=== PATIENT | female | born 1935 | race Caucasian/White ===

== ENCOUNTER → 2024-02-19 11:27 | Outpatient (REF) | payer OTHER, SELFPAY | LOC: HWRAD 11:27 | PROVIDERS: ATTENDING PHYSICIAN Physician Assistant Medical | DX: R05.1 Acute cough (principal) | CPT/HCPCS: 71046 ==

== ENCOUNTER → 2024-04-17 10:07 | Outpatient (REF) | payer OTHER, SELFPAY | LOC: HWRAD 10:07 | PROVIDERS: ATTENDING PHYSICIAN Internal Medicine Cardiovascular Disease; FAMILY PHYSICIAN Family Medicine | DX: I48.0 Paroxysmal atrial fibrillation (principal); Z79.899 Other long term (current) drug therapy | CPT/HCPCS: 71046 ==

== ENCOUNTER → 2024-05-27 09:18 | Outpatient (REF) | payer OTHER, SELFPAY | LOC: HWRCS 09:18 | PROVIDERS: ATTENDING PHYSICIAN Internal Medicine Cardiovascular Disease; FAMILY PHYSICIAN Family Medicine | DX: I35.0 Nonrheumatic aortic (valve) stenosis (principal); I35.1 Nonrheumatic aortic (valve) insufficiency; I10 Essential (primary) hypertension | CPT/HCPCS: 93306 ==

== ENCOUNTER → 2024-10-22 09:14 | Outpatient (REF) | payer OTHER, SELFPAY | LOC: HWRAD 09:14 | PROVIDERS: ATTENDING PHYSICIAN Internal Medicine Cardiovascular Disease; FAMILY PHYSICIAN Family Medicine | DX: Z79.899 Other long term (current) drug therapy (principal) | CPT/HCPCS: 71046 ==

== ENCOUNTER 2025-07-23 18:48 | Inpatient (IN) | payer OTHER, SELFPAY ==
[2025-07-23] VITALS (41 sets, daily range): BP systolic 101–172; BP diastolic 24–122; BMI 23.9
--- NOTE | 2025-07-23 14:55 | ED.GENMED ---
History of Present Illness
General
Chief Complaint: Heart Rate Problem
Time Seen by Provider: 07/23/25 14:30
History of Present Illness
History of Present Illness:
89-year-old female history of CHF, hypertension, atrial fibrillation on amiodarone and Eliquis presenting with generalized fatigue and feeling 'like my heart is flip-flopping' for the past few days. Patient denies chest pain, shortness of breath,
cough, fever or chills. Patient states she has been taking all medications as prescribed, last took amiodarone this morning. No recent medication changes.
Past History
Past History
ED Past Medical History: Arrthythmia (Atrial fibrillation), CAD, CHF, Hypercholesterolemia and Hypothyroidism
ED Past Surgical History: Cardiac (Ablation), Gynecological, Orthopedic, Tonsilectomy and Other (Review past surgical history and agree)
Social History
Tobacco: Former smoker
Personal:
Living: with family
Employment: Retired
Phy Exam
Physical Exam
Physical Exam:
General: Alert, no acute distress
Head: NCAT
Eyes: clear conjunctiva
Neck: supple
Cardiac: Bradycardic
Lungs: clear to auscultation bilaterally. No wheezes, rales, or rhonchi. Speaking full unlabored sentences. No respiratory distress.
Abdomen: soft, nondistended nontender. No rebound or guarding.
MSK: no lower extremity edema bilaterally. No deformity
Skin: warm, dry
Neuro: Alert and oriented x3. no focal deficits
Course
Orders/Labs/Results
Orders:
Orders
07/23/25 14:17
EKG [Electrocardiogram (*1)] Urgent
Reason for Study: Atrial Fibrillation
EKG- Treatment ONCE
07/23/25 14:30
Cardiac Monitoring- Treatment ONCE
IV Insert/Care/Rem.- Treatment PRN
07/23/25 14:42
Complete Blood Count/With Diff Urgent
Comprehensive Metabolic Panel Urgent
Lyme Progressive Urgent
Comment: ADD ON
TSH Urgent
07/23/25 14:51
Magnesium Urgent
07/23/25 14:52
Protime/PTT Urgent
07/23/25 15:20
NT-proBNP Urgent
Comment: ADD ON
Troponin I Urgent
07/23/25 15:51
Echo 2D MMode Color/Doppler Urgent
Reason for Study: heart block, LBBB, CAD
Cardiology Consult: Sandro Norton
07/23/25 16:17
Add On- LAB Urgent
Tests Added?: pro-BNP
CR Chest Portable - 1 View Urgent
Comment:
Reason For Exam: CHF
Reason Study Needs to be Portable: Patient Unstable
07/23/25 16:54
Add On- LAB Stat
Tests Added?: TSH, lyme titer
07/23/25 18:09
Admit/Transfer Patient As Directed
Co-Sign Provider:
Level of Care: Inpatient admission
Assign to:: IVU
Physician / Group: Hospitalist
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
Patient Condition: Fair
Reason for Hospitalization: 2nd degree heart block type II
Expected length of stay greater than two midnights?: Yes
ELOS- Estimated Length of Stay in days: 3
I certify the patient meets the requirements for IP care: Yes
07/23/25 18:10
PRN Pain Medication Management As Directed
May give lesser potent ordered pain med per pt: Yes
preference::
Protocol:: Medication orders for pain may be administered in a
manner that supports deferring to patient preference
when the pt is:
- Requesting an ordered lesser potent pain medication.
Least to most potent pain medications are defined
as: acetaminophen < NSAID < tramadol < opioids
(morphine, oxycodone, hydromorphone).
- Requesting a lesser dose of the same medication IF
ORDERED.
- Requesting a less intrusive route of administration
if both routes are prescribed by the provider (PO <
IV).
07/23/25 18:13
Code Status As Directed
Resuscitation Status: Full Code
Abnormal Lab Results
07/23/25 07/23/25 07/23/25
14:42 14:51 14:52
RBC 3.50 L 10^6/uL
(4.20-5.40)
Hgb 10.9 L g/dL
(12.0-16.0)
Hct 32.1 L %
(37.0-47.0)
MCH 31.1 H pg
(27.0-31.0)
RDW 16.2 H %
(11.5-14.5)
MPV 11.6 H fL
(7.4-10.4)
Abs Immat Gran (auto) 0.1 H 10^3/uL
(0-0.05)
Absolute Lymphs (auto) 0.7 L 10^3/uL
(1.2-3.4)
Absolute Monos (auto) 1.2 H 10^3/uL
(0.1-0.6)
Immature Gran % 0.7 H %
(0-0.5)
Lymphocytes % 10.0 L %
(20.5-51.1)
Monocytes % 17.2 H %
(1.7-9.3)
PT 37.7 H Sec
(11.4-14.6)
APTT 56.6 H Sec
(23.4-35.0)
Sodium 128 L mmol/L
(135-145)
BUN 46 H mg/dl
(7-17)
Creatinine 1.8 H mg/dL
(0.6-1.0)
Glucose 122 H mg/dl
(70-99)
Magnesium 2.4 H mg/dl
(1.6-2.3)
Total Bilirubin 1.6 H mg/dl
(0.2-1.3)
AST 95 H U/L
(14-36)
ALT 96 H U/L
(0-35)
Troponin I
07/23/25
15:20
RBC
Hgb
Hct
MCH
RDW
MPV
Abs Immat Gran (auto)
Absolute Lymphs (auto)
Absolute Monos (auto)
Immature Gran %
Lymphocytes %
Monocytes %
PT
APTT
Sodium
BUN
Creatinine
Glucose
Magnesium
Total Bilirubin
AST
ALT
Troponin I 0.059 H* ng/ml
07/23/25 14:42
07/23/25 14:42
Vital Signs
Initial and Last Documented VS:
Initial Vital Signs
Temp Pulse Resp Pulse Ox
98.3 F 66 16 98
07/23/25 14:18 07/23/25 14:18 07/23/25 14:18 07/23/25 14:18
Last Documented Vital Signs
Temp Pulse Resp BP Pulse Ox
98.3 F 28 18 133/107 86
07/23/25 14:18 07/23/25 19:50 07/23/25 18:00 07/23/25 19:50 07/23/25 19:50
MDM/Problems Addressed
MDM/Problems Addressed:
Initial EKG shows second degree heart block type ii at 53bpm with, PVC. air sampling and monitoring shows episodes of persistent second degree type II heart block at 33bpm. BP 165/40, mentating well. Sent labs, placed pacer pads, discussed with cardiology
Patient seen and evaluated by Tory and Dr. Arauz, cardiology, at bedside. Will get STAT echo, plan for cardiac catheterization tomorrow with pacemaker placement Monday. Discussed with hospitalist for admission.
Labs reviewed, concerning for elevated troponin at 0.059. Creatinine elevated at 1.8 (baseline 0.6, consistent with BECKA)
*Pulse Oximetry
SaO2: 98
Oxygen Mode of Delivery: Room air
Patient hypoxic: no
*EKG
Interpreted by ED Provider?: Yes (EKG shows 2nd degree type II heart block at 53bpm with QTc 495 no stemi)
*Critical Care Note
Total Time (30-74mins, 75-104mins- exclusive of procedures): critical care time 32 min
Update Note
Update Note:
On reevaluation, HR decreased to 20s, patient reporting chest pain and BP nondetectable. Pt still mentating, responsive answering questions appropriately. Repeat EKG concerning for third degree heart block at 25bpm, no STEMI. Gave atropine 1mg IV
with no improvement. Started on dopamine infusion with improvement of blood pressure. Discussed with Dr. Javier, interventional cardiology, who evaluated patient at bedside, recommended norepi infusion, will take patient to blender laborer for temporary
pacer. If BP decreases or patient not mentating, will start transcutaneous pacing. Discussed with patient and at bedside who are agreeable.
ED Attending Note
-
Portions of this chart may have been created with voice recognition software.� Occasional wrong word or��sound alike� substitutions may have occurred due to the inherent limitations of voice recognition software.
Discharge Plan
Departure
Patient Disposition: Admit
Date of Disposition: 07/23/25
Time of Disposition: 16:48
Presentation/result/management discussed w/ accepting MD/DO: Hospitalist
Discharge Problem:
Bradycardia
Interventions
Interventions:
*Risk Screen - Suicide Last Done: 07/23/25 14:19
*General Assessment Last Done: 07/23/25 18:25
*Neglect/Abuse Screening Last Done: 07/23/25 19:08
*ED- Fall Risk Assessment Last Done: 07/23/25 15:42
*ED COVID-19 Vaccine History Last Done: 07/23/25 18:25
ED- Cardiac Assessment Last Done: 07/23/25 16:00
ED- Pulmonary Assessment Last Done: 07/23/25 16:00
[2025-07-23 14:56] LABS: Hematocrit 32.1 % (37.0-47.0); Hemoglobin 10.9 g/dL (12.0-16.0); Mean Corp Hgb Conc. 34.0 g/dL (33.0-37.0); Mean Corpuscular Volume 91.7 fL (81.0-99.0); Nucleated Red Blood Cells % 0 %; Platelet Count 240 10^3/uL (130-400); Red Cell Dist. Width 16.2 % (11.5-14.5)
[2025-07-23 15:11] LABS: INR 3.81; PT 37.7 Sec (11.4-14.6)
[2025-07-23 15:12] LABS: APTT 56.6 Sec (23.4-35.0)
[2025-07-23 15:19] LABS: ALT (SGPT) 96 U/L (0-35); AST (SGOT) 95 U/L (14-36); Albumin 3.9 g/dl (3.5-5.0); Alkaline Phosphatase 101 U/L (38-126); Blood Urea Nitrogen 46 mg/dl (7-17); Calcium 8.5 mg/dl (8.4-10.2); Carbon Dioxide 24 mmol/L (22-30); Chloride 98 mmol/L (98-107); Estimated Creatinine Clearance 19 ml/min; Glucose 122 mg/dl (70-99); Potassium 4.7 mmol/L (3.5-5.1); Sodium 128 mmol/L (135-145); Total Protein 6.6 g/dl (6.3-8.2); eGFR 26.77
[2025-07-23 15:30] LABS: Magnesium 2.4 mg/dl (1.6-2.3)
--- NOTE | 2025-07-23 15:33 | CON.CAR ---
Addendum entered and electronically signed by Stevie Norton DO 07/23/25 16:54:
I saw and examined the patient.
The High School Math Teacher's note was reviewed and I agree with the note.
Comment:
Patient presenting with 3 to 4-week symptoms including decreased appetite, weakness, vague chest/back discomfort, increasing fatigue, abdominal distention, productive cough, mild lower extremity swelling. She notes symptoms have worsened over the
past several days. Patient reports a fall roughly 10 days ago. In the emergency department, no active chest discomfort but still noted shortness of breath, fatigue, abdominal distention, cough, lower extremity swelling. EKG in the emergency
department demonstrates sinus bradycardia with 2-1 AV block PVCs and a new left bundle branch block. Patient's prior EKG noted by office visit March 2025 shows sinus rhythm with incomplete right bundle branch block with LAFB. Patient chronically on
amiodarone for paroxysmal atrial fibrillation. Patient had this medication this morning along with oral anticoagulation. Initial troponin elevated at 0.059. Sodium is low at 128 BUN/creatinine 46/1.8. Patient blood pressure stable/hypertensive.
Telemetry shows sinus bradycardia with 2: 1 AV block with left bundle branch block.
A/P as below
Echocardiography today with patient be n.p.o. after midnight pending left heart catheterization in a.m. in the setting of new left bundle branch block, elevated troponin, and vague discomfort. If no evidence of new obstructive coronary disease,
will recommend implantation of CIED (choice and type pending LVEF). For now, hold AV kahlil blocking agents and amiodarone. Pacer pads on patient with ZOLL device at bedside. Patient is hemodynamically stable at this current time.
Monitor intake and output, weight, assess fluid status via chest x-ray and BNP. As above, she is experiencing increasing shortness of breath, cough and swelling
Further recommendations to follow test
Addendum entered and electronically signed by Tory White PA-C 07/23/25 16:31:
Check pro-BNP and CXR, ordered by me. Patient with increased SOB. Patient reports compliance with her usual dose of Lasix 20 mg PO daily.
Original Note:
Consultation
Consultation Request
Date/Time Consultation Requested: 07/23/2025
Date/Time Consultation Performed: 07/23/2025
Requesting Provider: Dr. Lunsford in the ER
Performing Provider: Dr. Norton
Reason for Consultation: 2:1 AV block, new LBBB
Medical History
-
History of Present Illness:
Patient came to the hospital today for acute on chronic weakness and is being admitted with 2-1 AV block and cardiology is consulted. Patient and report that she has felt intermittently unwell for the last 3 to 4 weeks. They describe that
at times she is almost bedridden with fatigue and weakness and had a fall about 10 days ago. Then other times she has more energy and is able to eat and drink close to normal, but for the most part has not left her house in the last 3 to 4 weeks.
Patient seemed to be feeling better for the last 2 days and thought she may have turned a corner, and then today she stood up and suddenly felt profoundly weak, but no loss of consciousness and so her brought her to the emergency room. ECG
looks like 2-1 AV block and new LBBB. Patient has a history of paroxysmal A-fib and is chronically on amiodarone 200 mg daily. Patient took her usual dose of amiodarone plus Eliquis this morning.
PMH:
Paroxysmal
Chronic Eliquis OAC
CAD s/p prox LAD PCI 2014
widely patent LAD stent by cath 03/29/22
Hypothyroidism
Moderate MS and trace MR by echo 05/27/24
Mild AR/
History of Follicular lymphoma
Rituxan infusion
Past Medical History
Past Medical History: Other (In HPI)
Past Surgical History: Cardiac (LAD PCI 2014, widely patent by cardiac cath 2021)
Social History
Tobacco: Former Smoker
Alcohol: None
Drug: None
Personal:
Living: With Family
Family History
Family History: CAD, Cancer, Hypertension and Other (PE)
Allergies / Home Medications
Allergy/AdvReac Type Severity Reaction Status Date / Time
tramadol AdvReac Mild Unknown Verified 03/09/23 06:32
�Medication �Instructions �Recorded �Confirmed �Type
atorvastatin 20 mg tablet 20 mg PO QPM High cholesterol 04/20/15 06/20/23 History
levothyroxine 50 mcg tablet 50 mcg PO DAILY AT 0700 Thyroid 04/20/15 06/20/23 History
doxazosin 1 mg tablet 1 mg PO HS Blood pressure 03/18/22 06/20/23 History
metoprolol succinate 50 mg 50 mg PO HS Blood pressure 03/07/23 06/20/23 History
tablet,extended release 24 hr
(Toprol XL)
apixaban 5 mg tablet (Eliquis) 5 mg PO BID #60 tabs 03/09/23 06/20/23 Rx
amiodarone 200 mg tablet 200 mg PO BID 06/20/23 06/20/23 History
furosemide 20 mg tablet 20 mg PO DAILY 06/20/23 06/20/23 History
valsartan 40 mg tablet 40 mg PO DAILY 06/20/23 06/20/23 History
albuterol sulfate 90 mcg/actuation 1 puff inhalation Q4HPRN PRN 10/06/23 Rx
aerosol inhaler (ProAir HFA) cough/shortness of breath #8.5
grams
Review of Systems
-
History Source: Patient and Family ( sitting bedside and helping with HPI)
All other systems: Negative unless noted
Physical Exam
Vital Signs
Temp Pulse Resp BP Pulse Ox
98.3 F 66 16 147/71 98
07/23/25 14:18 07/23/25 14:18 07/23/25 14:18 07/23/25 14:19 07/23/25 14:59
GEN: NAD. AAO x3
HEENT: EOMI, MMM
LUNGS: RA. CTA B/L, no wheeze
CV: 2:1 AV block on tele. Reg, S1/S2, 2/6 BSM
ABD: ND
EXT: No edema B/L LE
NEURO: Gross non-focal
SKIN: No rash
Lab Results
07/23/25 14:42
07/23/25 14:42
Impression / Plan
-
PCP: Dr. Morales
Cardiology: Dr. MAGDA Cabrera
Impression:
Admitted with new 2:1 AV block, LBBB and BECKA 07/23/25
2:1 AV block and LBBB
BECKA
Elevated Troponin
Paroxysmal Afib with RVR
Chronic Eliquis OAC
CAD s/p prox LAD PCI 2014
widely patent LAD stent by cath 03/29/22
Hypothyroidism
Moderate MS and trace MR by echo 05/27/24
Mild AR/
History of Follicular lymphoma
Rituxan infusion
Lexiscan mibi 03/04/19: Completed 4:10 min Chandan protocol reaching 87% MPHR, normal perfusion imaging
Echo 05/2021: EF 60-65%, severe LA enlargement, mild MS (20/8) mild (21/11) ANGELINA 1.7cm2
Echo 03/28/22: EF 68%, stage II diastolic dysfunction, mild to mod MS peak/mean 15/8 mmHg and pressure halftime 1.7 cm sq, mild MR, mild with peak/mean 26/14 mmHg and ANGELINA 2.0 cm sq
Echo 05/27/2024: EF 55 to 60%, normal RV size and function, moderate MS with mean transmitral gradient 8 mmHg, trace MR, mild peak/mean 29/16 mmHg and ANGELINA 1.5 cm sq
Plan:
-Patient came to the hospital today for acute on chronic weakness and is being admitted with 2-1 AV block and cardiology is consulted. Patient and report that she has felt intermittently unwell for the last 3 to 4 weeks. They describe that
at times she is almost bedridden with fatigue and weakness and had a fall about 10 days ago. Then other times she has more energy and is able to eat and drink close to normal, but for the most part has not left her house in the last 3 to 4 weeks.
Patient seemed to be feeling better for the last 2 days and thought she may have turned a corner, and then today she stood up and suddenly felt profoundly weak, but no loss of consciousness and so her brought her to the emergency room. ECG
looks like 2-1 AV block and new LBBB. Patient has a history of paroxysmal A-fib and is chronically on amiodarone 200 mg daily. Patient took her usual dose of amiodarone plus Eliquis this morning.
-ECG reviewed by me and appears to show 2-1 AV block with new LBBB.
-Patient has new rhythm changes on ECG including LBBB and 221 AV block, this EKG is markedly different from the one that she had at time of office visit 03/25/2025. Patient denies any recent chest pain. Initial troponin is elevated at 0.059.
Talked with patient and about ischemic evaluation and they are agreeable to cardiac cath.
-Eliquis dose should be held starting 07/23/2025 PM.
-Start aspirin with 324 mg PO x 1 now and then 81 mg daily, ordered by me.
-Patient denies any chest pain
-Check echo, ordered by me and coordinated with echo lab staff that they should be able to do patient's echo by the end of the day.
-Trend troponin
-Pending results of cardiac cath patient may also require PPM placement. Patient and would like aggressive care and would want to proceed with PPM if indicated.
-For now would recommend holding amiodarone
-Patient with BECKA and Cre is 1.8. Follow BMP, this could be due to rhythm changes
[2025-07-23 15:49] LABS: TSH 4.60 uIU/ml (0.47-4.68)
[2025-07-23 15:55] LABS: Troponin I 0.059 ng/ml
--- NOTE | 2025-07-23 17:42 | HPS.HSE ---
Addendum entered and electronically signed by Lanre Jose MD 07/24/25 12:55:
Bradycardia with second-degree heart block
Precipitating dizziness
Keep atropine at bedside
Keep pacer pads on
Hold AV kahlil blocking agents
Monitor on telemetry
2D echocardiogram
LHC tomorrow
Eventually will need PPM
If becomes unstable provide atropine consider dopamine and may require TV pacing versus TC pacing
Original Note:
Family Physician
-
Family Physician: Glen Morales
Chief Complaint
-
Intermittent dizzy spells, weakness in legs with standing
History of Present Illness
Patient is an 89-year-old female with a history of CHF, hypertension, A-fib (on eliquis & amiodarone), CAD s/p stent who p/w complaints of feeling intermittently dizzy/lightheaded and with bilateral LE weakness leading to fall a few days ago at
home.
Pt denies any chest pain or shortness of breath. Denies any recent illness or fever/chills at home. Denies any missed doses of home meds or recent med changes. On amiodarone, eliquis, lasix, valsartan, & atorvastatin. Notes that she did recently
skip a dose of lasix intentionally because she was going out of the house (okayed by department assistant Dr. Cabrera). States that she does have a chronic cough at baseline the last 1-2 yrs with light white sputum; says it seemed to be a bit worse
the last week or so. Had a fall at home last week in s/o her LE weakness & lightheadedness episodes. Denies hitting head. Took her am meds today but not pm meds. Former smoker, not currently. at bedside. Was feeling this intermittent
weakness/dizziness for last 3-4 weeks, thought it had improved, today had particularly bad episode that brought her into the ED.
EKG in ED demonstrated 2nd degree AV block, type II, along with new LBBB (different from last EKG 03/25/2025). HR 53bpm with PVC. organic preparation analyst in ED demonstrated dips to 33bpm. BP elevated to 165/40. Troponin elevated to 0.059. Na low at 128.
BUN/Cr ratio 46/1.8. Cardiology consulted in ED, performed echo. CXR in ED. Given 324mg aspirin in ED. Admitting to IVU.
Echo (07/23):
1. Left ventricular ejection fraction is normal with an ejection fraction of 65 % by Sifuentes's biplane method of discs.
2. Normal left ventricular size, wall thickness and systolic function. No regional wall motion abnormalities are seen.
3. Calcified, trileaflet aortic valve with decreased leaflet excursion. Moderate aortic stenosis. Peak and mean gradients of 48 and 25 nmmHg, respectively. Estimated ANGELINA is 1.4 cm2, using an left ventricular outflow tract of 1.8 cm.
4. Tricuspid aortic valve opens normally with mild tricuspid regurgitation. Estimated PASP is 70 mmHg. assuming a right atrial pressure of 8 mmHg.
5. Calcified mitral valve leaflets with dense mitral annular calcification and decreased leaflet excursion. Moderate mitral stenosis. Peak and mean gradients of 25 and 13 mmHg, respectively. Mild mitral regurgitation.
6. Indexed left atrial volume is severely abnormal (>48 ml/m2).
CXR (07/23):
Overall low lung volumes.
Slightly increased pulmonary vascularity which could represent mild CHF.
Medical History
Past Medical History
Past Medical History: Reports Arrhythmia (paroxysmal afib ), CAD (Status post stent in 2014), Cancer (Follicular cancer), CHF, Hypercholesterolemia and Hypothyroidism
Past Surgical History: Reports Cardiac (Stent, ablation), Gynocological, Orthopedic and Tonsilectomy
Social History
Tobacco: Former Smoker
Personal:
Living: With Family (Lives at home with )
Family History
Family History: Not pertinent
Allergies / Home Medications
Allergies reflects when Allergies were last updated in [facility].
Home Medications with original date entered in [facility]
Allergy/Medication List:
Tramadol
Review of Systems
-
History Source: Patient and Family
Constitutional: Reports See HPI
Respiratory: Reports See HPI
Cardiac: Reports See HPI
Musculoskeletal: Reports See HPI
Skin: Reports See HPI
Neurological: Reports See HPI
Psych: Reports Calm
Physical Exam
Vital Signs
Vital Signs
Temp Pulse Resp BP Pulse Ox
98.3 F 43 12 162/50 97
07/23/25 14:18 07/23/25 17:30 07/23/25 17:15 07/23/25 17:15 07/23/25 17:30
Physical Exam
General: Well Developed, Well Nourished, Comfortable and Conversant
Respiratory: Clear (Clear to auscultation bilaterally), Non Labored Respirations and Other (O2 nasal cannula in place)
Cardiac: Irregular Rhythm and Bradycardia
GI: Soft, Non Tender and Non Distended
Musculoskeletal: Other (Bilateral lower extremity edema, with 1+ pitting to mid giraldo; right more than left)
Skin: Warm and Dry
Neuro: Awake, Alert and Oriented
Psych: Calm
Laboratory Results
-
07/23/25 14:42
07/23/25 14:42
Laboratory Results
PT 37.7 Sec (11.4-14.6) H 07/23/25 14:52
INR 3.81 07/23/25 14:52
APTT 56.6 Sec (23.4-35.0) H 07/23/25 14:52
Total Bilirubin 1.6 mg/dl (0.2-1.3) H 07/23/25 14:42
AST 95 U/L (14-36) H 07/23/25 14:42
ALT 96 U/L (0-35) H 07/23/25 14:42
Alkaline Phosphatase 101 U/L (38-126) 07/23/25 14:42
Troponin I 0.059 ng/ml H* 07/23/25 15:20
Data Reviewed
-
Critical Care Time (in minutes): 45
Medical Tests (Nuc Med, Echo, EKG etc): Report Reviewed by me
Lab Data: Labs Reviewed by me
Impression/Plan
-
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
now pending [facility].
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
#LBBB
Pt hemodynamically stable on admission. Holding on atropine for now, no need for transcutaneous pacing at this point in time; continuing to monitor. Echo done 07/23 pending.
- Pending echo results
- Plan for L heart cath in am
- Hold eliquis & amiodarone pending [facility]
- NPO at midnight for [facility]
- If no evidence of new obstructive dz, plan for implantation of CIED pacemaker device
- If patient HR<20 & hemodynamically unstable, deliver atropine 1mg IV q3-5 mins PRN up to 3mg max
- Keep transcutaneous pacer pads at bedside
- Start aspirin 81 mg daily (ordered by cards team)
#Elevated troponin
Likely in s/o demand ischemia due to AV block & potential mild CHF exacerbation. Trop: 0.059 on admission 07/23.
- Continue to trend q8hr, monitor for peak
#HFpEF (EF 65%), mild exacerbation
#Moderate MS, mild MR, moderate
Last echo 05/27/24 prior to admission. Pt with dx of HF, on lasix at home. With bilateral PARVEEN on exam, 1+ pitting bilaterally to mid-giraldo. Per , usually only R foot has edema. CXR (07/23):Slightly increased pulmonary vascularity which could
represent mild CHF. Echo 07/23/25 demonstrating EF 65%, severely abnormal L atrial volume (>48ml/m2), moderate MS & . Potentially experiencing mild acute on chronic HFpEF exacerbation in s/o arrhythmia, new LBBB.
- Continue home furosemide 20mg PO daily
- Continue valsartan 40mg qpm & 80mg daily PO
- BNP pending
- Pending echo
- Wean off O2 NC as tolerated, with O2 sat >90%
#HTN
Likely elevated in s/o cardiac arrhythmia, stress, & HF.
- Continue valsartan as above
- Monitor BP
#BECKA
Cr elevated to 1.8. Likely in s/o arrhythmia and changing perfusion. Will continue to monitor. Last documented Cr from 2022 0.6-0.7.
- Follow BMP
#Chronic
- Afib - eliquis & amiodarone (holding for now in advance of [facility])
- CAD s/p LAD PCI 2014 - continue statin
- HLD - continue statin
- Hypothyroidism - continue levothyroxine
#Global
- DVT ppx: SCDs (while holding eliquis)
- Diet: NPO at midnight
- Code: full
- Dispo: to home (lives with ), pending pacemaker placement inpt
[2025-07-23] MEDS: ATROPINE 0.1 MG/ML SYRINGE 1 MG IV (19:07)
[2025-07-23] MEDS: DOPamine 400 MG 250 IV (19:15)
[2025-07-23] MEDS: ZOFRAN 4 MG IV (19:34)
[2025-07-23] MEDS: LEVOPHED 250 IV (19:40)
[2025-07-23 19:44] LABS: Troponin I 0.057 ng/ml
--- NOTE | 2025-07-23 22:14 | ITS.CL.PN ---
Software Application Tester - Procedure Note
Procedure
Procedure Note:
Temporary Pacemaker Insertion
Date: 07/23/2025
Referring: Pepe Keenan M.D.
Indication: Complete heart block with associated hypotension.
Access:
6 Maltese right internal jugular vein using a micropuncture kit under ultrasound guidance via a modified Seldinger technique.
Pacemaker Information:
Position: Right ventricular apex.
Current (mA): 20
Rate (bpm): 80
Procedure:
The patient's right neck and inguinal areas were prepped and draped and standard sterile fashion. The right neck was anesthetized with 1% lidocaine. The internal jugular vein was punctured with a micropuncture needle under ultrasound guidance
using a modified Seldinger technique. Fluoroscopy confirmed satisfactory sheath position. The site was serially dilated and a 6 Maltese Arrow sheath was inserted then sutured in place. A temporary pacemaker wire was covered with a sterile cover,
then inserted through the 6 Maltese sheath. The tip of the pacemaker was advanced into the apex of the right ventricle. The pacemaker was turned on at 100 bpm at 20 mA. The current was serially decreased showing good capture at 1 mA. The current
was increased to 20 mA and the rate decreased to VVI 80 bpm. The sterile cover was secured and the sheath was covered with two opposing tegaderm dressings. A third tegaderm secured the body of the temporary pacemaker just below the right clavicle.
The patient was transferred to IVU in stable condition.
Radiation (mGy): 11.47
Dose Area Product (Gy*cm2): 1.7649
Fluoroscopy Time (minutes): 0.9
Conclusions:
1. Successful placement of a temporoary pacemaker via right internal jugular approach without acute complications.
Recommendations:
1. Minimal manipulation of the right IJ temp wire to avoid potential dislodgement.
2. N.p.o. after midnight for possible cardiac catheterization and permanent pacemaker placement.
Copy to: Rose Marie Cabrera M.D., Glen Morales D.O.
--- NOTE | 2025-07-23 22:30 | PTCARENOTE ---
Patient received from supervisor laboratory animal facility, drowsy but oriented x3. [place]. RIJ temp pacing wire VVI 80 MA 20, blood pressure as documented. Palpable pulses throughout, trace bilateral ankle edema. Lungs clear, pulse ox 97% on 5L. Abdomen soft, with
hypoactive bowel sounds. Right lower extremity with bruising noted. Levophed gtt off. #20 g in RAC, #20 g in right hand both flushed and patent. #18 g in LAC with Dopamine gtt infusing at 15 mcg/kg/min. CHG bath given, call virk within reach.
family at bedside updated on plan of care.
[2025-07-23] MEDS: NSS 500 IV (23:18)
[2025-07-24] VITALS (39 sets, daily range): BP systolic 80–160; BP diastolic 32–101; PULSE 66–80; BMI 23.6
[2025-07-24 00:17] LABS: Troponin I 0.134 ng/ml
--- NOTE | 2025-07-24 01:00 | PTCARENOTE ---
report received from previous RN, walking rounds done. pt drowsy but oriented x4. RIJ temp pacing wire in placeset to VVI 80, MA 20. Dopamine gtt infusing @ 12mcg/kg/min. SBP 110s-140s. +peripheral pulses, trace bilateral ankle edema. bilateral
breath sounds present, POX 97% on 5LNC. Abd soft, nontender with hypoactive bowel sounds. pt has not voided. bladder scan shows 200cc. PIV x3 intact and patent. see worklist for full assessment, VS, and interventions.
[2025-07-24] MEDS: ZOFRAN 4 MG IV (05:30)
[2025-07-24 05:37] LABS: Hematocrit 28.9 % (37.0-47.0); Hemoglobin 10.2 g/dL (12.0-16.0); Mean Corp Hgb Conc. 35.3 g/dL (33.0-37.0); Mean Corpuscular Volume 91.2 fL (81.0-99.0); Nucleated Red Blood Cells % 0 %; Platelet Count 218 10^3/uL (130-400); Red Cell Dist. Width 15.9 % (11.5-14.5)
--- NOTE | 2025-07-24 05:55 | W.PN.UPDATE ---
Update Note
Progress Note Update
~ 19:00 Pt seen in ED, became significantly bradycardic, with HR in the 10's. Pt became severely hypotensive, lethargic, pale, nauseous. Additional IV's placed. Pacer pads on, in case need for external pacing.
Patient was given atropine 1 mg IV (19:05) with no improvement. Cardiology on-call, Dr. Keenan called, started on Dopamine gtt (19:15)�with only slight improvement. Pt evaluated by Dr. Javier, started on Norepinephrine gtt (19:30) with
improvement.�Plan to go for emergent placement of temporary pacemaker via right IJ.
--- NOTE | 2025-07-24 06:00 | PTCARENOTE ---
pt coughing up bright red mucous, Dr. Javier aware - no new orders. V.paced @ 80. Dopamine gtt infusing @ 8mcg. POX 96% on 2LNC. pt unable to void. straight cath performed, 400cc of UOP.
[2025-07-24 06:19] LABS: Troponin I 0.351 ng/ml
[2025-07-24 06:26] LABS: ALT (SGPT) 126 U/L (0-35); AST (SGOT) 161 U/L (14-36); Albumin 3.5 g/dl (3.5-5.0); Alkaline Phosphatase 95 U/L (38-126); Blood Urea Nitrogen 43 mg/dl (7-17); Calcium 7.7 mg/dl (8.4-10.2); Carbon Dioxide 24 mmol/L (22-30); Chloride 100 mmol/L (98-107); Estimated Creatinine Clearance 18 ml/min; Glucose 127 mg/dl (70-99); Magnesium 2.2 mg/dl (1.6-2.3); Potassium 4.3 mmol/L (3.5-5.1); Sodium 130 mmol/L (135-145); Total Protein 6.1 g/dl (6.3-8.2); eGFR 25.08
--- NOTE | 2025-07-24 06:53 | W.PN.HOSP.TC ---
Addendum entered and electronically signed by Cindy Gomez MD, Resident 07/25/25 13:19:
CDI: the following event & treatment: ' Patient overnight to 07/23 became bradycardic with heart rate in the 10s, severe hypotension, lethargic, pale, nauseous; patient given 1 mg IV atropine, dopamine gtt., norepinephrine gtt. emergent temporary
pacemaker was placed via right IJ overnight 07/23.' likely 2/2 cardiogenic shock in the s/o unstable 2nd degree AV block type II.
Addendum entered and electronically signed by Lanre Jose MD 07/24/25 13:10:
Symptomatic bradycardia with second-degree AV block
Overnight required dopamine atropine and TVP placement
For LHC and PPM
Dopamine weaned off however hypotensive
Cardiology plans to repeat 2D echo gram prior to LHC to assess for pericardial effusion and pacer wire placement
BECKA versus progressive CKD. Previous creatinine from 2022 with a creatinine of less than 1.
Could be related to bradycardia hypotension precipitating ischemic ATN.
Can check urine studies
Renal bladder ultrasound
LHC dependent on cardiology
Elevated troponin likely secondary to type II demand ischemia.
Trend troponins out
2D echocardiogram
LHC
Toxic metabolic encephalopathy
Likely related to blood pressure
If if noticed focal neurological deficits will obtain brain MRI and neurology consult
Check TSH B12 folate
Original Note:
Today's Communication/Plan
-
- Cardiology following, appreciate recs
- Planning for cardiac catheterization later this week
- Potential permanent pacemaker placement to follow
- Monitor hypotension, follow-up ultrasound to evaluate for pericardial tamponade
- speech eval for aspiration risk with AMS
- Continue holding home Lasix and valsartan and amiodarone
Assessment / Plan
Assessment / Plan
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
now s/p temporary pacemaker, awaiting [facility] & permanent pacemaker.
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
#LBBB
#Hypotension, hemodynamic instability
Pt initially hemodynamically stable on admission. Patient overnight to 07/23 became bradycardic with heart rate in the 10s, severe hypotension, lethargic, pale, nauseous; patient given 1 mg IV atropine, dopamine gtt., norepinephrine gtt. emergent
temporary pacemaker was placed via right IJ overnight 07/23.
This morning (07/24), heart rate 60-80s, RR 26, 98% O2 on 2L NC. Levophed weaned off by this morning. blood pressure 80/35 with worsening dyspnea later this morning.
- Follow-up cardiac ultrasound to evaluate for pericardial effusion
- Plan for L heart cath later this week
- If no evidence of new obstructive vascular dz, plan for implantation of CIED pacemaker device
- Hold eliquis & amiodarone pending [facility]
- If patient HR<20 & hemodynamically unstable, deliver atropine 1mg IV q3-5 mins PRN up to 3mg max
- Keep transcutaneous pacer pads at bedside
- Start aspirin 81 mg daily
- Wean off dopamine today as tolerated
- Continue to monitor blood pressure
BECKA, recheck BMP at 1030 and if Cre improves then we will proceed with cardiac cath
Marivel and Simone on hold, but suspect acute HFpEF. Will need eventual diuresis
V-paced with temp wire in place and will need eventual PPM
Levophed weaned overnight and I have started weaning dopamine now
#Elevated troponin
Likely type II MT troponin elevation in the setting of demand ischemia due to her AV block and potential HFpEF exacerbation. However given her history of CAD requiring stent, there is also a possibility that troponin elevated due to arterial
obstruction type I MT. This will be elucidated with cardiac catheterization, when performed by cards.
Trop: 0.059 > 0.134 > 0.351
- Continue to trend q8hr, monitor for peak
-Continue management as above
#Confusion, AMS
Altered mental status on morning of 07/24, likely secondary to her hemodynamic instability and emergent temporary pacer placement overnight on 07/23, in addition to old age, likely underlying dementia, lack of sleep, lack of p.o. intake. Will
continue to monitor.
- Speech consult placed to eval for aspiration risk
- Continue to monitor
#HFpEF (EF 65%), mild exacerbation
#Moderate MS, mild MR, moderate
#Transaminitis
Last echo 05/27/24 prior to admission. Pt with dx of HF, on lasix at home. With bilateral PARVEEN on exam, 1+ pitting bilaterally to mid-giraldo. Per , usually only R foot has edema. CXR (07/23):Slightly increased pulmonary vascularity which could
represent mild CHF. Echo 07/23/25 demonstrating EF 65%, severely abnormal L atrial volume (>48ml/m2), moderate MS & . Potentially experiencing mild acute on chronic HFpEF exacerbation in s/o arrhythmia, new LBBB. BNP elevated 8020. Elevation in
AST and ALT on 07/24 likely in the setting of congestion and/or disrupted blood flow in the setting of her hemodynamic instability overnight and this current exacerbation of HFpEF.
- Holding home furosemide 20mg PO daily
- Holding valsartan 40mg qpm & 80mg daily PO
- Wean off O2 NC as tolerated, with O2 sat >90%
- Continue to monitor AST and ALT
#BECKA
Cr elevated to 1.8. Likely in s/o arrhythmia and changing perfusion. Will continue to monitor. Last documented Cr from 2022 0.6-0.7.
Cr: 1.8>1.9
- Follow BMP
- Hold home alendronate
- Hold home Lasix, valsartan
#Chronic
- Afib - eliquis & amiodarone (holding for now in advance of [facility])
- CAD s/p LAD PCI 2014 - continue statin
- HLD - continue statin
- Hypothyroidism - continue levothyroxine
#Global
- DVT ppx: SCDs (while holding eliquis)
- Diet: NPO at midnight
- Code: full
- Dispo: to home (lives with ), pending pacemaker placement inpt
Anticipated Discharge: > 48 hours
Subjective/Interval History
-
Date of Service: July 24, 2025
Patient confused this morning, daughter at bedside. Daughter states the patient has been hallucinating man in the room and speaking to individuals are not there. However, patient is also interacting with daughter and responding to external
stimuli. Patient denies any pain or shortness of breath. Looks somewhat confused.
Objective Data
-
Labs:
Laboratory Results
07/24/25
05:26
WBC 12.0 H
Hgb 10.2 L
Hct 28.9 L
Plt Count 218
Sodium 130 L
Potassium 4.3
Chloride 100
Carbon Dioxide 24
BUN 43 H
Creatinine 1.9 H
Glucose 127 H
Calcium 7.7 L
Total Bilirubin 1.6 H
AST 161 H
ALT 126 H
Alkaline Phosphatase 95
Vital Signs:
Vital Signs
Temp Pulse Resp BP Pulse Ox
98.8 F 68 26 133/48 98
07/24/25 03:00 07/24/25 06:00 07/24/25 06:00 07/24/25 06:00 07/24/25 06:00
I&O
07/22/25 07/23/25 07/24/25
06:59 06:59 06:59
Intake Total 192.0 / 192.0
Output Total 400 / 400
Balance -208.0 / -208.0
Review of Systems
-
Unable to obtain full review of systems at this time due to: Dementia and Acuity
History Source: Patient
Constitutional: Reports No Symptoms
Physical Exam
-
General: Well Developed, Well Nourished and Other (Not linearly conversant)
HEENT: Normocephalic, Atraumatic, Anicteric and Other (IJ site of temporary pacemaker placement clean, dry, nonerythematous)
Respiratory: Non Labored Respirations and Other (Nasal cannula in place)
Cardiac: Regular Rhythm
GI: Nondistended
Musculoskeletal: No Edema and Other (SCDs on)
Psych: Confused
Data Reviewed
-
Total Time Spent with Patient (in minutes): 15
Critical Care Time (in minutes): 60
Medical Tests (Nuc Med, Echo etc): Report Reviewed by me
Labs: Labs Reviewed by me
[2025-07-24] MEDS: SYNTHROID PO (06:54)
--- NOTE | 2025-07-24 08:00 | PTCARENOTE ---
Patient received from private duty rn RN; AAOx3, responds spontaneously to RN and follows commands; Confused at times, forgetful, and having visual hallucinations - MD Gomez notified and aware; VSS; V-paced on monitor; Transvenous temporary pacemaker
wire present in RIJ Cordis - temporary pacemaker settings VVI 80/20/0.8; +1 B/L LE edema; +2 radial and DP pulses present; Shallow respirations; Lungs diminished at bases; SpO2 95-100% on 2L NC; Occasional, productive cough with bloody, thick
sputum; Patient retaining urine - DTV following straight cath from prior RN; PIV x3 - #20 RAC, #18 LAC, and #20 left hand - dopamine infusing at 8 mcg/kg/min; RIJ Cordis with KVO infusing; See nursing documentation for further information
--- NOTE | 2025-07-24 08:11 | W.PN.CARDCBS ---
Addendum entered and electronically signed by Landon Chávez DO 07/24/25 10:27:
I saw and examined the patient.
The Custom Shoemaker's note was reviewed and I agree with the note.
Comment:
Plan:
HR and bp improved with temporary wire. Remains paced.
Echo with preserved EF
Trop trending up slowly at 0.3. Cont to trend.
Levophed has been weaned off and Dopamine being weaned. BP stable.
Plan is possible cath pending repeat cr and then follow tentatively with PPM placement.
Cont IV Heparin anticoagulation
Lasix held but may eventually require further diuresis. EF is preserved. Consider RHC to better assess volume status.
Discussed with daughter and at bedside
Discussed with nursing.
Original Note:
Today's Communication / Plan
-
BECKA, recheck BMP at 1030 and if Cre improves then we will proceed with cardiac cath
Lasix and Diovan on hold, but suspect acute HFpEF. Will need eventual diuresis
V-paced with temp wire in place and will need eventual PPM
Levophed weaned overnight and I have started weaning dopamine now
Impression / Plan
-
PCP: Dr. Morales
Cardiology: Dr. MAGDA Cabrera
Impression:
Admitted with new AV block, LBBB and BECKA 07/23/25
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
s/p temporary pacing wire placed in [employer] 07/23/2025
BECKA
Elevated Troponin
Acute HFpEF
Paroxysmal Afib with RVR
Chronic Eliquis OAC
CAD s/p prox LAD PCI 2014
widely patent LAD stent by cath 03/29/22
Hypothyroidism
Moderate MS and trace MR by echo 05/27/24
Mild AR/
History of Follicular lymphoma
Rituxan infusion
Lexiscan mibi 03/04/19: Completed 4:10 min Chandan protocol reaching 87% MPHR, normal perfusion imaging
Echo 05/2021: EF 60-65%, severe LA enlargement, mild MS (02/07) mild (03/10) ANGELINA 1.7cm2
Echo 03/28/22: EF 68%, stage II diastolic dysfunction, mild to mod MS peak/mean 15/8 mmHg and pressure halftime 1.7 cm sq, mild MR, mild with peak/mean 26/14 mmHg and ANGELINA 2.0 cm sq
Echo 05/27/2024: EF 55 to 60%, normal RV size and function, moderate MS with mean transmitral gradient 8 mmHg, trace MR, mild peak/mean 29/16 mmHg and ANGELINA 1.5 cm sq
Echo 07/23/25: EF 65%, no WMA, moderate peak/mean 48/25 mmHg and ANGELINA 1.4 cm sq, mild TR, moderate MS peak/mean 25/13 mmHg, mild MR
Plan:
-Patient admitted with 5:1 AV block 07/23/2025 and had clinical deterioration resulting in temporary wire being placed at night on 07/23/2025
-Overnight events reviewed, patient is now V-paced on my review of telemetry 07/24/2025
-Initial Troponin 0.059 and up to 0.351 on 07/24/25. Additional Troponin ordered for 07/24/25 afternoon
-Echo reviewed and EF stable without WMA
-Patient and family ( on 07/23/2025 and daughter daughter at bedside 07/24/2025) are agreeable to cardiac cath 07/24/2025
-Cre was up to 1.8 on admission and increased to 1.9 on 07/24/2025 labs reviewed by me. Baseline Cre was 1.26 on last known labs as an outpatient 10/2024. Recheck BMP at 1030 on 07/24/2025 and if improved we will proceed with cardiac cath
-Outpatient dose of Lasix 20 mg daily placed on hold due to BECKA 07/24/2025, orders placed by me
-Outpatient dose of valsartan 80 mg AM/40 mg p.m. daily placed on hold due to BECKA 07/24/2025, orders placed by me
-Last dose of Eliquis 5 mg BID was 07/23/2025 AM
-Aspirin 324 mg PO x 1 now and then 81 mg daily ordered by me
-Dopamine running at 8, dose ordered to be decreased to 7 mcg/kg/min by me 07/24/2025. Will continue to wean.
-proBNP 8020 and CXR suggests mild acute HFpEF. Hold off on diuresis while we await repeat BMP
HPI: Patient came to the hospital today for acute on chronic weakness and is being admitted with 2-1 AV block and cardiology is consulted. Patient and report that she has felt intermittently unwell for the last 3 to 4 weeks. They describe
that at times she is almost bedridden with fatigue and weakness and had a fall about 10 days ago. Then other times she has more energy and is able to eat and drink close to normal, but for the most part has not left her house in the last 3 to 4
weeks. Patient seemed to be feeling better for the last 2 days and thought she may have turned a corner, and then today she stood up and suddenly felt profoundly weak, but no loss of consciousness and so her brought her to the emergency
room. ECG looks like 2-1 AV block and new LBBB. Patient has a history of paroxysmal A-fib and is chronically on amiodarone 200 mg daily. Patient took her usual dose of amiodarone plus Eliquis this morning.
Progress Note - [place]
Subjective
Date of Service: July 24, 2025
Patient feels exhausted, no chest pain
Objective
Labs:
07/24/25 05:26
Labs
Hgb 10.2 g/dL (12.0-16.0) L 07/24/25 05:26
Hct 28.9 % (37.0-47.0) L 07/24/25 05:26
Plt Count 218 10^3/uL (130-400) 07/24/25 05:26
PT 37.7 Sec (11.4-14.6) H 07/23/25 14:52
INR 3.81 07/23/25 14:52
APTT 56.6 Sec (23.4-35.0) H 07/23/25 14:52
Sodium 130 mmol/L (135-145) L 07/24/25 05:26
Potassium 4.3 mmol/L (3.5-5.1) 07/24/25 05:26
BUN 43 mg/dl (7-17) H 07/24/25 05:26
Creatinine 1.9 mg/dL (0.6-1.0) H 07/24/25 05:26
Glucose 127 mg/dl (70-99) H 07/24/25 05:26
Troponins
07/23/25 07/23/25 07/23/25
15:20 19:10 23:30
Troponin I 0.059 H* 0.057 H* 0.134 H* D
07/24/25
05:26
Troponin I 0.351 H* D
Vital Signs and I&O:
Vital Signs
Temp Pulse Resp BP Pulse Ox
98.0 F 72 22 133/101 97
07/24/25 07:39 07/24/25 07:00 07/24/25 07:39 07/24/25 07:00 07/24/25 07:39
Vital Signs
Temp Pulse Resp BP Pulse Ox
98.0 F 72 22 133/101 97
07/24/25 07:39 07/24/25 07:00 07/24/25 07:39 07/24/25 07:00 07/24/25 07:39
Intake & Output
07/22/25 07/23/25 07/24/25 07/25/25
06:59 06:59 06:59 06:59
Intake Total 192.0 / 192.0
Output Total 400 / 400
Balance -208.0 / -208.0
Physical Exam
Physical Exam
GEN: NAD. AAO x3
HEENT: EOMI, MMM
LUNGS: 2 L NC. Clear anterolaterally without wheeze
CV: V paced. Reg, S1/S2, 2/6 BSM
EXT: +1 edema B/L LE
NEURO: Gross non-focal
SKIN: No rash
[2025-07-24] MEDS: FEOSOL PO (08:12)
[2025-07-24] MEDS: TYLENOL PO (08:12)
[2025-07-24] MEDS: LOW STRENGTH ASPIRIN 324 MG PO (09:28)
--- NOTE | 2025-07-24 10:36 | W.PN.UPDATE ---
Update Note
Progress Note Update
Met with patient, , and daughter at the bedside. Reviewed her ECG from yesterday as well as laboratory values. Echocardiogram was 60 to 65% yesterday afternoon without focal regional wall motion abnormality, no demonstrable pericardial
effusion and moderate aortic stenosis. Seen at bedside she feels somewhat dyspneic with a blood pressure of 80/35 and is being supported by pressors. I did ask my team to speak with our cardiac services team and perform a quick follow-up study to
rule out pericardial effusion and reassess ejection fraction prior to permanent pacemaker implant today.
Also discussion with Dr. Marks given her creatinine and relatively modest troponin value we will hold off on left heart catheterization today and perhaps can perform in the next 1 to 4 days. I do believe her primary issue is electrical given ECG
from yesterday demonstrating 4-1 AV block with short coupled ventricular couplets and 2 to 4 weeks of significant symptoms at home. I wonder whether her creatinine is related to poor perfusion as it was normal in the past. Certainly she has
history of stents and some ischemic evaluation should be considered soon.
I described in detail to family and patient pacemaker implant via the left side in detail with removal of the right sided IJ temporary pacemaker. Described a 1 in 500 risk of and a 1% risk of tamponade infection pneumothorax or bleeding.
Described activity restrictions and a 1% risk of lead dislodgment as well. The the patient's spouse signed informed consent and the patient gave her assent in front of family as it was difficult for her to sign with the temporary pacemaker in her
right neck. We were planning for early afternoon after quick look echo to rule out pericardial effusion.
--- NOTE | 2025-07-24 10:42 | W.PN.UPDATE ---
Addendum entered and electronically signed by Tory White PA-C 07/24/25 13:53:
Echo stable and no evidence of effusion, final report pending.
Original Note:
Update Note
Progress Note Update
Back in to check on patient. Dopamine has been weaned to off. BP 80/48. Check urgent bedside echo to look for pericardial effusion. Updated and daughter at bedside.
--- NOTE | 2025-07-24 11:45 | CM ---
Chart reviewed. Patient's and daughter at bedside. Patient is independent of ADLS, lives with her in a 1 [address], 1 JOSE but also has a ramp, ambulates with a rollator. Patient is not current with [facility] but is interested. Referral
sent to [facility]. Plan is for the patient to return home with [facility]. CM to follow
--- NOTE | 2025-07-24 11:47 | PTCARENOTE ---
Speech consulted due to patient coughing with PO Aspirin and water this AM; Dopamine infusion weaned off as per orders and Levo infusion restarted - see nursing flowsheets for further details; BMP drawn and sent to lab; MD Anderson in room with
patient and obtained consent with family at bedside for PPM later today
[2025-07-24 12:18] LABS: Blood Urea Nitrogen 46 mg/dl (7-17); Calcium 7.7 mg/dl (8.4-10.2); Carbon Dioxide 24 mmol/L (22-30); Chloride 101 mmol/L (98-107); Estimated Creatinine Clearance 18 ml/min; Glucose 100 mg/dl (70-99); Potassium 4.8 mmol/L (3.5-5.1); Sodium 129 mmol/L (135-145); eGFR 25.08
--- NOTE | 2025-07-24 13:00 | PTCARENOTE ---
Patient taken to CCL - report given to Ana POZO; JOEL bed bath given by RN and gown/sheets changed; Dentures, hearing aids, and belongings left in patient's room
--- NOTE | 2025-07-24 15:03 | ITS.CL.PACE ---
C Web Developer - Pacemaker Implant
Pacemaker Implant
Procedure Report:
Date of Procedure: 07/24/2025
Patient : [id number]
Procedure: Pacemaker Implantation.
Indication: Complete heart block with short coupled ventricular couplets and near syncope. Has normal ejection fraction
Implants:
Pulse Generator: Medtronic; Model# W1 DR 01; SN: [id number]
RA Lead: Medtronic; Model# 4574; SN: [id number]
RV Lead: Medtronic; Model# 4074; SN: [id number]
Technique: A time out was performed. The procedure site was identified. The patient was anesthetized by the anesthesia service. Preoperative sedation was administered. The patient was prepped and draped in the usual fashion. Local anesthetic was
applied to the left prepectoral subcutaneous tissue. A 3 inch incision was made 2.5 inches below the left clavicle. A subcutaneous pocket was created with blunt and sharp dissection and hemostasis controlled with Bovie cautery. The left axillary
vein was accessed within the pocket without difficulty. Hemostasis was excellent. The leads were introduced with 7 Fr hemostatic peel away introducer sheaths. The ventricular lead was placed at the right ventricular apex. The atrial lead was placed
in the right atrial appendage. 10 volt pacing did not capture the diaphragm. The leads were secured to the pectoralis muscle and fascia. The leads were appropriately attached to the device. The pocket was irrigated with antibiotic solution. The
device and leads were placed in the pocket. The incision was closed in three layers with absorbable suture. The estimated blood loss was minimal. There were no complications.��
Pulsed fluoroscopy 4.8 minutes 23.1 mGy
Lead Analysis:
RA lead: P: 1.0 mV; Threshold: 0.5 V @ 0.5��ms; Impedance: 456 ohms.
RV lead: R: 0 mV with no underlying rhythm. R wave of 7 mV from the temporary pacemaker; Threshold: 0.8 V @ 0.5��ms; Impedance: 760 ohms.
Final Programming: DDDR 6130 bpm
�
Conclusion: Uncomplicated Medtronic pacemaker implant.
Recommendation: Routine post pacemaker care. Resume apixaban tomorrow evening July 25 and consider left heart catheterization on Monday, July 28 if creatinine improves.
--- NOTE | 2025-07-24 15:15 | PTCARENOTE ---
Pt received from EP lab s/p PPM. Pt alert and oriented x4. Denies pain, nausea, and shortness of breath. BOYKIN with equal strength in all extremities. 100% AV paced with rates in the 70s. PPM set to DDDR 60-130. BP supported with levophed at 3,
titrating as per order to keep SBP >90. Bilateral radial and DP pulses palpable. +2 lower extremity edema. POX 88% on 4L, encouraged pt to breath through her nose for nasal canula. Lungs diminished in the bases. Occasional moist nonproductive cough
noted. Abdomen soft, round, nontender. +BS. Pt due to void post procedure. PIV x3 intact. Right IJ cordis intact, cordis cap not intact, new cordis cap applied, dressing applied. Left chest wall PPM site soft, Aquacel intact. See MAR for medication
administration. See worklist for complete nursing assessment. Plan of care reviewed with pt, , and daughter.
[2025-07-24 15:22] LABS: Lyme Antibody Screen, EIA Negative (Negative)
--- NOTE | 2025-07-24 17:01 | PTOTSP ---
Dysphagia Evaluation
Patient presents with signs concerning for oral/pharyngeal dysphagia that per discussion with family appear to be acute on chronic. Acute risk factors include acute illness with AMS and increased WOB. No signs concerning for aspiration
complications present and no prior signs reported by family. Continue oral diet below with temporary modifications until mentation and WOB improve.
Recommend:
1. IDDSI 4 Puree, Thin Liquids
2. Medications in puree
3. Full supervision and assistance
4. Slow rate, small single sips/bites
5. Consider instrumental swallow testing as appropriate
[2025-07-24 17:02] LABS: Troponin I 0.290 ng/ml
[2025-07-24] MEDS: LIPITOR 20 MG PO (17:36)
[2025-07-24] MEDS: ANCEF 5 IV (20:27)
[2025-07-25] VITALS (41 sets, daily range): BP systolic 94–160; BP diastolic 41–126; PULSE 2–70; BMI 23.9
--- NOTE | 2025-07-25 00:24 | PTCARENOTE ---
Rec'd pt. as transfer from CVICU at change of shift AAOx2, pt. drowsy and forgetful, disoriented to time but reorients easily. 100 % AV paced on the monitor, rate 70's, SBP stable 90's-110's. Lungs diminished with some scattered rhonchi on the
right, pulse ox 5L NC 92-94 %; some RODRIGUEZ with turning. Pt. denies any pain discomfort, left chest wall PPM dressing CDI without drainage, no hematoma/swelling, left radial pulse normal. Bed alarm placed for safety, pt. resting quietly.
[2025-07-25] MEDS: NSS 500 IV (01:24)
[2025-07-25] MEDS: TYLENOL 650 MG PO (01:31)
[2025-07-25 03:42] LABS: Hematocrit 25.4 % (37.0-47.0); Hemoglobin 8.6 g/dL (12.0-16.0); Mean Corp Hgb Conc. 33.9 g/dL (33.0-37.0); Mean Corpuscular Volume 92.0 fL (81.0-99.0); Nucleated Red Blood Cells % 0 %; Platelet Count 181 10^3/uL (130-400); Red Cell Dist. Width 16.2 % (11.5-14.5)
[2025-07-25] MEDS: LASIX 20 MG IV ×3 (03:56→19:45)
[2025-07-25 03:58] LABS: ALT (SGPT) 135 U/L (0-35); AST (SGOT) 184 U/L (14-36); Albumin 3.1 g/dl (3.5-5.0); Alkaline Phosphatase 74 U/L (38-126); Blood Urea Nitrogen 48 mg/dl (7-17); Calcium 7.4 mg/dl (8.4-10.2); Carbon Dioxide 22 mmol/L (22-30); Chloride 102 mmol/L (98-107); Estimated Creatinine Clearance 18 ml/min; Glucose 98 mg/dl (70-99); Magnesium 2.2 mg/dl (1.6-2.3); Potassium 4.7 mmol/L (3.5-5.1); Sodium 130 mmol/L (135-145); Total Protein 5.5 g/dl (6.3-8.2); eGFR 25.08
[2025-07-25] MEDS: ANCEF 5 IV (04:00)
[2025-07-25 04:25] LABS: B.E. -5.4 mmol/L; HCO3 20.7 mmol/L (21-28); O2 Saturation % 97.1 % (94-98); PCO2 42 mmHg (32-35); PO2 76 mmHg (83-108)
[2025-07-25] MEDS: SODIUM BICARBONATE 50 MEQ IV (04:54)
--- NOTE | 2025-07-25 05:10 | W.PN.UPDATE ---
Update Note
Progress Note Update
~ 3:30 Patient hypoxic, pulsox in the 70's, increased work of breathing, using accessory muscles. AM labs drawn, ABG, procalcitonin ordered. Patient w/crackles t/o b/l lungs. Ordered portable CXR. Ordered EKG.
Lasix 20 mg IV, started on Bi pap 08/17. Appreciate Cardiac PA assistance, patient was transfer from CVICU at beginning of night baker.
Reviewed and patient evaluated by Dr. Collazo. Given another Lasix 20 mg IV for total of Lasix 40 mg IV. Parikh placed for strict I&Os, Started on Zosyn 2.25 mg IV Q6H for respiratory coverage. Pt w/no fever or elevated white count.
Transferred to ICU.
Called and spoke to , Aditya, updated on events and transfer to ICU. He stated he will be coming to hospital shortly.
--- NOTE | 2025-07-25 05:19 | PTCARENOTE ---
Pt. found to be in respiratory distress at approx. 0300; respirations visibly more labored and pulse ox down to 75-80% on 5L O2, titrated up to 6 L with little improvement; scattered crackles auscultated bilaterally. Pt. placed on 100% NRB with
pulse ox increasing to 90's; Other vitals stable, AV paced on the monitor. Hospitalist PAZ Wiseman notified & came to bedside, stat dose Lasix 20 mg IV given and portable CXRY completed; Parikh placed. ABG drawn by PARIMUTUEL CASHIER and pt. placed on bipap.
Decision made to transfer pt. to CVICU for closer monitoring. Report given to Sedrick POZO and pt. transferred to room 2260 with belongings.
[2025-07-25 05:23] LABS: Venous Blood Gas B.E. -2.4 mmol/L (-4 to +4); Venous Blood Gas O2 Sat % 99.5 %
[2025-07-25 05:30] LABS: Procalcitonin 1.51 ng/ml (0.0-0.25)
--- NOTE | 2025-07-25 05:40 | PTCARENOTE ---
Patient received @ 0500 from IVU nurse. Patient lying in bed w/ call virk in reach. Patient drowsy. AOx2 to person and time. Patient forgets where they are but quickly reorients with guidance. 100% A/V paced on monitor. BP 133/50 HR 70. Heart
sounds audible. Permanent pace maker set to DDDR 60-130. Radial and pedal pulses present. +1 bilateral ankle edema noted. POX 100% on Bipap 10/5 15L. Crackles noted in right lung. Left lung course. Occasional cough with small amount of red
sputum noted. Bowel sounds normoactive. Aspiration risk, puree diet. Parikh draining clear yellow urine. RIJ cordis and 2 PIV patent and intact. Lasix given for difficulty breathing per order. ABG shows acidosis. CT PA Anjana aware, Bicarb
given. Left chest Aquacel C/D/I. See worklist for more details.
[2025-07-25] MEDS: SYNTHROID PO (06:16)
--- NOTE | 2025-07-25 07:13 | W.PN.HOSP.TC ---
Addendum entered and electronically signed by Lanre Jose MD 07/25/25 15:24:
Complete heart block s/p PPM on 07/24 c/b cardiogenic shock
Levo and dopa weaned off
Started on Hep gtt
Plan on LHC on Monday
Acute hypoxic respiratory failure with spo2 of 80% suspect from HF vs Pna (likely aspiration)
on Bipap, titrate as tolerated
Diuretics IV
Atb with anaerobic coverage emperically eddie since Procal is up
BECKA versus progressive CKD. Previous creatinine from 2022 with a creatinine of less than 1.
Could be related to bradycardia hypotension precipitating ischemic ATN.
Can check urine studies
Renal bladder ultrasound
Elevated troponin likely secondary to type II demand ischemia.
LHC on Monday
Toxic metabolic encephalopathy vs Hospital aquried delirium, suspect the latter
Reorientation
Likely related to blood pressure
If if noticed focal neurological deficits will obtain brain MRI and neurology consult
Check TSH B12 folate
Hyponatremia
Encourage po intake
Original Note:
Today's Communication/Plan
-
- UA/urine cx pending
- lasix 40mg this afternoon
- continue IV heparin
- LHC timing pending
- wean off BIPAP as tolerated
Assessment / Plan
Assessment / Plan
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
now s/p permanent pacemaker, awaiting LHC.
#Hypoxic respiratory failure
See preceding hx above. Early am 912:'~ 3:30 Patient hypoxic, pulsox in the 70's, increased work of breathing, using accessory muscles. Patient w/crackles t/o b/l lungs. Lasix 20 mg IV, started on Bi pap 08/17. Transferred to ICU. Given another
Lasix 20 mg IV for total of Lasix 40 mg IV. Parikh placed for strict I&Os, Started on Zosyn 2.25 mg IV Q6H for respiratory coverage. Pt w/no fever or elevated white count.'
VBG: pH 7.32, pCO2 46, pO2 155, O2 sat 97.1%. Procalcitonin elevated to 1.51. EKG 07/25: no change from prior. CXR 07/25: 'Severe bilateral reticulonodular interstitial disease in the lungs mixed with groundglass opacity. Diagnostic possibilities are
(1) acute infection (endobronchial infection and pneumonia), (2) an acute inflammatory interstitial pneumonitis, (3) malignancy (lymphangitic carcinomatosis or other metastatic disease), or (4) acute interstitial and alveolar cardiogenic pulmonary
edema.' Given afebrile, normal WBC, timecourse of sx development after hemodynamic instability in s/o AV block & subsequent temporary>permanent pacemaker placement, along with suspected HFpEF exacerbation favor cardiogenic edema most likely,
followed by inflammatory interstitial pneumonitis.
- Continue empiric abx w Zosyn 2.25mg IV q6hr (07/24-)
- Check UA w reflex culture
- If negative, discontinue all abx
- If positive, start empiric ceftriaxone > adjust w susceptibilities
- Plan for additional 40mg IV lasix at noon today
- Likely continue lasix this week, pending cards recs
- Wean off O2 support as tolerated, with O2 sat >90%
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
#LBBB
#Hypotension, resolved
Pt initially hemodynamically stable on admission. Patient overnight to 07/23 became bradycardic with heart rate in the 10s, severe hypotension, lethargic, pale, nauseous; patient given 1 mg IV atropine, dopamine gtt., norepinephrine gtt. emergent
temporary pacemaker was placed via right IJ overnight 07/23. US 07/24 (in s/o hypotension, dyspnea) negative for pericardial effusion. Permanent pacemaker was placed 07/24. Off levophed & dopamine (as of 07/24).
This morning (07/25), BP 123/102, RR 19, O2 sat 100% on bipap.
- Planning for L heart cath later this week
- Holding eliquis & amiodarone
- Continue aspirin 81 mg daily
- Continue to monitor blood pressure
#HFpEF (EF 65%), exacerbation
#Moderate MS, mild MR, moderate
#Transaminitis
Last echo 05/27/24 prior to admission. Pt with dx of HF, on lasix at home. With bilateral PARVEEN on exam, 1+ pitting bilaterally to mid-giraldo. Per , usually only R foot has edema. CXR (07/23):Slightly increased pulmonary vascularity which could
represent mild CHF. Echo 07/23/25: EF 65%, severely abnormal L atrial volume (>48ml/m2), moderate MS & . Likely experiencing acute on chronic HFpEF exacerbation in s/o arrhythmia, new LBBB. BNP elevated 8020. Elevation in AST and ALT likely in the
setting of congestion and/or disrupted blood flow in the setting of her hemodynamic instability overnight and this current exacerbation of HFpEF. Given suspected HFpEF exacerbation, pt diuresed overnight 07/24 (40mg lasix PO).
- Holding home furosemide 20mg PO daily
- Holding valsartan 40mg qpm & 80mg daily PO
- Wean off O2 support as tolerated, with O2 sat >92%
- Continue to monitor AST and ALT
#Confusion, AMS, c/f hospital-induced delirium
Altered mental status on morning of 07/24, likely secondary to her hemodynamic instability and emergent temporary pacer placement overnight on 07/23, in addition to old age, likely underlying dementia, lack of sleep, hospital-induced delirium in
elderly. Exacerbated by her acute respiratory failure.
- Family at bedside instructed to continue to reorient patient to place/time/location
- Optimize sleep as able
- Manage medical conditions as above
- If becomes agitated w delirium at risk of harming self or others, can consider addition of low-dose antipsychotic - aim to avoid
#Hyponatremia
Na 130 today. Likely in s/o diuresis.
- Continue to monitor
#Elevated troponin
Likely type II WA troponin elevation in the setting of demand ischemia due to her AV block and potential HFpEF exacerbation. However given her history of CAD requiring stent, there is also a possibility that troponin elevated due to arterial
obstruction type I WA. This will be clarified with cardiac catheterization, potentially 07/25.
Trop: 0.059 > 0.134 > 0.351 > 0.290
- Continue management as above
- Stop trop trending, peak at 0.351
#BECKA
Cr elevated to 1.8. Likely in s/o arrhythmia and changing perfusion. Will continue to monitor post-diuresis. Last documented Cr from 2022 0.6-0.7.
Cr: 1.8>1.9>1.9>1.9
- Follow BMP
- Hold home alendronate
#Chronic
- Afib - eliquis & amiodarone (holding for now in advance of [facility])
- CAD s/p LAD PCI 2014 - continue statin
- HLD - continue statin
- Hypothyroidism - continue levothyroxine
#Global
- DVT ppx: IV heparin drip until [facility]; SCDs
- Diet: IDDSI4 diet per speech
- Code: full
- Dispo: to home (lives with ), pending pacemaker placement inpt
Anticipated Discharge: > 48 hours
Subjective/Interval History
-
Date of Service: July 25, 2025
This morning patient still somewhat confused/disoriented. Daughter at bedside, states that mental status improved yesterday evening but is worse again this am. States that pt is seeing people who aren't there, hallucinating, thinks she is elsewhere;
also asking to say goodbye to her daughters.
Patient aware of care team in room, responds to Qs, makes eye contact. Does not appear to be in respiratory distress, on bipap.
Objective Data
-
Labs:
Laboratory Results
07/25/25 07/25/25
03:14 04:15
WBC 9.9
Hgb 8.6 L
Hct 25.4 L
Plt Count 181
HCO3 20.7 L
Sodium 130 L
Potassium 4.7
Chloride 102
Carbon Dioxide 22
BUN 48 H
Creatinine 1.9 H
Glucose 98
Calcium 7.4 L
Total Bilirubin 1.2
AST 184 H
ALT 135 H
Alkaline Phosphatase 74
Vital Signs:
Vital Signs
Temp Pulse Resp BP Pulse Ox
97.8 F 70 14 134/70 100
07/25/25 05:00 07/25/25 05:40 07/25/25 05:54 07/25/25 05:40 07/25/25 05:54
I&O
07/24/25 07/25/25 07/26/25
06:59 06:59 06:59
Intake Total 192.0 / 192.0 718.2 / 718.2
Output Total 400 / 400 175 / 175
Balance -208.0 / -208.0 543.2 / 543.2
Review of Systems
-
Unable to obtain full review of systems at this time due to: Dementia
History Source: Patient and Family
Physical Exam
-
General: Well Developed, Well Nourished, Conversant (conversant but confused) and Other (BIPAP on )
HEENT: Normocephalic, Atraumatic and Anicteric
Respiratory: Non Labored Respirations and Other (BIPAP)
Cardiac: Regular Rhythm
GI: Nontender and Nondistended
Musculoskeletal: No Edema and Other (SCDs on lower legs )
Skin: Warm and Dry
Neuro: Awake and Other (not oriented, confused )
Psych: Confused
Data Reviewed
-
Total Time Spent with Patient (in minutes): 15
Critical Care Time (in minutes): 60
Diagnostic Radiology: Report Reviewed by me
Medical Tests (Nuc Med, Echo etc): Report Reviewed by me
Labs: Labs Reviewed by me
--- NOTE | 2025-07-25 07:40 | PTCARENOTE ---
Received patient from CVICU, A&Ox2, confused but can follow simple commands, mild restless, on BIPAP mask, fine crackles lung sounds, Left upper chest PPM, Dressing C/D/I, Left Arm Sling in place, AV paced, BP WNL, RIJ Cordis present, Parikh draining
yellow urine.
--- NOTE | 2025-07-25 08:28 | CON.INTV ---
Consultation
Consultation Request
Date/Time Consultation Requested: 07/25/2025613
Date/Time Consultation Performed: 07/25/2025823
Requesting Provider: PAZ Resendiz
Performing Provider: Dr. Pardo
Reason for Consultation: Heart Block/Hypoxia
Medical History
-
Chief Complaint: Heart is 'flip-flopping'
History of Present Illness:
89-year-old F with PMHx of follicular lymphoma s/p rituxin, Hx of falls, Hx of light tobacco smoking, GERD, CAD s/p stent to LAD (2014), paroxysmal A-fib s/p DCCV 03/2022), hypothyroidism, HTN, hx of gastric ulcer, and Hx of right-sided pleural
effusion requiring multiple thoracentesis in [id number] who presents with weakness, malaise and heart palpitations. She said that she feels like her heart is 'flip-flopping.' In the ER she endorsed LE swelling, productive cough, and SOB. EKG
initially showed bradycardia with 2-1 AV-block with PVCs and a new LBBB. Previous EKG in March 2025 showed incomplete RBBB and LAFB and sinus rhythm, per cardiology. She was afebrile in ER [facility] BP 147/71, HR 32, SpO2 98% on room air, and RR 19-23.
Initial labs pertinent for WBC 7, Hb 10.9, INR 3.81, Na 128, Cr 1.8, T. bili 1.6, troponin 0.059, proBNP 8020, TSH 4.6, and lyme screen negative. CXR showed bilateral parenchymal opacities with low lung volumes. Cardiology consulted and she was
admitted to IVU with pace pads attached to chest. Echo on 07/23/2025 showed LVEF 65% with moderate , pulmonary HTN with PASP 70 (previously 45-50 on echo from 05/2024), moderate MS, mild MR and increased LA volume. Later in evening on 07/23 she
became severely bradycardic with HR down to 10-20 and was hypotensive, EKG showed 5-1 AV block - she was lethargic, pale, and nauseous. Atropine given with no improvement. Dopamine gtt started with slight improvement, and then interventional
manager technical services Dr. Javier evaluated her, levophed was started and pt brought to slab depiler operator and temporary pacing wire placed. Dopamine and levophed weaned off. Permanent pacemaker placed on 07/24/2025. Overnight on 07/25 she had worsening SOB, CXR with
worsening bilateral opacities - lasix given, BiPAP started, and she was TRX from CVICU to ICU where Abx started via Zosyn. Fabric Awning Repairer services consulted for further recommendations.
Pt seen this AM and remains on BiPAP at 10/5 at 10L/min. HR 70, BP 128/53. She remains confused - daughters, Sydnee and Karmen, at bedside - all questions answered. She is A-V paced. She has received lasix today - Parikh in place. Has an occasional
cough, although per patient and family she has 'always had a cough.' The family do not believe that she had a worse cough prior to admission.
PMHx: follicular lymphoma s/p rituxin, Hx of falls, Hx of light tobacco smoking, GERD, CAD s/p stent to LAD (2014), paroxysmal A-fib s/p DCCV 03/2022), hypothyroidism, HTN, HLD, Hx of ankle fracture, Hx of MR, restrictive lung disease, hx of gastric
ulcer, Hx of right-sided pleural effusion requiring multiple thoracentesis in [id number], chronic amiodarone use
PSHx: Coronary stent (2014 - LAD), cataract extraction (right), right ankle repair, hysterectomy, tonsillectomy, right inguinal lymph node Bx (05/2020), cardioversion (05/2021 + 03/2022 + 06/20/2023)
Past Medical History
Past Medical History: Other (Above as per HPI)
Past Surgical History: Other (Above as per HPI)
Social History
Tobacco: Former Smoker (>10 years)
Alcohol: None
Drug: None
Family History
Family History: CAD (Sibling), Cancer (Maternal grandfather: esophageal cancer; Maternal aunt: lung cancer) and Hypertension (Mother)
Allergies / Home Medications
Allergies
Allergy/AdvReac Type Severity Reaction Status Date / Time
tramadol Allergy auditory/visual Verified 07/23/25 22:18
hallucinations
Home Medications
�Medication �Instructions �Recorded �Confirmed �Last Taken �Type
atorvastatin 20 mg tablet 20 mg PO QPM High cholesterol 04/20/15 07/23/25 07/22/25 History
apixaban 5 mg tablet (Eliquis) 5 mg PO BID #60 tabs 03/09/23 07/24/25 07/23/25 09:00 Rx
amiodarone 200 mg tablet 200 mg PO DAILY Arrhythmia 06/20/23 07/23/25 07/23/25 History
furosemide 20 mg tablet 20 mg PO DAILY Fluid 06/20/23 07/23/25 07/23/25 History
Retention/Swelling
valsartan 40 mg tablet 40 mg PO QPM Blood Pressure 06/20/23 07/23/25 07/22/25 History
acetaminophen 325 mg tablet 325 mg PO DAILY Pain 07/23/25 07/23/25 07/23/25 History
(Tylenol)
alendronate 70 mg tablet (Fosamax) 70 mg PO TH bone health 07/23/25 07/23/25 07/17/25 History
ferrous sulfate 325 mg (65 mg 325 mg PO DAILY Supplement 07/23/25 07/23/25 07/23/25 History
iron) tablet
levothyroxine 75 mcg tablet 75 mcg PO DAILY Thyroid 07/23/25 07/23/25 07/23/25 History
(Synthroid)
valsartan 160 mg tablet 80 mg PO DAILY Blood Pressure 07/23/25 07/23/25 07/23/25 History
Review of Systems
-
History Source: Patient
All other systems: Negative unless noted
Vitals / Labs / Diagnostic Testing
Vital Signs
Temp Pulse Resp BP Pulse Ox
97.8 F 70 19 126/59 100
07/25/25 05:00 07/25/25 11:23 07/25/25 11:00 07/25/25 11:23 07/25/25 11:00
Lab Data
07/25/25 03:14
07/25/25 03:14
Laboratory Results
07/25/25 07/25/25 07/25/25
04:15 10:17 19:00
APTT 48.7 H Cancelled
pH 7.30 L
pCO2 42 H
pO2 76 L
HCO3 20.7 L
O2 Delivery Level
Diagnostic Testing:
Physical Exam
-
HEENT: Normocephalic and Anicteric
Cardiovascular: Peripheral Edema (negative) and Other (A-V-paced with rate at 70)
Respiratory: Wheeze (negative), Rales (Bilateral), Rhonchi (negative) and Non-Labored Respirations
GI: Soft, Non Distended, Non Tender and Normal Bowel Sounds
Neurology: Awake, Alert, Tremors (negative) and Other (confused)
Skin: Warm and Dry
General: Respiratory Distress (negative), Comfortable, Fever (negative) and Chills (negative)
Assessment
-
Assessment: 89-year-old F with PMHx of follicular lymphoma s/p rituxin, Hx of falls, Hx of light tobacco smoking, GERD, CAD s/p stent to LAD (2014), paroxysmal A-fib s/p DCCV 03/2022), hypothyroidism, HTN, hx of gastric ulcer, and Hx of right-sided
pleural effusion requiring multiple thoracentesis in [id number] who presents with weakness, malaise and heart palpitations. She said that she feels like her heart is 'flip-flopping.' In the ER she endorsed LE swelling, productive cough, and SOB.
EKG initially showed bradycardia with 2-1 AV-block with PVCs and a new LBBB. Previous EKG in March 2025 showed incomplete RBBB and LAFB and sinus rhythm, per cardiology. She was afebrile in ER [facility] BP 147/71, HR 32, SpO2 98% on room air, and RR
19-23. Initial labs pertinent for WBC 7, Hb 10.9, INR 3.81, Na 128, Cr 1.8, T. bili 1.6, troponin 0.059, proBNP 8020, TSH 4.6, and lyme screen negative. CXR showed bilateral parenchymal opacities with low lung volumes. Cardiology consulted and
she was admitted to IVU with pace pads attached to chest. Echo on 07/23/2025 showed LVEF 65% with moderate , pulmonary HTN with PASP 70 (previously 45-50 on echo from 05/2024), moderate MS, mild MR and increased LA volume. Later in evening on 07/23
she became severely bradycardic with HR down to 10-20 and was hypotensive, EKG showed 5-1 AV block - she was lethargic, pale, and nauseous. Atropine given with no improvement. Dopamine gtt started with slight improvement, and then interventional
manager technical services Dr. Javier evaluated her, levophed was started and pt brought to slab depiler operator and temporary pacing wire placed. Dopamine and levophed weaned off. Permanent pacemaker placed on 07/24/2025. Overnight on 07/25 she had worsening SOB, CXR with
worsening bilateral opacities - lasix given, BiPAP started, and she was TRX from CVICU to ICU where Abx started via Zosyn. Fabric Awning Repairer services consulted for further recommendations.
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
disease, hx of gastric ulcer, Hx of right-sided pleural effusion requiring multiple thoracentesis in [id number], chronic amiodarone use
Impression:
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
#Acute pulmonary edema due to above with severe bradycardia
#Acute hypoxic respiratory failure due to above and possibly with component of pneumonia
#BECKA
#Non-anion gap metabolic acidosis
#Transaminitis with hyperbilirubinemia
#Elevated troponin - likely demand ischemia with type II TN
#Abnormal urinalysis with possible UTI
#Chronic anemia
#Hx of non-hodgkins lymphoma s/p rituxin
#Chronic cough
#GERD
#Paroxysmal A-fib on chronic amiodarone + Eliquis
#HTN/HLD
#Hx of light tobacco use
#CAD s/p LAD stent
#Valvular heart disease with , MS and MR
Plan:
- Transition off BiPAP to high flow nasal cannula
- Cardiology on board, recs appreciated
- Pt is now A-V paced - rate set to 70 and she appears comfortable with good color, stable hemodynamics and saturating well although is requiring a high amount of O2
- Will try to lower FiO2 as tolerated while keeping SpO2 >90-94%
- Continue trending serum Cr, avoiding nephrotoxic agents
- Diurese as tolerated while trending UOP and continue with strict I/O
- Serial CXR to trend for improvement of bilateral opacities
- Last CT Chest performed in 09/2022 showing mild scarring in RLL with small RML nodule (4mm) - no evidence of ILD then
- Continue with antibiotics as unable to rule out pneumonia given the bilateral patchy opacities seen on CXR, although her WBC has decreased since yesterday, she remains afebrile, she generally has no change in her cough as per patient and family as
this is chronic, and although procal elevated she has BECKA and this limits the utility of the procal
- Empirically continue Zosyn for now while trending WBC and monitor temperature curve
- Follow up blood Cx, check sputum Cx if pt can produce decent sample, and check urine antigens for legionella and S PNA
- Maintain MAP>65
- Replete electrolytes with K>4, Mg>2
- Maintain euglycemia with goal BG 140-180
- Trend H/H and transfuse if needed to keep Hb>7g/dL; keep plt>50k (given recent PPM)
- prn nebulized bronchodilators - not currently bronchospastic
- Incentive spirometer encouraged 10x per hour for at least 4 hrs a day
- DVT ppx - outpatient Eliquis currently being held; INR was >3.5 on admission --> trend INR; start IV heparin gtt tonight per cardiology with plans for C next week
Critical care statement: A total of 40 minutes of critical care time was provided for this patient today. This includes management of unstable vital signs, evaluation of the patient at bedside, reviewing the patient's pertinent medical records
including radiographs, microbiology, laboratory evaluations, and discussion with primary team, consultants, pharmacy, nutrition, physical therapy, case management, charge nurse, critical care nursing, and respiratory therapy.
(patient was seen and evaluated on 07/25/2025)
--- NOTE | 2025-07-25 08:56 | W.PN.CARDCBS ---
Today's Communication / Plan
-
Diurese
Initiate IV heparin tonight while off Eliquis for possible left heart catheterization next week
Empiric antibiotics
Impression / Plan
-
PCP: Dr. Morales
Cardiology: Dr. MAGDA Cabrera
Impression:
Admitted with new AV block, LBBB and BECKA 07/23/25
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
s/p temporary pacing wire placed in Mortgage Assistant 07/23/2025
BECKA
Elevated Troponin
Acute HFpEF
Paroxysmal Afib with RVR
Chronic Eliquis OAC
CAD s/p prox LAD PCI 2014
widely patent LAD stent by cath 03/29/22
Hypothyroidism
Moderate MS and trace MR by echo 05/27/24
Mild AR/
History of Follicular lymphoma
Rituxan infusion
Lexiscan mibi 03/04/19: Completed 4:10 min Chandan protocol reaching 87% MPHR, normal perfusion imaging
Echo 05/2021: EF 60-65%, severe LA enlargement, mild MS (20/8) mild (03/10) ANGELINA 1.7cm2
Echo 03/28/22: EF 68%, stage II diastolic dysfunction, mild to mod MS peak/mean 15/8 mmHg and pressure halftime 1.7 cm sq, mild MR, mild with peak/mean 26/14 mmHg and ANGELINA 2.0 cm sq
Echo 05/27/2024: EF 55 to 60%, normal RV size and function, moderate MS with mean transmitral gradient 8 mmHg, trace MR, mild peak/mean 29/16 mmHg and ANGELINA 1.5 cm sq
Echo 07/23/25: EF 65%, no WMA, moderate peak/mean 48/25 mmHg and ANGELINA 1.4 cm sq, mild TR, moderate MS peak/mean 25/13 mmHg, mild MR
Plan:
Unstable, symptomatic complete heart block with cardiogenic shock
-Patient admitted with 5:1 AV block 07/23/2025 and had clinical deterioration resulting in temporary wire being placed at night on 07/23/2025
-Status post [employer] pacemaker with Dr. Anderson 07/24/2025 currently AV paced. Device site with dressing appears stable.
-Overnight respiratory decompensation/hypoxia requiring BiPAP and transferred to the ICU. She received 2 doses of Lasix 20 mg at 4 AM and 5 AM
-Remains on BiPAP with oxygen saturation 100%. Blood pressure 120/98 mmHg not on pressors
-Chest x-ray today with stable position of left-sided pacemaker. There are severe bilateral ground glass opacities likely related to heart failure, possible pneumonia/pneumonitis. No significant pleural effusion.
-Will give an additional dose of Lasix 40 mg IV at noon. Will likely need a few more days of IV Lasix
-Parikh catheter
-Lactic acid not positive but procalcitonin elevated 1.51. WBC count not elevated/afebrile
-Will discuss with sample clerk concern for aspiration/pneumonitis/pneumonia�currently on Zosyn.
-Family raised concerns about UTI�no urine ordered. Will defer to primary
- Wean BiPAP as able
Known coronary artery disease with abnormal cardiac troponin
-Initial Troponin 0.059 ---> peak 0.351 on 07/24/25.
-Echo reviewed and EF stable without WMA
-Likely demand ischemia in the setting of unstable heart block and shock. There was discussions about proceeding with a cardiac catheterization on Monday and will reassess clinical stability and family wishes over the weekend.
-Will continue to hold outpatient Eliquis and start IV heparin tonight without bolus.
-Continue aspirin. Cautiously continue statin-repeat liver function test
Acute renal insufficiency
-Creatinine stable at 1.9 with baseline creatinine from 2022 0.6.
-Monitor hemodynamics; now off pressors with rhythm stabilization following pacemaker implant
-Continue to hold ARB
-Parikh catheter, monitor urine output
History of PAF currently AV paced
-Outpatient amiodarone discontinued
-Outpatient Eliquis held; last dose 07/23/2025.
-Eventual plan to restart Eliquis once procedures are complete; will have to reassess dose pending renal function
History of hypothyroidism�TSH normal this admission
Aortic stenosis/mitral stenosis�recent echocardiogram with moderate aortic stenosis and moderate mitral stenosis. Increased pulmonary artery systolic pressures however in the setting of cardiogenic shock. No pericardial effusion. Will hold off
repeating echocardiogram at this time. Will continue to monitor.
Delirium
- ICU team management
Updated family members at bedside including and 2 daughters.
HPI: Patient came to the hospital today for acute on chronic weakness and is being admitted with 2-1 AV block and cardiology is consulted. Patient and report that she has felt intermittently unwell for the last 3 to 4 weeks. They describe
that at times she is almost bedridden with fatigue and weakness and had a fall about 10 days ago. Then other times she has more energy and is able to eat and drink close to normal, but for the most part has not left her house in the last 3 to 4
weeks. Patient seemed to be feeling better for the last 2 days and thought she may have turned a corner, and then today she stood up and suddenly felt profoundly weak, but no loss of consciousness and so her brought her to the emergency
room. ECG looks like 2-1 AV block and new LBBB. Patient has a history of paroxysmal A-fib and is chronically on amiodarone 200 mg daily. Patient took her usual dose of amiodarone plus Eliquis this morning.
Progress Note - Trial Manager
Subjective
Date of Service: July 25, 2025
Seen and examined in ICU. BiPAP. Patient awake and alert answering simple questions appropriately. Denies pain. States shortness of breath is improved.
Objective
Labs:
07/25/25 03:14
07/25/25 03:14
Labs
Hgb 8.6 g/dL (12.0-16.0) L 07/25/25 03:14
Hct 25.4 % (37.0-47.0) L 07/25/25 03:14
Plt Count 181 10^3/uL (130-400) 07/25/25 03:14
PT 37.7 Sec (11.4-14.6) H 07/23/25 14:52
INR 3.81 07/23/25 14:52
APTT 56.6 Sec (23.4-35.0) H 07/23/25 14:52
Sodium 130 mmol/L (135-145) L 07/25/25 03:14
Potassium 4.7 mmol/L (3.5-5.1) 07/25/25 03:14
BUN 48 mg/dl (7-17) H 07/25/25 03:14
Creatinine 1.9 mg/dL (0.6-1.0) H 07/25/25 03:14
Glucose 98 mg/dl (70-99) 07/25/25 03:14
Troponins
07/23/25 07/23/25 07/23/25
15:20 19:10 23:30
Troponin I 0.059 H* 0.057 H* 0.134 H* D
07/24/25 07/24/25
05:26 16:25
Troponin I 0.351 H* D 0.290 H*
Vital Signs and I&O:
Vital Signs
Temp Pulse Resp BP Pulse Ox
97.8 F 70 19 123/102 100
07/25/25 05:00 07/25/25 07:20 07/25/25 07:20 07/25/25 07:20 07/25/25 07:20
Vital Signs
Temp Pulse Resp BP Pulse Ox
97.8 F 70 19 123/102 100
07/25/25 05:00 07/25/25 07:20 07/25/25 07:20 07/25/25 07:20 07/25/25 07:20
Intake & Output
07/23/25 07/24/25 07/25/25 07/26/25
06:59 06:59 06:59 06:59
Intake Total 192.0 / 192.0 718.2 / 728.2
Output Total 400 / 400 175 / 275 100 / 100
Balance -208.0 / -208.0 543.2 / 453.2 -90 / -90
Physical Exam
Physical Exam
GEN: Frail 89-year-old female on BiPAP
LUNGS: Difficult exam. Bronchovesicular breath sounds bilaterally with fine crackles anterolaterally
CV: Left-sided pacemaker with dressing intact. No hematoma. Regular. Positive S1-S2 2/6 SM
abd: Soft, nontender. Positive bowel
EXT: No edema. Warm distal extremities
[2025-07-25] MEDS: ZOSYN 50 IV ×3 (08:59→23:09)
[2025-07-25] MEDS: FEOSOL PO (09:00)
[2025-07-25] MEDS: LOW STRENGTH ASPIRIN PO (09:00)
--- NOTE | 2025-07-25 09:11 | PN.CDI ---
CDI
- -
CDI:
Physician Documentation Request
Admit Date: 07/23/25 18:48
Dear Doctor Patricia,
Patient admitted with heart block.
Laboratory Tests
07/23/25 07/24/25 07/24/25
14:42 05:26 10:40
Sodium 128 L 130 L 129 L
07/25/25
03:14
Sodium 130 L
Based on the above, could you clarify in the progress notes, the appropriate diagnosis, if significant, that supports the above abnormalities and additional evaluation, monitoring and/or treatment rendered:
Hyponatremia
Abnormal lab value insignificant
Other
Use of terms such as suspected, likely, concern for, or probable (associated with a specific diagnosis that is being evaluated, monitored, or treated as if it exists) are acceptable and can be coded in the inpatient setting, when documented at the
time of discharge.
Thank you,
Ping Mejias RN, BSN
CDI Specialist
Available via [place] text
Please use your independent medical judgment in providing your response.
--- NOTE | 2025-07-25 09:13 | PN.CDI ---
CDI
- -
CDI:
Physician Documentation Request
Admit Date: 07/23/25 18:48
Dear Doctor Patricia,
Patient admitted for heart block.
07/24 Update Note: 'Pt seen in ED, became significantly bradycardic, with HR in the 10's. Pt became severely hypotensive, lethargic, pale, nauseous...Pt evaluated by Dr. Javier, started on Norepinephrine gtt (19:30) with improvement.'
Levophed Titrations
07/24/25
10:00 07/24/25
10:29 07/24/25
10:32
CURRENT dosage in mcg/min 2
Blood pressure 91/48 80/35
MAP (cuff-Ana Maria Monitor) 59 48
07/24/25
10:41 07/24/25
10:42 07/24/25
10:53
CURRENT dosage in mcg/min 3
Blood pressure 88/38 102/42
MAP (cuff-Ana Maria Monitor) 52 62
Please clarify which of the following is the most likely etiology of the above symptoms and treatment rendered:
Cardiogenic shock
Hypovolemic shock - indicate if due to surgery, trauma or other etiology
Shock, unknown type
Hypotension - indicate type/etiology, such as idiopathic, neurogenic or orthostatic, post-procedural, postoperative, due to hemodialysis, chronic, drug induced (indicate drug), etc.
Hypotension - unknown type/etiology
Other
Unable to determine
Use of terms such as suspected, likely, concern for, or probable (associated with a specific diagnosis that is being evaluated, monitored, or treated as if it exists) are acceptable and can be coded in the inpatient setting, when documented at the
time of discharge.
Thank you,
Ping Mejias RN, BSN
CDI Specialist
Available via [place] text
Please use your independent medical judgment in providing your response.
[2025-07-25 10:46] LABS: APTT 48.7 Sec (23.4-35.0)
[2025-07-25] MEDS: TYLENOL PO (10:55)
[2025-07-25] MEDS: LASIX 40 MG IV (11:23)
[2025-07-25 11:40] LABS: Glucose - Point of Care 100 mg/dl (70-99)
[2025-07-25 12:07] LABS: Urine Character Clear (Clear)
--- NOTE | 2025-07-25 12:17 | PTCARENOTE ---
Reassessed the patient, no changes from previous assessments. Families at bedside, all questions answered.
--- NOTE | 2025-07-25 13:30 | PTCARENOTE ---
Noticed patient's left chest PPM site looked enlarged and had a spongy touch, made Dr. Ruffin aware. applied pressure dressing over original Aquacel dressing.
--- NOTE | 2025-07-25 14:38 | W.PN.UPDATE ---
Addendum entered and electronically signed by Kathy Recio PA-C 07/25/25 16:40:
back up to check on patient. pacemaker dressing site with pressure dressing in place, less edema noted. patient denies pain at site. also appears brighter, more conversant and comfortable, breathing less labored. on high flow O2. continue to
monitor. d/w nursing and family at bedside
Original Note:
Update Note
Progress Note Update
Called to see patient as nursing concerned about pacemaker site. She is noted to have some mild edema and a mild amount of dried blood on Aquacel dressing. We removed immobilizer as patient has been compliant with left upper extremity restriction
which did seem to help some. Pressure dressing was applied. We are holding anticoagulation at this time. Will continue to monitor site
--- NOTE | 2025-07-25 14:57 | CM ---
`Heart block, S/P pacer insertion. Hgb /-10.9, /-10.2 and /-8.6. IV/Zosyn, wean Bipap.. Discharge POC: STEPHANIE HAYWARD RN and await therapy eval and recommendations.
--- NOTE | 2025-07-25 16:30 | PTCARENOTE ---
Reassessed the patient, breathing looked comfortable on HFNC, Left chest PPM site spongy look/touch decreased. No other changes from previous assessments.
[2025-07-25 17:02] LABS: Venous Blood Gas B.E. -0.4 mmol/L (-4 to +4); Venous Blood Gas O2 Sat % 99.8 %
[2025-07-25 17:59] LABS: TSH 1.11 uIU/ml (0.47-4.68)
[2025-07-25] MEDS: LIPITOR PO (18:00)
--- NOTE | 2025-07-25 22:11 | PTCARENOTE ---
Pt received awake and confused to time and place. Continues to have hallucinations. Remains on high flow oxygen and sats 100%. L chest dsg intact. Assessment as charted.
[2025-07-25] MEDS: STERILE WATER FOR INJECTION 2.1 ML IM (22:58)
[2025-07-25] MEDS: ZYPREXA 5 MG IM (22:58)
--- NOTE | 2025-07-25 23:35 | PTCARENOTE ---
Pt with increasing agitation and now combative. Discussed with MOVIE OPERATOR and pt med with zyprexa 5mg IM. Will continue to monitor.
[2025-07-26] VITALS (47 sets, daily range): BP systolic 81–150; BP diastolic 32–128; PULSE 2–70; BMI 23.4
--- NOTE | 2025-07-26 02:36 | PTCARENOTE ---
Pt more calm but still not sleeping since zyprexa. Pt still uncooperative with care. Remains confused and hallucinating.
[2025-07-26 04:39] LABS: Hematocrit 23.8 % (37.0-47.0); Hemoglobin 8.2 g/dL (12.0-16.0); Mean Corp Hgb Conc. 34.5 g/dL (33.0-37.0); Mean Corpuscular Volume 91.9 fL (81.0-99.0); Nucleated Red Blood Cells % 0 %; Platelet Count 175 10^3/uL (130-400); Red Cell Dist. Width 16.4 % (11.5-14.5)
[2025-07-26 05:00] LABS: ALT (SGPT) 63 U/L (0-35); AST (SGOT) 167 U/L (14-36); Albumin 2.9 g/dl (3.5-5.0); Alkaline Phosphatase 66 U/L (38-126); Blood Urea Nitrogen 48 mg/dl (7-17); Calcium 7.3 mg/dl (8.4-10.2); Carbon Dioxide 27 mmol/L (22-30); Chloride 103 mmol/L (98-107); Estimated Creatinine Clearance 19 ml/min; Glucose 93 mg/dl (70-99); Magnesium 2.0 mg/dl (1.6-2.3); Potassium 4.2 mmol/L (3.5-5.1); Sodium 136 mmol/L (135-145); Total Protein 5.2 g/dl (6.3-8.2); eGFR 26.77
[2025-07-26] MEDS: SYNTHROID PO (05:21)
[2025-07-26 06:05] LABS: Folate 4.1 ng/ml (2.76-20); Vitamin B12 851 pg/ml (239-931)
--- NOTE | 2025-07-26 07:30 | PTCARENOTE ---
Received patient confused and hallucinating, restless, RASS+1, families at bedside redirecting, on HFNC, mild tachypnea, Left upper chest PPM, covered with original Aquacel dressing and pressure dressing, AV paced, BP WNL, RIJ Cordis present, Parikh
draining yellow urine.
[2025-07-26 08:00] LABS: Venous Blood Gas B.E. 0.4 mmol/L (-4 to +4); Venous Blood Gas O2 Sat % 100.0 %
[2025-07-26 08:06] LABS: Venous Blood Gas O2 Therapy HFNC 40L FiO2 95%
[2025-07-26] MEDS: ZOSYN 50 IV (08:21)
[2025-07-26] MEDS: FEOSOL PO (08:26)
[2025-07-26] MEDS: LOW STRENGTH ASPIRIN PO (08:26)
[2025-07-26] MEDS: TYLENOL PO (08:26)
--- NOTE | 2025-07-26 08:26 | W.PN.INTV ---
Today's Communication / Plan
Recommendations
Starting Precedex drip due to ICU delirium with agitation/combativeness at time
Diuresis
Monitor off antibiotics; ID consulted and recs appreciated
s/p PPM with set rate to 70
Replete K>4, Mg>2 while diuresing
Give a break off the BiPAP onto midflow nasal cannula using a nonrebreather if needed; continue with BiPAP as needed during the day and with sleep
Continue ICU level of care for this critically ill patient
Assessment
-
Assessment: 89-year-old F with PMHx of follicular lymphoma s/p rituxin, Hx of falls, Hx of light tobacco smoking, GERD, CAD s/p stent to LAD (2014), paroxysmal A-fib s/p DCCV 03/2022), hypothyroidism, HTN, hx of gastric ulcer, and Hx of right-sided
pleural effusion requiring multiple thoracentesis in [id number] who presents with weakness, malaise and heart palpitations. She said that she feels like her heart is 'flip-flopping.' In the ER she endorsed LE swelling, productive cough, and SOB.
EKG initially showed bradycardia with 2-1 AV-block with PVCs and a new LBBB. Previous EKG in March 2025 showed incomplete RBBB and LAFB and sinus rhythm, per cardiology. She was afebrile in ER david BP 147/71, HR 32, SpO2 98% on room air, and RR
19-23. Initial labs pertinent for WBC 7, Hb 10.9, INR 3.81, Na 128, Cr 1.8, T. bili 1.6, troponin 0.059, proBNP 8020, TSH 4.6, and lyme screen negative. CXR showed bilateral parenchymal opacities with low lung volumes. Cardiology consulted and
she was admitted to IVU with pace pads attached to chest. Echo on 07/23/2025 showed LVEF 65% with moderate , pulmonary HTN with PASP 70 (previously 45-50 on echo from 05/2024), moderate MS, mild MR and increased LA volume. Later in evening on 07/23
she became severely bradycardic with HR down to 10-20 and was hypotensive, EKG showed 5-1 AV block - she was lethargic, pale, and nauseous. Atropine given with no improvement. Dopamine gtt started with slight improvement, and then interventional
muck farmer Dr. Javier evaluated her, levophed was started and pt brought to laboratory animal facility supervisor and temporary pacing wire placed. Dopamine and levophed weaned off. Permanent pacemaker placed on 07/24/2025. Overnight on 07/25 she had worsening SOB, CXR with
worsening bilateral opacities - lasix given, BiPAP started, and she was TRX from CVICU to ICU where Abx started via Zosyn. Coding Tech services consulted for further recommendations.
Chronic conditions [employer]: Follicular lymphoma s/p rituxin, Hx of falls, Hx of light tobacco smoking, GERD, CAD s/p stent to LAD (2014), paroxysmal A-fib s/p DCCV 03/2022), hypothyroidism, HTN, HLD, Hx of ankle fracture, Hx of MR, restrictive lung
disease, hx of gastric ulcer, Hx of right-sided pleural effusion requiring multiple thoracentesis in [id number], chronic amiodarone use
Impression:
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
#Acute pulmonary edema due to above with severe bradycardia
#Acute hypoxic respiratory failure due to above and possibly with component of pneumonia
#BECKA
#Agitation likely due to ICU-delirium in setting of sleep deprivation
#Non-anion gap metabolic acidosis
#Transaminitis with hyperbilirubinemia
#Elevated troponin - likely demand ischemia with type II [place]
#Abnormal urinalysis with possible UTI
#Chronic anemia
#Hx of non-Hodgkin lymphoma s/p rituxin
#Chronic cough
#GERD
#Paroxysmal A-fib on chronic amiodarone + Eliquis
#HTN/HLD
#Hx of light tobacco use
#CAD s/p LAD stent
#Valvular heart disease with , MS and MR
Plan:
- Transition off BiPAP to midflow nasal cannula as the family says that the pt had a nosebleed with the high flow
- Per nursing, the pt was frequently picking at the nasal cannula overnight/this AM, and this may have contributed to the epistaxis
- Currently I do not appreciate any nosebleed or hemoptysis
- Blood gas to be rechecked later today and if stable then would keep on midflow nasal cannula during the day +/- NRB and use BiPAP with sleep and prn if needed for increased SOB
- Maintain SpO2 >90-94%
- Believe that she is experiencing ICU delirium
- Family also said that she has not slept at all in the last 36 hours, and this sleep deprivation is also contributing to her agitation
- Given Zyprexa overnight however she is continuing to be agitated, trying to remove the oxygen mask
- Start Precedex drip
- Cardiology on board, recs appreciated
- Pt is now A-V paced - rate set to 70 and she appears comfortable with good color, stable hemodynamics and saturating well although is requiring a high amount of O2
- Continue trending serum Cr, avoiding nephrotoxic agents
- Diurese as tolerated while trending UOP and continue with strict I/O
- Serial CXR to trend for improvement of bilateral opacities
- Last CT Chest performed in 09/2022 showing mild scarring in RLL with small RML nodule (4mm) - no evidence of ILD then
- Pt had been on Abx, however given she remains afebrile with no change in chronic cough and WBC normal now x 2 days, bacterial pneumonia is unlikely. ID stopped all ABx
- Monitor off ABx, trending WBC and monitor temperature curve
- There are bilateral patchy opacities seen on CXR
- She has a chronic cough, and although procal elevated she has BECKA and this limits the utility of the procal in this setting
- She had been on from 07/25 until earlier this AM
- Follow up blood Cx, check sputum Cx if pt can produce decent sample; urine antigens for legionella and S PNA both negative
- Maintain MAP>65
- Replete electrolytes with K>4, Mg>2
- Maintain euglycemia with goal BG 140-180; BG has been running low --> start D10W to help maintain euglycemia and to limit fluids being given to her
- Trend H/H and transfuse if needed to keep Hb>7g/dL; keep plt>50k (given recent PPM)
- prn nebulized bronchodilators - not currently bronchospastic
- Incentive spirometer encouraged 10x per hour for at least 4 hrs a day
- DVT ppx - outpatient Eliquis currently being held; INR was >3.5 on admission --> trend INR; defer starting heparin gtt to to cardiology; if Cr improves then plan is for [facility] next week
Critical care statement: A total of 38 minutes of critical care time was provided for this patient today. This includes management of unstable vital signs, evaluation of the patient at bedside, reviewing the patient's pertinent medical records
including radiographs, microbiology, laboratory evaluations, and discussion with primary team, consultants, pharmacy, nutrition, physical therapy, case management, charge nurse, critical care nursing, and respiratory therapy.
Subjective Dataa
Subjective Data
Date of Service:
Date of Service: July 26, 2025
Chief Complaint: Coding Tech Follow Up
Subjective:
Increased agitation and combativeness overnight. Given Zyprexa 5 mg IM. Blood gas this morning shows mild acute hypercapnic respiratory failure. Patient had been on high flow nasal cannula at 90% FiO2, 40 L/min saturating 98%. After this blood
gas was obtained, she was transitioned to BiPAP 16/5 bled with 9 L/min. When I saw the patient she was resting in bed, trying to take the mask off her face, with heart rate 70, BP 122/55 and saturating 96%. Patient's daughters x2, as well as
, Wagner, present at bedside - all questions answered.
Review of Systems
General: Other (Unobtainable due to acute clinical status)
Objective Data
Data Reviewed
Vital Signs / I&O / Oxygen:
Vital Signs
Temp Pulse Resp BP Pulse Ox
98.3 F 71 16 116/106 98
07/26/25 07:27 07/26/25 06:07 07/26/25 06:07 07/26/25 06:07 07/26/25 07:58
Intake and Output
07/25/25 07/26/25 07/27/25
06:59 06:59 06:59
Intake Total 718.2 / 728.2 340 / 340
Output Total 175 / 325 2175 / 2175
Balance 543.2 / 403.2 -1835 / -1835
SaO2 98
Nasal Cannula flow liters per 40
minute
Physical Exam
General: Respiratory Distress (negative), Chills (negative) and Sweats (negative)
HEENT: Normocephalic and Anicteric
Cardiovascular: Peripheral Edema (negative) and Other (A-V paced rhythm; HR 70)
Respiratory: Wheeze (negative), Crackles (Bilateral), Rhonchi (negative), Non-Labored Respirations and Stridor (negative)
GI: Soft, Non Distended, Non Tender and Normal Bowel Sounds
Neurology: Awake, Tremors (negative) and Other (Agitated/confused)
Skin: Warm, Dry, Cyanosis (negative) and Jaundice (negative)
Labs/Micro/Reports
Lab Data
07/26/25 04:16
07/26/25 04:16
Laboratory Results
07/25/25 07/25/25
10:17 19:00
APTT 48.7 H Cancelled
Microbiology
07/26/25 04:34 Urine Legionella Urinary Antigen - Final
Negative for Legionella pneumophila Serogroup 1 antigen.
A negative result does not rule out the possiblity of
Legionella infection due to other serogroups or species of
Legionella. Clinical correlation is recommended.
07/26/25 04:34 Urine Streptococcus pneumoniae Antigen (M - Final
Negative for Streptococcus pneumoniae antigen.
A negative result does not exclude infection with
Streptococcus pneumoniae. Clinical correlation is
recommended.
--- NOTE | 2025-07-26 08:44 | CON.ID ---
Addendum entered and electronically signed by Fiorella Newton MD 07/26/25 13:01:
Note that rituximab was >1 year ago per family
Original Note:
Consultation
-
Date/Time Consultation Requested: 07/25/25 15:26
Date/Time Consultation Performed: 07/26/25 8:46
Requesting Provider: Dr Gomez
Performing Provider: Dr Newton
Reason for Consultation: aspiration pneumonia
Chief Complaint / Past History
Chief Complaint
Intermittent dizzy spells, weakness in legs with standing
History of Present Illness
Ms Braga is an 89 year old female with history of follicular lymphoma s/p rituxin, CHF, Afib who presented here 07/23 fo intermittent dizziness and bilateral lower extremity weakness and swelling with a fall several days prior to arrival. No
chest pain. + shortness of breath. No fevers, chills or recent illnesses. Has chronic cough with white sputum. Family deny any complaints of dysuria, urgency, frequency etc.
Since arrival here she was found to have bradycardia and complete heart block with hypotension. She was given atropine and started on dopamine drip, then levophed She was taken for temporary pacemaker on 07/23. Permanent pacemaker placed on
07/24/2025. Then overnight on 07/25 she had worsening shortness of breath and CXR showed worsening bilateral opacities. Family report no worsening of her baseline cough. She was started on lasix, bipap and zosyn. She is planned for [facility] next week.
She was started on heparin 07/25 and required a pressure dressing to the pacemaker site. She has been afebrile throughout this time. WBC on arrival 7.0 peaked at 12 now 10.6, hgb 8.2, plt 175, there is mild L shift which is improving to 81%
neutrophils, BNP >27,000, UA with minimal pyuria, CXR with patchy infiltrates - asymmetrical possible pneumonia vs edema, patient currently on zoysn for possible pneumonia. Urine antigen legionella and s pneumo negative. ID is consulted for
assistance with management.
Past History
Additional Past Medical History:
follicular lymphoma s/p rituxin, Hx of falls, Hx of light tobacco smoking, GERD, CAD s/p stent to LAD (2014), paroxysmal A-fib s/p DCCV 03/2022), hypothyroidism, HTN, HLD, Hx of ankle fracture, Hx of MR, restrictive lung disease, hx of gastric ulcer,
Hx of right-sided pleural effusion requiring multiple thoracentesis in [id number], chronic amiodarone use
Additional Past Surgical History:
Coronary stent (2014 - LAD), cataract extraction (right), right ankle repair, hysterectomy, tonsillectomy, right inguinal lymph node Bx (05/2020), cardioversion (05/2021 + 03/2022 + 06/20/2023)
Allergy History:
tramadol Allergy (Verified 07/23/25 22:18)
auditory/visual hallucinations
Medications Reviewed: Yes
Social History
Tobacco: Former Smoker
Alcohol: None
Drug: None
Family History
Family History: Not Pertinent
Review of Systems
Review of Systems
remainder of systems negative except as listed above
Vital Signs
Temp Pulse Resp BP Pulse Ox
98.3 F 71 16 116/106 98
07/26/25 07:27 07/26/25 06:07 07/26/25 06:07 07/26/25 06:07 07/26/25 07:58
Physical Exam
Physical Exam
Constitutional: No Acute Distress and Other (on bipap)
Cardiovascular: Regular Rate and S1/S2; Negative Murmur or Rub
Pulmonary: Clear, Symmetric and Non Labored; Negative Wheezes, Rales or Rhonchi
Gastrointestinal: Soft, Non Tender, Non Distended and Normal Bowel Sounds
Skin: Warm and Dry; Negative Rash or Jaundice
Neurological: Awake
Lab / Diagnostic Study Results
07/26/25 04:16
07/26/25 04:16
Abs Immat Gran (auto) 0.1 10^3/uL (0-0.05) H 07/26/25 04:16
Absolute Neuts (auto) 8.6 10^3/uL (1.4-6.5) H 07/26/25 04:16
Absolute Lymphs (auto) 0.5 10^3/uL (1.2-3.4) L 07/26/25 04:16
Absolute Monos (auto) 1.3 10^3/uL (0.1-0.6) H 07/26/25 04:16
Absolute Basos (auto) 0.0 10^3/uL (0-0.2) 07/26/25 04:16
Immature Gran % 0.9 % (0-0.5) H 07/26/25 04:16
Neutrophils % 81.4 % (42.2-75.2) H 07/26/25 04:16
Lymphocytes % 4.7 % (20.5-51.1) L 07/26/25 04:16
Monocytes % 12.3 % (1.7-9.3) H 07/26/25 04:16
Eosinophils % 0.5 % (0-6) 07/26/25 04:16
Basophils % 0.2 % (0-2) 07/26/25 04:16
PT 37.7 Sec (11.4-14.6) H 07/23/25 14:52
INR 3.81 07/23/25 14:52
Lactic Acid 0.9 mmol/L (0.7-2.0) 07/25/25 04:29
Procalcitonin 1.51 ng/ml (0.0-0.25) H 07/25/25 04:29
Ur Squamous Epith Cells 6-10 /LPF (Few) 07/25/25 11:36
Microbiology Results
Micro:
07/26/25 04:34 Legionella Urinary Antigen - Final
Urine Negative for Legionella pneumophila Serogroup 1 antigen.
A negative result does not rule out the possiblity of
Legionella infection due to other serogroups or species of
Legionella. Clinical correlation is recommended.
Streptococcus pneumoniae Antigen (M - Final
Negative for Streptococcus pneumoniae antigen.
A negative result does not exclude infection with
Streptococcus pneumoniae. Clinical correlation is
recommended.
07/25/25 14:22 Blood Culture - Pending
Blood/Venous
07/25/25 14:22 Blood Culture - Pending
Blood/Venous
07/25/25 11:36 Urine Culture - Pending
Urine
Assessment / Plan
Aspiration Pneumonitis vs Atypical Pulmonary Edema
- Patient without change in baseline cough or sputum production, no fevers, resolved leukocytosis; also note probnp >27,000, procalcitonin not reliable with Crcl 19 and would not use for clinical decision making
- would observe off of antibiotics at this time, risks of C difficile, acquisition of MDRO etc outweigh benefits of empiric treatment at this time. Stopped zosyn.
Possible Asymptomatic Bacturia
- does not have urinary symptoms at this time, no need for UA or antibiotics
New AV block/LBBB
S/p temp pacemaker
Remote history of follicular lymphoma
--- NOTE | 2025-07-26 12:00 | PTCARENOTE ---
Reassessed the patient, continued BiPAP, remained confused and restless, CARDS redosed Lasix IV.
[2025-07-26] MEDS: LASIX 40 MG IV ×2 (12:23→16:37)
--- NOTE | 2025-07-26 12:30 | CHAP ---
Visited 'Eliza' at 9:15, per 's request. We offered prayers together, and shared background about Eliza and their family life. Emotional and spiritual support provided, along with a prayer blanket and assurance of our on-going
availability. Warehouse Shipping Clerk advised that if Eliza does go on comfort care, [facility] repairer wood furniture can be contacted to provide Sacr[employer] of the Sick.
[2025-07-26 12:34] LABS: B.E. 1.3 mmol/L; HCO3 27.1 mmol/L (21-28); O2 Saturation % 99.6 % (94-98); PCO2 48 mmHg (32-35); PO2 123 mmHg (83-108)
[2025-07-26 12:36] LABS: O2 Therapy 60
--- NOTE | 2025-07-26 13:56 | W.PN.HOSP.TC ---
Addendum entered and electronically signed by Lanre Jose MD 07/26/25 16:31:
Complete heart block s/p PPM on 07/24 c/b cardiogenic shock
Levo and dopa weaned off
Started on Hep gtt
Plan on LHC on Monday
Acute hypoxic respiratory failure with spo2 of 80% suspect from HF vs Pna (likely aspiration)
on Bipap, titrate as tolerated
Diuretics IV
Atb with anaerobic coverage emperically eddie since Procal is up
BECKA versus progressive CKD. Previous creatinine from 2022 with a creatinine of less than 1.
Could be related to bradycardia hypotension precipitating ischemic ATN.
Can check urine studies
Renal bladder ultrasound
Elevated troponin likely secondary to type II demand ischemia.
LHC on Monday
Toxic metabolic encephalopathy vs Hospital/ICU aquried delirium, suspect the latter with potential undx underlying dementia
Reorientation
Likely related to blood pressure
If if noticed focal neurological deficits will obtain brain MRI and neurology consult
Will need outpatient neuropsych follow up
ICU started precedex
Discussed with ICU to initiate Zyprexa
Hyponatremia
Encourage po intake
Original Note:
Today's Communication/Plan
-
IV diuresis Lasix 40 mg twice daily
Observe off antibiotics
Assessment / Plan
Assessment / Plan
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
now s/p permanent pacemaker, awaiting [facility].
#Hypoxic respiratory failure:
Requiring BiPAP
Suspicion for PNA vs HFpEF exacerbation in context of AV blockade.
- Pt was on Zosyn. Hold antibiotic and observe off ABX per ID recs. Patient remains afebrile, normal WBC.
- appreciate ID
- Responding well to diuretics. Switch to Lasix 40 IV twice daily, per cards
- Wean off O2 as tolerated
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
Hypotension resolved. Pt appears now hemodynamically stable. Off pressors
S/P temporary pacemaker 07/23. Permanent pacemaker was placed 07/24.
- Planning for L heart cath later this week
- Holding eliquis & amiodarone
- Holding home antihypertensives for hypotension
- Continue aspirin 81 mg daily
- Continue to monitor blood pressure
#HFpEF (EF 65%), in exacerbation
#Moderate MS, mild MR, moderate
#Transaminitis
. Echo 07/23/25: EF 65%, severely abnormal L atrial volume (>48ml/m2), moderate MS & . Likely experiencing acute on chronic HFpEF exacerbation in s/o arrhythmia, new LBBB. BNP elevated 8020. Elevation in AST and ALT likely in the setting of
congestion . Responding wel to diuresis. Lasix 40mg IV BID
- Wean off O2 as able
Encephalopathy:
Likely hospital-induced delirium
- Family at bedside instructed to continue to reorient patient to place/time/location
- Optimize sleep as able
- Manage medical conditions as above
- If becomes agitated w delirium at risk of harming self or others, can consider addition of low-dose antipsychotic - aim to avoid
#Hyponatremia
-Resolved with diuresis
#Elevated troponin
Likely type II [place] troponin elevation in the setting of demand ischemia due to her AV block and potential HFpEF exacerbation. However given her history of CAD requiring stent, there is also a possibility that troponin elevated due to arterial
obstruction type I [place]. This will be clarified with cardiac catheterization, potentially 07/25.
Trop: 0.059 on arrival, peaked 0.351
- For cath
#BECKA
May have underlying CKD
Cr elevated to 1.8. Likely cardiorenal creatinine remains stable at 1.8 with diuresis
- Follow BMP while continue diuresis
- Hold home alendronate
Chronic anemia:
- B12, folate normal
- Likely iron deficiency. Continue iron supplement
#Chronic
- Afib - eliquis & amiodarone (holding for now in advance of [facility])
- CAD s/p LAD PCI 2014 - continue statin
- HLD - continue statin
- Hypothyroidism - continue levothyroxine
#Global
- DVT ppx: IV heparin drip until [facility]; SCDs
- Diet: N.p.o. while on BiPAP, speech to evaluate when off BiPAP
- Code: full
- Dispo: to home (lives with )
Anticipated Discharge: > 48 hours
Subjective/Interval History
-
Date of Service: July 26, 2025
Appears confused/sleepy. On bipap
Objective Data
-
Labs:
Laboratory Results
07/26/25 07/26/25
04:16 12:07
WBC 10.6
Hgb 8.2 L
Hct 23.8 L
Plt Count 175
HCO3 27.1
Sodium 136
Potassium 4.2
Chloride 103
Carbon Dioxide 27
BUN 48 H
Creatinine 1.8 H
Glucose 93
Calcium 7.3 L
Total Bilirubin 1.4 H
AST 167 H
ALT 63 H
Alkaline Phosphatase 66
Vital Signs:
Vital Signs
Temp Pulse Resp BP Pulse Ox
97.5 F 70 24 122/55 97
07/26/25 11:12 07/26/25 13:00 07/26/25 13:00 07/26/25 13:00 07/26/25 13:00
I&O
07/25/25 07/26/25 07/27/25
06:59 06:59 06:59
Intake Total 718.2 / 728.2 340 / 350 120 / 120
Output Total 175 / 325 2175 / 2235 435 / 435
Balance 543.2 / 403.2 -1835 / -1885 -315 / -315
Review of Systems
-
Unable to obtain full review of systems at this time due to: Acuity and Other (bipap)
Physical Exam
-
General: No Apparent Distress
HEENT: Normocephalic, Atraumatic and Moist Mucous Membranes
Respiratory: Clear to Auscultation and Other (on Bipap); Negative Wheezes, Rales, Rhonchi or Crackles
Cardiac: Regular Rhythm, S1/S2 and Other (Pacemaker site with dressing intact); Negative Murmur, Rub or Calf Tenderness
GI: Soft, Nontender, Nondistended and Normal Bowel Sounds
Musculoskeletal: No Clubbing, No Cyanosis and No Edema
Skin: Warm and Dry
Neuro: Awake and Other (appears confused)
Psych: Confused
--- NOTE | 2025-07-26 15:50 | W.PN.CARDCBS ---
Today's Communication / Plan
-
Diurese
BiPAP support
Impression / Plan
-
PCP: Dr. Morales
Cardiology: Dr. MAGDA Cabrera
Impression:
Admitted with new AV block, LBBB and BECKA 07/23/25
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
s/p temporary pacing wire placed in [employer] 07/23/2025
BECKA
Elevated Troponin
Acute HFpEF
Paroxysmal Afib with RVR
Chronic Eliquis OAC
CAD s/p prox LAD PCI 2014
widely patent LAD stent by cath 03/29/22
Hypothyroidism
Moderate MS and trace MR by echo 05/27/24
Mild AR/
History of Follicular lymphoma
Rituxan infusion
Lexiscan mibi 03/04/19: Completed 4:10 min Chandan protocol reaching 87% MPHR, normal perfusion imaging
Echo 05/2021: EF 60-65%, severe LA enlargement, mild MS (20/8) mild (21/11) ANGELINA 1.7cm2
Echo 03/28/22: EF 68%, stage II diastolic dysfunction, mild to mod MS peak/mean 15/8 mmHg and pressure halftime 1.7 cm sq, mild MR, mild with peak/mean 26/14 mmHg and ANGELINA 2.0 cm sq
Echo 05/27/2024: EF 55 to 60%, normal RV size and function, moderate MS with mean transmitral gradient 8 mmHg, trace MR, mild peak/mean 29/16 mmHg and ANGELINA 1.5 cm sq
Echo 07/23/25: EF 65%, no WMA, moderate peak/mean 48/25 mmHg and ANGELINA 1.4 cm sq, mild TR, moderate MS peak/mean 25/13 mmHg, mild MR
Plan:
Unstable, symptomatic complete heart block with cardiogenic shock
-Patient admitted with 5:1 AV block 07/23/2025 and had clinical deterioration resulting in temporary wire being placed at night on 07/23/2025
-Status post [employer] pacemaker with Dr. Anderson 07/24/2025 currently AV paced. Device site with dressing appears stable.
-Remains critically ill with tenuous respiratory status still volume overloaded
-Will continue aggressive IV diuresis. Spoke with nursing and will provide Lasix 40 mg IV now. Orders placed for Lasix 40 mg IV twice daily.
-Blood pressures stable�monitor closely
-Monitor renal function, electrolytes and LFTs closely�LFTs likely elevated due to congestion
-Patient is currently n.p.o.
-Patient likely has a degree of aspiration with underlying dysphagia or possibly pneumonitis. Antibiotics stopped by ID
-Maintain Parikh catheter due to critical ill nature of patient and need for close I's and O's
-Discussed CODE STATUS with family. For now full code
Known coronary artery disease with abnormal cardiac troponin
-Initial Troponin 0.059 ---> peak 0.351 on 07/24/25.
-Echo reviewed and EF stable without WMA
-Likely demand ischemia in the setting of unstable heart block and shock. There was discussions about proceeding with a cardiac catheterization on Monday and will reassess clinical stability and family wishes over the weekend.
-Patient is currently n.p.o. due to respiratory status and history of dysphagia.
-Will hold off starting IV heparin. Hold oral anticoagulation
-She has not been receiving atorvastatin due to n.p.o. status�Will place an hold order and monitor LFTs
Acute renal insufficiency
-baseline creatinine from 2022 0.6.
-Monitor hemodynamics; now off pressors with rhythm stabilization following pacemaker implant
-Continue to hold ARB
-Parikh catheter, monitor urine output
History of PAF currently AV paced
-Outpatient amiodarone discontinued
-Outpatient Eliquis held 07/23/2025.
-Eventual plan to restart Eliquis once procedures are complete; will have to reassess dose pending renal function
History of hypothyroidism�TSH normal this admission
Aortic stenosis/mitral stenosis�recent echocardiogram with moderate aortic stenosis and moderate mitral stenosis. Increased pulmonary artery systolic pressures however in the setting of cardiogenic shock. No pericardial effusion. Will hold off
repeating echocardiogram at this time. Will continue to monitor.
Delirium
- ICU team management
Updated family members at bedside including and 2 daughters.
HPI: Patient came to the hospital today for acute on chronic weakness and is being admitted with 2-1 AV block and cardiology is consulted. Patient and report that she has felt intermittently unwell for the last 3 to 4 weeks. They describe
that at times she is almost bedridden with fatigue and weakness and had a fall about 10 days ago. Then other times she has more energy and is able to eat and drink close to normal, but for the most part has not left her house in the last 3 to 4
weeks. Patient seemed to be feeling better for the last 2 days and thought she may have turned a corner, and then today she stood up and suddenly felt profoundly weak, but no loss of consciousness and so her brought her to the emergency
room. ECG looks like 2-1 AV block and new LBBB. Patient has a history of paroxysmal A-fib and is chronically on amiodarone 200 mg daily. Patient took her usual dose of amiodarone plus Eliquis this morning.
Progress Note - Dna Analyst
Subjective
Date of Service: July 26, 2025
Patient seen and examined with nursing and family at bedside. Currently on BiPAP due to worsening respiratory distress and hypercapnia. Repeat ABG pending
Objective
Labs:
07/26/25 04:16
07/26/25 04:16
Labs
Hgb 8.2 g/dL (12.0-16.0) L 07/26/25 04:16
Hct 23.8 % (37.0-47.0) L 07/26/25 04:16
Plt Count 175 10^3/uL (130-400) 07/26/25 04:16
PT 37.7 Sec (11.4-14.6) H 07/23/25 14:52
INR 3.81 07/23/25 14:52
APTT Cancelled 07/25/25 19:00
Sodium 136 mmol/L (135-145) 07/26/25 04:16
Potassium 4.2 mmol/L (3.5-5.1) 07/26/25 04:16
BUN 48 mg/dl (7-17) H 07/26/25 04:16
Creatinine 1.8 mg/dL (0.6-1.0) H 07/26/25 04:16
Glucose 93 mg/dl (70-99) 07/26/25 04:16
Troponins
07/23/25 07/23/25 07/23/25
15:20 19:10 23:30
Troponin I 0.059 H* 0.057 H* 0.134 H* D
07/24/25 07/24/25
05:26 16:25
Troponin I 0.351 H* D 0.290 H*
Vital Signs and I&O:
Vital Signs
Temp Pulse Resp BP Pulse Ox
97.5 F 70 24 122/55 94
07/26/25 11:12 07/26/25 13:00 07/26/25 13:00 07/26/25 13:00 07/26/25 14:35
Vital Signs
Temp Pulse Resp BP Pulse Ox
97.5 F 70 24 122/55 94
07/26/25 11:12 07/26/25 13:00 07/26/25 13:00 07/26/25 13:00 07/26/25 14:35
Intake & Output
07/24/25 07/25/25 07/26/25 07/27/25
06:59 06:59 06:59 06:59
Intake Total 192.0 / 192.0 718.2 / 728.2 340 / 350 130 / 130
Output Total 400 / 400 175 / 325 2175 / 2235 535 / 535
Balance -208.0 / -208.0 543.2 / 403.2 -1835 / -1885 -405 / -405
Physical Exam
Physical Exam
GEN: Frail 89-year-old female on BiPAP; increased work of breathing
LUNGS: Difficult exam. Bronchovesicular breath sounds bilaterally with fine crackles anterolaterally
CV: Left-sided pacemaker with dressing intact. No hematoma. Regular. Positive S1-S2 2/6 SM
abd: Soft, nontender. Positive bowel
EXT: No edema. Warm distal extremities
[2025-07-26] MEDS: PRECEDEX 100 IV (15:58)
[2025-07-26 16:00] LABS: Glucose - Point of Care 83 mg/dl (70-99)
--- NOTE | 2025-07-26 16:00 | PTCARENOTE ---
Reassessed the patient, continued to be CAM positive. Patient constantly grabbed on oxygen tubing/mask, trying to get out of bed w/o asking for help, stated she was at home, unable to redirect by staff and families at bedside. Initiated Precdex drip
for RASS +3.
[2025-07-26] MEDS: D10W 1000 IV (16:25)
--- NOTE | 2025-07-26 17:50 | PTCARENOTE ---
Notified Bridge Ironworker and CARDS that patient had decreased urine output and becoming hypotensive, bladder scanned 0mL, Bridge Ironworker ordered Albumin IV x1, updated families at bedside.
[2025-07-26] MEDS: FLEXBUMIN 100 IV (18:27)
[2025-07-26 18:48] LABS: Glucose - Point of Care 94 mg/dl (70-99)
[2025-07-26] MEDS: LEVOPHED 258 MG IV (19:39)
--- NOTE | 2025-07-26 20:52 | PTCARENOTE ---
Received pt resting in bed, drowsy. On precedex gtt- titrated down to 0.1mcg at this time. Not following commands. Gets restless with care but otherwise rests calmly. No meaningful conversation. BOYKIN. AV paced on tele, HR 70. No edema. + pulses.
Afebrile. Hypotensive at change of shift - 80s/50s, MAP<60. Albumin finished infusing. Double concentrated levo started at 2mcg and now weaned to off. Will monitor BP closely. On midflow 15L with NRB mask on top. Lungs w scattered crackles
throughout. Shallow breaths. Occasional very weak, moist cough. Unable to suction anything out, mouth care provided. Hypoactive bowel sounds. NPO. Parikh draining cristin urine - poor output, see I&O. L CW pacemaker site with dsg intact. No active
oozing noted. RLE with ecchymosis. R IJ cordis. D10W per orders. Bathed with CHG.
Daughters and at bedside - questions answered.
--- NOTE | 2025-07-26 23:49 | PTCARENOTE ---
Addendum entered by Mary Ellen Fisher RN 07/27/25 00:02:
Placed on bipap 08/17 12L by RT.
Original Note:
Pt reassessed. Currently on 3mcg levophed to maintain MAP>65. Remains on 0.1mcg precedex, RASS -2.
[2025-07-26 23:56] LABS: Glucose - Point of Care 118 mg/dl (70-99)
[2025-07-27] VITALS (65 sets, daily range): BP systolic 96–161; BP diastolic 41–64; PULSE 2–70; BMI 22.7
--- NOTE | 2025-07-27 01:25 | PTCARENOTE ---
Pt. very agitated, trying to pull bipap mask off, screaming for help. Spo2 dipping to mid 80s. Daughters and RN at bedside trying to reorient pt without success. RT to bedside - bipap removed, placed on 40L/100% high flow NC. Precedex also increased
back to 0.2mcg. Pt. now resting. Spo2 100%.
[2025-07-27 03:34] LABS: Venous Blood Gas B.E. 1.2 mmol/L (-4 to +4); Venous Blood Gas O2 Sat % 100.0 %
[2025-07-27] MEDS: SYNTHROID PO (03:48)
[2025-07-27 03:56] LABS: Hematocrit 21.9 % (37.0-47.0); Hemoglobin 7.1 g/dL (12.0-16.0); INR 2.43; Mean Corp Hgb Conc. 32.4 g/dL (33.0-37.0); Mean Corpuscular Volume 93.6 fL (81.0-99.0); PT 26.5 Sec (11.4-14.6); Platelet Count 179 10^3/uL (130-400); Red Cell Dist. Width 16.7 % (11.5-14.5)
[2025-07-27 03:57] LABS: APTT 47.4 Sec (23.4-35.0)
[2025-07-27 04:18] LABS: ALT (SGPT) 45 U/L (0-35); AST (SGOT) 126 U/L (14-36); Albumin 3.0 g/dl (3.5-5.0); Alkaline Phosphatase 60 U/L (38-126); Blood Urea Nitrogen 53 mg/dl (7-17); Calcium 7.1 mg/dl (8.4-10.2); Carbon Dioxide 30 mmol/L (22-30); Chloride 104 mmol/L (98-107); Estimated Creatinine Clearance 19 ml/min; Glucose 108 mg/dl (70-99); Magnesium 2.1 mg/dl (1.6-2.3); Potassium 4.0 mmol/L (3.5-5.1); Sodium 139 mmol/L (135-145); Total Protein 5.2 g/dl (6.3-8.2); eGFR 26.77
--- NOTE | 2025-07-27 04:38 | PTCARENOTE ---
VBG results reviewed with PAZ Leavitt. Plan to trial bipap again and increase precedex gtt to allow pt to tolerate bipap better.
Precedex increased to 0.4mcg and bipap placed back on - 08/17 with 10L bled through.
Daughters at bedside all night - updated on plan.
[2025-07-27] MEDS: CALCIUM GLUCONATE 130 MG IV (05:07)
[2025-07-27 05:18] LABS: Glucose - Point of Care 116 mg/dl (70-99)
--- NOTE | 2025-07-27 07:30 | PTCARENOTE ---
Received patient on Precedex Drip, RASS-2 at goal, arousable to stimuli, A&Ox0, on BiPAP, Left upper chest PPM, AV paced, BP at goal on Levophed Drip, RIJ Cordis infusing D10W to prevent hypoglycemia, Parikh draining yellow urine, families at
bedside.
--- NOTE | 2025-07-27 08:17 | W.PN.INTV ---
Today's Communication / Plan
Recommendations
Stop Precedex drip due to over-sedation; resume if needed
She is off and on levophed
Continue diuresis, monitor sCr and [K]
Monitor off antibiotics; ID consulted and recs appreciated
s/p PPM with set rate to 70
Midflow vs high flow during the day, BiPAP with sleep due to acute on chronic hypercapnia
Serial blood gas to trend pH and pCO2
Continue ICU level of care for this critically ill patient
Assessment
-
Assessment: 89-year-old F with PMHx of follicular lymphoma s/p rituxin, Hx of falls, Hx of light tobacco smoking, GERD, CAD s/p stent to LAD (2014), paroxysmal A-fib s/p DCCV 03/2022), hypothyroidism, HTN, hx of gastric ulcer, and Hx of right-sided
pleural effusion requiring multiple thoracentesis in [id number] who presents with weakness, malaise and heart palpitations. She said that she feels like her heart is 'flip-flopping.' In the ER she endorsed LE swelling, productive cough, and SOB.
EKG initially showed bradycardia with 2-1 AV-block with PVCs and a new LBBB. Previous EKG in March 2025 showed incomplete RBBB and LAFB and sinus rhythm, per cardiology. She was afebrile in ER david BP 147/71, HR 32, SpO2 98% on room air, and RR
19-23. Initial labs pertinent for WBC 7, Hb 10.9, INR 3.81, Na 128, Cr 1.8, T. bili 1.6, troponin 0.059, proBNP 8020, TSH 4.6, and lyme screen negative. CXR showed bilateral parenchymal opacities with low lung volumes. Cardiology consulted and
she was admitted to IVU with pace pads attached to chest. Echo on 07/23/2025 showed LVEF 65% with moderate , pulmonary HTN with PASP 70 (previously 45-50 on echo from 05/2024), moderate MS, mild MR and increased LA volume. Later in evening on 07/23
she became severely bradycardic with HR down to 10-20 and was hypotensive, EKG showed 5-1 AV block - she was lethargic, pale, and nauseous. Atropine given with no improvement. Dopamine gtt started with slight improvement, and then interventional
hadoop application developer Dr. Javier evaluated her, levophed was started and pt brought to dental laboratory supervisor and temporary pacing wire placed. Dopamine and levophed weaned off. Permanent pacemaker placed on 07/24/2025. Overnight on 07/25 she had worsening SOB, CXR with
worsening bilateral opacities - lasix given, BiPAP started, and she was TRX from CVICU to ICU where Abx started via Zosyn. Grain Elevator Agent services consulted for further recommendations.
Chronic conditions PHARM TECH: Follicular lymphoma s/p rituxin, Hx of falls, Hx of light tobacco smoking, GERD, CAD s/p stent to LAD (2014), paroxysmal A-fib s/p DCCV 03/2022), hypothyroidism, HTN, HLD, Hx of ankle fracture, Hx of MR, restrictive lung
disease, hx of gastric ulcer, Hx of right-sided pleural effusion requiring multiple thoracentesis in [id number], chronic amiodarone use
Impression:
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
#Acute pulmonary edema due to above with severe bradycardia and acute HFpEF
#Acute hypoxic respiratory failure due to above and possibly with component of pneumonia/aspiration pneumonitis
#Acute on chronic hypercapnic respiratory failure
#BECKA
#Agitation likely due to ICU-delirium in setting of sleep deprivation
#Non-anion gap metabolic acidosis
#Transaminitis with hyperbilirubinemia
#Elevated troponin - likely demand ischemia with type II MN
#Abnormal urinalysis with possible UTI
#Chronic anemia
#Hx of non-Hodgkin lymphoma s/p rituxin
#Chronic cough
#GERD
#Paroxysmal A-fib on chronic amiodarone + Eliquis
#HTN/HLD
#Hx of light tobacco use
#CAD s/p LAD stent
#Valvular heart disease with , MS and MR
Plan:
- Continue BiPAP for now, and once more awake then transition back to high flow nasal cannula. Ideally I want her on supplemental oxygen during the day with high flow nasal cannula, possibly midflow if sats tolerate, and BiPAP with sleep and prn
increased SOB. Yesterday (07/26), family said that the pt had a nosebleed with the high flow; epistaxis now resolved
- Per nursing, the pt was frequently picking at the nasal cannula overnight/this AM, and this may have contributed to the epistaxis
- Currently I do not appreciate any nosebleed or hemoptysis
- Obtain serial blood gas to trend pH and pCO2 with goal pH>7.3
- Maintain SpO2 >90-94%
- Believe that she is experiencing ICU delirium
- Precedex started on 07/26 and she finally got some sleep; previously she had not slept in >36 hours, per the family, and I felt that sleep deprivation was contributing to her agitation/confusion
- Precedex currently on hold given oversedation; can resume going forward if needed but try to keep off if possible
- Caution using antipsychotics as her last QTc was 602 ms on EKG from 07/25/2025
- Given her AMS, primary team has ordered an MRI brain --> consider neurology consult +/- EEG if AMS persists eddie despite being off precedex
- Cardiology on board, recs appreciated
- Pt remains A-V paced s/p PPM placement- rate set to 70
- Continue trending serum Cr, avoiding nephrotoxic agents
- Diurese as tolerated while trending UOP and continue with strict I/O
- Serial CXR to trend for improvement of bilateral opacities
- Last CT Chest performed in 09/2022 showing mild scarring in RLL with small RML nodule (4mm) - no evidence of ILD then
- Pt had been on Abx, however given she remains afebrile with no change in chronic cough and WBC normal now x 3 days, bacterial pneumonia is unlikely. ID stopped all ABx (last dose Zosyn - 07/26)
- Monitor off ABx, trending WBC and monitor temperature curve
- There are bilateral patchy opacities seen on CXR
- She has a chronic cough, and although procal elevated she has BECKA and this limits the utility of the procal in this setting
- She had been on Zosyn from 07/25 - 07/26
- Follow up blood Cx + urine Cx (both show NGTD); check sputum Cx if pt can produce decent sample; urine antigens for legionella and S PNA both negative
- Maintain MAP>65; she is off and on levophed
- Replete electrolytes with K>4, Mg>2
- Maintain euglycemia with goal BG 140-180; BG has been running low --> started D10W on 07/26
- Trend H/H and transfuse if needed to keep Hb>7g/dL; keep plt>50k (given recent PPM)
- prn nebulized bronchodilators - not currently bronchospastic
- Incentive spirometer encouraged 10x per hour for at least 4 hrs a day
- DVT ppx - outpatient Eliquis currently being held; INR was >3.5 on admission --> trend INR; defer starting heparin gtt to to cardiology; if Cr improves then plan is for C next week
GOC discussion - 07/[address] Pardo: I had a goals of care discusson with daughters, and (Wagner) at bedside. We discussed that her blood pressure was starting to drop and that she remains critically ill. We discussed the patient's code
status, and the would like us to do CPR if needed and intubate her if she develops worsening respiratory distress. I answered all the patient's family's questions to their satisfaction.
Critical care statement: A total of 41 minutes of critical care time was provided for this patient today. This includes management of unstable vital signs, evaluation of the patient at bedside, reviewing the patient's pertinent medical records
including radiographs, microbiology, laboratory evaluations, and discussion with primary team, consultants, pharmacy, nutrition, physical therapy, case management, charge nurse, critical care nursing, and respiratory therapy.
Subjective Dataa
Subjective Data
Date of Service:
Date of Service: July 27, 2025
Chief Complaint: Grain Elevator Agent Follow Up
Subjective:
Wore BiPAP overnight on 10/5 cmH2O bled with 12 L/min. Patient became agitated overnight however and was no longer able to tolerate BiPAP and she was transitioned to high flow nasal cannula at around 1:30 AM, and 100% FiO2 at 40 L/min, saturating
100%. When I saw the patient this morning, she was back on BiPAP on 10/5 cmH2O bled with 9 L/min, saturating 98% with heart rate 70 and BP 129/53. Patient's 2 daughters as well as were at bedside and all questions were answered.
Review of Systems
General: Other (Unobtainable as patient is lethargic/confused)
Objective Data
Data Reviewed
Vital Signs / I&O / Oxygen:
Vital Signs
Temp Pulse Resp BP Pulse Ox
97.6 F 70 20 119/53 97
07/27/25 07:10 07/27/25 09:14 07/27/25 06:00 07/27/25 09:14 07/27/25 06:00
Intake and Output
07/26/25 07/27/25 07/28/25
06:59 06:59 06:59
Intake Total 340 / 350 555.6 / 589.3 95.5 / 95.5
Output Total 2175 / 2235 1055 / 1105 150 / 150
Balance -1835 / -1885 -499.4 / -515.7 -54.5 / -54.5
SaO2 97
Nasal Cannula flow liters per 40
minute
Physical Exam
General: Respiratory Distress (negative), Chills (negative) and Sweats (negative)
HEENT: Normocephalic and Anicteric
Cardiovascular: Peripheral Edema (+1 LE pitting edema bilaterally) and Other (A-V paced rhythm; HR 70)
Respiratory: Wheeze (negative), Crackles (Bilateral), Rhonchi (negative), Non-Labored Respirations and Stridor (negative)
GI: Soft, Non Distended, Non Tender and Normal Bowel Sounds
Neurology: Tremors (negative) and Lethargic (minimally responsive)
Skin: Warm, Dry, Cyanosis (negative) and Jaundice (negative)
Labs/Micro/Reports
Lab Data
07/27/25 08:53
07/27/25 03:26
Laboratory Results
07/26/25 07/27/25
12:07 03:26
PT 26.5 H
INR 2.43
APTT 47.4 H
pH 7.36
pCO2 48 H
pO2 123 H
HCO3 27.1
O2 Delivery Level 60
Microbiology
07/25/25 14:22 Blood/Venous Blood Culture - Preliminary
No Growth in 24 hours- Final report to follow
07/25/25 14:22 Blood/Venous Blood Culture - Preliminary
No Growth in 24 hours- Final report to follow
07/25/25 11:36 Urine Urine Culture - Final
NO GROWTH
07/26/25 04:34 Urine Legionella Urinary Antigen - Final
Negative for Legionella pneumophila Serogroup 1 antigen.
A negative result does not rule out the possiblity of
Legionella infection due to other serogroups or species of
Legionella. Clinical correlation is recommended.
07/26/25 04:34 Urine Streptococcus pneumoniae Antigen (M - Final
Negative for Streptococcus pneumoniae antigen.
A negative result does not exclude infection with
Streptococcus pneumoniae. Clinical correlation is
recommended.
[2025-07-27 08:52] LABS: Glycohemoglobin (HgbA1c) 5.5 % (4.0-5.6)
--- NOTE | 2025-07-27 08:59 | W.PN.ID1 ---
Date of Service
Date of Service: July 27, 2025
Today's Communication
- would observe off of antibiotics at this time, risks of C difficile, acquisition of MDRO etc outweigh benefits of empiric treatment at this time.
Assessment / Plan
Aspiration Pneumonitis vs Atypical Pulmonary Edema
- Patient without change in baseline cough or sputum production, no fevers, resolved leukocytosis; also note probnp >27,000, procalcitonin not reliable with Crcl 19 and would not use for clinical decision making
- would observe off of antibiotics at this time, risks of C difficile, acquisition of MDRO etc outweigh benefits of empiric treatment at this time. Stopped zosyn 07/26
New AV block/LBBB
S/p temp pacemaker
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
Chief Complaint
-: Other (pneumonitis)
Subjective / Review of Systems
remains afebrile
bp stable
between bipap and high flow
Vital Signs / Physical Exam
Vital Signs
Vital Signs
Temp Pulse Resp BP Pulse Ox
97.6 F 70 20 156/54 97
07/27/25 07:10 07/27/25 06:00 07/27/25 06:00 07/27/25 06:00 07/27/25 06:00
Physical Exam
Constitutional: No Acute Distress and Chronically Ill
Cardiovascular: Regular Rate and S1/S2; Negative Murmur or Rub
Pulmonary: Clear and Symmetric; Negative Wheezes or Rales
Gastrointestinal: Soft, Non Tender, Non Distended and Normal Bowel Sounds
Skin: Warm and Dry; Negative Rash or Jaundice
Objective Data
Lab Data
Lab Results
07/27/25 03:26
PT 26.5 Sec (11.4-14.6) H 07/27/25 03:26
INR 2.43 07/27/25 03:26
APTT 47.4 Sec (23.4-35.0) H 07/27/25 03:26
Estimated Creat Clear 19 ml/min 07/27/25 03:26
Lactic Acid 0.9 mmol/L (0.7-2.0) 07/25/25 04:29
Total Bilirubin 1.5 mg/dl (0.2-1.3) H 07/27/25 03:26
AST 126 U/L (14-36) H 07/27/25 03:26
ALT 45 U/L (0-35) H 07/27/25 03:26
Alkaline Phosphatase 60 U/L (38-126) 07/27/25 03:26
Most recent labs reviewed.
Micro Results:
07/25/25 14:22 Blood Culture - Preliminary
Blood/Venous No Growth in 24 hours- Final report to follow
07/25/25 14:22 Blood Culture - Preliminary
Blood/Venous No Growth in 24 hours- Final report to follow
07/25/25 11:36 Urine Culture - Final
Urine NO GROWTH
07/26/25 04:34 Legionella Urinary Antigen - Final
Urine Negative for Legionella pneumophila Serogroup 1 antigen.
A negative result does not rule out the possiblity of
Legionella infection due to other serogroups or species of
Legionella. Clinical correlation is recommended.
Streptococcus pneumoniae Antigen (M - Final
Negative for Streptococcus pneumoniae antigen.
A negative result does not exclude infection with
Streptococcus pneumoniae. Clinical correlation is
recommended.
[2025-07-27] MEDS: PRECEDEX 100 IV (09:13)
[2025-07-27 09:14] LABS: Venous Blood Gas B.E. 2.8 mmol/L (-4 to +4); Venous Blood Gas O2 Sat % 100.0 %
[2025-07-27] MEDS: LOW STRENGTH ASPIRIN PO (09:14)
[2025-07-27] MEDS: TYLENOL PO (09:14)
[2025-07-27] MEDS: LASIX 40 MG IV ×2 (09:14→16:33)
[2025-07-27] MEDS: FEOSOL PO (09:14)
[2025-07-27 09:16] LABS: Hematocrit 23.2 % (37.0-47.0); Hemoglobin 7.7 g/dL (12.0-16.0)
[2025-07-27 09:28] LABS: LDH 434 U/L (120-246)
--- NOTE | 2025-07-27 11:18 | W.PN.UPDATE ---
Update Note
Progress Note Update
Complete heart block s/p PPM on 07/24 c/b cardiogenic shock
Levo and dopa weaned off
Started on Hep gtt
Plan on [facility] on Monday
Acute hypoxic respiratory failure with spo2 of 80% suspect from HF vs Pna (likely aspiration)
on Bipap, titrate as tolerated
Diuretics IV
Atb with anaerobic coverage emperically eddie since Procal is up
BECKA versus progressive CKD. Previous creatinine from 2022 with a creatinine of less than 1.
Could be related to bradycardia hypotension precipitating ischemic ATN.
Can check urine studies
Renal bladder ultrasound
Elevated troponin likely secondary to type II demand ischemia.
[facility] on Monday
Toxic metabolic encephalopathy vs Hospital/ICU aquried delirium, suspect the latter with potential undx underlying dementia
Reorientation
Likely related to blood pressure
If if noticed focal neurological deficits will obtain brain MRI and neurology consult
Will need outpatient neuropsych follow up
ICU started precedex
Discussed with ICU to initiate Zyprexa
Hyponatremia
Encourage po intake
--- NOTE | 2025-07-27 11:35 | W.PN.HOSP.TC ---
Addendum entered and electronically signed by Lanre Jose MD 07/27/25 12:19:
Complete heart block s/p PPM on 07/24 c/b cardiogenic shock
Levo and dopa weaned off
Started on Hep gtt
Plan on LHC on Monday
Acute hypoxic respiratory failure with spo2 of 80% suspect from HF vs Pna (likely aspiration)
on Bipap, titrate as tolerated
Diuretics IV
Atb with anaerobic coverage emperically eddie since Procal is up
BECKA versus progressive CKD. Previous creatinine from 2022 with a creatinine of less than 1.
Could be related to bradycardia hypotension precipitating ischemic ATN.
Can check urine studies
Renal bladder ultrasound
Elevated troponin likely secondary to type II demand ischemia.
LHC on Monday
Toxic metabolic encephalopathy vs Hospital/ICU aquried delirium, suspect the latter with potential undx underlying dementia
Reorientation
Likely related to blood pressure
If if noticed focal neurological deficits will obtain brain MRI and neurology consult
Will need outpatient neuropsych follow up
ICU started precedex
Discussed with ICU to initiate Zyprexa
Hyponatremia
Encourage po intake
Original Note:
Today's Communication/Plan
-
MRI brain
Continue diuresis
Assessment / Plan
Assessment / Plan
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
now s/p permanent pacemaker, awaiting [facility].
#Hypoxic respiratory failure:
Requiring BiPAP
Suspicion for PNA vs HFpEF exacerbation in context of AV blockade.
- Pt was on Zosyn which was discontinued. continues to be afebrile while off ABX per ID recs. normal WBC.
- appreciate ID
- Responding well to diuretics. Switch to Lasix 40 IV twice daily, per cards
- Wean off O2 as tolerated
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
Hypotension resolved. Pt appears now hemodynamically stable. Off pressors
S/P temporary pacemaker 07/23. Permanent pacemaker was placed 07/24.
- Planning for L heart cath later this week
- Holding eliquis & amiodarone
- Holding home antihypertensives for hypotension
- Continue aspirin 81 mg daily
- Continue to monitor blood pressure
#HFpEF (EF 65%), in exacerbation
#Moderate MS, mild MR, moderate
#Transaminitis
. Echo 07/23/25: EF 65%, severely abnormal L atrial volume (>48ml/m2), moderate MS & . Likely experiencing acute on chronic HFpEF exacerbation in s/o arrhythmia, new LBBB. BNP elevated 8020. Elevation in AST and ALT likely in the setting of
congestion . Responding wel to diuresis. Lasix 40mg IV BID
- Wean off O2 as able
Encephalopathy:
Likely hospital-induced delirium
- Family at bedside instructed to continue to reorient patient to place/time/location
- Optimize sleep as able
- Get brain MRI
- Manage medical conditions as above
- If becomes agitated w delirium at risk of harming self or others, can consider addition of low-dose antipsychotic - aim to avoid
#Hyponatremia
-Resolved with diuresis
#Elevated troponin
Likely type II [place] troponin elevation in the setting of demand ischemia due to her AV block and potential HFpEF exacerbation. However given her history of CAD requiring stent, there is also a possibility that troponin elevated due to arterial
obstruction type I [place]. This will be clarified with cardiac catheterization, potentially 07/25.
Trop: 0.059 on arrival, peaked 0.351
- For cath
#BECKA
May have underlying CKD
Cr elevated to 1.8. Likely cardiorenal creatinine remains stable at 1.8 with diuresis
- Follow BMP while continue diuresis
- Hold home alendronate
Chronic anemia:
- B12, folate normal
- Likely iron deficiency. Continue iron supplement
- Hgb 7.1 overnight. Ordered Type and screen and discussed possibility/risks/benefits of transfusion with who was somewhat hesitant about transfusion. Repeat CBC showed hgb of 7.7
- Check haptoglobin, LDH
- Transfuse for Hgb <7 (will need to get consent)
#Chronic
- Afib - eliquis & amiodarone (holding for now in advance of [facility])
- CAD s/p LAD PCI 2014 - continue statin
- HLD - continue statin
- Hypothyroidism - continue levothyroxine
#Global
- DVT ppx: IV heparin drip until [facility]; SCDs
- Diet: N.p.o. while on BiPAP, speech to evaluate when off BiPAP
- Code: full
- Dispo: to home (lives with )
Anticipated Discharge: > 48 hours
Subjective/Interval History
-
Date of Service: July 27, 2025
Objective Data
-
Labs:
Laboratory Results
07/27/25 07/27/25
03:26 08:53
WBC 10.1
Hgb 7.1 L 7.7 L
Hct 21.9 L 23.2 L
Plt Count 179
PT 26.5 H
INR 2.43
APTT 47.4 H
Sodium 139
Potassium 4.0
Chloride 104
Carbon Dioxide 30
BUN 53 H
Creatinine 1.8 H
Glucose 108 H
Calcium 7.1 L
Total Bilirubin 1.5 H
AST 126 H
ALT 45 H
Alkaline Phosphatase 60
Vital Signs:
Vital Signs
Temp Pulse Resp BP Pulse Ox
97.7 F 70 16 124/53 98
07/27/25 11:31 07/27/25 11:30 07/27/25 11:30 07/27/25 11:30 07/27/25 11:30
I&O
07/26/25 07/27/25 07/28/25
06:59 06:59 06:59
Intake Total 340 / 350 555.6 / 589.3 145.5 / 145.5
Output Total 2175 / 2235 1055 / 1105 325 / 325
Balance -1835 / -1885 -499.4 / -515.7 -179.5 / -179.5
Review of Systems
-
Unable to obtain full review of systems at this time due to: Acuity
Physical Exam
-
General: No Apparent Distress
Respiratory: Crackles (difusely) and Other (on Bipap)
Cardiac: Regular Rhythm, S1/S2 and Murmur (systolic); Negative Rub
GI: Soft, Nondistended and Normal Bowel Sounds
Musculoskeletal: No Clubbing, No Cyanosis and No Edema
Skin: Warm and Dry
Neuro: Sedated
--- NOTE | 2025-07-27 12:00 | PTCARENOTE ---
Reassessed the patient, titrated off Precedex and Levophed drips. No other changes from previous assessments.
[2025-07-27 12:57] LABS: Glucose - Point of Care 130 mg/dl (70-99)
--- NOTE | 2025-07-27 13:41 | CHAP ---
Eliza was sleeping comfortably, non-responsive. Aditya shared that Florence Palencia would be coming to give a blessing. He also talked about family, and their hope that Eliza would see her grandson get on August 30. Emotional and
spiritual support provided.
--- NOTE | 2025-07-27 14:00 | PTCARENOTE ---
Left Upper Chest Pacemaker dressing changed w/ a new Aquacel and a Pressure dressing on top. Original dressing had old drainage with old small blood clots. No active bleeding seen at the site.
--- NOTE | 2025-07-27 16:00 | PTCARENOTE ---
Reassessed the patient, patient is awake alert, talking, following commands. Per families at bedside, patient is back to home baseline.
--- NOTE | 2025-07-27 16:12 | W.PN.CARDCBS ---
Today's Communication / Plan
-
Prognosis guarded
Continue to try to optimize respiratory status
IV Lasix
Monitor hemodynamics/blood pressure
Impression / Plan
-
PCP: Dr. Morales
Cardiology: Dr. MAGDA Cabrera
Impression:
Admitted with new AV block, LBBB and BECKA 07/23/25
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
s/p temporary pacing wire placed in [employer] 07/23/2025
BECKA
Elevated Troponin
Acute HFpEF
Paroxysmal Afib with RVR
Chronic Eliquis OAC
CAD s/p prox LAD PCI 2014
widely patent LAD stent by cath 03/29/22
Hypothyroidism
Moderate MS and trace MR by echo 05/27/24
Mild AR/
History of Follicular lymphoma
Rituxan infusion
Lexiscan mibi 03/04/19: Completed 4:10 min Chandan protocol reaching 87% MPHR, normal perfusion imaging
Echo 05/2021: EF 60-65%, severe LA enlargement, mild MS (20/8) mild (/) ANGELINA 1.7cm2
Echo 03/28/22: EF 68%, stage II diastolic dysfunction, mild to mod MS peak/mean 15/8 mmHg and pressure halftime 1.7 cm sq, mild MR, mild with peak/mean 26/14 mmHg and ANGELINA 2.0 cm sq
Echo 05/27/2024: EF 55 to 60%, normal RV size and function, moderate MS with mean transmitral gradient 8 mmHg, trace MR, mild peak/mean 29/16 mmHg and ANGELINA 1.5 cm sq
Echo 07/23/25: EF 65%, no WMA, moderate peak/mean 48/25 mmHg and ANGELINA 1.4 cm sq, mild TR, moderate MS peak/mean 25/13 mmHg, mild MR
Plan:
Unstable, symptomatic complete heart block with cardiogenic shock
-Patient admitted with 5:1 AV block 07/23/2025 and had clinical deterioration resulting in temporary wire being placed at night on 07/23/2025
-Status post [employer] pacemaker with Dr. Anderson 07/24/2025 currently AV paced.
-Device site with old blood and feels spongy. Dressing changed by nursing with no hematoma or active bleeding. Will continue to monitor
-Patient had been on Eliquis anticoagulation for PAF currently AV paced. There was initial discussion about cardiac catheterization on Monday however she is not clinically stable. Will hold off resuming oral anticoagulation given worsening anemia.
Hold off IV heparin at this time.
-Remains critically ill with tenuous respiratory status still volume overloaded
-Blood pressures improved now off Levophed
-Continue IV Lasix
-Remains on BiPAP
-Monitor renal function, electrolytes and LFTs closely�LFTs likely elevated due to congestion
-Patient is currently n.p.o.
-Patient likely has a degree of aspiration with underlying dysphagia or possibly pneumonitis. Antibiotics stopped by ID
-Maintain Parikh catheter due to critical ill nature of patient and need for close I's and O's
-Discussed CODE STATUS with family. For now full code
Known coronary artery disease with abnormal cardiac troponin
-Initial Troponin 0.059 ---> peak 0.351 on 07/24/25.
-Echo reviewed and EF stable without WMA
-Likely demand ischemia in the setting of unstable heart block and shock. There was discussions about proceeding with a cardiac catheterization on Monday and will reassess clinical stability Next week
-Patient is currently n.p.o. due to respiratory status and history of dysphagia.
-Hold oral anticoagulation
-She has not been receiving atorvastatin due to n.p.o. status�Will place an hold order and monitor LFTs
Acute renal insufficiency
-baseline creatinine from 2022 0.6; Creatinine 1.8 on admission
-Creatinine stable at 1.8
-Monitor hemodynamics; now off pressors with rhythm stabilization following pacemaker implant
-Continue to hold ARB
-Parikh catheter, monitor urine output
History of PAF currently AV paced
-Outpatient amiodarone discontinued
-Outpatient Eliquis held 07/23/2025.
-Eventual plan to restart Eliquis once procedures are complete; will have to reassess dose pending renal function
History of hypothyroidism�TSH normal this admission
Aortic stenosis/mitral stenosis�recent echocardiogram with moderate aortic stenosis and moderate mitral stenosis. Increased pulmonary artery systolic pressures however in the setting of cardiogenic shock. No pericardial effusion.
Updated family members at bedside including , Daughters and granddaughters.
HPI: Patient came to the hospital today for acute on chronic weakness and is being admitted with 2-1 AV block and cardiology is consulted. Patient and report that she has felt intermittently unwell for the last 3 to 4 weeks. They describe
that at times she is almost bedridden with fatigue and weakness and had a fall about 10 days ago. Then other times she has more energy and is able to eat and drink close to normal, but for the most part has not left her house in the last 3 to 4
weeks. Patient seemed to be feeling better for the last 2 days and thought she may have turned a corner, and then today she stood up and suddenly felt profoundly weak, but no loss of consciousness and so her brought her to the emergency
room. ECG looks like 2-1 AV block and new LBBB. Patient has a history of paroxysmal A-fib and is chronically on amiodarone 200 mg daily. Patient took her usual dose of amiodarone plus Eliquis this morning.
Progress Note - Beach Attendant
Subjective
Date of Service: July 27, 2025
Events overnight reviewed. Patient comfortable on BiPAP.
Objective
Labs:
07/27/25 08:53
07/27/25 03:26
Labs
Hgb 7.7 g/dL (12.0-16.0) L 07/27/25 08:53
Hct 23.2 % (37.0-47.0) L 07/27/25 08:53
Plt Count 179 10^3/uL (130-400) 07/27/25 03:26
PT 26.5 Sec (11.4-14.6) H 07/27/25 03:26
INR 2.43 07/27/25 03:26
APTT 47.4 Sec (23.4-35.0) H 07/27/25 03:26
Sodium 139 mmol/L (135-145) 07/27/25 03:26
Potassium 4.0 mmol/L (3.5-5.1) 07/27/25 03:26
BUN 53 mg/dl (7-17) H 07/27/25 03:26
Creatinine 1.8 mg/dL (0.6-1.0) H 07/27/25 03:26
Glucose 108 mg/dl (70-99) H 07/27/25 03:26
Troponins
07/24/25
16:25
Troponin I 0.290 H*
Vital Signs and I&O:
Vital Signs
Temp Pulse Resp BP Pulse Ox
97.7 F 70 19 122/53 99
07/27/25 11:31 07/27/25 14:30 07/27/25 14:30 07/27/25 14:30 07/27/25 15:19
Vital Signs
Temp Pulse Resp BP Pulse Ox
97.7 F 70 19 122/53 99
07/27/25 11:31 07/27/25 14:30 07/27/25 14:30 07/27/25 14:30 07/27/25 15:19
Intake & Output
07/25/25 07/26/25 07/27/25 07/28/25
06:59 06:59 06:59 06:59
Intake Total 718.2 / 728.2 340 / 350 555.6 / 589.3 205.5 / 205.5
Output Total 175 / 325 2175 / 2235 1055 / 1105 500 / 500
Balance 543.2 / 403.2 -1835 / -1885 -499.4 / -515.7 -294.5 / -294.5
Physical Exam
Physical Exam
GEN: Frail 89-year-old female on BiPAP; increased work of breathing
LUNGS: Difficult exam. Bronchovesicular breath sounds bilaterally with fine crackles anterolaterally
CV: Left-sided pacemaker with dressing intact. Regular. Positive S1-S2 2/6 SM
abd: Soft, nontender. Positive bowel
EXT: No edema. Warm distal extremities
[2025-07-27] MEDS: D10W 1000 IV (16:33)
[2025-07-27 17:50] LABS: Venous Blood Gas B.E. 4.0 mmol/L (-4 to +4); Venous Blood Gas O2 Sat % 99.8 %
[2025-07-27 17:53] LABS: Glucose - Point of Care 122 mg/dl (70-99)
--- NOTE | 2025-07-27 20:29 | PTCARENOTE ---
Received pt resting in bed, AAOx3. Forgetful but able to have appropriate conversation. Following commands. BOYKIN but weak. AV paced on tele, HR 70. BP stable off pressors. 140s/50s. + pulses. Afebrile. On HF NC 40L/60% fio2. Lungs coarse with
crackles throughout. Encouraged coughing and deep breathing. Weak occasionally productive cough. Small amt white sputum. Mouth care provided. Hypoactive bowel sounds. NPO. Parikh draining yellow urine. L CW pacer site with dsg c/d/i. R IJ cordis with
D5W @ 20ml/hr. Family at bedside.
[2025-07-28] VITALS (30 sets, daily range): BP systolic 104–145; BP diastolic 38–88; PULSE 2–70; BMI 22.3
--- NOTE | 2025-07-28 00:29 | PTCARENOTE ---
Placed by bipap around 2230 by RT. 08/17 with 10L bled through. Pt. tolerating it well at this time. Resting calmly. Daughters remain at bedside. Was bathed with CHG, gardner+mouth care provided.
[2025-07-28 00:33] LABS: Glucose - Point of Care 114 mg/dl (70-99)
[2025-07-28 03:56] LABS: Venous Blood Gas B.E. 6.5 mmol/L (-4 to +4); Venous Blood Gas O2 Sat % 99.4 %
[2025-07-28] MEDS: SYNTHROID PO (04:05)
[2025-07-28 04:08] LABS: Hematocrit 22.6 % (37.0-47.0); Hemoglobin 7.5 g/dL (12.0-16.0); Mean Corp Hgb Conc. 33.2 g/dL (33.0-37.0); Mean Corpuscular Volume 91.5 fL (81.0-99.0); Platelet Count 167 10^3/uL (130-400); Red Cell Dist. Width 16.7 % (11.5-14.5)
[2025-07-28 04:30] LABS: Blood Urea Nitrogen 50 mg/dl (7-17); Calcium 7.8 mg/dl (8.4-10.2); Carbon Dioxide 34 mmol/L (22-30); Chloride 105 mmol/L (98-107); Estimated Creatinine Clearance 28 ml/min; Glucose 107 mg/dl (70-99); Potassium 3.5 mmol/L (3.5-5.1); Sodium 142 mmol/L (135-145); eGFR 43.54
[2025-07-28 06:10] LABS: Glucose - Point of Care 103 mg/dl (70-99)
[2025-07-28] MEDS: LOW STRENGTH ASPIRIN PO (07:25)
[2025-07-28] MEDS: FEOSOL PO (07:25)
[2025-07-28] MEDS: TYLENOL PO (07:25)
--- NOTE | 2025-07-28 08:00 | PTCARENOTE ---
Received pt. @ change of shift. AAOx3, forgetful @ x's, easily redirected; denies pain. 100% AV paced on monitor. SpO2 96% on BiPAP 10/5, 10L; RT transition off BiPAP to 8LMF, tolerated transition; no s/s of resp distress. Auscultated
coarse/crackles throughout b/l lung nazario. Freq moist p cough w minimal amt of clear/white sputum. Coughing/deep breathing exercises encouraged. +BS, abd soft/round; strict NPO status maintained pending WOMEN NURSE eval. Parikh in place draining
yellow/cristin urine; output approx 25mL/hr. R IJ cordis w D10W @ 10mL/hr, dressing c/d/i. Family @ bedside. Safe environment maintained.
--- NOTE | 2025-07-28 08:14 | W.PN.HOSP.TC ---
Today's Communication/Plan
-
- Holding off on C
- Lasix 40mg today
- Continue to wean O2
- Restart eliquis & amiodarone
- Continue D10, NPO per speech
Assessment / Plan
Assessment / Plan
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
now s/p permanent pacemaker, awaiting [facility] with course c/b hypoxic respiratory failure.
#Hypoxic respiratory failure
Early am 07/25:'~ 3:30 Patient hypoxic, pulsox in the 70's, increased work of breathing, using accessory muscles. Patient w/crackles t/o b/l lungs. Lasix 20 mg IV, started on Bi pap 08/17. Transferred to ICU. Given another Lasix 20 mg IV for total of
Lasix 40 mg IV. Parikh placed for strict I&Os, Started on Zosyn 2.25 mg IV Q6H for respiratory coverage. Pt w/no fever or elevated white count.' VBG: pH 7.32, pCO2 46, pO2 155, O2 sat 97.1%. Procalcitonin elevated to 1.51. EKG 07/25: no change from
prior. CXR 07/25: 'Severe bilateral reticulonodular interstitial disease in the lungs mixed with groundglass opacity. Diagnostic possibilities are (1) acute infection (endobronchial infection and pneumonia), (2) an acute inflammatory interstitial
pneumonitis, (3) malignancy (lymphangitic carcinomatosis or other metastatic disease), or (4) acute interstitial and alveolar cardiogenic pulmonary edema.' Given afebrile, normal WBC, timecourse of sx development after hemodynamic instability in s/o
AV block & subsequent temporary>permanent pacemaker placement, along with suspected HFpEF exacerbation favor cardiogenic edema most likely, followed by inflammatory interstitial pneumonitis.
Likely HFpEF exacerbation in context of AV blockade, with potential element of aspiration PNA. S/p empiric IV zosyn (07/25-). S/p IV lasix 07/24-07/27 (40mg IV bid for last 3 doses).
Today: -990.0 ml today. weaned off bipap 07/28, now 91% O2 sat on 8L NC. RR 24. Normotensive, afebrile. CXR this am (07/28): 'Bilateral patchy airspace opacities which have slightly improved from prior. There are likely small bilateral pleural
effusions which are similar in appearance to prior.'
- 40mg IV lasix today
- Eventually resume PO furosemide 20mg a day
- Wean off O2 as tolerated
- NPO, pending speech eval for aspiration risk
#HFpEF (EF 65%), suspected exacerbation
#Moderate MS, mild MR, moderate
#Transaminitis
CXR (07/23):Slightly increased pulmonary vascularity which could represent mild CHF. Echo 07/23/25: EF 65%, severely abnormal L atrial volume (>48ml/m2), moderate MS & . Likely experiencing acute on chronic HFpEF exacerbation in s/o arrhythmia, new
LBBB. BNP elevated 8020. Elevation in AST and ALT likely in the setting of congestion. Responding well to diuresis.
Today, -1040.0 ml fluid balance. CXR with improved effusions.
- Wean off O2 as able
- Bipap at night
- Diuresis plan as above for hypoxic resp failure
- Monitor I&Os & daily weights
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
Patient overnight to 07/23 became bradycardic with heart rate in the 10s, severe hypotension, lethargic, pale, nauseous; patient given 1 mg IV atropine, dopamine gtt., norepinephrine gtt. emergent temporary pacemaker was placed via right IJ overnight
07/23. US 07/24 (in s/o hypotension, dyspnea) negative for pericardial effusion.
Hypotension resolved. Pt appears now hemodynamically stable. Off pressors. S/P temporary pacemaker 07/23. Permanent pacemaker was placed 07/24.
- Holding off on planning for L heart cath at this time
- Restart eliquis
- Restart home amiodarone
- Holding home antihypertensives
- Continue aspirin 81 mg daily
- 40mg IV KCl today
- Monitor BP
#Anemia
Hgb baseline 8-9. On 07/27, trended down to 7.1. B12, folate normal; likely iron deficiency. Type & screen ordered, risks & benefits of transfusion discussed w . LDH 434. Heparin held 07/25 due to c/f bleeding at pacemaker site. 07/27: Device
site with old blood and feels spongy; dressing changed by nursing with no hematoma or active bleeding.
Hgb: 7.1>7.7>7.5
- Haptoglobin pending
- Check iron, ferritin
- Continue home iron supplement (325mg daily)
- Transfuse for Hgb <7 (will need to get consent)
- Holding resuming anticoagulation, heparin, per cards
#Confusion, AMS, c/f hospital-induced delirium; improving
Altered mental status on morning of 07/24, likely 2/2 hospital-induced delirium with contribution by prior hemodynamic instability and emergent temporary pacer placement overnight on 07/23, old age, likely underlying dementia, lack of sleep, acute
hypoxic respiratory failure.
- Family at bedside instructed to continue to reorient patient to place/time/location
- Optimize sleep as able
- Manage medical conditions as above
- If becomes agitated w delirium at risk of harming self or others, can consider addition of low-dose antipsychotic - aim to avoid
#BECKA, resolving
Cr elevated to 1.8. Likely in s/o arrhythmia and changing perfusion; cardiorenal. Will continue to monitor post-diuresis. Last documented Cr from 2022 0.6-0.7. Potential underlying CKD.
Cr 1.2 today, downtrending.
- Follow BMP
- Hold home alendronate
#Elevated troponin
Likely type II [place] troponin elevation in the setting of demand ischemia due to her AV block and potential HFpEF exacerbation. However given her history of CAD requiring stent, there is also a possibility that troponin elevated due to arterial
obstruction type I [place]. This will be clarified with cardiac catheterization.
Trop: 0.059 > 0.134 > 0.351 (peak) > 0.290.
- Continue management as above
#Chronic
- Afib - eliquis & amiodarone (holding for now in advance of C & c/f pacemaker site bleeding)
- CAD s/p LAD PCI 2014 - continue statin
- HLD - continue statin
- Hypothyroidism - continue levothyroxine
- Bunion on R foot - consider podiatry consult
#Global
- DVT ppx: eliquis
- Diet: NPO w meds in puree & sips; D10 (has been npo for most of admission, monitor nutritional status)
- Code: full
- Dispo: lives at home with ; pending stabilization & PT/OT eval
Anticipated Discharge: > 48 hours
Subjective/Interval History
-
Date of Service: July 28, 2025
Pt awake, alert, sitting in chair next to bed. Answering questions, aware of surroundings. AOx3. Family at bedside, say that patient less confused for last 24hr. Pt denies any SOB at rest, but a bit dyspneic when speaking a lot. Denies any CP or
pain elsewhere.
Objective Data
-
Labs:
Laboratory Results
07/28/25
03:47
WBC 8.9
Hgb 7.5 L
Hct 22.6 L
Plt Count 167
Sodium 142
Potassium 3.5
Chloride 105
Carbon Dioxide 34 H
BUN 50 H
Creatinine 1.2 H
Glucose 107 H
Calcium 7.8 L
Vital Signs:
Vital Signs
Temp Pulse Resp BP Pulse Ox
98.3 F 70 24 134/45 91
07/28/25 04:05 07/28/25 07:00 07/28/25 07:00 07/28/25 07:00 07/28/25 07:37
I&O
07/27/25 07/28/25 07/29/25
06:59 06:59 06:59
Intake Total 555.6 / 589.3 445.5 / 445.5
Output Total 1055 / 1105 1520 / 1520
Balance -499.4 / -515.7 -1074.5 / -1074.5
Review of Systems
-
Unable to obtain full review of systems at this time due to: Dementia
History Source: Patient
Constitutional: Reports No Symptoms
Physical Exam
-
General: Well Developed, Well Nourished and Conversant
HEENT: Normocephalic, Atraumatic and Anicteric
Respiratory: Clear to Auscultation (unable to auscultate lung bases ) and Non Labored Respirations
Cardiac: Regular Rhythm
GI: Nontender and Nondistended
Musculoskeletal: No Edema (no PARVEEN on feet or upper shins; SCDs in place )
Skin: Warm and Dry
Neuro: AO x 3 (oriented to name, year, place )
Psych: Calm
Data Reviewed
-
Total Time Spent with Patient (in minutes): 15
Critical Care Time (in minutes): 60
Diagnostic Radiology: Report Reviewed by me
Labs: Labs Reviewed by me
--- NOTE | 2025-07-28 08:44 | W.PN.ID1 ---
Date of Service
Date of Service: July 28, 2025
Today's Communication
observe off of antibiotics
Assessment / Plan
Aspiration Pneumonitis vs Atypical Pulmonary Edema
BECKA - notably improved
- Patient without change in baseline cough or sputum production, no fevers, resolved leukocytosis; also note probnp >27,000, procalcitonin not reliable with Crcl 19 and would not use for clinical decision making
- would observe off of antibiotics at this time, risks of C difficile, acquisition of MDRO etc outweigh benefits of empiric treatment at this time. Stopped zosyn 07/26
New AV block/LBBB
S/p pacemaker
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
Chief Complaint
-: Other (pneumonitis)
Subjective / Review of Systems
afebrile
bp stable off of pressors
down to midflow NC at 8L - notable improvement
Vital Signs / Physical Exam
Vital Signs
Vital Signs
Temp Pulse Resp BP Pulse Ox
98.3 F 70 24 134/45 91
07/28/25 04:05 07/28/25 07:00 07/28/25 07:00 07/28/25 07:00 07/28/25 07:37
Physical Exam
Constitutional: No Acute Distress and Chronically Ill
Cardiovascular: Regular Rate and S1/S2; Negative Murmur or Rub
Pulmonary: Clear and Symmetric; Negative Wheezes or Rales
Gastrointestinal: Soft, Non Tender, Non Distended and Normal Bowel Sounds
Skin: Warm and Dry; Negative Rash or Jaundice
Objective Data
Lab Data
Lab Results
07/28/25 03:47
07/28/25 03:47
PT 26.5 Sec (11.4-14.6) H 07/27/25 03:26
INR 2.43 07/27/25 03:26
APTT 47.4 Sec (23.4-35.0) H 07/27/25 03:26
Estimated Creat Clear 28 ml/min 07/28/25 03:47
Lactic Acid 0.9 mmol/L (0.7-2.0) 07/25/25 04:29
Total Bilirubin 1.5 mg/dl (0.2-1.3) H 07/27/25 03:26
AST 126 U/L (14-36) H 07/27/25 03:26
ALT 45 U/L (0-35) H 07/27/25 03:26
Alkaline Phosphatase 60 U/L (38-126) 07/27/25 03:26
Most recent labs reviewed.
Micro Results:
07/25/25 14:22 Blood Culture - Preliminary
Blood/Venous No Growth in 48 hours- Final report to follow
07/25/25 14:22 Blood Culture - Preliminary
Blood/Venous No Growth in 48 hours- Final report to follow
07/25/25 11:36 Urine Culture - Final
Urine NO GROWTH
07/26/25 04:34 Legionella Urinary Antigen - Final
Urine Negative for Legionella pneumophila Serogroup 1 antigen.
A negative result does not rule out the possiblity of
Legionella infection due to other serogroups or species of
Legionella. Clinical correlation is recommended.
Streptococcus pneumoniae Antigen (M - Final
Negative for Streptococcus pneumoniae antigen.
A negative result does not exclude infection with
Streptococcus pneumoniae. Clinical correlation is
recommended.
Chest X-Ray: Image Reviewed and Report Reviewed (improved patchy airspace disease)
[2025-07-28 09:10] LABS: Iron 21 ug/dl (37-170)
--- NOTE | 2025-07-28 09:49 | W.PN.CARDCBS ---
Today's Communication / Plan
-
IV Lasix x 1 per hospitalist
Eventually resume furosemide 20 mg a day
Restart amiodarone 200 mg daily
Restart Eliquis
Will plan on holding off on cardiac catheterization at this time
Impression / Plan
-
PCP: Dr. Morales
Cardiology: Dr. MAGDA Cabrera
Impression:
Admitted with new AV block, LBBB and BECKA 07/23/25
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
s/p temporary pacing wire placed in [place] 07/23/2025
BECKA
Elevated Troponin
Acute HFpEF
Paroxysmal Afib with RVR
Chronic Eliquis OAC
CAD s/p prox LAD PCI 2014
widely patent LAD stent by cath 03/29/22
Hypothyroidism
Moderate MS and trace MR by echo 05/27/24
Mild AR/
History of Follicular lymphoma
Rituxan infusion
Lexiscan mibi 03/04/19: Completed 4:10 min Chandan protocol reaching 87% MPHR, normal perfusion imaging
Echo 05/2021: EF 60-65%, severe LA enlargement, mild MS (20/8) mild (/) ANGELINA 1.7cm2
Echo 03/28/22: EF 68%, stage II diastolic dysfunction, mild to mod MS peak/mean 15/8 mmHg and pressure halftime 1.7 cm sq, mild MR, mild with peak/mean 26/14 mmHg and ANGELINA 2.0 cm sq
Echo 05/27/2024: EF 55 to 60%, normal RV size and function, moderate MS with mean transmitral gradient 8 mmHg, trace MR, mild peak/mean 29/16 mmHg and ANGELINA 1.5 cm sq
Echo 07/23/25: EF 65%, no WMA, moderate peak/mean 48/25 mmHg and ANGELINA 1.4 cm sq, mild TR, moderate MS peak/mean 25/13 mmHg, mild MR
Plan:
She looks much better now following permanent pacemaker placement.
Her acute HFpEF is significantly improved with scientologist of AV synchrony. She is auto diuresing and is down 4 kg since placement of her pacemaker.
Blood pressure is acceptable and creatinine has dropped to normal. Will hold valsartan for now but she will likely require restart.
IV Lasix x 1 per hospitalist eventually resume furosemide 20 mg a day
Restart Eliquis and amiodarone
Plan initially had been for cardiac catheterization but I think all could be explained by heart block which is probably not related to an acute myocardial infarction. We will hold off on cardiac catheterization for now given her frailty
Her troponin elevation is probably nonmyocardial infarction myocardial injury.
Hemoglobin is 7.5 and stable, at this point reasonable to hold off on transfusion.
Oxygenation is dramatically improved.
Discussed with nursing, hospitalist, and family
HPI: Patient came to the hospital today for acute on chronic weakness and is being admitted with 2-1 AV block and cardiology is consulted. Patient and report that she has felt intermittently unwell for the last 3 to 4 weeks. They describe
that at times she is almost bedridden with fatigue and weakness and had a fall about 10 days ago. Then other times she has more energy and is able to eat and drink close to normal, but for the most part has not left her house in the last 3 to 4
weeks. Patient seemed to be feeling better for the last 2 days and thought she may have turned a corner, and then today she stood up and suddenly felt profoundly weak, but no loss of consciousness and so her brought her to the emergency
room. ECG looks like 2-1 AV block and new LBBB. Patient has a history of paroxysmal A-fib and is chronically on amiodarone 200 mg daily. Patient took her usual dose of amiodarone plus Eliquis this morning.
Progress Note - Supervisor Packing Room
Subjective
Date of Service: July 28, 2025:
89-year-old woman admitted 07/23/25 with weakness, vague chest and back discomfort, fatigue and edema with cough. On presentation she had 2:1 AV block with a new left bundle branch block. Troponin was 0.059 with sodium 128, BUN 46, creatinine 1.8.
She required temporary pacing for complete heart block later that day, require dopamine and leave the fed, and underwent [employer] dual chamber pacemaker placement 07/24/25. Hospital course complicated by acute HFpEF and BECKA.
PMH: PAF on amiodarone, CAD with LAD PCI 2014, patent by catheterization 2021, hypothyroidism, moderate , mild aortic regurgitation, follicular lymphoma on rituxumab, hypertension, hyperlipidemia
Current medications: Atorvastatin 20 mg a day, iron, levothyroxine 75 mcg daily, valsartan 80/40 mg a day on hold, aspirin, potassium, not on Eliquis, amiodarone on hold, no furosemide at present
134/45, pulse 70, respiratory rate 24, afebrile, sats are 97%, intake and output is -1 L, weight is 58.8 kg, down 4.2 kg since admission, appears very fatigued but states she feels much better, lungs are relatively clear, regular rate and rhythm
with soft systolic murmur, extremities without much edema, sitting in chair
ProBNP is greater than 27,000, Hg is 7.5, platelets are 167, BUN and creatinine are 15 and 1.2, potassium is 3.5, iron is 21, ferritin is pending
Echo 07/23/25: EF 65%, aortic stenosis, peak/mean gradient 48/25. ANGELINA 1.4 CM 2, mild MR, moderate mitral stenosis, peak/gradient 25/13, pulmonary artery systolic pressure is 70, both atria markedly dilated
Objective
Labs:
07/28/25 03:47
07/28/25 03:47
Labs
Hgb 7.5 g/dL (12.0-16.0) L 07/28/25 03:47
Hct 22.6 % (37.0-47.0) L 07/28/25 03:47
Plt Count 167 10^3/uL (130-400) 07/28/25 03:47
PT 26.5 Sec (11.4-14.6) H 07/27/25 03:26
INR 2.43 07/27/25 03:26
APTT 47.4 Sec (23.4-35.0) H 07/27/25 03:26
Sodium 142 mmol/L (135-145) 07/28/25 03:47
Potassium 3.5 mmol/L (3.5-5.1) 07/28/25 03:47
BUN 50 mg/dl (7-17) H 07/28/25 03:47
Creatinine 1.2 mg/dL (0.6-1.0) H 07/28/25 03:47
Glucose 107 mg/dl (70-99) H 07/28/25 03:47
Vital Signs and I&O:
Vital Signs
Temp Pulse Resp BP Pulse Ox
36.8 C 70 24 134/45 97
07/28/25 07:50 07/28/25 07:00 07/28/25 07:00 07/28/25 07:00 07/28/25 09:12
Vital Signs
Temp Pulse Resp BP Pulse Ox
36.8 C 70 24 134/45 97
07/28/25 07:50 07/28/25 07:00 07/28/25 07:00 07/28/25 07:00 07/28/25 09:12
Intake & Output
07/26/25 07/27/25 07/28/25 07/29/25
07:59 07:59 07:59 07:59
Intake Total 340 / 400 579.3 / 611.1 421.8 / 431.8
Output Total 2085 / 2150 1045 / 1095 1495 / 1520 50 / 50
Balance -1745 / -1750 -465.7 / -483.9 -1073.2 / -1088.2 -30 / -30
Physical Exam
Physical Exam
See above
[2025-07-28 09:53] LABS: Ferritin 314.0 ng/ml (11.1-264.0)
--- NOTE | 2025-07-28 10:47 | W.PN.INTV ---
Today's Communication / Plan
Recommendations
- Lasix 40 mg IV x 1
- Potassium chloride, 40 meq IV x 1
- Follow-up chest x-ray in a.m.
- Wean oxygen as tolerated, continue nightly BiPAP
- Resume p.o. Eliquis
- PT/OT
Assessment
-
Assessment: 89-year-old F with PMHx of follicular lymphoma s/p rituxin, Hx of falls, Hx of light tobacco smoking, GERD, CAD s/p stent to LAD (2014), paroxysmal A-fib s/p DCCV 03/2022), hypothyroidism, HTN, hx of gastric ulcer, and Hx of right-sided
pleural effusion requiring multiple thoracentesis in [id number] who presents with weakness, malaise and heart palpitations. She said that she feels like her heart is 'flip-flopping.' In the ER she endorsed LE swelling, productive cough, and SOB.
EKG initially showed bradycardia with 2-1 AV-block with PVCs and a new LBBB. Previous EKG in March 2025 showed incomplete RBBB and LAFB and sinus rhythm, per cardiology. She was afebrile in ER david BP 147/71, HR 32, SpO2 98% on room air, and RR
19-23. Initial labs pertinent for WBC 7, Hb 10.9, INR 3.81, Na 128, Cr 1.8, T. bili 1.6, troponin 0.059, proBNP 8020, TSH 4.6, and lyme screen negative. CXR showed bilateral parenchymal opacities with low lung volumes. Cardiology consulted and
she was admitted to IVU with pace pads attached to chest. Echo on 07/23/2025 showed LVEF 65% with moderate , pulmonary HTN with PASP 70 (previously 45-50 on echo from 05/2024), moderate MS, mild MR and increased LA volume. Later in evening on 07/23
she became severely bradycardic with HR down to 10-20 and was hypotensive, EKG showed 5-1 AV block - she was lethargic, pale, and nauseous. Atropine given with no improvement. Dopamine gtt started with slight improvement, and then interventional
artist's model Dr. Javier evaluated her, levophed was started and pt brought to clinical laboratory aides teacher and temporary pacing wire placed. Dopamine and levophed weaned off. Permanent pacemaker placed on 07/24/2025. Overnight on 07/25 she had worsening SOB, CXR with
worsening bilateral opacities - lasix given, BiPAP started, and she was TRX from CVICU to ICU where Abx started via Zosyn. Tractor Drill Operator services consulted for further recommendations.
Chronic conditions POOL CLEANER: Follicular lymphoma s/p rituxin, Hx of falls, Hx of light tobacco smoking, GERD, CAD s/p stent to LAD (2014), paroxysmal A-fib s/p DCCV 03/2022), hypothyroidism, HTN, HLD, Hx of ankle fracture, Hx of MR, restrictive lung
disease, hx of gastric ulcer, Hx of right-sided pleural effusion requiring multiple thoracentesis in [id number], chronic amiodarone use
07/28 overview: Patient currently saturating 95% on 6 L supplemental oxygen. MAP of 67, not requiring any pressors. Respiratory rate of 19. Current infusions D10 infusing at 10 mL/h.
Assessment and plan:
#1. 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
- S/p PPM placed on 07/24/2025, currently AV paced rhythm on monitor
#2. Acute pulmonary edema due to above with severe bradycardia and acute HFpEF
- Improving. Most recent chest x-ray still has pulmonary opacities suggestive of pulmonary edema, overall improving
- Additional Lasix 40 mg IV x 1 today along with potassium replacement
#3. Acute hypoxic respiratory failure due to above and possibly with component of pneumonia/aspiration pneumonitis
- Monitoring off antibiotics, afebrile, not reporting any cough with any purulent expectoration
- Continue diuresis, follow-up chest x-ray in a.m.
- Wean oxygen as tolerated, currently on 6 L during daytime, continue BiPAP nightly for now
#4. Acute on chronic hypercapnic respiratory failure
-In the setting of volume overload plus possibly aspiration.
-Responded well to diuresis and nightly BiPAP, VBG 7.38/55 this morning, chronic compensated hypercapnia.
#5. BECKA with underlying chronic kidney disease
- Creatinine improving with diuresis, give additional Lasix 40 mg IV today, labs in a.m.
#6. Agitation likely due to ICU-delirium in setting of sleep deprivation
-Improved. Increase activity as tolerated
#7. Elevated troponin - likely demand ischemia with type II PR
- Cardiology service on case. No plan for coronary angiogram.
- Continue aspirin, Eliquis being resumed today per cardiology recommendation
Other medical diagnoses:
- Hx of non-Hodgkin lymphoma s/p rituxin
- GERD
- Paroxysmal A-fib on chronic amiodarone + Eliquis
- HTN/HLD
- Hx of light tobacco use
- CAD s/p LAD stent
- Valvular heart disease with , MS and MR
Critical care statement: A total of 45 minutes of critical care time was provided for this patient today. This includes management of unstable vital signs, evaluation of the patient at bedside, reviewing the patient's pertinent medical records
including radiographs, microbiology, laboratory evaluations, and discussion with primary team, consultants, pharmacy, nutrition, physical therapy, case management, charge nurse, critical care nursing, and respiratory therapy.
Subjective Dataa
Subjective Data
Date of Service:
Date of Service: July 28, 2025
Chief Complaint: Tractor Drill Operator Follow Up
Subjective:
Patient comfortably sitting in chair in no acute distress.
Review of Systems
Genitourinary: Other (All 14 systems reviewed and negative except as stated above in the history of present illness.)
Objective Data
Data Reviewed
Vital Signs / I&O / Oxygen:
Vital Signs
Temp Pulse Resp BP Pulse Ox
98.3 F 70 24 134/45 97
07/28/25 07:50 07/28/25 07:00 07/28/25 07:00 07/28/25 07:00 07/28/25 09:12
Intake and Output
07/27/25 07/28/25 07/29/25
06:59 06:59 06:59
Intake Total 555.6 / 589.3 445.5 / 455.5
Output Total 1055 / 1105 1520 / 1545 /
Balance -499.4 / -515.7 -1074.5 / -1089.5 -45 / -45
SaO2 97
Nasal Cannula flow liters per 40
minute
Physical Exam
General: Respiratory Distress (negative), Chills (negative) and Sweats (negative)
HEENT: Normocephalic and Anicteric
Cardiovascular: Peripheral Edema (Trace pitting edema) and Other (A-V paced rhythm)
Respiratory: Wheeze (negative), Crackles (Bilateral), Rhonchi (Bilateral rhonchi heard mostly in the lower lobes), Non-Labored Respirations and Stridor (negative)
GI: Soft, Non Distended, Non Tender and Normal Bowel Sounds
Neurology: Tremors (negative) and Lethargic (minimally responsive)
Skin: Warm, Dry, Cyanosis (negative) and Jaundice (negative)
Labs/Micro/Reports
Lab Data
07/28/25 03:47
07/28/25 03:47
Microbiology
07/25/25 14:22 Blood/Venous Blood Culture - Preliminary
No Growth in 48 hours- Final report to follow
07/25/25 14:22 Blood/Venous Blood Culture - Preliminary
No Growth in 48 hours- Final report to follow
07/25/25 11:36 Urine Urine Culture - Final
NO GROWTH
07/26/25 04:34 Urine Legionella Urinary Antigen - Final
Negative for Legionella pneumophila Serogroup 1 antigen.
A negative result does not rule out the possiblity of
Legionella infection due to other serogroups or species of
Legionella. Clinical correlation is recommended.
07/26/25 04:34 Urine Streptococcus pneumoniae Antigen (M - Final
Negative for Streptococcus pneumoniae antigen.
A negative result does not exclude infection with
Streptococcus pneumoniae. Clinical correlation is
recommended.
[2025-07-28] MEDS: LASIX 40 MG IV (11:54)
[2025-07-28] MEDS: KCL 100 IV (11:54)
[2025-07-28] MEDS: ELIQUIS 2.5 MG PO ×2 (11:54→20:59)
[2025-07-28 12:15] LABS: Glucose - Point of Care 136 mg/dl (70-99)
--- NOTE | 2025-07-28 12:20 | PTCARENOTE ---
pt. assisted OOB x2 w RW to chair; unsteady gait/generalized weakness. Tolerating position. CARGO SERVICE AGENT to bedside for assessment; further orders received post eval for NPO ex meds/sips w plan for VSE later today. O2 weaned down to 4LNC, tolerating.
Remains in chair @ this time w family @ bedside. Call sully adkins in reach.
--- NOTE | 2025-07-28 15:48 | PTOTSP ---
Videofluoroscopic swallow study
Patient presents with signs concerning for a WFL-mild oral and mild pharyngeal dysphagia. Responsive aspiration occurred with thin liquids via cup with and without a chin tuck that cleared to the level of the vocal folds. Aspiration occurred due
to delayed/incomplete laryngeal elevation and laryngeal vestibule closure.
Recommend:
1. IDDSI 6 Soft/Bite Sized, IDDSI 2 Mildly Thick Liquids
2. Medications: crushed in puree if medically cleared to do so
3. Strategies: upright to 90 degrees, full supervision, assist as needed to use strategies, small single sips with breaks for breathing, slow rate, reflux precautions
4. Oral care 3x daily
5. ARHP - sparing sips of water after oral care, in between meals, with supervision
6. Dysphagia therapy at the acute care level for education, instruction in compensations, and pharyngeal swallowing exercises
--- NOTE | 2025-07-28 15:50 | CM ---
07/24 pacer insertion, wean O2 as able, Bipap at HS, Received Lasix and KCL IV x 1 dose each,. Speech eval completed: Recommendation for Soft and bite sized food. Order placed for dinner. Discharge POC: Awaiting therapy evaluation.
--- NOTE | 2025-07-28 15:57 | PTOTSP ---
Videofluoroscopic swallow study
Patient presents with signs concerning for a WFL-mild oral and mild pharyngeal dysphagia. Responsive aspiration occurred with thin liquids via cup with and without a chin tuck that cleared to the level of the vocal folds with 50% of trials.
Aspiration occurred due to delayed/incomplete laryngeal elevation and laryngeal vestibule closure.
Recommend:
1. IDDSI 6 Soft/Bite Sized, IDDSI 2 Mildly Thick Liquids
2. Medications: crushed in puree if medically cleared to do so
3. Strategies: upright to 90 degrees, full supervision, assist as needed to use strategies, small single sips with breaks for breathing, slow rate, reflux precautions
4. Oral care 3x daily
5. ARHP - sparing sips of water after oral care, in between meals, with supervision
6. Dysphagia therapy at the acute care level for education, instruction in compensations, and pharyngeal swallowing exercises
--- NOTE | 2025-07-28 17:45 | PTCARENOTE ---
pt. OOB x6H; tolerated position. Upon assisting pt. back to bed, pt. desaturated in 70's; O2 increased up to 10LMF and slow recovery back up to 90's. Once recovered, pt. RN transported via bed for VSE. VSE completed by DEMOGRAPHIC ANALYST and diet advanced per
orders; family assisting w ordering meal. S/P VSE, pt. worked w PT/OT; recurrent episode of desatiration w activity into 70's w repeated slow recovery back into 90's. Pt. also noted to be drowsy/falling asleep. RT aware and pt. placed on bipap
10/5, 6L during rest period. Plan to transition back to for meal. Family bedside, updated. Pt.'s call sully w in reach.
[2025-07-28 17:52] LABS: Glucose - Point of Care 134 mg/dl (70-99)
--- NOTE | 2025-07-28 20:00 | PTCARENOTE ---
Rec'd ptdrowsy but easily arousable, forgetful, folllows commands, denies pain, AV paced, BP stable, weak distal pulses, skin warm/dry, O2 via midflow 8 liters, lungs w/ crackles 1/4 up bilat, moist cough, hypo bowel sounds, no bm, abd soft, round,
no n/v, gardner draining cloudy yellow urine, family at bedside & updated on pt status
--- NOTE | 2025-07-28 21:00 | PTCARENOTE ---
Placed on bipap 10/5 w/ 8 liters by resp therapist
[2025-07-28] MEDS: D10W 1000 IV (21:50)
--- NOTE | 2025-07-28 22:00 | PTCARENOTE ---
sat 85, bipap 10/5 w/ 10 liters, sat 91
[2025-07-28 23:11] LABS: Glucose - Point of Care 152 mg/dl (70-99)
[2025-07-29] VITALS (29 sets, daily range): BP systolic 96–173; BP diastolic 45–82; PULSE 2–70; O2SAT 90; BMI 21.9
--- NOTE | 2025-07-29 | PTCARENOTE ---
sys reviewed, changes noted, CHG bath done, linens changed
--- NOTE | 2025-07-29 03:11 | PTCARENOTE ---
sat 85, bipap incr to 12 liters, sat 93, lungs unch
--- NOTE | 2025-07-29 03:31 | PTCARENOTE ---
Bipap decr to 10 liters by resp therapist
[2025-07-29 03:35] LABS: Hematocrit 23.0 % (37.0-47.0); Hemoglobin 7.6 g/dL (12.0-16.0); Mean Corp Hgb Conc. 33.0 g/dL (33.0-37.0); Mean Corpuscular Volume 93.1 fL (81.0-99.0); Platelet Count 162 10^3/uL (130-400); Red Cell Dist. Width 17.2 % (11.5-14.5)
[2025-07-29 04:07] LABS: ALT (SGPT) 37 U/L (0-35); AST (SGOT) 79 U/L (14-36); Albumin 2.9 g/dl (3.5-5.0); Alkaline Phosphatase 74 U/L (38-126); Blood Urea Nitrogen 56 mg/dl (7-17); Calcium 8.1 mg/dl (8.4-10.2); Carbon Dioxide 34 mmol/L (22-30); Chloride 106 mmol/L (98-107); Estimated Creatinine Clearance 28 ml/min; Glucose 147 mg/dl (70-99); Magnesium 2.0 mg/dl (1.6-2.3); Potassium 4.3 mmol/L (3.5-5.1); Sodium 143 mmol/L (135-145); Total Protein 5.2 g/dl (6.3-8.2); eGFR 43.54
[2025-07-29] MEDS: SYNTHROID 75 MCG PO (05:35)
[2025-07-29 05:43] LABS: Glucose - Point of Care 132 mg/dl (70-99)
--- NOTE | 2025-07-29 05:45 | PTCARENOTE ---
jj solano , nena applied
--- NOTE | 2025-07-29 08:20 | W.PN.HOSP.TC ---
Today's Communication/Plan
-
- CT chest
- Restart home PO 20mg lasix
- Steroid dose per ICU team given c/f ILD
- Continue eliquis
- Continue amio
- Wean off O2 as tolerated
Assessment / Plan
Assessment / Plan
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
now s/p permanent pacemaker, with post-op course c/b hypoxic respiratory failure.
#Hypoxic respiratory failure, improving
Early am 07/25:'~ 3:30 Patient hypoxic, pulsox in the 70's, increased work of breathing, using accessory muscles. Patient w/crackles t/o b/l lungs. Lasix 20 mg IV, started on Bi pap 08/17. Transferred to ICU. Given another Lasix 20 mg IV for total of
Lasix 40 mg IV. Parikh placed for strict I&Os, Started on Zosyn 2.25 mg IV Q6H for respiratory coverage. Pt w/no fever or elevated white count.' VBG: pH 7.32, pCO2 46, pO2 155, O2 sat 97.1%. Procalcitonin elevated to 1.51. EKG 07/25: no change from
prior. CXR 07/25: 'Severe bilateral reticulonodular interstitial disease in the lungs mixed with groundglass opacity. Diagnostic possibilities are (1) acute infection (endobronchial infection and pneumonia), (2) an acute inflammatory interstitial
pneumonitis, (3) malignancy (lymphangitic carcinomatosis or other metastatic disease), or (4) acute interstitial and alveolar cardiogenic pulmonary edema.' Given afebrile, normal WBC, timecourse of sx development after hemodynamic instability in s/o
AV block & subsequent temporary>permanent pacemaker placement, along with suspected HFpEF exacerbation, initially favored cardiogenic pulm edema. S/p empiric IV zosyn (9/12-). S/p IV lasix 07/24-07/28 (40mg IV bid for last 4 doses). Weaned off
bipap 07/28. CXR (07/28): 'Bilateral patchy airspace opacities which have slightly improved from prior. There are likely small bilateral pleural effusions which are similar in appearance to prior.' CXR (07/29 am): 'Mild interstitial prominence,
suggestive of mild pulmonary edema. Patchy opacities bilaterally, which may represent multifocal pneumonia or alveolar pulmonary edema. Small left pleural effusion.'
Today: -150 ml today. 93% O2 sat on 5L NC (down from yesterday) with bipap overnight & nonrebreather when OOB. RR 18. Normotensive, afebrile. CXR 07/29 worse from 07/28. Given worsening CXR appearance s/p diuresis, broaden ddx from cardiogenic edema
to ILD 2/2 amiodarone vs. aspiration pneumonitis.
- Methylpred 40mg IV per ICU team
- CT chest today
- Consider reducing diet from ISSDI6 given c/f
- Resume home PO lasix 20mg daily
- Continue to wean off O2 as tolerated
#HFpEF (EF 65%), suspected exacerbation
#Moderate MS, mild MR, moderate
#Transaminitis, improving
Echo 07/23/25: EF 65%, severely abnormal L atrial volume (>48ml/m2), moderate MS & . Likely experiencing acute on chronic HFpEF exacerbation in s/o arrhythmia, new LBBB. BNP elevated 8020. Elevation in AST and ALT likely in the setting of
congestion; downtrending w diuresis. Diuresis as above.
- Wean off O2 as able
- Bipap at night
- Monitor I&Os & daily weights
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
Patient overnight to 07/23 became bradycardic with heart rate in the 10s, severe hypotension, lethargic, pale, nauseous; patient given 1 mg IV atropine, dopamine gtt., norepinephrine gtt. emergent temporary pacemaker was placed via right IJ overnight
07/23. US 07/24 (in s/o hypotension, dyspnea) negative for pericardial effusion.
Hypotension resolved. Pt appears now hemodynamically stable. Off pressors. S/P temporary pacemaker 07/23. Permanent pacemaker was placed 07/24.
- Continue home eliquis 5mg bid
- Continue amiodarone 200mg daily
- Continue holding home valsartan
- Continue aspirin 81 mg daily
- Holding off on planning for L heart cath at this time
#Anemia
Hgb baseline 8-9. On 07/27, trended down to 7.1. B12, folate normal; likely iron deficiency. Type & screen ordered, risks & benefits of transfusion discussed w . LDH 434. Heparin held 07/25 due to c/f bleeding at pacemaker site. 07/27: Device
site with old blood and feels spongy; dressing changed by nursing with no hematoma or active bleeding. Iron level low 21. Ferritin elevated 341.
Hgb: 7.1>7.7>7.5>7.6
- Haptoglobin pending
- Continue home iron supplement (325mg daily)
- Transfuse for Hgb <7 (will need to get consent)
#Confusion, AMS, c/f hospital-induced delirium; resolving
Altered mental status on morning of 07/24, likely 2/2 hospital-induced delirium with contribution by prior hemodynamic instability and emergent temporary pacer placement overnight on 07/23, old age, likely underlying dementia, lack of sleep, acute
hypoxic respiratory failure. Improved since 07/27.
- Family at bedside instructed to continue to reorient patient to place/time/location
- Optimize sleep as able
- Manage medical conditions as above
#BECKA, resolving
Cr elevated to 1.8. Likely in s/o arrhythmia and changing perfusion; cardiorenal. Will continue to monitor post-diuresis. Last documented Cr from 2022 0.6-0.7. Potential underlying CKD.
Cr 1.2 today, downtrending.
- Follow BMP
- Holding home alendronate
#Elevated troponin, resolved
Likely type II SD troponin elevation in the setting of demand ischemia due to her AV block and potential HFpEF exacerbation. However given her history of CAD requiring stent, there is also a possibility that troponin elevated due to arterial
obstruction type I SD. This will be clarified with cardiac catheterization.
Trop: 0.059 > 0.134 > 0.351 (peak) > 0.290.
- NTD
#Chronic
- Afib - eliquis & amiodarone
- CAD s/p LAD PCI 2014 - continue statin
- HLD - continue statin
- Hypothyroidism - continue levothyroxine
- Bunion on R foot - consider podiatry consult
#Global
- DVT ppx: eliquis 5mg bid
- Diet: [id number], per speech
- Code: full
- Dispo: lives at home with ; pending stabilization & PT/OT eval
Anticipated Discharge: > 48 hours
Subjective/Interval History
-
Date of Service: July 29, 2025
Pt less confused today. Family at bedside. Remembered provider from yesterday, conversant/aware of surroundings. Denies any pain. About to have breakfast.
Objective Data
-
Labs:
Laboratory Results
07/29/25
03:05
WBC 9.4
Hgb 7.6 L
Hct 23.0 L
Plt Count 162
Sodium 143
Potassium 4.3
Chloride 106
Carbon Dioxide 34 H
BUN 56 H
Creatinine 1.2 H
Glucose 147 H
Calcium 8.1 L
Total Bilirubin 2.3 H D
AST 79 H
ALT 37 H
Alkaline Phosphatase 74
Vital Signs:
Vital Signs
Temp Pulse Resp BP Pulse Ox
96.8 F L 70 18 128/48 93
07/29/25 08:04 07/29/25 06:00 07/29/25 06:00 07/29/25 06:00 07/29/25 06:00
I&O
07/28/25 07/29/25 07/30/25
06:59 06:59 06:59
Intake Total 445.5 / 455.5 870 / 870
Output Total 1520 / 1545 1050 / 1050
Balance -1074.5 / -1089.5 -180 / -180
Review of Systems
-
Unable to obtain full review of systems at this time due to: Dementia
History Source: Patient and Family
All other systems: Reviewed and negative
Physical Exam
-
General: Well Developed, Well Nourished and Conversant
HEENT: Normocephalic, Atraumatic and Anicteric
Respiratory: Crackles, Non Labored Respirations and Other (O2 NC in place; non-rebreather on to get to chair, then off)
Cardiac: Regular Rhythm
GI: Nontender and Nondistended
Musculoskeletal: No Edema (no PARVEEN on feet or upper shins)
Skin: Warm and Dry
Neuro: Awake, Alert and Oriented
Psych: Calm
Data Reviewed
-
Total Time Spent with Patient (in minutes): 15
Critical Care Time (in minutes): 45
Diagnostic Radiology: Image personally visualized and interpreted and Report Reviewed by me
Labs: Labs Reviewed by me
--- NOTE | 2025-07-29 08:33 | W.PN.ID1 ---
Date of Service
Date of Service: July 29, 2025
Today's Communication
ID service will no longer actively follow this patient please recall for further questions
Assessment / Plan
Aspiration Pneumonitis vs Atypical Pulmonary Edema
BECKA - notably improved
- CT chest with diffuse interstitial infiltrates; not improving with diuresis
- trial of vanc/cefepime
- follow clinically
New AV block/LBBB
S/p pacemaker
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
Chief Complaint
-: Other (pneumonitis)
Subjective / Review of Systems
remains afebrile
bp stable
bipap being weaned
CT chest with diffuse interstitial infiltrates
Vital Signs / Physical Exam
Vital Signs
Vital Signs
Temp Pulse Resp BP Pulse Ox
96.8 F L 70 18 128/48 93
07/29/25 08:04 07/29/25 06:00 07/29/25 06:00 07/29/25 06:00 07/29/25 06:00
Physical Exam
Constitutional: Acutely Ill and Chronically Ill
Cardiovascular: Regular Rate and S1/S2; Negative Murmur or Rub
Pulmonary: Clear and Symmetric; Negative Wheezes or Rales
Gastrointestinal: Soft, Non Tender, Non Distended and Normal Bowel Sounds
Skin: Warm and Dry; Negative Rash or Jaundice
Objective Data
Lab Data
Lab Results
07/29/25 03:05
07/29/25 03:05
PT 26.5 Sec (11.4-14.6) H 07/27/25 03:26
INR 2.43 07/27/25 03:26
APTT 47.4 Sec (23.4-35.0) H 07/27/25 03:26
Estimated Creat Clear 28 ml/min 07/29/25 03:05
Lactic Acid 0.9 mmol/L (0.7-2.0) 07/25/25 04:29
Total Bilirubin 2.3 mg/dl (0.2-1.3) H D 07/29/25 03:05
AST 79 U/L (14-36) H 07/29/25 03:05
ALT 37 U/L (0-35) H 07/29/25 03:05
Alkaline Phosphatase 74 U/L (38-126) 07/29/25 03:05
Most recent labs reviewed.
Micro Results:
07/25/25 14:22 Blood Culture - Preliminary
Blood/Venous No Growth in 72 hours- Final report to follow
07/25/25 14:22 Blood Culture - Preliminary
Blood/Venous No Growth in 72 hours- Final report to follow
07/25/25 11:36 Urine Culture - Final
Urine NO GROWTH
07/26/25 04:34 Legionella Urinary Antigen - Final
Urine Negative for Legionella pneumophila Serogroup 1 antigen.
A negative result does not rule out the possiblity of
Legionella infection due to other serogroups or species of
Legionella. Clinical correlation is recommended.
Streptococcus pneumoniae Antigen (M - Final
Negative for Streptococcus pneumoniae antigen.
A negative result does not exclude infection with
Streptococcus pneumoniae. Clinical correlation is
recommended.
Care Review
Plan reviewed with: Physician (Dr Madrid - antibiotics)
--- NOTE | 2025-07-29 08:45 | PTCARENOTE ---
Received pt in bed with 5 liters mid flow. Pulse ox 96%. Her family is at the bedside. They were informed that the right IJ cordis was going to be removed. Pt is very pleasant and ill appearing. Lethargic. Bilateral AC IV's flushed. Right AC IV site
leaked with flush. Knee hi SCD's intact. Right knee and anterior calf with blue ecchymosis noted. Pt with C/O posterior calf pain. Right calf is not red, warm or swollen. +dorsalis pedis pulse, weak radial pulses. She is clearing her throat but
unable to cough effectively to clear her secretions. Suctioned for brown secretions. Anterior breath sounds coarse crackles. Posteriorly they are very dim in the left base & right side fine crackles 1/2 up. +BSx4. Poor PO Intake. Purwick intact.
Foam protective dressing to her sacrum intact. She was informed of the plan of care regarding using the IS, getting OOB to the chair & commode and feeding herself. The family was also informed of the importance of allowing her to do things for
herself such as feeding herself in order to regain her strength. They verbalized their understanding. Safe environment maintained.
--- NOTE | 2025-07-29 08:58 | W.PN.CARDCBS ---
Today's Communication / Plan
-
IV Lasix today, oral furosemide in a.m.
Impression / Plan
-
PCP: Dr. Morales
Cardiology: Dr. MAGDA Cabrera
Impression:
Admitted with new AV block, LBBB and BECKA 07/23/25
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
s/p temporary pacing wire placed in Lubricating Machine Tender 07/23/2025
BECKA
Elevated Troponin
Acute HFpEF
Paroxysmal Afib with RVR
Chronic Eliquis OAC
CAD s/p prox LAD PCI 2014
widely patent LAD stent by cath 03/29/22
Hypothyroidism
Moderate MS and trace MR by echo 05/27/24
Mild AR/
History of Follicular lymphoma
Rituxan infusion
Lexiscan mibi 03/04/19: Completed 4:10 min Chandan protocol reaching 87% MPHR, normal perfusion imaging
Echo 05/2021: EF 60-65%, severe LA enlargement, mild MS (20/8) mild (21/11) ANGELINA 1.7cm2
Echo 03/28/22: EF 68%, stage II diastolic dysfunction, mild to mod MS peak/mean 15/8 mmHg and pressure halftime 1.7 cm sq, mild MR, mild with peak/mean 26/14 mmHg and ANGELINA 2.0 cm sq
Echo 05/27/2024: EF 55 to 60%, normal RV size and function, moderate MS with mean transmitral gradient 8 mmHg, trace MR, mild peak/mean 29/16 mmHg and ANGELINA 1.5 cm sq
Echo 07/23/25: EF 65%, no WMA, moderate peak/mean 48/25 mmHg and ANGELINA 1.4 cm sq, mild TR, moderate MS peak/mean 25/13 mmHg, mild MR
Plan:
Overall, she continues to improve. Her chest x-ray is still significantly abnormal and probably reflective of heart failure with a recent proBNP of greater than 27,000. Despite azotemia, will give IV Lasix x 1, potentially resume oral furosemide
20 mg daily in AM.
Hemoglobin is stable, she is now back on apixaban adjusted for age and weight. She is on aspirin, but I do not believe she had a true ACS, and so we will stop to reduce bleeding risk.
Her Aquacel dressing over her pacemaker seems intact.
Blood pressure is reasonable.
She is in sinus rhythm and back on amiodarone.
As noted yesterday, at present we will avoid cardiac catheterization.
She can be transferred to IMU or IVU from cardiac standpoint
HPI: Patient came to the hospital today for acute on chronic weakness and is being admitted with 2-1 AV block and cardiology is consulted. Patient and report that she has felt intermittently unwell for the last 3 to 4 weeks. They describe
that at times she is almost bedridden with fatigue and weakness and had a fall about 10 days ago. Then other times she has more energy and is able to eat and drink close to normal, but for the most part has not left her house in the last 3 to 4
weeks. Patient seemed to be feeling better for the last 2 days and thought she may have turned a corner, and then today she stood up and suddenly felt profoundly weak, but no loss of consciousness and so her brought her to the emergency
room. ECG looks like 2-1 AV block and new LBBB. Patient has a history of paroxysmal A-fib and is chronically on amiodarone 200 mg daily. Patient took her usual dose of amiodarone plus Eliquis this morning.
Progress Note - Breaker Engineer
Subjective
Date of Service: July 29, 2025:
89-year-old woman admitted 07/23/25 with weakness, vague chest and back discomfort, fatigue and edema with cough. On presentation she had 2:1 AV block with a new left bundle branch block. Troponin was 0.059 with sodium 128, BUN 46, creatinine 1.8.
She required temporary pacing for complete heart block later that day, require dopamine and leave the fed, and underwent [employer] dual chamber pacemaker placement 07/24/25. Hospital course complicated by acute HFpEF and BECKA.
PMH: PAF on amiodarone, CAD with LAD PCI 2014, patent by catheterization 2021, hypothyroidism, moderate , mild aortic regurgitation, follicular lymphoma on rituxumab, hypertension, hyperlipidemia
Current meds: D10, atorvastatin 20 mg a day, iron, Synthroid 75 mcg daily, valsartan 80 a.m. 40 p.m., aspirin 81 mg a day, apixaban 2.5 twice daily, amiodarone 200 mg daily, not on diuretic
128/48, pulse 70, respiratory rate 18, temp is 36, weight is 57.8 kg, down 1 kg, looks somewhat disheveled but states she is feeling much better, smiling, in the process of getting to a chair, head neck exam unremarkable, crackles in bases, regular
rate and rhythm with systolic murmur Base to apex, abdomen benign not much edema JVD okay
Chest x-ray, probable pulmonary edema versus pneumonia small left effusion
Hemoglobin is 7.6 platelets are 162, BUN and creatinine are 56 and 1.2, potassium 4.3, proBNP was greater than 27,000, peak troponin was 0.351, hemoglobin is stable
Objective
Labs:
07/29/25 03:05
07/29/25 03:05
Labs
Hgb 7.6 g/dL (12.0-16.0) L 07/29/25 03:05
Hct 23.0 % (37.0-47.0) L 07/29/25 03:05
Plt Count 162 10^3/uL (130-400) 07/29/25 03:05
PT 26.5 Sec (11.4-14.6) H 07/27/25 03:26
INR 2.43 07/27/25 03:26
APTT 47.4 Sec (23.4-35.0) H 07/27/25 03:26
Sodium 143 mmol/L (135-145) 07/29/25 03:05
Potassium 4.3 mmol/L (3.5-5.1) 07/29/25 03:05
BUN 56 mg/dl (7-17) H 07/29/25 03:05
Creatinine 1.2 mg/dL (0.6-1.0) H 07/29/25 03:05
Glucose 147 mg/dl (70-99) H 07/29/25 03:05
Vital Signs and I&O:
Vital Signs
Temp Pulse Resp BP Pulse Ox
36.0 C L 70 18 128/48 99
07/29/25 08:04 07/29/25 06:00 07/29/25 06:00 07/29/25 06:00 07/29/25 08:40
Vital Signs
Temp Pulse Resp BP Pulse Ox
36.0 C L 70 18 128/48 99
07/29/25 08:04 07/29/25 06:00 07/29/25 06:00 07/29/25 06:00 07/29/25 08:40
Intake & Output
07/27/25 07/28/25 07/29/25 07/30/25
07:59 07:59 07:59 07:59
Intake Total 579.3 / 611.1 421.8 / 431.8 860 / 860
Output Total 1045 / 1095 1495 / 1520 1025 / 1025
Balance -465.7 / -483.9 -1073.2 / -1088.2 -165 / -165
Physical Exam
Physical Exam
See above
[2025-07-29] MEDS: TYLENOL 325 MG PO (09:18)
[2025-07-29] MEDS: PACERONE 200 MG PO (09:18)
[2025-07-29] MEDS: LOW STRENGTH ASPIRIN 81 MG PO (09:19)
[2025-07-29] MEDS: ELIQUIS 2.5 MG PO (09:19)
[2025-07-29] MEDS: FEOSOL 325 MG PO (09:19)
[2025-07-29] MEDS: LASIX 40 MG IV (10:56)
[2025-07-29] MEDS: SOLU-MEDROL PF 40 MG IV (10:57)
--- NOTE | 2025-07-29 12:25 | W.PN.PUL3 ---
Today's Communication / Plan
-
- CT chest without contrast
- Start IV Solu-Medrol 40 mg daily for 5 days, resume antibiotic broad-spectrum, IV vancomycin and IV cefepime
- Follow-up chest x-ray in a.m.
- Wean oxygen as tolerated
Assessment
-
Assessment: 89-year-old F with PMHx of follicular lymphoma s/p rituxin, Hx of falls, Hx of light tobacco smoking, GERD, CAD s/p stent to LAD (2014), paroxysmal A-fib s/p DCCV 03/2022), hypothyroidism, HTN, hx of gastric ulcer, and Hx of right-sided
pleural effusion requiring multiple thoracentesis in [id number] who presents with weakness, malaise and heart palpitations. She said that she feels like her heart is 'flip-flopping.' In the ER she endorsed LE swelling, productive cough, and SOB.
EKG initially showed bradycardia with 2-1 AV-block with PVCs and a new LBBB. Previous EKG in March 2025 showed incomplete RBBB and LAFB and sinus rhythm, per cardiology. She was afebrile in ER david BP 147/71, HR 32, SpO2 98% on room air, and RR
19-23. Initial labs pertinent for WBC 7, Hb 10.9, INR 3.81, Na 128, Cr 1.8, T. bili 1.6, troponin 0.059, proBNP 8020, TSH 4.6, and lyme screen negative. CXR showed bilateral parenchymal opacities with low lung volumes. Cardiology consulted and
she was admitted to IVU with pace pads attached to chest. Echo on 07/23/2025 showed LVEF 65% with moderate , pulmonary HTN with PASP 70 (previously 45-50 on echo from 05/2024), moderate MS, mild MR and increased LA volume. Later in evening on 07/23
she became severely bradycardic with HR down to 10-20 and was hypotensive, EKG showed 5-1 AV block - she was lethargic, pale, and nauseous. Atropine given with no improvement. Dopamine gtt started with slight improvement, and then interventional
central supply manager Dr. Javier evaluated her, levophed was started and pt brought to circus laborer and temporary pacing wire placed. Dopamine and levophed weaned off. Permanent pacemaker placed on 07/24/2025. Overnight on 07/25 she had worsening SOB, CXR with
worsening bilateral opacities - lasix given, BiPAP started, and she was TRX from CVICU to ICU where Abx started via Zosyn. Fiberglasser services consulted for further recommendations.
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
disease, hx of gastric ulcer, Hx of right-sided pleural effusion requiring multiple thoracentesis in [id number], chronic amiodarone use
07/29 overview: Patient currently saturating 98% on non-rebreather. Desaturates easily. MAP of 68.
Assessment and plan:
#1. 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
- S/p PPM placed on 07/24/2025, currently AV paced rhythm on monitor
#2. Acute pulmonary edema due to above with severe bradycardia and acute HFpEF
- Diuresing well, continues to have high oxygen requirement
-Give additional Lasix 40 mg IV this morning
#3. Acute hypoxic respiratory failure due to above and possibly with component of pneumonia/aspiration pneumonitis/ILD
- Oxygen requirement continues to be high with desaturation on minimal activity. Chest x-ray appears to have progressive infiltrates
- Received CT chest suggestive of multifocal infiltrates differential diagnosis also includes multifocal pneumonia, ARDS, ILD related to amiodarone therapy in addition to pulmonary edema
- Patient clinically does not look volume overloaded anymore, will start IV steroids as well as broad-spectrum antibiotics
- Follow-up chest x-ray in a.m.
#4. Acute on chronic hypercapnic respiratory failure
-In the setting of volume overload plus possibly aspiration.
- Continue nightly BiPAP therapy. Baseline chronic compensated hypercapnia noted
#5. BECKA with underlying chronic kidney disease
- Monitor creatinine closely while diuresing, additional Lasix 40 mg IV
#6. Agitation likely due to ICU-delirium in setting of sleep deprivation
-Improved. Increase activity as tolerated
#7. Elevated troponin - likely demand ischemia with type II FL
- Cardiology service on case. No plan for coronary angiogram.
- Continue aspirin, Eliquis being resumed today per cardiology recommendation
Other medical diagnoses:
- Hx of non-Hodgkin lymphoma s/p rituxin
- GERD
- Paroxysmal A-fib on chronic amiodarone + Eliquis
- HTN/HLD
- Hx of light tobacco use
- CAD s/p LAD stent
- Valvular heart disease with , MS and MR
Total time spent on this consultation/encounter _52___ minutes which includes review of history, physical exam, medications, laboratory data, personal review of imaging, extensive review of outpatient records, discussion with care team and
respiratory therapy.
Subjective Data
-
Date of Service:
Date of Service: July 29, 2025
Subjective:
Patient sitting in chair, mildly dyspneic while talking overall feels comfortable
Review of Systems
Genitourinary: Other (No new symptoms reported.)
Objective Data
Data Reviewed
Vital Signs / I&O / Oxygen:
Vital Signs
Temp Pulse Resp BP Pulse Ox
97.5 F 72 14 136/55 100
07/29/25 12:13 07/29/25 12:00 07/29/25 12:00 07/29/25 11:00 07/29/25 12:13
Intake and Output
07/28/25 07/29/25 07/30/25
06:59 06:59 06:59
Intake Total 445.5 / 455.5 870 / 880 270 / 270
Output Total 1520 / 1545 1050 / 1050
Balance -1074.5 / -1089.5 -180 / -170 270 / 270
SaO2 100
Nasal Cannula flow liters per 5
minute
Physical Exam
General: Comfortable
HEENT: Normocephalic
Cardiovascular: S1-S2
Respiratory: Crackles and Rhonchi
GI: Soft and Non Distended
Neurology: Awake
Skin: Warm
Labs/Micro/Reports
Lab Data
07/29/25 03:05
07/29/25 03:05
Microbiology
07/25/25 14:22 Blood/Venous Blood Culture - Preliminary
No Growth in 72 hours- Final report to follow
07/25/25 14:22 Blood/Venous Blood Culture - Preliminary
No Growth in 72 hours- Final report to follow
07/25/25 11:36 Urine Urine Culture - Final
NO GROWTH
--- NOTE | 2025-07-29 13:00 | PTCARENOTE ---
Cefepime dose clarified with Dr. Madrid. Will administer Q12h as ordered. He is aware she is barely pulling 200ml's on her Incentive spirometer, and only has 180ml's in her bladder after Lasix dose.
[2025-07-29] MEDS: MAXIPIME 1000 MG IV (13:57)
[2025-07-29] MEDS: STERILE WATER FOR INJECTION 10 ML IV (13:57)
[2025-07-29] MEDS: VANCOCIN 530 MG IV (13:59)
--- NOTE | 2025-07-29 14:31 | PTCARENOTE ---
Right IJ TL CVC removed as ordered by Armani Cabrera MD by CIRCULATION SUPERVISOR. Hemostasis obtained. Gauze dressing intact with tegaderm intact.
--- NOTE | 2025-07-29 15:23 | CM ---
Hgb 7.6, CXR in am on 07/30, IV/Lasix today, IV/Solu-Medrol/Cefepime, Wean O2 as able. Discharge POC: Therapy rec for HH vs SNF.
--- NOTE | 2025-07-29 15:30 | PTCARENOTE ---
pt lethargic w/BiPap 10/5 w/4 liters oxygen. Bladder scanned for >400ml's. Pt was transferred to the bed. She moaned minimally. Dr. Madrid assessed her, ABG ordered. Pt's was provided update by Dr. Madrid.
--- NOTE | 2025-07-29 15:37 | PHA.VAN.IN ---
Assessment
- Assessment
Renal Function: SCR Appears Elevated from baseline (elevated from baseline, but trending down)
Concomitant Antimicrobials: Cefepime
Plan
- Plan
Initial / Loading Dose: Vancomycin 1500mg given 07/29 at 1400
Maintenance Regimen: Dose by level due to renal function
Monitoring: Random vanc level 07/30 0600
MRSA Screen: Ordered per protocol
Pharmacokinetics Vancomycin I
- -
Patient Age: 89
Patient Sex: Female
Vancomycin Day #: 1
Indication: Pulmonary/Respiratory
Requesting Provider: Dr. Newton
Pertinent Antimicrobial Allergies:
no pertinent antibiotic allergies
Height / Weight:
Height 5 ft 4 in
Actual Weight 57.8 kg
- Vital Signs / Lab Results
Temp Pulse Resp BP Pulse Ox
97.5 F 70 24 124/64 96
07/29/25 12:13 07/29/25 14:00 07/29/25 14:00 07/29/25 14:00 07/29/25 14:00
Lab Results - Hematology
07/27/25 07/28/25 07/29/25
03:26 03:47 03:05
WBC 10.1 8.9 9.4
Lab Results - Chemistry
07/27/25 07/28/25 07/29/25
03:26 03:47 03:05
BUN 53 H 50 H 56 H
Creatinine 1.8 H 1.2 H 1.2 H
Estimated Creat Clear 28
Albumin 3.0 L 2.9 L
Microbiology Results
07/25/25 14:22 Blood Culture - Preliminary
Blood/Venous No Growth in 4 days- Final report to follow
07/25/25 14:22 Blood Culture - Preliminary
Blood/Venous No Growth in 4 days- Final report to follow
[2025-07-29 15:54] LABS: B.E. 8.9 mmol/L; HCO3 35.1 mmol/L (21-28); O2 Saturation % 99.2 % (94-98); PCO2 58 mmHg (32-35); PO2 134 mmHg (83-108)
--- NOTE | 2025-07-29 16:02 | W.PN.UPDATE ---
Update Note
Progress Note Update
Patient is progressively more lethargic through the day with increased work of breathing, switched to BiPAP
Updated family at bedside. CT scan concerning for multifocal pneumonia versus developing ARDS considering increasing oxygen requirement
Check stat ABG, continue BiPAP support, strict n.p.o.
Ongoing goals of care discussion. Prognosis is guarded. Patient is very weak and deconditioned.
Will continue to update family and engage in goals of care discussions.
Transfer to ICU
[2025-07-29] MEDS: LIPITOR PO (17:45)
--- NOTE | 2025-07-29 17:52 | PTCARENOTE ---
came out to desk asking about dinner. He was educated on strict NPO d/t possible need for intubation and sign / symptoms of aspiration. It was stressed that the patient needed uninterrupted rest.
--- NOTE | 2025-07-29 18:26 | PTCARENOTE ---
Pt's daughter informed to allow her mother to rest, and that she is extremely sleep deprived. She verbalized her understanding however she is leaning on the side rail and asking her mother if she is ok because she is coughing. Door was kept slightly
ajar in order to hear the Bipap. Pt and family also informed that she is strict NPO. They verbalized their understanding.
[2025-07-29] MEDS: ELIQUIS PO (19:48)
--- NOTE | 2025-07-29 20:20 | PTCARENOTE ---
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 AV paced HR 70. R IV WNL- no gtt infusing. pt on continuous Bipap, desat to mid 80s after turning, 02 increased to 7L through Bipap, gradually recovered. mouth care done. POC discussed, bed alarm on, call virk
with pt. family at bedside.
[2025-07-30] VITALS (27 sets, daily range): BP systolic 110–161; BP diastolic 43–72; PULSE 2–70; O2SAT 93; BMI 22.6
--- NOTE | 2025-07-30 00:15 | PTCARENOTE ---
turned/repositioned. no changes in pt assessment.
[2025-07-30] MEDS: STERILE WATER FOR INJECTION 10 ML IV ×3 (00:50→20:54)
[2025-07-30] MEDS: MAXIPIME 1000 MG IV ×3 (00:50→20:54)
--- NOTE | 2025-07-30 04:00 | PTCARENOTE ---
pt inc large amt urine, turned, skin care, repositioned. new purewick applied. no further changes in assessment.
[2025-07-30 04:42] LABS: Hematocrit 26.7 % (37.0-47.0); Hemoglobin 8.8 g/dL (12.0-16.0); Mean Corp Hgb Conc. 33.0 g/dL (33.0-37.0); Mean Corpuscular Volume 94.0 fL (81.0-99.0); Platelet Count 202 10^3/uL (130-400); Red Cell Dist. Width 17.5 % (11.5-14.5)
[2025-07-30 05:09] LABS: ALT (SGPT) 41 U/L (0-35); AST (SGOT) 70 U/L (14-36); Albumin 3.3 g/dl (3.5-5.0); Alkaline Phosphatase 77 U/L (38-126); Blood Urea Nitrogen 55 mg/dl (7-17); Calcium 8.5 mg/dl (8.4-10.2); Carbon Dioxide 35 mmol/L (22-30); Chloride 108 mmol/L (98-107); Estimated Creatinine Clearance 34 ml/min; Glucose 119 mg/dl (70-99); Potassium 4.3 mmol/L (3.5-5.1); Sodium 148 mmol/L (135-145); Total Protein 5.9 g/dl (6.3-8.2); eGFR 54.19
--- NOTE | 2025-07-30 05:50 | PTCARENOTE ---
am lab serum BG noted to be 58, accu check 69, hypoglycemia protocol followed. BDoughertyNP aware. no further changes in assessment.
[2025-07-30] MEDS: SYNTHROID PO (05:55)
--- NOTE | 2025-07-30 07:35 | W.PN.HOSP.TC ---
Today's Communication/Plan
-
- Per ID, trial of vanc/cefepime/doxy
- Repeat MRSA screen
- Per ICU, continue 4-day solumedrol course (day 2/ today)
- 20mg IV lasix daily
- NPO until speech re-eval
- D5 fluids
- Continue to monitor O2 status
Assessment / Plan
Assessment / Plan
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
now s/p permanent pacemaker, with post-op course c/b hypoxic respiratory failure.
#Hypoxic respiratory failure
On 07/25 - pt transferred to ICU w hypoxia O2 sat 70s, accessory muscle use, crackles bilaterally. Givan lasix 40mg IV & started on bipap & empiric zosyn (no fever or leukocytosis). VBG: pH 7.32, pCO2 46, pO2 155, O2 sat 97.1%. Procalcitonin elevated
to 1.51. EKG 07/25: no change from prior. CXR 07/25: 'Severe bilateral reticulonodular interstitial disease in the lungs mixed with groundglass opacity. Diagnostic possibilities are (1) acute infection (endobronchial infection and pneumonia), (2) an
acute inflammatory interstitial pneumonitis, (3) malignancy (lymphangitic carcinomatosis or other metastatic disease), or (4) acute interstitial and alveolar cardiogenic pulmonary edema.' Given afebrile, normal WBC, timecourse of sx development
after hemodynamic instability in s/o AV block & subsequent temporary>permanent pacemaker placement, along with suspected HFpEF exacerbation, initially favored cardiogenic pulm edema. Zosyn stopped (07/25-). S/p IV lasix 07/24-07/28 (40mg IV bid for
last 4 doses). Weaned off bipap 07/28. CXR (07/28): 'Bilateral patchy airspace opacities which have slightly improved from prior. There are likely small bilateral pleural effusions which are similar in appearance to prior.' CXR (07/29 am): 'Mild
interstitial prominence, suggestive of mild pulmonary edema. Patchy opacities bilaterally, which may represent multifocal pneumonia or alveolar pulmonary edema. Small left pleural effusion.' Chest CT (07/29): 'Findings suggesting severe bilateral
pneumonia as described above, greatest in right upper lobe. Interstitial lung disease not excluded. Stable.'
Given worsening CXR appearance 07/29 despite diuresis, ddx broadened from cardiogenic edema to ILD 2/2 amiodarone vs. aspiration pneumonitis vs. PNA. ICU team restarted vanc & cefepime and started IV Solu-Medrol 40 mg daily for 5 days. CXR (07/30):
'persistent severe bilateral pneumonia'
Today: fluid balance +440; O2 sat 99% on bipap overnight, >92% on 4L O2 NC this am; AVSS. 07/29 was satting 90-99% on 4L O2 NC. Desatted to 80s while turned in bed & became more lethargic in later day, bipap on. 07/30 am appeared to be breathing
comfortably on 4L O2.
- Methylpred 40mg IV for 5 days (07/29-)
- Resume IV lasix 20mg daily today
- Cefepime & vanc, per ICU team (07/29-)
- Adding doxycycline, per ID (07/30-)
- Pt made NPO
- Repeat MRSA screen
- Bipap at night
- Continue to wean off O2 as tolerated
#HFpEF (EF 65%), suspected exacerbation
#Moderate MS, mild MR, moderate
#Transaminitis, improving
Echo 07/23/25: EF 65%, severely abnormal L atrial volume (>48ml/m2), moderate MS & . Likely experiencing acute on chronic HFpEF exacerbation in s/o arrhythmia, new LBBB. BNP elevated 8020. Elevation in AST and ALT likely in the setting of
congestion; downtrending w diuresis. Diuresis as above.
- Wean off O2 as able
- Bipap at night
- 20mg lasix daily IV
- Monitor I&Os & daily weights
- Continue holding home valsartan
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
Patient overnight to 07/23 became bradycardic with heart rate in the 10s, severe hypotension, lethargic, pale, nauseous; patient given 1 mg IV atropine, dopamine gtt., norepinephrine gtt. emergent temporary pacemaker was placed via right IJ overnight
07/23. US 07/24 (in s/o hypotension, dyspnea) negative for pericardial effusion. Hypotension resolved. Pt appears now hemodynamically stable. Off pressors. S/P temporary pacemaker 07/23. Permanent pacemaker was placed 07/24.
- Continue amiodarone 200mg daily
- Continue aspirin 81 mg daily
- Holding off on planning for L heart cath at this time
#Hypernatremia
Na 148 on 07/30. Patient made NPO 07/29 evening.
- Start D5 at rate of 40-50 for nutrition & dilution
#Anemia
Hgb baseline 8-9. On 07/27, trended down to 7.1. B12, folate normal; likely iron deficiency. Type & screen ordered, risks & benefits of transfusion discussed w . LDH 434. Heparin held 07/25 due to c/f bleeding at pacemaker site. 07/27: Device
site with old blood and feels spongy; dressing changed by nursing with no hematoma or active bleeding. Iron level low 21. Ferritin elevated 341.
Hgb: 7.1>7.7>7.5>7.6>8.8
- Continue home iron supplement (325mg daily)
- Transfuse for Hgb <7 (will need to get consent)
#Confusion, AMS, c/f hospital-induced delirium; resolving
Altered mental status on morning of 07/24, likely 2/2 hospital-induced delirium with contribution by prior hemodynamic instability and emergent temporary pacer placement overnight on 07/23, old age, likely underlying dementia, lack of sleep, acute
hypoxic respiratory failure. Improved since 07/27.
- Family at bedside instructed to continue to reorient patient to place/time/location
- Optimize sleep as able
- Manage medical conditions as above
#BECKA, resolved
Cr elevated to 1.8. Likely in s/o arrhythmia and changing perfusion; cardiorenal. Will continue to monitor post-diuresis. Last documented Cr from 2022 0.6-0.7. Potential underlying CKD.
Cr 1.2>1.0, downtrending.
- Follow BMP
- Holding home alendronate
#Elevated troponin, resolved
Likely type II PR troponin elevation in the setting of demand ischemia due to her AV block and potential HFpEF exacerbation. However given her history of CAD requiring stent, there is also a possibility that troponin elevated due to arterial
obstruction type I PR. This will be clarified with cardiac catheterization.
Trop: 0.059 > 0.134 > 0.351 (peak) > 0.290.
- NTD
#Chronic
- Afib - eliquis & amiodarone
- CAD s/p LAD PCI 2014 - continue statin
- HLD - continue statin
- Hypothyroidism - continue levothyroxine
- Bunion on R foot - consider podiatry consult
#Global
- DVT ppx: eliquis 5mg bid
- Diet: NPO, pending speech re-eval
- Code: full
- Dispo: lives at home with ; pending stabilization & PT/OT eval
Anticipated Discharge: > 48 hours
Subjective/Interval History
-
Date of Service: July 30, 2025
Patient more alert and oriented today than yesterday. Also appears more comfortable, sitting up in bed with O2 nasal cannula in place. Nonlabored respirations, no accessory muscle use; able to speak clearly in full sentences. Denies any SOB.
Denies any CP. States that she enjoyed eating her meals yesterday, had soft puddings. Disappointed that she is now n.p.o. again, but understands that there is concern for aspiration risk. States that it has been very uncomfortable wearing the
BiPAP mask overnight, has not been getting good sleep. Very eager to be able to wean off of using it. Very pleasant to converse with, remembers names of all physicians.
Objective Data
-
Labs:
Laboratory Results
07/30/25
04:26
WBC 8.3
Hgb 8.8 L
Hct 26.7 L
Plt Count 202 D
Sodium 148 H
Potassium 4.3
Chloride 108 H
Carbon Dioxide 35 H
BUN 55 H
Creatinine 1.0
Glucose 119 H
Calcium 8.5
Total Bilirubin 2.8 H
AST 70 H
ALT 41 H
Alkaline Phosphatase 77
Vital Signs:
Vital Signs
Temp Pulse Resp BP Pulse Ox
97.7 F 71 17 148/53 99
07/30/25 07:32 07/30/25 06:00 07/30/25 06:00 07/30/25 06:00 07/30/25 06:00
I&O
07/29/25 07/30/25 07/31/25
06:59 06:59 06:59
Intake Total 870 / 880 800 / 800
Output Total 1050 / 1050 350 / 350
Balance -180 / -170 450 / 450
Review of Systems
-
History Source: Patient
Constitutional: Reports No Symptoms
Physical Exam
-
General: Well Developed, Well Nourished and Conversant
HEENT: Normocephalic, Atraumatic, Anicteric and Oxygen (O2 NC)
Respiratory: Non Labored Respirations and Other (Moderate crackles; perhaps somewhat improved from yesterday)
Cardiac: Regular Rhythm
GI: Nontender and Nondistended
Musculoskeletal: No Edema (No lower extremity edema)
Skin: Warm and Dry
Neuro: Awake, Alert and Oriented
Psych: Calm
Data Reviewed
-
Total Time Spent with Patient (in minutes): 15
Critical Care Time (in minutes): 40
Diagnostic Radiology: Image personally visualized and interpreted and Report Reviewed by me
CT Scan: Report Reviewed by me
Labs: Labs Reviewed by me
--- NOTE | 2025-07-30 08:30 | PTCARENOTE ---
Assumed care of pt at 0715 following shift report. Pt awake and resting quietly in bed. Bipap removed by Resp therapy and pt placed on Midflow O2 at 6l/min w/ POx 97%. Ox3, conversation appropriate and pleasant. Pt denies SOB or c/o pain/discomfort.
No running IVF. Pt requesting and used bedpan to void cristin urine. Physical assessment completed as documented. Pt NPO at this time per order. AM Hygiene completed and pt OOB to chair w/ 2 assist and use of rolling walker. Pts gait steady and no
distress noted w/ increased activity. POx remains >95%. Call virk w/in pt reach. Safe environment maintained. Pt's and daughter at bedside- updated on pt's present condition, plan of care as requested.
[2025-07-30] MEDS: LASIX 20 MG IV (08:32)
--- NOTE | 2025-07-30 08:32 | W.PN.ID1 ---
Date of Service
Date of Service: July 30, 2025
Today's Communication
trial of vanc/cefepime/doxycycline
Assessment / Plan
Aspiration Pneumonitis vs ARDS vs Pneumonia
BECKA - notably improved
- trial of vanc/cefepime/doxycycline
- now producing sputum - send sample if possible
- no objection to steroids
- follow clinically
New AV block/LBBB
S/p pacemaker
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
Chief Complaint
-: Other (pneumonitis)
Subjective / Review of Systems
remains afebrile
bp stable
without leukocytosis
cr slightly improved
CXR persistent infiltrates
in good spirits this am - asking for coffee
Vital Signs / Physical Exam
Vital Signs
Vital Signs
Temp Pulse Resp BP Pulse Ox
97.7 F 71 17 148/53 99
07/30/25 07:32 07/30/25 06:00 07/30/25 06:00 07/30/25 06:00 07/30/25 06:00
Physical Exam
Constitutional: No Acute Distress and Chronically Ill
Cardiovascular: Regular Rate and S1/S2; Negative Murmur or Rub
Pulmonary: Symmetric, Coarse and Non Labored; Negative Wheezes or Rales
Gastrointestinal: Soft, Non Tender, Non Distended and Normal Bowel Sounds
Skin: Warm and Dry; Negative Rash or Jaundice
Objective Data
Lab Data
Lab Results
07/30/25 04:26
07/30/25 04:26
PT 26.5 Sec (11.4-14.6) H 07/27/25 03:26
INR 2.43 07/27/25 03:26
APTT 47.4 Sec (23.4-35.0) H 07/27/25 03:26
Estimated Creat Clear 34 ml/min 07/30/25 04:26
Lactic Acid 0.9 mmol/L (0.7-2.0) 07/25/25 04:29
Total Bilirubin 2.8 mg/dl (0.2-1.3) H 07/30/25 04:26
AST 70 U/L (14-36) H 07/30/25 04:26
ALT 41 U/L (0-35) H 07/30/25 04:26
Alkaline Phosphatase 77 U/L (38-126) 07/30/25 04:26
Most recent labs reviewed.
Micro Results:
07/29/25 16:43 Nasal Screen MRSA (PCR) - Final
Nose
07/25/25 14:22 Blood Culture - Preliminary
Blood/Venous No Growth in 4 days- Final report to follow
07/25/25 14:22 Blood Culture - Preliminary
Blood/Venous No Growth in 4 days- Final report to follow
07/25/25 11:36 Urine Culture - Final
Urine NO GROWTH
07/26/25 04:34 Legionella Urinary Antigen - Final
Urine Negative for Legionella pneumophila Serogroup 1 antigen.
A negative result does not rule out the possiblity of
Legionella infection due to other serogroups or species of
Legionella. Clinical correlation is recommended.
Streptococcus pneumoniae Antigen (M - Final
Negative for Streptococcus pneumoniae antigen.
A negative result does not exclude infection with
Streptococcus pneumoniae. Clinical correlation is
recommended.
--- NOTE | 2025-07-30 08:52 | W.PN.CARDCBS ---
Today's Communication / Plan
-
Events noted with regards to respiratory decompensation which appears related to worsening pneumonia.
Continue broad-spectrum antibiotics and pulmonary toilet.
BiPAP was weaned off. Continue to wean O2 as able.
She appears euvolemic. For now as she is n.p.o., would continue IV Lasix 20 mg daily and transition to Lasix 20 mg p.o. daily a.m. 07/31/2025.
She continues on Eliquis for atrial fibrillation history. Remains AV paced on amiodarone.
Continue medical therapy for non-PR troponin with peak troponin 0.3.
Her EF was preserved on recent echo July 23, 2025.
Given increased bleeding risk, aspirin was stopped this admission as not true ACS.
Given her significant comorbidities recent renal insufficiency and significant anemia, the fact that her ejection fraction is preserved and she remains asymptomatic with regards to any anginal symptoms, continue medical therapy and cardiac
catheterization has been deferred.
Continue medical therapy for her moderate aortic stenosis and mitral stenosis.
Monitor H/H closely. She remains anemic. Hemoglobin slightly improved to 8.8 07/30/2025
No evidence of bleeding
Pacer functioning appropriately
Impression / Plan
-
.
PCP: Dr. Morales
Cardiology: Dr. MAGDA Cabrera
Impression:
Admitted with new AV block, LBBB and BECKA 07/23/25
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
s/p temporary pacing wire placed in Waffle [employer] 07/23/2025
Status post [employer] pacemaker with Dr. Anderson 07/24/2025, AV paced.
BECKA, improved
Elevated Troponin peak 0.3 on 07/24/25
Acute HFpEF
Paroxysmal Afib with RVR
Chronic Eliquis OAC
CAD s/p prox LAD PCI 2014
widely patent LAD stent by cath 03/29/22
Hypothyroidism
Moderate MS and trace MR by echo 05/27/24
Mild AR/
History of Follicular lymphoma
Rituxan infusion
Full code
Lexiscan mibi 03/04/19: Completed 4:10 min Chandan protocol reaching 87% MPHR, normal perfusion imaging
Echo 05/2021: EF 60-65%, severe LA enlargement, mild MS (20/8) mild (21/11) ANGELINA 1.7cm2
Echo 03/28/22: EF 68%, stage II diastolic dysfunction, mild to mod MS peak/mean 15/8 mmHg and pressure halftime 1.7 cm sq, mild MR, mild with peak/mean 26/14 mmHg and ANGELINA 2.0 cm sq
Echo 05/27/2024: EF 55 to 60%, normal RV size and function, moderate MS with mean transmitral gradient 8 mmHg, trace MR, mild peak/mean 29/16 mmHg and ANGELINA 1.5 cm sq
Echo 07/23/25: EF 65%, no WMA, moderate peak/mean 48/25 mmHg and ANGELINA 1.4 cm sq, mild TR, moderate MS peak/mean 25/13 mmHg, mild MR
Plan:
Events noted with regards to respiratory decompensation which appears related to worsening pneumonia.
Continue broad-spectrum antibiotics and pulmonary toilet.
BiPAP was weaned off. Continue to wean O2 as able.
She appears euvolemic. For now as she is n.p.o., would continue IV Lasix 20 mg daily and transition to Lasix 20 mg p.o. daily a.m. 07/31/2025.
She continues on Eliquis for atrial fibrillation history. Remains AV paced on amiodarone.
Continue medical therapy for non-PR troponin with peak troponin 0.3.
Her EF was preserved on recent echo July 23, 2025.
Given increased bleeding risk, aspirin was stopped this admission as not true ACS.
Given her significant comorbidities recent renal insufficiency and significant anemia, the fact that her ejection fraction is preserved and she remains asymptomatic with regards to any anginal symptoms, continue medical therapy and cardiac
catheterization has been deferred.
Continue medical therapy for her moderate aortic stenosis and mitral stenosis.
Monitor H/H closely. She remains anemic. Hemoglobin slightly improved to 8.8 07/30/2025
No evidence of bleeding
Pacer functioning appropriately
She will follow-up as an outpatient with Dr. Cabrera her primary armor officer.
Discussed with her daughter and at bedside.
Critical care time 31 minutes.
HPI: Patient came to the hospital today for acute on chronic weakness and is being admitted with 2-1 AV block and cardiology is consulted. Patient and report that she has felt intermittently unwell for the last 3 to 4 weeks. They describe
that at times she is almost bedridden with fatigue and weakness and had a fall about 10 days ago. Then other times she has more energy and is able to eat and drink close to normal, but for the most part has not left her house in the last 3 to 4
weeks. Patient seemed to be feeling better for the last 2 days and thought she may have turned a corner, and then today she stood up and suddenly felt profoundly weak, but no loss of consciousness and so her brought her to the emergency
room. ECG looks like 2-1 AV block and new LBBB. Patient has a history of paroxysmal A-fib and is chronically on amiodarone 200 mg daily. Patient took her usual dose of amiodarone plus Eliquis this morning.
Progress Note - Project Technician
Subjective
Date of Service: July 30, 2025
Patient seen and examined. She feels much improved. No chest pain
Objective
Labs:
07/30/25 04:26
07/30/25 04:26
Labs
Hgb 8.8 g/dL (12.0-16.0) L 07/30/25 04:26
Hct 26.7 % (37.0-47.0) L 07/30/25 04:26
Plt Count 202 10^3/uL (130-400) D 07/30/25 04:26
PT 26.5 Sec (11.4-14.6) H 07/27/25 03:26
INR 2.43 07/27/25 03:26
APTT 47.4 Sec (23.4-35.0) H 07/27/25 03:26
Sodium 148 mmol/L (135-145) H 07/30/25 04:26
Potassium 4.3 mmol/L (3.5-5.1) 07/30/25 04:26
BUN 55 mg/dl (7-17) H 07/30/25 04:26
Creatinine 1.0 mg/dL (0.6-1.0) 07/30/25 04:26
Glucose 119 mg/dl (70-99) H 07/30/25 04:26
Vital Signs and I&O:
Vital Signs
Temp Pulse Resp BP Pulse Ox
97.7 F 70 17 136/54 99
07/30/25 07:32 07/30/25 08:32 07/30/25 06:00 07/30/25 08:32 07/30/25 06:00
Vital Signs
Temp Pulse Resp BP Pulse Ox
97.7 F 70 17 136/54 99
07/30/25 07:32 07/30/25 08:32 07/30/25 06:00 07/30/25 08:32 07/30/25 06:00
Intake & Output
07/28/25 07/29/25 07/30/25 07/31/25
06:59 06:59 06:59 06:59
Intake Total 445.5 / 455.5 870 / 880 800 / 800
Output Total 1520 / 1545 1050 / 1050 350 / 350
Balance -1074.5 / -1089.5 -180 / -170 450 / 450
Physical Exam
Physical Exam
General: No acute distress, AAOX3
Neck: Negative JVD
Heart: Regular, Negative S3 positive S1/S2, Negative S4, No murmur
Lungs: CTA b/l, negative wheezes/rales/rhonchi
Abd: Positive BS, NT/ND, neg rebound/rigidity/guarding
Ext: Negative cyanosis/clubbing/edema
Neuro: nonfocal
[2025-07-30] MEDS: VIBRAMYCIN 260 MG IV ×2 (10:39→21:05)
--- NOTE | 2025-07-30 10:40 | W.PN.INTV ---
Today's Communication / Plan
Recommendations
- Wean oxygen as tolerated
- Continue nasal cannula during daytime and BiPAP nightly and as needed
- PT/OT/speech therapy evaluation
Assessment
-
Assessment: 89-year-old F with PMHx of follicular lymphoma s/p rituxin, Hx of falls, Hx of light tobacco smoking, GERD, CAD s/p stent to LAD (2014), paroxysmal A-fib s/p DCCV 03/2022), hypothyroidism, HTN, hx of gastric ulcer, and Hx of right-sided
pleural effusion requiring multiple thoracentesis in [id number] who presents with weakness, malaise and heart palpitations. She said that she feels like her heart is 'flip-flopping.' In the ER she endorsed LE swelling, productive cough, and SOB.
EKG initially showed bradycardia with 2-1 AV-block with PVCs and a new LBBB. Previous EKG in March 2025 showed incomplete RBBB and LAFB and sinus rhythm, per cardiology. She was afebrile in ER david BP 147/71, HR 32, SpO2 98% on room air, and RR
19-23. Initial labs pertinent for WBC 7, Hb 10.9, INR 3.81, Na 128, Cr 1.8, T. bili 1.6, troponin 0.059, proBNP 8020, TSH 4.6, and lyme screen negative. CXR showed bilateral parenchymal opacities with low lung volumes. Cardiology consulted and
she was admitted to IVU with pace pads attached to chest. Echo on 07/23/2025 showed LVEF 65% with moderate , pulmonary HTN with PASP 70 (previously 45-50 on echo from 05/2024), moderate MS, mild MR and increased LA volume. Later in evening on 07/23
she became severely bradycardic with HR down to 10-20 and was hypotensive, EKG showed 5-1 AV block - she was lethargic, pale, and nauseous. Atropine given with no improvement. Dopamine gtt started with slight improvement, and then interventional
packing machine feeder Dr. Javier evaluated her, levophed was started and pt brought to laboratory chief and temporary pacing wire placed. Dopamine and levophed weaned off. Permanent pacemaker placed on 07/24/2025. Overnight on 07/25 she had worsening SOB, CXR with
worsening bilateral opacities - lasix given, BiPAP started, and she was TRX from CVICU to ICU where Abx started via Zosyn. Drum Dyeing Machine Operator services consulted for further recommendations.
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
disease, hx of gastric ulcer, Hx of right-sided pleural effusion requiring multiple thoracentesis in [id number], chronic amiodarone use
07/30 overview: Current MAP of 93, not requiring any pressors. Saturating 99% on 6 L supplemental oxygen, respiratory rate 17 and heart rate around 70.
Assessment and plan:
#1. 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
- S/p PPM placed on 07/24/2025, currently AV paced rhythm on monitor
#2. Acute pulmonary edema due to above with severe bradycardia and acute HFpEF
- Improving. More recent imaging more suggestive of multifocal pneumonia and possible ARDS rather than pulmonary edema
- Lasix dose lowered to 20 mg daily
#3. Acute hypoxic respiratory failure due to above and possibly with component of pneumonia/aspiration pneumonitis/ARDS
- Clinically worsening noted on 07/29, CT chest pursued suggestive of multifocal pneumonia, patient was started on broad-spectrum antibiotic and steroids
- Clinically improved over last 24 hours with decreasing oxygen requirement, off high flow nasal cannula now
- Currently on 6 L supplemental oxygen, wean as tolerated, continue BiPAP nightly and as needed
- Follow-up on cultures
#4. Acute on chronic hypercapnic respiratory failure
-In the setting of volume overload plus possibly aspiration.
-Responded well to diuresis and nightly BiPAP
#5. BECKA with underlying chronic kidney disease
- Creatinine improving with diuresis, lowered Lasix dose to 20 mg daily
#6. Agitation likely due to ICU-delirium in setting of sleep deprivation
-Improved. Increase activity as tolerated
#7. Elevated troponin - likely demand ischemia with type II OH
- Cardiology service on case. No plan for coronary angiogram.
- Continue aspirin, Eliquis
Other medical diagnoses:
- Hx of non-Hodgkin lymphoma s/p rituxin
- GERD
- Paroxysmal A-fib on chronic amiodarone + Eliquis
- HTN/HLD
- Hx of light tobacco use
- CAD s/p LAD stent
- Valvular heart disease with , MS and MR
Critical care statement: A total of 48 minutes of critical care time was provided for this patient today. This includes management of unstable vital signs, evaluation of the patient at bedside, reviewing the patient's pertinent medical records
including radiographs, microbiology, laboratory evaluations, and discussion with primary team, consultants, pharmacy, nutrition, physical therapy, case management, charge nurse, critical care nursing, and respiratory therapy.
Subjective Dataa
Subjective Data
Date of Service:
Date of Service: July 30, 2025
Chief Complaint: Drum Dyeing Machine Operator Follow Up
Subjective:
Patient comfortably sitting in chair, appears more comfortable than day before
Review of Systems
Genitourinary: Other (No new pulmonary symptoms reported.)
Objective Data
Data Reviewed
Vital Signs / I&O / Oxygen:
Vital Signs
Temp Pulse Resp BP Pulse Ox
97.7 F 70 17 136/54 99
07/30/25 07:32 07/30/25 08:32 07/30/25 06:00 07/30/25 08:32 07/30/25 06:00
Intake and Output
07/29/25 07/30/25 07/31/25
06:59 06:59 06:59
Intake Total 870 / 880 800 / 800
Output Total 1050 / 1050 350 / 350
Balance -180 / -170 450 / 450
SaO2 99
Nasal Cannula flow liters per 5
minute
Physical Exam
General: Respiratory Distress (negative), Chills (negative) and Sweats (negative)
HEENT: Normocephalic and Anicteric
Cardiovascular: Peripheral Edema (Trace pitting edema) and Other (A-V paced rhythm)
Respiratory: Wheeze (negative), Crackles (Improving), Rhonchi (Quite improved), Non-Labored Respirations and Stridor (negative)
GI: Soft, Non Distended, Non Tender and Normal Bowel Sounds
Neurology: Tremors (negative) and Lethargic (minimally responsive)
Skin: Warm, Dry, Cyanosis (negative) and Jaundice (negative)
Labs/Micro/Reports
Lab Data
07/30/25 04:26
07/30/25 04:26
Laboratory Results
07/29/25
15:48
pH 7.39
pCO2 58 H
pO2 134 H
HCO3 35.1 H
O2 Delivery Level
Microbiology
07/29/25 16:43 Nose Nasal Screen MRSA (PCR) - Final
07/25/25 14:22 Blood/Venous Blood Culture - Preliminary
No Growth in 4 days- Final report to follow
07/25/25 14:22 Blood/Venous Blood Culture - Preliminary
No Growth in 4 days- Final report to follow
[2025-07-30] MEDS: PACERONE 200 MG PO (10:53)
[2025-07-30] MEDS: TYLENOL 325 MG PO (10:53)
[2025-07-30] MEDS: ELIQUIS 2.5 MG PO ×2 (10:53→20:54)
[2025-07-30] MEDS: LOW STRENGTH ASPIRIN 81 MG PO (10:53)
[2025-07-30] MEDS: FEOSOL 325 MG PO (10:53)
[2025-07-30] MEDS: SOLU-MEDROL PF 40 MG IV (10:53)
[2025-07-30] MEDS: MIRALAX PO (10:54)
[2025-07-30] MEDS: D5W 1000 IV (10:54)
[2025-07-30] MEDS: SODIUM CHLORIDE 3% FOR INHALATION 1 VIAL INH ×2 (11:18→20:31)
[2025-07-30 12:00] LABS: Glucose - Point of Care 131 mg/dl (70-99)
--- NOTE | 2025-07-30 12:00 | PTCARENOTE ---
Pt remains OOB in chair. Pleasantly conversationally. Ox3 and appropriate. Assisted to BSC to void/pass BM. O2 down to 4L/min w/ Pox 97%. Pt w/ rare noted moist cough- pts family reports occasionally productive of thick lehman/brown sputum. Pt provided
w/ sterile specimen cup and pt and family instructed in it's use. Pt and family verbalized understanding. Pt encouraged to use IS/acapela and able to demonstrate correct technique. Pt pulling approx 300-400ml w/ IS. Following visit from speech
therapy, diet order entered and family and pt encouraged to order food. No complaints offered or acute changes noted from previous assessment findings.
--- NOTE | 2025-07-30 12:35 | PHA.VAN.FU ---
Vancomycin Assessment / Plan
- Assessment
Renal Function: SCR Decreasing
In the past 24 hrs, patient has been: Afebrile
Concomitant Antimicrobials: Doxycycline 100 mg IV BID, Cefepime 1 gram IV q12h
- Assessment - Therapeutic Drug Monitoring
Random Level: - 07/30 at 04:26 AM (~14 hour level)
- Dosing Plan
Dosing by Level: Re-dose today
Dosing Comments: Vancomycin 750 mg (~12.5 mg/kg) x 1 dose
- Monitoring Plan
Random Level: 07/31 at 06:00 AM
- Follow Up
Pharmacy will continue to follow.
Vancomycin Follow UP
- -
Patient Age: 89
Patient Sex: Female
Vancomycin Day #: 2
Indication: Pulmonary/Respiratory
Requesting Provider: Dr. Newton
Pertinent Antimicrobial Allergies:
no pertinent antibiotic allergies
Height / Weight:
Height 5 ft 4 in
Actual Weight 59.8 kg
- Vital Signs / Lab Results
Temp Pulse Resp BP Pulse Ox
97.3 F 70 24 152/55 97
07/30/25 11:27 07/30/25 11:24 07/30/25 11:24 07/30/25 10:53 07/30/25 11:24
Lab Results - Hematology
07/28/25 07/29/25 07/30/25
03:47 03:05 04:26
WBC 8.9 9.4 8.3
Lab Results - Chemistry
07/28/25 07/29/25 07/30/25
03:47 03:05 04:26
BUN 50 H 56 H 55 H
Creatinine 1.2 H 1.2 H 1.0
Estimated Creat Clear 28 28 34
Albumin 2.9 L 3.3 L
Microbiology Results
07/29/25 16:43 Nasal Screen MRSA (PCR) - Final
Nose
07/25/25 14:22 Blood Culture - Preliminary
Blood/Venous No Growth in 4 days- Final report to follow
07/25/25 14:22 Blood Culture - Preliminary
Blood/Venous No Growth in 4 days- Final report to follow
Therapeutic Drug Monitoring
Random Vancomycin 14.0 ug/ml 07/30/25 04:26
[2025-07-30] MEDS: SYNTHROID 75 MCG PO (14:49)
[2025-07-30] MEDS: VANCOCIN 150 IV (14:49)
--- NOTE | 2025-07-30 17:19 | PTCARENOTE ---
Pt ambulated in room w/ PT and then returned to bed. Pox down to low 80's w/ ambulation on O2 at 4l/min via NC. O2 increased to 6l/min w/ POx improved to 99% at rest. Pt denies SOB but did report generalized fatigue. Gait steady. No additional
complications. Used bedpan to void- cristin urine, pericare provided. Repositioned and comfort care provided. Call virk w/in pt reach. Family remains at bedside. No additional changes from previous assessment findings.
[2025-07-30] MEDS: LIPITOR 20 MG PO (18:24)
[2025-07-30] MEDS: SENOKOT PO (20:41)
--- NOTE | 2025-07-30 20:45 | PTCARENOTE ---
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 Sat 97% on 6L NC. mouth care done. POC discussed, call virk with pt, bed alarm on.
[2025-07-31] VITALS (24 sets, daily range): BP systolic 119–156; BP diastolic 52–78; PULSE 2–70; BMI 21.9
--- NOTE | 2025-07-31 | PTCARENOTE ---
no changes in pt assessment.
[2025-07-31] MEDS: STERILE WATER FOR INJECTION 10 ML IV ×3 (05:23→20:55)
[2025-07-31] MEDS: MAXIPIME 1000 MG IV ×3 (05:23→20:55)
[2025-07-31] MEDS: SYNTHROID 75 MCG PO (05:23)
[2025-07-31 05:35] LABS: Hematocrit 23.4 % (37.0-47.0); Hemoglobin 7.9 g/dL (12.0-16.0); Mean Corp Hgb Conc. 33.8 g/dL (33.0-37.0); Mean Corpuscular Volume 92.9 fL (81.0-99.0); Nucleated Red Blood Cells % 0.2 %; Platelet Count 215 10^3/uL (130-400); Red Cell Dist. Width 17.3 % (11.5-14.5)
[2025-07-31 06:03] LABS: ALT (SGPT) 41 U/L (0-35); AST (SGOT) 71 U/L (14-36); Albumin 2.8 g/dl (3.5-5.0); Alkaline Phosphatase 73 U/L (38-126); Blood Urea Nitrogen 63 mg/dl (7-17); Calcium 8.4 mg/dl (8.4-10.2); Carbon Dioxide 32 mmol/L (22-30); Chloride 108 mmol/L (98-107); Estimated Creatinine Clearance 31 ml/min; Glucose 136 mg/dl (70-99); Potassium 4.4 mmol/L (3.5-5.1); Sodium 143 mmol/L (135-145); Total Protein 5.1 g/dl (6.3-8.2); eGFR 48.33
[2025-07-31] MEDS: SODIUM CHLORIDE 3% FOR INHALATION 1 VIAL INH ×2 (07:35→19:51)
--- NOTE | 2025-07-31 07:50 | W.PN.HOSP.TC ---
Today's Communication/Plan
-
- Continue 5-day steroid course
- 20mg PO lasix daily
- Continue amiodarine & eliquis
- Continue cefepime & doxy
- Dc vancomycin if MRSA returns negative today
- Wean O2 NC as tolerated
Assessment / Plan
Assessment / Plan
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
now s/p permanent pacemaker, with post-op course c/b hypoxic respiratory failure.
#Hypoxic respiratory failure, resolving
On 07/25 - pt transferred to ICU w hypoxia O2 sat 70s, accessory muscle use, crackles bilaterally. Givan lasix 40mg IV & started on bipap & empiric zosyn (no fever or leukocytosis). VBG: pH 7.32, pCO2 46, pO2 155, O2 sat 97.1%. Procalcitonin elevated
to 1.51. EKG 07/25: no change from prior. CXR 07/25: 'Severe bilateral reticulonodular interstitial disease in the lungs mixed with groundglass opacity. Diagnostic possibilities are (1) acute infection (endobronchial infection and pneumonia), (2) an
acute inflammatory interstitial pneumonitis, (3) malignancy (lymphangitic carcinomatosis or other metastatic disease), or (4) acute interstitial and alveolar cardiogenic pulmonary edema.' Given afebrile, normal WBC, timecourse of sx development
after hemodynamic instability in s/o AV block & subsequent temporary>permanent pacemaker placement, along with suspected HFpEF exacerbation, initially favored cardiogenic pulm edema. Zosyn stopped (07/25-). S/p IV lasix 07/24-07/28 (40mg IV bid for
last 4 doses). Weaned off bipap 07/28. CXR (07/28): 'Bilateral patchy airspace opacities which have slightly improved from prior. There are likely small bilateral pleural effusions which are similar in appearance to prior.' CXR (07/29 am): 'Mild
interstitial prominence, suggestive of mild pulmonary edema. Patchy opacities bilaterally, which may represent multifocal pneumonia or alveolar pulmonary edema. Small left pleural effusion.' Chest CT (07/29): 'Findings suggesting severe bilateral
pneumonia, greatest in RUL. ILD not excluded. Stable.'
Given worsening CXR appearance 07/29 despite diuresis, ddx broadened from cardiogenic edema to ILD 2/2 amiodarone vs. aspiration pneumonitis vs. PNA. ICU team restarted vanc & cefepime and started IV Solu-Medrol 40 mg daily for 5 days. 07/29 was
satting 90-99% on 4L O2 NC. Desatted to 80s while turned in bed & became more lethargic in later day, bipap on. 07/30 am appeared to be breathing comfortably on 4L O2. CXR (07/30): 'persistent severe bilateral pneumonia.' CXR (07/31): 'Persistent LLL
opacity without significant change; slightly improved aeration on the left.'
Today: 93% O2 sat on 4 L NC. Continuing bipap overnight. AVSS. RR 23 bit tachypneic. Fluid balance +1200ml. Pt appears to be breathing comfortably on NC today, alert/better-appearing. WBC uptrended 12.7, expected 2/2 steroid course.
- Methylpred 40mg IV for 5 days (07/29-)
- 20mg lasix PO daily
- Cefepime & vanc (07/29-) and doxycycline (07/30-), per ID
- Stop vanc today if MRSA back negative
- MRSA pending
- Bipap at night
- Continue to wean off O2 as tolerated
#HFpEF (EF 65%), suspected exacerbation
#Moderate MS, mild MR, moderate
#Transaminitis, improving
Echo 07/23/25: EF 65%, severely abnormal L atrial volume (>48ml/m2), moderate MS & . Likely experiencing acute on chronic HFpEF exacerbation in s/o arrhythmia, new LBBB. BNP elevated 8020. Elevation in AST and ALT likely in the setting of
congestion; downtrending/stabilizing w diuresis. Diuresis as above.
- Wean off O2 as able
- Bipap at night
- 20mg lasix daily IV
- Monitor I&Os & daily weights
- Continue holding home valsartan
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
Patient overnight to 07/23 became bradycardic with heart rate in the 10s, severe hypotension, lethargic, pale, nauseous; patient given 1 mg IV atropine, dopamine gtt., norepinephrine gtt. emergent temporary pacemaker was placed via right IJ overnight
07/23. US 07/24 (in s/o hypotension, dyspnea) negative for pericardial effusion. Hypotension resolved. Pt appears now hemodynamically stable. Off pressors. S/P temporary pacemaker 07/23. Permanent pacemaker was placed 07/24.
- Continue amiodarone 200mg daily
- Continue eliquis
- Holding aspirin per cards, given increased bleeding risk and not true ACS
- Holding off on planning for L heart cath at this time
#Anemia
Hgb baseline 8-9. On 07/27, trended down to 7.1. B12, folate normal; likely iron deficiency. Type & screen ordered, risks & benefits of transfusion discussed w . LDH 434. Heparin held 07/25 due to c/f bleeding at pacemaker site. 07/27: Device
site with old blood and feels spongy; dressing changed by nursing with no hematoma or active bleeding. Iron level low 21. Ferritin elevated 341.
Hgb: 7.1>>7.6>8.8>7.9
- Continue home iron supplement (325mg daily)
- Transfuse for Hgb <7 (will need to get consent)
#Confusion, AMS, c/f hospital-induced delirium; resolved
Altered mental status on morning of 07/24, likely 2/2 hospital-induced delirium with contribution by prior hemodynamic instability and emergent temporary pacer placement overnight on 07/23, old age, likely underlying dementia, lack of sleep, acute
hypoxic respiratory failure. Improved since 07/27 s/p sleeping w precedex.
- Family at bedside instructed to continue to reorient patient to place/time/location
- Optimize sleep as able
- Manage medical conditions as above
#BECKA, resolved
Cr elevated to 1.8. Likely in s/o arrhythmia and changing perfusion; cardiorenal. Will continue to monitor post-diuresis. Last documented Cr from 2022 0.6-0.7. Potential underlying CKD.
Cr 1.2>1.0, downtrending.
- Follow BMP
- Holding home alendronate
#Chronic
- Afib - eliquis & amiodarone
- CAD s/p LAD PCI 2014 - continue statin
- HLD - continue statin
- Hypothyroidism - continue levothyroxine
- Bunion on R foot - see podiatry outpatient
#Global
- DVT ppx: eliquis 5mg bid
- Diet: [id number]
- Code: full
- Dispo: lives at home with ; pending stabilization & PT/OT eval
Anticipated Discharge: > 48 hours
Subjective/Interval History
-
Date of Service: July 31, 2025
Patient very alert, peppy this am. Remembered names of physicians unprompted; talkative. Getting ready to eat breakfast. Sitting comfortably in chair with NC, brushing teeth and putting in dentures.
Objective Data
-
Labs:
Laboratory Results
07/31/25
05:21
WBC 12.7 H
Hgb 7.9 L
Hct 23.4 L
Plt Count 215
Sodium 143
Potassium 4.4
Chloride 108 H
Carbon Dioxide 32 H
BUN 63 H
Creatinine 1.1 H
Glucose 136 H
Calcium 8.4
Total Bilirubin 1.9 H
AST 71 H
ALT 41 H
Alkaline Phosphatase 73
Vital Signs:
Vital Signs
Temp Pulse Resp BP Pulse Ox
97.5 F 70 23 144/59 93
07/31/25 05:26 07/31/25 07:41 07/31/25 07:41 07/31/25 06:00 07/31/25 07:41
I&O
07/30/25 07/31/25 08/01/25
06:59 06:59 06:59
Intake Total 800 / 800 1400 / 1400
Output Total 350 / 350 200 / 200
Balance 450 / 450 1200 / 1200
Review of Systems
-
History Source: Patient
Constitutional: Reports No Symptoms
Physical Exam
-
General: Well Developed, Well Nourished and Conversant
HEENT: Normocephalic, Atraumatic, Anicteric and Oxygen (O2 NC)
Respiratory: Crackles (mild) and Non Labored Respirations
Cardiac: Regular Rhythm
GI: Nontender and Nondistended
Musculoskeletal: No Edema (No lower extremity edema; some bruising on R giraldo )
Skin: Warm and Dry
Neuro: Awake, Alert and Oriented
Psych: Calm
Data Reviewed
-
Total Time Spent with Patient (in minutes): 15
Critical Care Time (in minutes): 35
Diagnostic Radiology: Report Reviewed by me
Labs: Labs Reviewed by me
--- NOTE | 2025-07-31 08:00 | PTCARENOTE ---
Received pt. @ change of shift. Pt. AAOx3, denies pain. AV paced on monitor. SpO2 98% on 6LNC. Auscultated crackles @ b/l bases and diminished throughout. Occ p cough w small amt of thick brown/bloody tinged sputum; sample sent to lab. IS/acapella
encouraged. +BS, abd soft/round. Tolerating diet w/out s/s of asp; tom improving. Cont b/b. Assist x 1 w RW to BSC prn. #20 R AC w IVF infusing- see MAR. Family @ bedside, updated. Pt. instructed on how to report care concerns and call virk placed
w in reach.
--- NOTE | 2025-07-31 08:31 | W.PN.ID1 ---
Date of Service
Date of Service: July 31, 2025
Today's Communication
- trial of vanc/cefepime/doxycycline
- if MRSA screen remains negative can stop vancomycin
- now producing sputum - send sample if possible
Assessment / Plan
Aspiration Pneumonitis vs ARDS vs Pneumonia
BECKA - notably improved
- trial of vanc/cefepime/doxycycline
- if MRSA screen remains negative can stop vancomycin
- now producing sputum - send sample if possible
- no objection to steroids
- follow clinically
New AV block/LBBB
S/p pacemaker
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
Chief Complaint
-: Other (pneumonitis)
Subjective / Review of Systems
remains afebrile
bp stable
O2 being weaned somewhat
Vital Signs / Physical Exam
Vital Signs
Vital Signs
Temp Pulse Resp BP Pulse Ox
97.5 F 70 23 144/59 93
07/31/25 05:26 07/31/25 07:41 07/31/25 07:41 07/31/25 06:00 07/31/25 07:41
Physical Exam
Constitutional: No Acute Distress
Cardiovascular: Regular Rate and S1/S2; Negative Murmur or Rub
Pulmonary: Clear and Symmetric; Negative Wheezes or Rales
Gastrointestinal: Soft, Non Tender, Non Distended and Normal Bowel Sounds
Skin: Warm and Dry; Negative Rash or Jaundice
Objective Data
Lab Data
Lab Results
07/31/25 05:21
07/31/25 05:21
PT 26.5 Sec (11.4-14.6) H 07/27/25 03:26
INR 2.43 07/27/25 03:26
APTT 47.4 Sec (23.4-35.0) H 07/27/25 03:26
Estimated Creat Clear 31 ml/min 07/31/25 05:21
Lactic Acid 0.9 mmol/L (0.7-2.0) 07/25/25 04:29
Total Bilirubin 1.9 mg/dl (0.2-1.3) H 07/31/25 05:21
AST 71 U/L (14-36) H 07/31/25 05:21
ALT 41 U/L (0-35) H 07/31/25 05:21
Alkaline Phosphatase 73 U/L (38-126) 07/31/25 05:21
Most recent labs reviewed.
Micro Results:
07/25/25 14:22 Blood Culture - Final
Blood/Venous No Growth - Final Report
07/25/25 14:22 Blood Culture - Final
Blood/Venous No Growth - Final Report
07/30/25 12:23 MRSA Screen - Pending
Nose
07/29/25 16:43 Nasal Screen MRSA (PCR) - Final
Nose
07/25/25 11:36 Urine Culture - Final
Urine NO GROWTH
07/26/25 04:34 Legionella Urinary Antigen - Final
Urine Negative for Legionella pneumophila Serogroup 1 antigen.
A negative result does not rule out the possiblity of
Legionella infection due to other serogroups or species of
Legionella. Clinical correlation is recommended.
Streptococcus pneumoniae Antigen (M - Final
Negative for Streptococcus pneumoniae antigen.
A negative result does not exclude infection with
Streptococcus pneumoniae. Clinical correlation is
recommended.
Care Review
Plan reviewed with: Physician (resident physician - indication for doxycycline)
[2025-07-31] MEDS: LASIX 20 MG IV (08:40)
[2025-07-31] MEDS: SENOKOT 8.6 MG PO ×2 (08:40→20:55)
[2025-07-31] MEDS: ELIQUIS 2.5 MG PO ×2 (08:40→20:54)
[2025-07-31] MEDS: TYLENOL 325 MG PO (08:40)
[2025-07-31] MEDS: MIRALAX 17 GRAMS PO (08:40)
[2025-07-31] MEDS: PACERONE 200 MG PO (08:40)
[2025-07-31] MEDS: SOLU-MEDROL PF 40 MG IV (08:40)
[2025-07-31] MEDS: FEOSOL 325 MG PO (08:40)
--- NOTE | 2025-07-31 08:54 | W.PN.CARDCBS ---
Today's Communication / Plan
-
Transition to oral lasix
Outpt follow up to be arranged.
Please recall if needed.
Impression / Plan
-
.
PCP: Dr. Morales
Cardiology: Dr. MAGDA Cabrera
Impression:
Admitted with new AV block, LBBB and BECKA 07/23/25
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
s/p temporary pacing wire placed in Display Card Writer 07/23/2025
Status post [employer] pacemaker with Dr. Anderson 07/24/2025, AV paced.
BECKA, improved
Elevated Troponin peak 0.3 on 07/24/25
Acute HFpEF
Paroxysmal Afib with RVR
Chronic Eliquis OAC
CAD s/p prox LAD PCI 2014
widely patent LAD stent by cath 03/29/22
Hypothyroidism
Moderate MS and trace MR by echo 05/27/24
Mild AR/
History of Follicular lymphoma
Rituxan infusion
Full code
Lexiscan mibi 03/04/19: Completed 4:10 min Chandan protocol reaching 87% MPHR, normal perfusion imaging
Echo 05/2021: EF 60-65%, severe LA enlargement, mild MS (20/8) mild (/) ANGELINA 1.7cm2
Echo 03/28/22: EF 68%, stage II diastolic dysfunction, mild to mod MS peak/mean 15/8 mmHg and pressure halftime 1.7 cm sq, mild MR, mild with peak/mean 26/14 mmHg and ANGELINA 2.0 cm sq
Echo 05/27/2024: EF 55 to 60%, normal RV size and function, moderate MS with mean transmitral gradient 8 mmHg, trace MR, mild peak/mean 29/16 mmHg and ANGELINA 1.5 cm sq
Echo 07/23/25: EF 65%, no WMA, moderate peak/mean 48/25 mmHg and ANGELINA 1.4 cm sq, mild TR, moderate MS peak/mean 25/13 mmHg, mild MR
Plan:
Respiratory status improving..
Continue broad-spectrum antibiotics and pulmonary toilet.
Wean O2 as able.
She appears euvolemic. Transition to Lasix 20 mg p.o. daily
She continues on Eliquis for atrial fibrillation history. Remains AV paced on amiodarone.
Continue medical therapy for non-UT troponin with peak troponin 0.3.
Her EF was preserved on recent echo July 23, 2025.
Given increased bleeding risk, aspirin was stopped this admission as not true ACS. She remains on Eliquis
Given her significant comorbidities recent renal insufficiency and significant anemia, the fact that her ejection fraction is preserved and she remains asymptomatic with regards to any anginal symptoms, continue medical therapy and cardiac
catheterization has been deferred.
Continue medical therapy for her moderate aortic stenosis and mitral stenosis.
Monitor H/H closely. She remains anemic. Hemoglobin slightly improved to 8.8 07/30/2025
No evidence of bleeding
Pacer functioning appropriately
She will follow-up as an outpatient with Dr. Cabrera her primary assistant director of nursing.
Discussed with her daughter and at bedside.
Discussed with nursing.
Will follow peripherally, please recall if needed.
HPI: Patient came to the hospital today for acute on chronic weakness and is being admitted with 2-1 AV block and cardiology is consulted. Patient and report that she has felt intermittently unwell for the last 3 to 4 weeks. They describe
that at times she is almost bedridden with fatigue and weakness and had a fall about 10 days ago. Then other times she has more energy and is able to eat and drink close to normal, but for the most part has not left her house in the last 3 to 4
weeks. Patient seemed to be feeling better for the last 2 days and thought she may have turned a corner, and then today she stood up and suddenly felt profoundly weak, but no loss of consciousness and so her brought her to the emergency
room. ECG looks like 2-1 AV block and new LBBB. Patient has a history of paroxysmal A-fib and is chronically on amiodarone 200 mg daily. Patient took her usual dose of amiodarone plus Eliquis this morning.
Progress Note - Property Management Coordinator
Subjective
Date of Service: July 31, 2025
Pt seen and examined. No complaints. No chest pain or shortness of breath.
Objective
Labs:
07/31/25 05:21
07/31/25 05:21
Labs
Hgb 7.9 g/dL (12.0-16.0) L 07/31/25 05:21
Hct 23.4 % (37.0-47.0) L 07/31/25 05:21
Plt Count 215 10^3/uL (130-400) 07/31/25 05:21
PT 26.5 Sec (11.4-14.6) H 07/27/25 03:26
INR 2.43 07/27/25 03:26
APTT 47.4 Sec (23.4-35.0) H 07/27/25 03:26
Sodium 143 mmol/L (135-145) 07/31/25 05:21
Potassium 4.4 mmol/L (3.5-5.1) 07/31/25 05:21
BUN 63 mg/dl (7-17) H 07/31/25 05:21
Creatinine 1.1 mg/dL (0.6-1.0) H 07/31/25 05:21
Glucose 136 mg/dl (70-99) H 07/31/25 05:21
Vital Signs and I&O:
Vital Signs
Temp Pulse Resp BP Pulse Ox
97.6 F 70 23 144/59 93
07/31/25 08:00 07/31/25 07:41 07/31/25 07:41 07/31/25 06:00 07/31/25 07:41
Vital Signs
Temp Pulse Resp BP Pulse Ox
97.6 F 70 23 144/59 93
07/31/25 08:00 07/31/25 07:41 07/31/25 07:41 07/31/25 06:00 07/31/25 07:41
Intake & Output
07/29/25 07/30/25 07/31/25 08/01/25
06:59 06:59 06:59 06:59
Intake Total 870 / 880 800 / 800 1400 / 1400
Output Total 1050 / 1050 350 / 350 200 / 200
Balance -180 / -170 450 / 450 1200 / 1200
Physical Exam
Physical Exam
General: No acute distress, AAOX3
Neck: Negative JVD
Heart: Regular, Negative S3 positive S1/S2, Negative S4, No murmur
Lungs: CTA b/l, negative wheezes/rales/rhonchi
Abd: Positive BS, NT/ND, neg rebound/rigidity/guarding
Ext: Negative cyanosis/clubbing/edema
Neuro: nonfocal
[2025-07-31] MEDS: VIBRAMYCIN 260 MG IV ×2 (10:13→22:11)
--- NOTE | 2025-07-31 11:56 | PTCARENOTE ---
pt. assisted x 1 w RW into chair @ approx 0800; remains tolerating chair position. Breathing exercises encouraged and pt. demonstrated understanding; remains on 6LNC. Family remains @ bedside. Call sully adkins in reach.
--- NOTE | 2025-07-31 12:37 | W.PN.INTV ---
Today's Communication / Plan
Recommendations
- Continue to wean oxygen as tolerated
- Continue nightly BiPAP
- Transferred to IMU
- Pulmonary service will continue to follow along
Assessment
-
Assessment: 89-year-old F with PMHx of follicular lymphoma s/p rituxin, Hx of falls, Hx of light tobacco smoking, GERD, CAD s/p stent to LAD (2014), paroxysmal A-fib s/p DCCV 03/2022), hypothyroidism, HTN, hx of gastric ulcer, and Hx of right-sided
pleural effusion requiring multiple thoracentesis in [id number] who presents with weakness, malaise and heart palpitations. She said that she feels like her heart is 'flip-flopping.' In the ER she endorsed LE swelling, productive cough, and SOB.
EKG initially showed bradycardia with 2-1 AV-block with PVCs and a new LBBB. Previous EKG in March 2025 showed incomplete RBBB and LAFB and sinus rhythm, per cardiology. She was afebrile in ER david BP 147/71, HR 32, SpO2 98% on room air, and RR
19-23. Initial labs pertinent for WBC 7, Hb 10.9, INR 3.81, Na 128, Cr 1.8, T. bili 1.6, troponin 0.059, proBNP 8020, TSH 4.6, and lyme screen negative. CXR showed bilateral parenchymal opacities with low lung volumes. Cardiology consulted and
she was admitted to IVU with pace pads attached to chest. Echo on 07/23/2025 showed LVEF 65% with moderate , pulmonary HTN with PASP 70 (previously 45-50 on echo from 05/2024), moderate MS, mild MR and increased LA volume. Later in evening on 07/23
she became severely bradycardic with HR down to 10-20 and was hypotensive, EKG showed 5-1 AV block - she was lethargic, pale, and nauseous. Atropine given with no improvement. Dopamine gtt started with slight improvement, and then interventional
alliance manager Dr. Javier evaluated her, levophed was started and pt brought to labor economics professor and temporary pacing wire placed. Dopamine and levophed weaned off. Permanent pacemaker placed on 07/24/2025. Overnight on 07/25 she had worsening SOB, CXR with
worsening bilateral opacities - lasix given, BiPAP started, and she was TRX from CVICU to ICU where Abx started via Zosyn. [employer] services consulted for further recommendations.
Chronic conditions GAS DISPENSER: Follicular lymphoma s/p rituxin, Hx of falls, Hx of light tobacco smoking, GERD, CAD s/p stent to LAD (2014), paroxysmal A-fib s/p DCCV 03/2022), hypothyroidism, HTN, HLD, Hx of ankle fracture, Hx of MR, restrictive lung
disease, hx of gastric ulcer, Hx of right-sided pleural effusion requiring multiple thoracentesis in [id number], chronic amiodarone use
07/31 overview: Patient not requiring any pressors, oxygen requirement down to 6 L, used BiPAP overnight. Clinically improving.
Assessment and plan:
#1. 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
- S/p PPM placed on 07/24/2025, currently AV paced rhythm on monitor
#2. Acute pulmonary edema due to above with severe bradycardia and acute HFpEF
- Improving. More recent imaging more suggestive of multifocal pneumonia and possible ARDS rather than pulmonary edema
- Lasix dose lowered to 20 mg daily
#3. Acute hypoxic respiratory failure due to above and possibly with component of pneumonia/aspiration pneumonitis/ARDS
- Clinically worsening noted on 07/29, CT chest pursued suggestive of multifocal pneumonia, patient was started on broad-spectrum antibiotic and steroids
- Clinically improved over last 24 hours with decreasing oxygen requirement, off high flow nasal cannula now
- Currently on 6 L supplemental oxygen, wean as tolerated, continue BiPAP nightly and as needed
- Follow-up on cultures
- Both clinical and radiological improvement noted
- Transfer patient out of ICU to IMU. Pulmonary service will continue to follow along
#4. Acute on chronic hypercapnic respiratory failure
-In the setting of volume overload plus possibly aspiration.
-Responded well to diuresis and nightly BiPAP
#5. BECKA with underlying chronic kidney disease
- Creatinine improving with diuresis, lowered Lasix dose to 20 mg daily
#6. Agitation likely due to ICU-delirium in setting of sleep deprivation
-Improved. Increase activity as tolerated
#7. Elevated troponin - likely demand ischemia with type II ND
- Cardiology service on case. No plan for coronary angiogram.
- Continue aspirin, Eliquis
Other medical diagnoses:
- Hx of non-Hodgkin lymphoma s/p rituxin
- GERD
- Paroxysmal A-fib on chronic amiodarone + Eliquis
- HTN/HLD
- Hx of light tobacco use
- CAD s/p LAD stent
- Valvular heart disease with , MS and MR
Critical care statement: A total of 45 minutes of critical care time was provided for this patient today. This includes management of unstable vital signs, evaluation of the patient at bedside, reviewing the patient's pertinent medical records
including radiographs, microbiology, laboratory evaluations, and discussion with primary team, consultants, pharmacy, nutrition, physical therapy, case management, charge nurse, critical care nursing, and respiratory therapy.
Subjective Dataa
Subjective Data
Date of Service:
Date of Service: July 31, 2025
Chief Complaint: [employer] Follow Up
Subjective:
Patient more awake alert, comfortably sitting in bed in no acute distress.
Review of Systems
Genitourinary: Other (All 14 systems reviewed and negative except as stated above in the history of present illness.)
Objective Data
Data Reviewed
Vital Signs / I&O / Oxygen:
Vital Signs
Temp Pulse Resp BP Pulse Ox
97.6 F 70 23 144/59 96
07/31/25 08:00 07/31/25 07:41 07/31/25 07:41 07/31/25 06:00 07/31/25 12:24
Intake and Output
07/30/25 07/31/25 08/01/25
06:59 06:59 06:59
Intake Total 800 / 800 1400 / 1400 580 / 580
Output Total 350 / 350 200 / 200 200 / 200
Balance 450 / 450 1200 / 1200 380 / 380
SaO2 96
Nasal Cannula flow liters per 4
minute
Physical Exam
General: Respiratory Distress (Resolved), Chills (negative) and Sweats (negative)
HEENT: Normocephalic and Anicteric
Cardiovascular: Peripheral Edema (None) and Other (A-V paced rhythm)
Respiratory: Wheeze (negative), Crackles (Improving), Rhonchi (Quite improved), Non-Labored Respirations and Stridor (negative)
GI: Soft, Non Distended, Non Tender and Normal Bowel Sounds
Neurology: Tremors (negative) and Lethargic (minimally responsive)
Skin: Warm, Dry, Cyanosis (negative) and Jaundice (negative)
Labs/Micro/Reports
Lab Data
07/31/25 05:21
07/31/25 05:21
Microbiology
07/31/25 08:59 Sputum Gram Stain - Preliminary
07/25/25 14:22 Blood/Venous Blood Culture - Final
No Growth - Final Report
07/25/25 14:22 Blood/Venous Blood Culture - Final
No Growth - Final Report
07/29/25 16:43 Nose Nasal Screen MRSA (PCR) - Final
--- NOTE | 2025-07-31 13:10 | PHA.VAN.FU ---
Vancomycin Assessment / Plan
- Assessment
Renal Function: Stable
WBC's are: Trending Up
In the past 24 hrs, patient has been: Afebrile
Concomitant Antimicrobials: Cefepime 1 gram IV q8h, Doxycycline 1 gram IV q12h
- Assessment - Therapeutic Drug Monitoring
Random Level: 15.3 - 08/10 at 05:21 (~15 hour level)
- Dosing Plan
Dosing by Level: Re-dose today
Dosing Comments: Vancomycin 750 mg IV x 1 dose
- Monitoring Plan
Random Level: 07/31 at 06:00 AM
Monitoring Comments: If MRSA (-), d/c vancomycin
- Follow Up
Pharmacy will continue to follow.
Vancomycin Follow UP
- -
Patient Age: 89
Patient Sex: Female
Vancomycin Day #: 3
Indication: Pulmonary/Respiratory
Requesting Provider: Dr. Newton
Pertinent Antimicrobial Allergies:
no pertinent antibiotic allergies
Height / Weight:
Height 5 ft 4 in
Actual Weight 57.7 kg
- Vital Signs / Lab Results
Temp Pulse Resp BP Pulse Ox
97.6 F 70 23 144/59 96
07/31/25 08:00 07/31/25 07:41 07/31/25 07:41 07/31/25 06:00 07/31/25 12:24
Lab Results - Hematology
07/29/25 07/30/25 07/31/25
03:05 04:26 05:21
WBC 9.4 8.3 12.7 H
Lab Results - Chemistry
07/29/25 07/30/25 07/31/25
03:05 04:26 05:21
BUN 56 H 55 H 63 H
Creatinine 1.2 H 1.0 1.1 H
Estimated Creat Clear 28 34 31
Albumin 2.9 L 3.3 L 2.8 L
Microbiology Results
07/31/25 08:59 Gram Stain - Preliminary
Sputum
07/25/25 14:22 Blood Culture - Final
Blood/Venous No Growth - Final Report
07/25/25 14:22 Blood Culture - Final
Blood/Venous No Growth - Final Report
07/29/25 16:43 Nasal Screen MRSA (PCR) - Final
Nose
Therapeutic Drug Monitoring
Random Vancomycin 15.3 ug/ml 07/31/25 05:21
--- NOTE | 2025-07-31 16:10 | CM ---
Addendum entered by Judith Gaffney 08/01/25 10:30:
[employer] list explained and provided to patient and .
Original Note:
WBC 12.7, H/H 7.9/23.4. remains on SoluMedrol/IV, Cefepime and Doxycycline/IV. Discharge POC: Therapy recommending SNF. Will provide Medicare[employer] list.
[2025-07-31] MEDS: LIPITOR 20 MG PO (16:59)
--- NOTE | 2025-07-31 21:30 | PTCARENOTE ---
overhead foreman, aaox3, denies pain, assist with bedpan, skin care. POC discussed, call virk with pt.
[2025-08-01] VITALS (15 sets, daily range): BP systolic 88–166; BP diastolic 51–69; PULSE 2–70; O2SAT 99; BMI 22.7
[2025-08-01] MEDS: STERILE WATER FOR INJECTION 10 ML IV ×3 (05:13→20:05)
[2025-08-01] MEDS: SYNTHROID 75 MCG PO (05:13)
[2025-08-01] MEDS: MAXIPIME 1000 MG IV ×3 (05:13→20:05)
[2025-08-01 06:00] LABS: Hematocrit 27.1 % (37.0-47.0); Hemoglobin 9.0 g/dL (12.0-16.0); Mean Corp Hgb Conc. 33.2 g/dL (33.0-37.0); Mean Corpuscular Volume 93.8 fL (81.0-99.0); Platelet Count 262 10^3/uL (130-400); Red Cell Dist. Width 17.6 % (11.5-14.5)
[2025-08-01 07:31] LABS: ALT (SGPT) 66 U/L (0-35); AST (SGOT) 90 U/L (14-36); Albumin 3.1 g/dl (3.5-5.0); Alkaline Phosphatase 87 U/L (38-126); Blood Urea Nitrogen 62 mg/dl (7-17); Calcium 8.8 mg/dl (8.4-10.2); Carbon Dioxide 31 mmol/L (22-30); Chloride 108 mmol/L (98-107); Estimated Creatinine Clearance 34 ml/min; Glucose 111 mg/dl (70-99); Magnesium 2.0 mg/dl (1.6-2.3); Potassium 4.1 mmol/L (3.5-5.1); Sodium 142 mmol/L (135-145); Total Protein 5.6 g/dl (6.3-8.2); eGFR 54.19
[2025-08-01] MEDS: SODIUM CHLORIDE 3% FOR INHALATION 1 VIAL INH ×2 (07:35→19:41)
[2025-08-01] MEDS: MIRALAX 17 GRAMS PO (08:14)
[2025-08-01] MEDS: FEOSOL 325 MG PO (08:15)
[2025-08-01] MEDS: TYLENOL 325 MG PO (08:15)
[2025-08-01] MEDS: PACERONE 200 MG PO (08:15)
[2025-08-01] MEDS: SENOKOT 8.6 MG PO ×2 (08:15→20:05)
[2025-08-01] MEDS: LASIX 20 MG PO (08:15)
[2025-08-01] MEDS: ELIQUIS 2.5 MG PO ×2 (08:15→20:09)
[2025-08-01] MEDS: SOLU-MEDROL PF 40 MG IV (08:16)
--- NOTE | 2025-08-01 08:17 | W.PN.HOSP.TC ---
Addendum entered and electronically signed by Cindy Gomez MD, Resident 08/01/25 16:49:
CDI:
Prior elevated troponin likely 2/2 demand ischemia with type II AZ, per distribution lead note 07/31
Original Note:
Today's Communication/Plan
-
- Methylpred 40mg IV for 5 days (07/29-), last day tmrw
- 20mg lasix PO daily
- Cefepime (07/29-) and doxycycline (07/30-) for 7-day total course; convert doxy to PO today
- Bipap at night PRN - appreciate pulm recs on when to dc
- Follow sputum cx susceptibilities
- Duonebs PRN
- Continue to wean off O2 NC as able
Assessment / Plan
Assessment / Plan
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
now s/p permanent pacemaker, with post-op course c/b hypoxic respiratory failure, now resolving.
#Hypoxic respiratory failure, likely 2/2 aspiration pneumonitis vs. aspiration PNA, resolving
On 07/25 - pt transferred to ICU w hypoxia O2 sat 70s, accessory muscle use, crackles bilaterally. Givan lasix 40mg IV & started on bipap & empiric zosyn (no fever or leukocytosis). VBG: pH 7.32, pCO2 46, pO2 155, O2 sat 97.1%. Procalcitonin elevated
to 1.51. EKG 07/25: no change from prior. CXR 07/25: 'Severe bilateral reticulonodular interstitial disease in the lungs mixed with groundglass opacity. Diagnostic possibilities are (1) acute infection (endobronchial infection and pneumonia), (2) an
acute inflammatory interstitial pneumonitis, (3) malignancy (lymphangitic carcinomatosis or other metastatic disease), or (4) acute interstitial and alveolar cardiogenic pulmonary edema.' Given afebrile, normal WBC, timecourse of sx development
after hemodynamic instability in s/o AV block & subsequent temporary>permanent pacemaker placement, along with suspected HFpEF exacerbation, initially favored cardiogenic pulm edema. Zosyn stopped (07/25-). S/p IV lasix 07/24-07/28 (40mg IV bid for
last 4 doses). Weaned off bipap 07/28. CXR (07/28): 'Bilateral patchy airspace opacities which have slightly improved from prior. There are likely small bilateral pleural effusions which are similar in appearance to prior.' CXR (07/29 am): 'Mild
interstitial prominence, suggestive of mild pulmonary edema. Patchy opacities bilaterally, which may represent multifocal pneumonia or alveolar pulmonary edema. Small left pleural effusion.' Chest CT (07/29): 'Findings suggesting severe bilateral
pneumonia, greatest in RUL. ILD not excluded. Stable.' Given worsening CXR appearance 07/29 despite diuresis, ddx broadened from cardiogenic edema to ILD 2/2 amiodarone vs. aspiration pneumonitis vs. PNA; aspiration. ICU team restarted vanc &
cefepime and started IV Solu-Medrol 40 mg daily for 5 days. 07/29 was satting 90-99% on 4L O2 NC. Desatted to 80s while turned in bed & became more lethargic in later day, bipap on. 07/30 am appeared to be breathing comfortably on 4L O2. CXR (07/30):
'persistent severe bilateral pneumonia.' CXR (07/31): 'Persistent LLL opacity without significant change; slightly improved aeration on the left.' 07/31 patient with clinical & radiographic improvement, downgraded to IMU from ICU. Sputum cx positive
for staph species, c/w aspiration PNA. MRSA screen negative.
Today: sat 98% O2 on 5L NC vs. low 90s on 3L NC; had bipap & nebulizers x2 overnight. Appears comfortable on 3L O2 NC eating bfast this am while speaking, no labored resp or SOB.
- Methylpred 40mg IV for 5 days (07/29-), last day tmrw
- 20mg lasix PO daily
- Cefepime (07/29-) and doxycycline (07/30-) for 7-day total course; convert doxy to PO today
- s/p vanc (07/29-)
- Bipap at night PRN - appreciate pulm recs
- Follow sputum cx susceptibilities
- Duonebs PRN
- Continue to wean off O2 NC as able
#HFpEF (EF 65%), suspected exacerbation
#Moderate MS, mild MR, moderate
#Transaminitis, improving
Echo 07/23/25: EF 65%, severely abnormal L atrial volume (>48ml/m2), moderate MS & . Likely experiencing acute on chronic HFpEF exacerbation in s/o arrhythmia, new LBBB. BNP elevated 8020. Elevation in AST and ALT likely in the setting of
congestion; downtrending/stabilizing s/p diuresis.
- Bipap at night PRN
- Continue to wean off O2 NC as able
- 20mg lasix PO daily
- Monitor I&Os & daily weights
- Continue holding home valsartan
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
Patient overnight to 07/23 became bradycardic with heart rate in the 10s, severe hypotension, lethargic, pale, nauseous; patient given 1 mg IV atropine, dopamine gtt., norepinephrine gtt. emergent temporary pacemaker was placed via right IJ overnight
07/23. US 07/24 (in s/o hypotension, dyspnea) negative for pericardial effusion. Hypotension resolved. Pt appears now hemodynamically stable. Off pressors. S/P temporary pacemaker 07/23. Permanent pacemaker was placed 07/24.
- Continue amiodarone 200mg daily
- Continue eliquis 5mg bid
- Holding aspirin per cards, given increased bleeding risk and not true ACS
- Holding off on planning for L heart cath at this time
#Anemia, stable/improving
Hgb baseline 8-9. On 07/27, trended down to 7.1. B12, folate normal; likely iron deficiency. Type & screen ordered, risks & benefits of transfusion discussed w . LDH 434. Heparin held 07/25 due to c/f bleeding at pacemaker site. 07/27: Device
site with old blood and feels spongy; dressing changed by nursing with no hematoma or active bleeding. Iron level low 21. Ferritin elevated 341.
Hgb: 7.1>>7.6>8.8>7.9>9.0
- Continue home iron supplement (325mg daily)
- Transfuse for Hgb <7 (will need to get consent)
#Confusion, AMS, c/f hospital-induced delirium; resolved
Altered mental status on morning of 07/24, likely 2/2 hospital-induced delirium with contribution by prior hemodynamic instability and emergent temporary pacer placement overnight on 07/23, old age, likely underlying dementia, lack of sleep, acute
hypoxic respiratory failure. Improved since 07/27 s/p sleeping w precedex.
- Family at bedside instructed to continue to reorient patient to place/time/location
- Optimize sleep as able
- Manage medical conditions as above
#Chronic
- Afib - eliquis & amiodarone
- CAD s/p LAD PCI 2014 - continue statin
- HLD - continue statin
- Hypothyroidism - continue levothyroxine
- Cut Off on R & L lateral foot - see podiatry outpatient
- Overgrown 2nd toenails bilaterally - ask podiatry re: nail trimming to avoid skin break & infection risk
#Global
- DVT ppx: eliquis 5mg bid
- Diet: [id number]
- Code: full
- Dispo: lives at home with ; PT/OT recommended for SNF; pending case mgmt & wean off O2 NC
Anticipated Discharge: 24 - 48 hours
Subjective/Interval History
-
Date of Service: August 01, 2025
Patient awake and alert this morning, about to start eating breakfast. Daughter and at bedside. Patient is calm remember names, discussing this. Denies any shortness of breath or chest pain good appetite. Comfortably with O2 NC in place.
Complaining about discomfort of BiPAP overnight. Otherwise, in good spirits.
Objective Data
-
Labs:
Laboratory Results
08/01/25
05:34
WBC 16.4 H
Hgb 9.0 L
Hct 27.1 L
Plt Count 262 D
Sodium 142
Potassium 4.1
Chloride 108 H
Carbon Dioxide 31 H
BUN 62 H
Creatinine 1.0
Glucose 111 H
Calcium 8.8
Total Bilirubin 2.2 H
AST 90 H
ALT 66 H
Alkaline Phosphatase 87
Vital Signs:
Vital Signs
Temp Pulse Resp BP Pulse Ox
98.5 F 70 18 150/67 98
08/01/25 07:25 08/01/25 08:15 08/01/25 07:41 08/01/25 08:15 08/01/25 07:41
I&O
07/31/25 08/01/25 08/02/25
06:59 06:59 06:59
Intake Total 1400 / 1400 1200 / 1200
Output Total 200 / 200 800 / 800
Balance 1200 / 1200 400 / 400
Review of Systems
-
History Source: Patient
Constitutional: Reports No Symptoms
Physical Exam
-
General: Well Developed, Well Nourished and Conversant
HEENT: Normocephalic, Atraumatic, Anicteric and Oxygen (O2 NC)
Respiratory: Crackles (mild) and Non Labored Respirations
Cardiac: Regular Rhythm
GI: Nontender and Nondistended
Musculoskeletal: No Edema (No lower extremity edema; some bruising on R giraldo ) and Other (Patient with corn/bunion on lateral right and left foot; patient with second toenail on bilateral feet overgrown and curving around to tip of toe; no evidence
of breakage of skin/bleeding/erythema/swelling)
Skin: Warm and Dry
Neuro: Awake, Alert and Oriented
Psych: Calm
--- NOTE | 2025-08-01 09:41 | W.PN.ID1 ---
Date of Service
Date of Service: August 01, 2025
Today's Communication
Continue antibiotics for today.
Assessment / Plan
Aspiration Pneumonitis vs ARDS vs Pneumonia
BECKA - notably improved
Leukocytosis; trending up
- Suspect steroid component
Recommendations:
Continue with cefepime and doxycycline for today.
Respiratory culture noted, with recovery of a 'Staphylococcus species'. Await further identification to determine significance.
Follow clinically
New AV block/LBBB
S/p pacemaker
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
����������������������������������������������������������
Chief Complaint
-: Other (pneumonitis)
Subjective / Review of Systems
Patient seen and examined. Reports feeling well. Breathing comfortable. Minimal whitish sputum production. No shortness of breath.
Review of Systems: No Fever and No Chills
Vital Signs / Physical Exam
Vital Signs
Vital Signs
Temp Pulse Resp BP Pulse Ox
98.5 F 70 18 150/67 98
08/01/25 07:25 08/01/25 08:15 08/01/25 07:41 08/01/25 08:15 08/01/25 07:41
Physical Exam
Constitutional: No Acute Distress
Cardiovascular: Regular Rate and S1/S2; Negative S3/S4
Pulmonary: Clear, Symmetric, Rales and Non Labored; Negative Wheezes
Gastrointestinal: Soft, Non Tender, Non Distended and Normal Bowel Sounds
Skin: Warm and Dry; Negative Rash or Jaundice
Neurological: Awake and Alert
Psychological: Calm
Objective Data
Lab Data
Lab Results
08/01/25 05:34
08/01/25 05:34
PT 26.5 Sec (11.4-14.6) H 07/27/25 03:26
INR 2.43 07/27/25 03:26
APTT 47.4 Sec (23.4-35.0) H 07/27/25 03:26
Estimated Creat Clear 34 ml/min 08/01/25 05:34
Lactic Acid 0.9 mmol/L (0.7-2.0) 07/25/25 04:29
Total Bilirubin 2.2 mg/dl (0.2-1.3) H 08/01/25 05:34
AST 90 U/L (14-36) H 08/01/25 05:34
ALT 66 U/L (0-35) H 08/01/25 05:34
Alkaline Phosphatase 87 U/L (38-126) 08/01/25 05:34
Most recent labs reviewed.
Micro Results:
07/31/25 08:59 Respiratory Culture - Preliminary
Sputum Staphylococcus species
Gram Stain - Preliminary
07/30/25 12:23 MRSA Screen - Final
Nose No Methicillin Resistant Staphylococcus aureus isolated.
07/25/25 14:22 Blood Culture - Final
Blood/Venous No Growth - Final Report
07/25/25 14:22 Blood Culture - Final
Blood/Venous No Growth - Final Report
07/29/25 16:43 Nasal Screen MRSA (PCR) - Final
Nose
07/25/25 11:36 Urine Culture - Final
Urine NO GROWTH
07/26/25 04:34 Legionella Urinary Antigen - Final
Urine Negative for Legionella pneumophila Serogroup 1 antigen.
A negative result does not rule out the possiblity of
Legionella infection due to other serogroups or species of
Legionella. Clinical correlation is recommended.
Streptococcus pneumoniae Antigen (M - Final
Negative for Streptococcus pneumoniae antigen.
A negative result does not exclude infection with
Streptococcus pneumoniae. Clinical correlation is
recommended.
Imaging:
07/31/2025 CXR (portable): Persistent homogeneous opacity in the retrocardiac left lower lobe with obscuration of the left diaphragm and blunting left costophrenic angle, without significant change. Possible considerations include pulmonary
consolidation from pneumonia and probable pleural effusion.
[2025-08-01] MEDS: VIBRAMYCIN 260 MG IV (09:53)
--- NOTE | 2025-08-01 10:52 | PTCARENOTE ---
pt alert and oriented , pleasant , AV paced on monitor , she is currently oob in chair with assistance of walker , her 02 is weaned down to 4L NC with sat of 98% she is using her IS with a TV of 500 , tolerating puree diet without difficulty , labs
noted , as per fire department marine engineer and hospitalist she is able to down grade to telemetry level of care
--- NOTE | 2025-08-01 11:34 | W.PN.PUL3 ---
Today's Communication / Plan
-
- Continue to wean oxygen as tolerated
- Discontinue nightly BiPAP
- Continue IV steroids for today will reassess in the morning
- Patient can transfer out of IMU
- Pulmonary team will continue to follow
Assessment
-
Assessment: 89-year-old F with PMHx of follicular lymphoma s/p rituxin, Hx of falls, Hx of light tobacco smoking, GERD, CAD s/p stent to LAD (2014), paroxysmal A-fib s/p DCCV 03/2022), hypothyroidism, HTN, hx of gastric ulcer, and Hx of right-sided
pleural effusion requiring multiple thoracentesis in [id number] who presents with weakness, malaise and heart palpitations. She said that she feels like her heart is 'flip-flopping.' In the ER she endorsed LE swelling, productive cough, and SOB.
EKG initially showed bradycardia with 2-1 AV-block with PVCs and a new LBBB. Previous EKG in March 2025 showed incomplete RBBB and LAFB and sinus rhythm, per cardiology. She was afebrile in ER david BP 147/71, HR 32, SpO2 98% on room air, and RR
19-23. Initial labs pertinent for WBC 7, Hb 10.9, INR 3.81, Na 128, Cr 1.8, T. bili 1.6, troponin 0.059, proBNP 8020, TSH 4.6, and lyme screen negative. CXR showed bilateral parenchymal opacities with low lung volumes. Cardiology consulted and
she was admitted to IVU with pace pads attached to chest. Echo on 07/23/2025 showed LVEF 65% with moderate , pulmonary HTN with PASP 70 (previously 45-50 on echo from 05/2024), moderate MS, mild MR and increased LA volume. Later in evening on 07/23
she became severely bradycardic with HR down to 10-20 and was hypotensive, EKG showed 5-1 AV block - she was lethargic, pale, and nauseous. Atropine given with no improvement. Dopamine gtt started with slight improvement, and then interventional
tankage supervisor Dr. Javier evaluated her, levophed was started and pt brought to laborer gold leaf and temporary pacing wire placed. Dopamine and levophed weaned off. Permanent pacemaker placed on 07/24/2025. Overnight on 07/25 she had worsening SOB, CXR with
worsening bilateral opacities - lasix given, BiPAP started, and she was TRX from CVICU to ICU where Abx started via Zosyn. [facility] [employer] [facility] services consulted for further recommendations.
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
disease, hx of gastric ulcer, Hx of right-sided pleural effusion requiring multiple thoracentesis in [id number], chronic amiodarone use
08/01 overview: Patient not requiring any pressors, oxygen requirement down to 4 L, used BiPAP overnight. Clinically improving.
Assessment and plan:
#1. 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
- S/p PPM placed on 07/24/2025, currently AV paced rhythm on monitor
#2. Acute pulmonary edema due to above with severe bradycardia and acute HFpEF
- Improving. More recent imaging more suggestive of multifocal pneumonia and possible ARDS rather than pulmonary edema
- Lasix dose lowered to 20 mg daily
#3. Acute hypoxic respiratory failure due to above and possibly with component of pneumonia/aspiration pneumonitis/ARDS
- Clinically worsening noted on 07/29, CT chest pursued suggestive of multifocal pneumonia, patient was started on broad-spectrum antibiotic and steroids
- Clinically improved over last 24 hours with decreasing oxygen requirement, off high flow nasal cannula now
- Currently down to 4 L supplemental oxygen, wean as tolerated, will discontinue nightly BiPAP
- Follow-up on cultures
- Both clinical and radiological improvement noted
- Patient can be transferred to telemetry floor.
#4. Acute on chronic hypercapnic respiratory failure
-In the setting of volume overload plus possibly aspiration.
-Responded well to diuresis and nightly BiPAP. Significantly improved, discontinue BiPAP therapy
#5. BECKA with underlying chronic kidney disease
- Creatinine improving with diuresis, lowered Lasix dose to 20 mg daily
#6. Agitation likely due to ICU-delirium in setting of sleep deprivation
-Improved. Increase activity as tolerated
#7. Elevated troponin - likely demand ischemia with type II IN
- Cardiology service on case. No plan for coronary angiogram.
- Continue Eliquis
Other medical diagnoses:
- Hx of non-Hodgkin lymphoma s/p rituxin
- GERD
- Paroxysmal A-fib on chronic amiodarone + Eliquis
- HTN/HLD
- Hx of light tobacco use
- CAD s/p LAD stent
- Valvular heart disease with , MS and MR
DVT prophylaxis. Anticoagulated with Eliquis
Continued radiological and clinical improvement. Continue to wean oxygen.
Subjective Data
-
Date of Service:
Date of Service: August 01, 2025
Subjective:
Patient comfortably sitting in chair on supplemental oxygen, reports improving shortness of breath.
Review of Systems
Genitourinary: Other (All 14 systems reviewed and negative except as stated above in the history of present illness.)
Objective Data
Data Reviewed
Vital Signs / I&O / Oxygen:
Vital Signs
Temp Pulse Resp BP Pulse Ox
97.5 F 71 23 121/54 97
08/01/25 11:32 08/01/25 10:00 08/01/25 10:00 08/01/25 10:00 08/01/25 10:00
Intake and Output
07/31/25 08/01/25 08/02/25
06:59 06:59 06:59
Intake Total 1400 / 1400 1200 / 1200 250 / 250
Output Total 200 / 200 800 / 800 200 / 200
Balance 1200 / 1200 400 / 400 50 / 50
SaO2 97
Nasal Cannula flow liters per 4
minute
Physical Exam
General: Comfortable
HEENT: Normocephalic
Cardiovascular: S1-S2
Respiratory: Crackles (Quite improved) and Rhonchi (None)
GI: Soft and Non Distended
Neurology: Awake
Skin: Warm
Labs/Micro/Reports
Lab Data
08/01/25 05:34
08/01/25 05:34
Microbiology
07/31/25 08:59 Sputum Respiratory Culture - Preliminary
Staphylococcus species
07/31/25 08:59 Sputum Gram Stain - Preliminary
07/30/25 12:23 Nose MRSA Screen - Final
No Methicillin Resistant Staphylococcus aureus isolated.
07/25/25 14:22 Blood/Venous Blood Culture - Final
No Growth - Final Report
07/25/25 14:22 Blood/Venous Blood Culture - Final
No Growth - Final Report
07/29/25 16:43 Nose Nasal Screen MRSA (PCR) - Final
--- NOTE | 2025-08-01 13:20 | PTCARENOTE ---
pt is now on 3L NC with sat of 96% , she has ambulated in room and hallway with walker with physcial therapy , she is now telemetry status , she is going to be transfered to room 407-1 , report given to receiving RN
--- NOTE | 2025-08-01 13:59 | CON.MD ---
Consultation - Medical
-
Consult for severely elongated toenails, possibly causing laceration of toes. 89 year old female seen today at bedside with 2 family members present. Admitted with LE weakness and dizziness found to be due to 2nd degree AV blockage type II and new
BBB. She is status post pacemaker insertion and suffered post operative hypoxic respiratory failure. PMH includes CHF, HTN, atrial fibrillation(on Eliquis), CAD status post stent placement.
On exam, pedal pulses diminished bilaterally with no lower extremity edema or erythema. Severe cavus foot type with focal and extremely thick plantar callouses bilaterally under the 5th metatarsal head. No associated blister or ulceration noted.
Bilateral second toes with severely elongated nails, curling into the plantar fat padding. Indentation in the distal fat padding noted but no break in skin present and no sign of ulceration or infection.
Impression/Plan
Severe cavus foot type
-Causing pressure under the plantar lateral foot bilaterally resulting in severe callous deformity
- relays she had right ankle surgery years ago and had had difficulty walking since that time
-Callous debrided today removing approximately 75% of lesions, which will make ambulation much less painful. No associated ulcer or infection noted
Painful elongated and dystrophic nails
-Bilateral 2nd toenails debrided leaving skin indentation in fat padding but no ulceration or infection noted
-Discussed with family the need for maintenence as outpatient. Please reconsult if needed.
--- NOTE | 2025-08-01 14:20 | PN.CDI ---
CDI
- -
CDI:
Physician Documentation Request
Admit Date: 07/23/25 18:48
Dear Doctor Patricia,
Patient admitted for heart block.
07/31 Cardiology PN: 'Elevated Troponin peak 0.3 on 07/24/25...Continue medical therapy for non-WI troponin with peak troponin 0.3.'
07/31 Cafeteria Worker PN: 'Elevated troponin - likely demand ischemia with type II WI'
Please clarify the following regarding the documented troponin elevation:
Non-ischmeic myocardial injury
Type 2 WI due to demand ischemia
Other
Use of terms such as suspected, likely, concern for, or probable (associated with a specific diagnosis that is being evaluated, monitored, or treated as if it exists) are acceptable and can be coded in the inpatient setting, when documented at the
time of discharge.
Thank you,
Ping Mejias RN, BSN
CDI Specialist
Available via [place] text
Please use your independent medical judgment in providing your response.
--- NOTE | 2025-08-01 15:08 | CM ---
Transferred to Room 407-1. WBC now 16.4 was 12.7 (07/31) and 8.3 (07/30). Wean O2 as able, D/C HS Bipap, IV/ Cefepime and Solu-Medrol continue. Discharge POC: [employer] lists provided to patient and . Will review with 4 daughters and choose
preferences.
[2025-08-01] MEDS: LIPITOR 20 MG PO (17:32)
[2025-08-01] MEDS: VIBRAMYCIN 100 MG PO (20:06)
[2025-08-02 03:33] VITALS: BP 156/64
[2025-08-02] MEDS: MAXIPIME 1000 MG IV ×3 (03:51→20:09)
[2025-08-02] MEDS: STERILE WATER FOR INJECTION 10 ML IV ×3 (03:51→20:10)
[2025-08-02] MEDS: SYNTHROID 75 MCG PO (05:24)
[2025-08-02 06:00] VITALS: BMI 23.6
--- NOTE | 2025-08-02 07:29 | W.PN.HOSP.TC ---
Today's Communication/Plan
-
- Planning for SNF, likely Monday
- Continue weaning O2
- Duloxetine 60mg for post-herpetic neuralgia
- Methylpred 40mg IV for 5 days (07/29-), last day today
- Continue 20mg lasix PO daily
- Cefepime IV (07/29-) and doxycycline PO (07/30-) for 7-day total course (last day 08/05)
- Follow sputum cx
Assessment / Plan
Assessment / Plan
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
now s/p permanent pacemaker, with post-op course c/b hypoxic respiratory failure, now resolving.
#Hypoxic respiratory failure, likely 2/2 aspiration pneumonitis vs. aspiration PNA, resolving
On 07/25 - pt transferred to ICU w hypoxia O2 sat 70s, accessory muscle use, crackles bilaterally. Givan lasix 40mg IV & started on bipap & empiric zosyn (no fever or leukocytosis). VBG: pH 7.32, pCO2 46, pO2 155, O2 sat 97.1%. Procalcitonin elevated
to 1.51. EKG 07/25: no change from prior. CXR 07/25: 'Severe bilateral reticulonodular interstitial disease in the lungs mixed with groundglass opacity. Diagnostic possibilities are (1) acute infection (endobronchial infection and pneumonia), (2) an
acute inflammatory interstitial pneumonitis, (3) malignancy (lymphangitic carcinomatosis or other metastatic disease), or (4) acute interstitial and alveolar cardiogenic pulmonary edema.' Given afebrile, normal WBC, timecourse of sx development
after hemodynamic instability in s/o AV block & subsequent temporary>permanent pacemaker placement, along with suspected HFpEF exacerbation, initially favored cardiogenic pulm edema. Zosyn stopped (07/25-). S/p IV lasix 07/24-07/28 (40mg IV bid for
last 4 doses). Weaned off bipap 07/28. CXR (07/28): 'Bilateral patchy airspace opacities which have slightly improved from prior. There are likely small bilateral pleural effusions which are similar in appearance to prior.' CXR (07/29 am): 'Mild
interstitial prominence, suggestive of mild pulmonary edema. Patchy opacities bilaterally, which may represent multifocal pneumonia or alveolar pulmonary edema. Small left pleural effusion.' Chest CT (07/29): 'Findings suggesting severe bilateral
pneumonia, greatest in RUL. ILD not excluded. Stable.' Given worsening CXR appearance 07/29 despite diuresis, ddx broadened from cardiogenic edema to ILD 2/2 amiodarone vs. aspiration pneumonitis vs. PNA; aspiration. ICU team restarted vanc &
cefepime and started IV Solu-Medrol 40 mg daily for 5 days. 07/29 was satting 90-99% on 4L O2 NC. Desatted to 80s while turned in bed & became more lethargic in later day, bipap on. 07/30 am appeared to be breathing comfortably on 4L O2. CXR (07/30):
'persistent severe bilateral pneumonia.' CXR (07/31): 'Persistent LLL opacity without significant change; slightly improved aeration on the left.' 07/31 patient with clinical & radiographic improvement, downgraded to IMU from ICU. Sputum cx positive
for staph species, c/w aspiration PNA. MRSA screen negative. 08/01 downgraded to tele and stopped bipap at night. CXR 08/02: 'Bilateral parenchymal opacification without significant change, possibly representing pneumonia.'
Today: O2 sat 92% on 3L O2 NC. AVSS. Without SOB, no bipap overnight. Breathing comfortably.
- Methylpred 40mg IV for 5 days (07/29-), last day today
- Continue 20mg lasix PO daily
- Cefepime IV (07/29-) and doxycycline PO (07/30-) for 7-day total course (last day 9/23)
- s/p vanc (07/29-)
- Follow sputum cx susceptibilities, pending
- Nebulizers per respiratory
- Continue to wean off O2 NC as able
#HFpEF (EF 65%), suspected exacerbation
#Moderate MS, mild MR, moderate
#Transaminitis, improving
Echo 07/23/25: EF 65%, severely abnormal L atrial volume (>48ml/m2), moderate MS & . Likely experiencing acute on chronic HFpEF exacerbation in s/o arrhythmia, new LBBB. BNP elevated 8020. Elevation in AST and ALT likely in the setting of
congestion; downtrending/stabilizing s/p diuresis.
- Continue to wean off O2 NC as able
- 20mg lasix PO daily
- Monitor I&Os & daily weights
- Continue holding home valsartan
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
Patient overnight to 07/23 became bradycardic with heart rate in the 10s, severe hypotension, lethargic, pale, nauseous; patient given 1 mg IV atropine, dopamine gtt., norepinephrine gtt. emergent temporary pacemaker was placed via right IJ overnight
07/23. US 07/24 (in s/o hypotension, dyspnea) negative for pericardial effusion. Hypotension resolved. Pt appears now hemodynamically stable. Off pressors. S/P temporary pacemaker 07/23. Permanent pacemaker was placed 07/24.
- Continue amiodarone 200mg daily
- Continue eliquis 5mg bid
- Holding aspirin per cards, given increased bleeding risk and not true ACS
#Anemia, stable/improving
Hgb baseline 8-9. On 07/27, trended down to 7.1. B12, folate normal; likely iron deficiency. Type & screen ordered, risks & benefits of transfusion discussed w . LDH 434. Heparin held 07/25 due to c/f bleeding at pacemaker site. 07/27: Device
site with old blood and feels spongy; dressing changed by nursing with no hematoma or active bleeding. Iron level low 21. Ferritin elevated 341.
Hgb: 7.1>>7.6>8.8>7.9>9.0>9.0
- Continue home iron supplement (325mg daily)
- Transfuse for Hgb <7 (will need to get consent)
#R & L foot bilateral corns/callouses
#Severely overgrown R & L 2nd toenails
Toenails growing over toe, at risk of breaking skin on underside of toe. Seen by podiatry 08/01 and treated.
- Follow-up w podiatry outpatient
#Confusion, AMS, c/f hospital-induced delirium; resolved
Altered mental status on morning of 07/24, likely 2/2 hospital-induced delirium with contribution by prior hemodynamic instability and emergent temporary pacer placement overnight on 07/23, old age, likely underlying dementia, lack of sleep, acute
hypoxic respiratory failure. Improved since 07/27 s/p sleeping w precedex.
- Family at bedside instructed to continue to reorient patient to place/time/location
- Optimize sleep as able
- Manage medical conditions as above
#Chronic
- Afib - eliquis & amiodarone
- CAD s/p LAD PCI 2014 - continue statin
- HLD - continue statin
- Hypothyroidism - continue levothyroxine
- Post-herpetic neuralgia L flank - duloxetine 60mg daily
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
#Global
- DVT ppx: eliquis 5mg bid
- Diet: [id number]
- Code: full
- Dispo: lives at home with ; PT/OT recommended for SNF; pending case mgmt & wean off O2 NC, likely Monday dispo
Anticipated Discharge: 24 - 48 hours
Subjective/Interval History
-
Date of Service: August 02, 2025
Patient awake/alert/oriented, sitting up in bed receiving nebulizer trt. Says that she is comfortable, no SOB this am. Did not get bipap overnight. Daughter at bedside. Has not had a BM in last 24hr. Normal appetite. No pain. Happy about podiatry
visit yesterday.
Objective Data
-
Labs:
Laboratory Results
08/02/25
06:00
WBC Pending
Hgb Pending
Hct Pending
Plt Count Pending
Sodium Pending
Potassium Pending
Chloride Pending
Carbon Dioxide Pending
BUN Pending
Creatinine Pending
Glucose Pending
Calcium Pending
Total Bilirubin Pending
AST Pending
ALT Pending
Alkaline Phosphatase Pending
Vital Signs:
Vital Signs
Temp Pulse Resp BP Pulse Ox
97.4 F 71 18 156/64 92
08/02/25 03:33 08/02/25 03:33 08/02/25 03:33 08/02/25 03:33 08/02/25 03:33
I&O
08/01/25 08/02/25 08/03/25
06:59 06:59 06:59
Intake Total 1200 / 1200 620 / 620
Output Total 800 / 800 200 / 200
Balance 400 / 400 420 / 420
Review of Systems
-
History Source: Patient
Constitutional: Reports No Symptoms
Physical Exam
-
General: Well Developed, Well Nourished and Conversant
HEENT: Normocephalic, Atraumatic, Anicteric and Oxygen (O2 NC; nebulizer mask)
Respiratory: Wheezes (RUL wheeze auscultated; mild crackles RLL; clear elsewhere ) and Non Labored Respirations
Cardiac: Regular Rhythm
GI: Nontender and Nondistended
Musculoskeletal: No Edema (No lower extremity edema) and Other (toenails trimmed, clean; callouses on lateral feet present but less than yesterday s/p podiatry)
Skin: Warm and Dry
Neuro: Awake, Alert and Oriented
Psych: Calm
Data Reviewed
-
Total Time Spent with Patient (in minutes): 10
Critical Care Time (in minutes): 30
Diagnostic Radiology: Report Reviewed by me
Labs: Labs Reviewed by me
[2025-08-02 07:52] VITALS: BP 151/70
[2025-08-02] MEDS: SOLU-MEDROL PF 40 MG IV (08:51)
[2025-08-02] MEDS: VIBRAMYCIN 100 MG PO ×2 (08:52→20:10)
[2025-08-02] MEDS: FEOSOL 325 MG PO (08:52)
[2025-08-02] MEDS: TYLENOL 325 MG PO (08:53)
[2025-08-02] MEDS: SENOKOT 8.6 MG PO ×2 (08:53→20:10)
[2025-08-02] MEDS: ELIQUIS 2.5 MG PO ×2 (08:53→20:09)
[2025-08-02] MEDS: PACERONE 200 MG PO (08:54)
[2025-08-02] MEDS: MIRALAX 17 GRAMS PO (08:54)
[2025-08-02] MEDS: SODIUM CHLORIDE 3% FOR INHALATION 1 VIAL INH ×2 (08:54→20:15)
[2025-08-02 09:44] LABS: Venous Blood Gas B.E. 5.5 mmol/L (-4 to +4); Venous Blood Gas O2 Sat % 99.4 %
[2025-08-02 09:48] LABS: Hematocrit 27.3 % (37.0-47.0); Hemoglobin 9.0 g/dL (12.0-16.0); Mean Corp Hgb Conc. 33.0 g/dL (33.0-37.0); Mean Corpuscular Volume 92.9 fL (81.0-99.0); Platelet Count 283 10^3/uL (130-400); Red Cell Dist. Width 18.1 % (11.5-14.5)
[2025-08-02 10:12] LABS: ALT (SGPT) 67 U/L (0-35); AST (SGOT) 80 U/L (14-36); Albumin 3.1 g/dl (3.5-5.0); Alkaline Phosphatase 97 U/L (38-126); Blood Urea Nitrogen 59 mg/dl (7-17); Calcium 9.5 mg/dl (8.4-10.2); Carbon Dioxide 29 mmol/L (22-30); Chloride 110 mmol/L (98-107); Estimated Creatinine Clearance 37 ml/min; Glucose 85 mg/dl (70-99); Magnesium 2.1 mg/dl (1.6-2.3); Potassium 4.6 mmol/L (3.5-5.1); Sodium 143 mmol/L (135-145); Total Protein 5.7 g/dl (6.3-8.2); eGFR > 60.00
[2025-08-02] MEDS: LASIX 20 MG PO (10:25)
[2025-08-02 11:26] VITALS: BP 132/54
--- NOTE | 2025-08-02 12:04 | CM ---
CM reviewed chart, patient seen bedside with and two daughters.
Family requesting referrals to [facility] (preference) and [facility]. Patient will require [employer] auth, will need to confirm facilities accept [employer] insurance. Referrals placed in [facility], discussed will likely not here from admissions
until Monday.
Per Physician, likely ready for d/c Saturday 08/04.
Patient remains on O2.
CM will continue to follow for all discharge planning needs.
Plan; referrals placed to [facility] and [facility], will require [employer] auth
--- NOTE | 2025-08-02 12:32 | W.PN.PUL3 ---
Today's Communication / Plan
-
- Switch to prednisone 20 mg daily for 3 more days
- Stay off BiPAP, continue to wean oxygen
- Antibiotics per infectious disease service
- Discharge planning
Assessment
-
Assessment: 89-year-old F with PMHx of follicular lymphoma s/p rituxin, Hx of falls, Hx of light tobacco smoking, GERD, CAD s/p stent to LAD (2014), paroxysmal A-fib s/p DCCV 03/2022), hypothyroidism, HTN, hx of gastric ulcer, and Hx of right-sided
pleural effusion requiring multiple thoracentesis in [id number] who presents with weakness, malaise and heart palpitations. She said that she feels like her heart is 'flip-flopping.' In the ER she endorsed LE swelling, productive cough, and SOB.
EKG initially showed bradycardia with 2-1 AV-block with PVCs and a new LBBB. Previous EKG in March 2025 showed incomplete RBBB and LAFB and sinus rhythm, per cardiology. She was afebrile in ER david BP 147/71, HR 32, SpO2 98% on room air, and RR
19-23. Initial labs pertinent for WBC 7, Hb 10.9, INR 3.81, Na 128, Cr 1.8, T. bili 1.6, troponin 0.059, proBNP 8020, TSH 4.6, and lyme screen negative. CXR showed bilateral parenchymal opacities with low lung volumes. Cardiology consulted and
she was admitted to IVU with pace pads attached to chest. Echo on 07/23/2025 showed LVEF 65% with moderate , pulmonary HTN with PASP 70 (previously 45-50 on echo from 05/2024), moderate MS, mild MR and increased LA volume. Later in evening on 07/23
she became severely bradycardic with HR down to 10-20 and was hypotensive, EKG showed 5-1 AV block - she was lethargic, pale, and nauseous. Atropine given with no improvement. Dopamine gtt started with slight improvement, and then interventional
career center advisor Dr. Javier evaluated her, levophed was started and pt brought to labor relations analyst and temporary pacing wire placed. Dopamine and levophed weaned off. Permanent pacemaker placed on 07/24/2025. Overnight on 07/25 she had worsening SOB, CXR with
worsening bilateral opacities - lasix given, BiPAP started, and she was TRX from CVICU to ICU where Abx started via Zosyn. Professor Of Practice services consulted for further recommendations.
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
disease, hx of gastric ulcer, Hx of right-sided pleural effusion requiring multiple thoracentesis in [id number], chronic amiodarone use
08/01 overview: Patient not requiring any pressors, oxygen requirement down to 3 L, off BiPAP now. Clinically improving
Assessment and plan:
#1. 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
- S/p PPM placed on 07/24/2025, currently AV paced rhythm on monitor
#2. Acute pulmonary edema due to above with severe bradycardia and acute HFpEF
- Improving. More recent imaging more suggestive of multifocal pneumonia and possible ARDS rather than pulmonary edema
- P.o. Lasix
#3. Acute hypoxic respiratory failure due to above and possibly with component of pneumonia/aspiration pneumonitis/ARDS
- Clinically worsening noted on 07/29, CT chest pursued suggestive of multifocal pneumonia, patient was started on broad-spectrum antibiotic and steroids
- Clinically improved over last 24 hours with decreasing oxygen requirement, off high flow nasal cannula now
- Currently down to 3 L oxygen, off BiPAP now, morning VBG unremarkable.
- Follow-up on cultures
- Both clinical and radiological improvement noted
#4. Acute on chronic hypercapnic respiratory failure
-In the setting of volume overload plus possibly aspiration.
-Responded well to diuresis and nightly BiPAP. Significantly improved, discontinue BiPAP therapy
-Doing well off BiPAP, VBG this morning without any hypercapnia
Other medical diagnoses:
- Hx of non-Hodgkin lymphoma s/p rituxin
- GERD
- Paroxysmal A-fib on chronic amiodarone + Eliquis
- HTN/HLD
- Hx of light tobacco use
- CAD s/p LAD stent
- Valvular heart disease with , MS and MR
- BECKA with underlying chronic kidney disease
- Agitation likely due to ICU-delirium
- Elevated troponin - likely demand ischemia with type II NE
DVT prophylaxis. Anticoagulated with Eliquis
Continued radiological and clinical improvement. Continue to wean oxygen.
Updated family at bedside
Total time spent on this consultation/encounter _48___ minutes which includes review of history, physical exam, medications, laboratory data, personal review of imaging, extensive review of outpatient records, discussion with care team and
respiratory therapy.
Subjective Data
-
Date of Service:
Date of Service: August 02, 2025
Subjective:
Comfortably lying in bed in no acute distress.
Review of Systems
Genitourinary: Other (Continued improved pulmonary symptoms, no new symptoms reported)
Objective Data
Data Reviewed
Vital Signs / I&O / Oxygen:
Vital Signs
Temp Pulse Resp BP Pulse Ox
97.8 F 71 18 132/54 93
08/02/25 11:26 08/02/25 11:26 08/02/25 11:26 08/02/25 11:26 08/02/25 11:28
Intake and Output
08/01/25 08/02/25 08/03/25
06:59 06:59 06:59
Intake Total 1200 / 1200 620 / 620 240 / 240
Output Total 800 / 800 200 / 200
Balance 400 / 400 420 / 420 240 / 240
SaO2 93
Nasal Cannula flow liters per 3
minute
Physical Exam
General: Comfortable
HEENT: Normocephalic
Cardiovascular: S1-S2
Respiratory: Crackles (Quite improved) and Rhonchi (None)
GI: Soft and Non Distended
Neurology: Awake
Skin: Warm
Labs/Micro/Reports
Lab Data
08/02/25 09:32
08/02/25 09:32
Microbiology
07/31/25 08:59 Sputum Respiratory Culture - Preliminary
07/31/25 08:59 Sputum Gram Stain - Preliminary
07/30/25 12:23 Nose MRSA Screen - Final
No Methicillin Resistant Staphylococcus aureus isolated.
07/25/25 14:22 Blood/Venous Blood Culture - Final
No Growth - Final Report
07/25/25 14:22 Blood/Venous Blood Culture - Final
No Growth - Final Report
[2025-08-02] MEDS: CYMBALTA DELAYED RELEASE 60 MG PO (12:34)
[2025-08-02 16:39] VITALS: BP 120/45
[2025-08-02] MEDS: LIPITOR 20 MG PO (17:57)
[2025-08-02 19:13] VITALS: BP 105/64
[2025-08-02] MEDS: FLUSH (NSS) 2 FLUSH IV (20:13)
[2025-08-02 23:12] VITALS: BP 127/53
[2025-08-03] VITALS (7 sets, daily range): BP systolic 86–132; BP diastolic 47–67; BMI 22.9
[2025-08-03] MEDS: STERILE WATER FOR INJECTION 10 ML IV ×2 (04:36→11:07)
[2025-08-03] MEDS: MAXIPIME 1000 MG IV ×2 (04:37→11:07)
[2025-08-03] MEDS: FLUSH (NSS) 2 FLUSH IV (04:38)
[2025-08-03] MEDS: SYNTHROID 75 MCG PO (04:57)
[2025-08-03] MEDS: SODIUM CHLORIDE 3% FOR INHALATION 1 VIAL INH (07:14)
[2025-08-03 07:18] LABS: Hematocrit 26.7 % (37.0-47.0); Hemoglobin 8.9 g/dL (12.0-16.0); Mean Corp Hgb Conc. 33.3 g/dL (33.0-37.0); Mean Corpuscular Volume 93.7 fL (81.0-99.0); Nucleated Red Blood Cells % 0 %; Platelet Count 301 10^3/uL (130-400); Red Cell Dist. Width 18.0 % (11.5-14.5)
[2025-08-03 07:38] LABS: ALT (SGPT) 71 U/L (0-35); AST (SGOT) 74 U/L (14-36); Albumin 2.9 g/dl (3.5-5.0); Alkaline Phosphatase 91 U/L (38-126); Blood Urea Nitrogen 56 mg/dl (7-17); Calcium 9.2 mg/dl (8.4-10.2); Carbon Dioxide 33 mmol/L (22-30); Chloride 108 mmol/L (98-107); Estimated Creatinine Clearance 34 ml/min; Glucose 107 mg/dl (70-99); Potassium 5.1 mmol/L (3.5-5.1); Sodium 141 mmol/L (135-145); Total Protein 5.3 g/dl (6.3-8.2); eGFR 54.19
--- NOTE | 2025-08-03 07:51 | W.PN.HOSP.TC ---
Today's Communication/Plan
-
- Prednisone 20 mg daily for 3 more days (08/03-08/05), per pulm
- Continue 20mg lasix PO daily
- Cefepime IV (07/29-) and doxycycline PO (07/30-) for 7-day total course (last day 08/05)
- Check EKG today & consider converting cefepime to PO levofloxacin
- Nebulizers per respiratory
- Continue to wean off O2 NC as able
- Holding home valsartan
- Pending acceptance at [facility], likely Monday
Assessment / Plan
Assessment / Plan
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
now s/p permanent pacemaker, with post-op course c/b hypoxic respiratory failure, now resolving.
#Hypoxic respiratory failure, likely 2/2 aspiration pneumonitis vs. aspiration PNA, resolving
On 07/25 - pt transferred to ICU w hypoxia O2 sat 70s, accessory muscle use, crackles bilaterally. Givan lasix 40mg IV & started on bipap & empiric zosyn (no fever or leukocytosis). VBG: pH 7.32, pCO2 46, pO2 155, O2 sat 97.1%. Procalcitonin elevated
to 1.51. EKG 07/25: no change from prior. CXR 07/25: 'Severe bilateral reticulonodular interstitial disease in the lungs mixed with groundglass opacity. Diagnostic possibilities are (1) acute infection (endobronchial infection and pneumonia), (2) an
acute inflammatory interstitial pneumonitis, (3) malignancy (lymphangitic carcinomatosis or other metastatic disease), or (4) acute interstitial and alveolar cardiogenic pulmonary edema.' Given afebrile, normal WBC, timecourse of sx development
after hemodynamic instability in s/o AV block & subsequent temporary>permanent pacemaker placement, along with suspected HFpEF exacerbation, initially favored cardiogenic pulm edema. Zosyn stopped (07/25-). S/p IV lasix 07/24-07/28 (40mg IV bid for
last 4 doses). Weaned off bipap 07/28. CXR (07/28): 'Bilateral patchy airspace opacities which have slightly improved from prior. There are likely small bilateral pleural effusions which are similar in appearance to prior.' CXR (07/29 am): 'Mild
interstitial prominence, suggestive of mild pulmonary edema. Patchy opacities bilaterally, which may represent multifocal pneumonia or alveolar pulmonary edema. Small left pleural effusion.' Chest CT (07/29): 'Findings suggesting severe bilateral
pneumonia, greatest in RUL. ILD not excluded. Stable.' Given worsening CXR appearance 07/29 despite diuresis, ddx broadened from cardiogenic edema to ILD 2/2 amiodarone vs. aspiration pneumonitis vs. PNA; aspiration. ICU team restarted vanc &
cefepime and started IV Solu-Medrol 40 mg daily for 5 days. 07/29 was satting 90-99% on 4L O2 NC. Desatted to 80s while turned in bed & became more lethargic in later day, bipap on. 07/30 am appeared to be breathing comfortably on 4L O2. CXR (07/30):
'persistent severe bilateral pneumonia.' CXR (07/31): 'Persistent LLL opacity without significant change; slightly improved aeration on the left.' 07/31 patient with clinical & radiographic improvement, downgraded to IMU from ICU. Sputum cx positive
for staph species, c/w aspiration PNA. MRSA screen negative. 08/01 downgraded to tele and stopped bipap at night. CXR 08/02: 'Bilateral parenchymal opacification without significant change, possibly representing pneumonia.' S/p methylpred 40mg IV
(07/29-08/02). Sputum cx staph susceptible to bactrim, levofloxacin.
Today: O2 sat 94% on 3L O2 NC. AVSS. Without SOB, no bipap overnight.
- Prednisone 20 mg daily for 3 more days (08/03-08/05), per pulm
- Continue 20mg lasix PO daily
- Cefepime IV (07/29-) and doxycycline PO (07/30-) for 7-day total course (last day 08/05)
- Check EKG today & consider converting cefepime to PO levofloxacin
- s/p vanc (07/29-)
- Nebulizers per respiratory
- Continue to wean off O2 NC as able
#HFpEF (EF 65%), suspected exacerbation
#Moderate MS, mild MR, moderate
#Transaminitis, improving
Echo 07/23/25: EF 65%, severely abnormal L atrial volume (>48ml/m2), moderate MS & . Likely experiencing acute on chronic HFpEF exacerbation in s/o arrhythmia, new LBBB. BNP elevated 8020. Elevation in AST and ALT likely in the setting of
congestion; downtrending/stabilizing s/p diuresis.
- Continue to wean off O2 NC as able
- 20mg lasix PO daily
- Monitor I&Os & daily weights
- Continue holding home valsartan
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
Patient overnight to 07/23 became bradycardic with heart rate in the 10s, severe hypotension, lethargic, pale, nauseous; patient given 1 mg IV atropine, dopamine gtt., norepinephrine gtt. emergent temporary pacemaker was placed via right IJ overnight
07/23. US 07/24 (in s/o hypotension, dyspnea) negative for pericardial effusion. Hypotension resolved. Pt appears now hemodynamically stable. Off pressors. S/P temporary pacemaker 07/23. Permanent pacemaker was placed 07/24.
- Continue amiodarone 200mg daily
- Continue eliquis 5mg bid
- Holding aspirin per cards, given increased bleeding risk and not true ACS
#Anemia, stable/improving
Hgb baseline 8-9. On 07/27, trended down to 7.1. B12, folate normal; likely iron deficiency. Type & screen ordered, risks & benefits of transfusion discussed w . LDH 434. Heparin held 07/25 due to c/f bleeding at pacemaker site. 07/27: Device
site with old blood and feels spongy; dressing changed by nursing with no hematoma or active bleeding. Iron level low 21. Ferritin elevated 341.
Hgb: 7.1>>7.6>8.8>7.9>9.0>>>8.9
- Continue home iron supplement (325mg daily)
- Transfuse for Hgb <7 (will need to get consent)
#R & L foot bilateral corns/callouses
#Severely overgrown R & L 2nd toenails
Toenails growing over toe, at risk of breaking skin on underside of toe. Seen by podiatry 08/01 and treated.
- Follow-up w podiatry outpatient
#Confusion, AMS, c/f hospital-induced delirium; resolved
Altered mental status on morning of 07/24, likely 2/2 hospital-induced delirium with contribution by prior hemodynamic instability and emergent temporary pacer placement overnight on 07/23, old age, likely underlying dementia, lack of sleep, acute
hypoxic respiratory failure. Improved since 07/27 s/p sleeping w precedex.
- Family at bedside instructed to continue to reorient patient to place/time/location
- Optimize sleep as able
- Manage medical conditions as above
#Chronic
- Afib - eliquis & amiodarone
- CAD s/p LAD PCI 2014 - continue statin
- HLD - continue statin
- Hypothyroidism - continue levothyroxine
- Post-herpetic neuralgia L flank - duloxetine 60mg daily
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
#Global
- DVT ppx: eliquis 5mg bid
- Diet: [id number]
- Code: full
- Dispo: lives at home with ; PT/OT recommended for SNF; pending case mgmt & wean off O2 NC, likely Monday dispo (referrals placed to [facility] (preference) and [facility])
Anticipated Discharge: 24 - 48 hours
Subjective/Interval History
-
Date of Service: August 03, 2025
Patient awake, alert, sitting in chair beside bed. In good spirits, very conversant/oriented. and daughter at bedside. Grateful for nursing and clinician care that she received here. 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
and would feel very comfortable going there. Discussed that referral has been placed and if she have any. Discussed plans for rebuilding her strength. Per , patient was able to stand out of bed yesterday, which she had not been able to do
the day prior. Patient denies any shortness of breath or chest pain.
Objective Data
-
Labs:
Laboratory Results
08/03/25
07:01
WBC 17.5 H
Hgb 8.9 L
Hct 26.7 L
Plt Count 301
Sodium 141
Potassium 5.1
Chloride 108 H
Carbon Dioxide 33 H
BUN 56 H
Creatinine 1.0
Glucose 107 H
Calcium 9.2
Total Bilirubin 1.7 H
AST 74 H
ALT 71 H
Alkaline Phosphatase 91
Vital Signs:
Vital Signs
Temp Pulse Resp BP Pulse Ox
97.8 F 81 16 131/58 94
08/03/25 03:04 08/03/25 07:17 08/03/25 07:17 08/03/25 03:04 08/03/25 07:17
I&O
08/02/25 08/03/25 08/04/25
06:59 06:59 06:59
Intake Total 620 / 620 480 / 480
Output Total 200 / 200
Balance 420 / 420 480 / 480
Review of Systems
-
History Source: Patient and Family
All other systems: Reviewed and negative
Physical Exam
-
General: Well Developed, Well Nourished and Conversant
HEENT: Normocephalic, Atraumatic, Anicteric and Oxygen (O2 NC)
Respiratory: Clear to Auscultation and Non Labored Respirations
Cardiac: Regular Rhythm
GI: Nontender and Nondistended
Musculoskeletal: No Edema and Other (toenails trimmed, clean; callouses on lateral feet present but less than yesterday s/p podiatry)
Skin: Warm and Dry
Neuro: Awake, Alert and Oriented
Psych: Calm
Data Reviewed
-
Total Time Spent with Patient (in minutes): 15
Critical Care Time (in minutes): 35
Labs: Labs Reviewed by me
[2025-08-03] MEDS: ELIQUIS 2.5 MG PO ×2 (08:04→19:43)
[2025-08-03] MEDS: CYMBALTA DELAYED RELEASE 60 MG PO (08:04)
[2025-08-03] MEDS: FEOSOL 325 MG PO (08:05)
[2025-08-03] MEDS: VIBRAMYCIN 100 MG PO ×2 (08:05→19:35)
[2025-08-03] MEDS: LASIX 20 MG PO (08:05)
[2025-08-03] MEDS: PACERONE 200 MG PO (08:05)
[2025-08-03] MEDS: TYLENOL 325 MG PO (08:05)
[2025-08-03] MEDS: DELTASONE 20 MG PO (08:05)
[2025-08-03] MEDS: SENOKOT 8.6 MG PO ×2 (08:05→19:35)
[2025-08-03] MEDS: MIRALAX 17 GRAMS PO (08:06)
--- NOTE | 2025-08-03 12:35 | CM ---
CM reviewed chart, met with patients in [facility].
Family prefers [facility] vs [facility], will require [employer] auth.
Referrals placed in [facility], discussed will likely not here from admissions until Monday.
Per Physician, likely ready for d/c Saturday 08/04.
Patient remains on O2.
CM will continue to follow for all discharge planning needs.
Plan; referrals placed to [facility] and [facility], will require [employer] auth
--- NOTE | 2025-08-03 12:47 | W.PN.PUL3 ---
Today's Communication / Plan
-
- Continue prednisone as prescribed
- Staphylococcus hemolyticus noted on cultures, antibiotics per infectious disease service
- Continue to wean oxygen
Assessment
-
Assessment: 89-year-old F with PMHx of follicular lymphoma s/p rituxin, Hx of falls, Hx of light tobacco smoking, GERD, CAD s/p stent to LAD (2014), paroxysmal A-fib s/p DCCV 03/2022), hypothyroidism, HTN, hx of gastric ulcer, and Hx of right-sided
pleural effusion requiring multiple thoracentesis in [id number] who presents with weakness, malaise and heart palpitations. She said that she feels like her heart is 'flip-flopping.' In the ER she endorsed LE swelling, productive cough, and SOB.
EKG initially showed bradycardia with 2-1 AV-block with PVCs and a new LBBB. Previous EKG in March 2025 showed incomplete RBBB and LAFB and sinus rhythm, per cardiology. She was afebrile in ER david BP 147/71, HR 32, SpO2 98% on room air, and RR
19-23. Initial labs pertinent for WBC 7, Hb 10.9, INR 3.81, Na 128, Cr 1.8, T. bili 1.6, troponin 0.059, proBNP 8020, TSH 4.6, and lyme screen negative. CXR showed bilateral parenchymal opacities with low lung volumes. Cardiology consulted and
she was admitted to IVU with pace pads attached to chest. Echo on 07/23/2025 showed LVEF 65% with moderate , pulmonary HTN with PASP 70 (previously 45-50 on echo from 05/2024), moderate MS, mild MR and increased LA volume. Later in evening on 07/23
she became severely bradycardic with HR down to 10-20 and was hypotensive, EKG showed 5-1 AV block - she was lethargic, pale, and nauseous. Atropine given with no improvement. Dopamine gtt started with slight improvement, and then interventional
electrical and instrument engineer Dr. Javier evaluated her, levophed was started and pt brought to laboratory monitor and temporary pacing wire placed. Dopamine and levophed weaned off. Permanent pacemaker placed on 07/24/2025. Overnight on 07/25 she had worsening SOB, CXR with
worsening bilateral opacities - lasix given, BiPAP started, and she was TRX from CVICU to ICU where Abx started via Zosyn. Irb Compliance Coordinator services consulted for further recommendations.
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
disease, hx of gastric ulcer, Hx of right-sided pleural effusion requiring multiple thoracentesis in [id number], chronic amiodarone use
08/03 overview: Patient not requiring any pressors, oxygen requirement down to 3 L, off BiPAP now. Clinically improving
Assessment and plan:
#1. 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
- S/p PPM placed on 07/24/2025, currently AV paced rhythm on monitor
#2. Acute pulmonary edema due to above with severe bradycardia and acute HFpEF
- Improving. More recent imaging more suggestive of multifocal pneumonia and possible ARDS rather than pulmonary edema
- P.o. Lasix
#3. Acute hypoxic respiratory failure due to above and possibly with component of pneumonia/aspiration pneumonitis/ARDS
- Clinically worsening noted on 07/29, CT chest pursued suggestive of multifocal pneumonia, patient was started on broad-spectrum antibiotic and steroids
- Clinically improving with decreasing oxygen requirement, off high flow nasal cannula now
- Currently down to 3 L oxygen, off BiPAP now
- Staphylococcus hemolyticus on sputum culture. Await further infectious disease recommendations
- Both clinical and radiological improvement noted
#4. Acute on chronic hypercapnic respiratory failure
-In the setting of volume overload plus possibly aspiration.
-Responded well to diuresis and nightly BiPAP. Significantly improved, discontinued BiPAP therapy
-Doing well off BiPAP
Other medical diagnoses:
- Hx of non-Hodgkin lymphoma s/p rituxin
- GERD
- Paroxysmal A-fib on chronic amiodarone + Eliquis
- HTN/HLD
- Hx of light tobacco use
- CAD s/p LAD stent
- Valvular heart disease with , MS and MR
- BECKA with underlying chronic kidney disease
- Agitation likely due to ICU-delirium
- Elevated troponin - likely demand ischemia with type II CT
DVT prophylaxis. Anticoagulated with Eliquis
Continued radiological and clinical improvement. Continue to wean oxygen.
Updated daughter at bedside
Total time spent on this consultation/encounter _45___ minutes which includes review of history, physical exam, medications, laboratory data, personal review of imaging, extensive review of outpatient records, discussion with care team and
respiratory therapy.
Subjective Data
-
Date of Service:
Date of Service: August 03, 2025
Subjective:
Patient comfortably lying in recliner, in no acute distress. Reports overall gradual continued improvement.
Review of Systems
Genitourinary: Other (No new symptoms reported)
Objective Data
Data Reviewed
Vital Signs / I&O / Oxygen:
Vital Signs
Temp Pulse Resp BP Pulse Ox
97.5 F 92 18 92/52 96
08/03/25 11:00 08/03/25 11:00 08/03/25 11:00 08/03/25 11:00 08/03/25 11:00
Intake and Output
08/02/25 08/03/25 08/04/25
06:59 06:59 06:59
Intake Total 620 / 620 480 / 480
Output Total 200 / 200
Balance 420 / 420 480 / 480
SaO2 96
Nasal Cannula flow liters per 3
minute
Physical Exam
General: Comfortable
HEENT: Normocephalic
Cardiovascular: S1-S2
Respiratory: Crackles (Quite improved) and Rhonchi (None)
GI: Soft and Non Distended
Neurology: Awake
Skin: Warm
Labs/Micro/Reports
Lab Data
08/03/25 07:01
08/03/25 07:01
Microbiology
07/31/25 08:59 Sputum Respiratory Culture - Final
Staphylococcus haemolyticus
07/31/25 08:59 Sputum Gram Stain - Final
07/30/25 12:23 Nose MRSA Screen - Final
No Methicillin Resistant Staphylococcus aureus isolated.
--- NOTE | 2025-08-03 14:04 | W.PN.ID1 ---
Date of Service
Date of Service: August 03, 2025
Today's Communication
Continue antibiotics. See below�
Assessment / Plan
Aspiration Pneumonitis vs ARDS vs Pneumonia
BECKA - notably improved
Leukocytosis; trending up
- Suspect steroid component
New AV block/LBBB
- S/p pacemaker
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
Recommendations:
Staph. hemolyticus (a coag. negative staph) recovered from sputum culture. Doubt causative agent of infiltrate given its relatively nonpathogenic nature.
Overall, patient appears and feels improved.
Continue doxycycline. Transition cefepime to cefdinir.
Follow clinically for improvement.
����������������������������������������������������������
Chief Complaint
-: Other (pneumonitis)
Subjective / Review of Systems
Review of Systems: No Fever, No Chills, Cough and Sputum Production (Scant to none.)
Vital Signs / Physical Exam
Vital Signs
Vital Signs
Temp Pulse Resp BP Pulse Ox
97.5 F 92 18 92/52 96
08/03/25 11:00 08/03/25 11:00 08/03/25 11:00 08/03/25 11:00 08/03/25 11:00
Physical Exam
Constitutional: No Acute Distress
Cardiovascular: Regular Rate and S1/S2; Negative S3/S4
Pulmonary: Rhonchi (Right base), Coarse and Non Labored
Gastrointestinal: Soft, Non Tender, Non Distended and Normal Bowel Sounds
Skin: Warm and Dry; Negative Rash or Jaundice
Neurological: Awake and Alert
Psychological: Calm
Objective Data
Lab Data
Lab Results
08/03/25 07:01
08/03/25 07:01
PT 26.5 Sec (11.4-14.6) H 07/27/25 03:26
INR 2.43 07/27/25 03:26
APTT 47.4 Sec (23.4-35.0) H 07/27/25 03:26
Estimated Creat Clear 34 ml/min 08/03/25 07:01
Lactic Acid 0.9 mmol/L (0.7-2.0) 07/25/25 04:29
Total Bilirubin 1.7 mg/dl (0.2-1.3) H 08/03/25 07:01
AST 74 U/L (14-36) H 08/03/25 07:01
ALT 71 U/L (0-35) H 08/03/25 07:01
Alkaline Phosphatase 91 U/L (38-126) 08/03/25 07:01
Most recent labs reviewed.
Micro Results:
07/31/25 08:59 Respiratory Culture - Final
Sputum Staphylococcus haemolyticus
Gram Stain - Final
07/30/25 12:23 MRSA Screen - Final
Nose No Methicillin Resistant Staphylococcus aureus isolated.
07/25/25 14:22 Blood Culture - Final
Blood/Venous No Growth - Final Report
07/25/25 14:22 Blood Culture - Final
Blood/Venous No Growth - Final Report
07/29/25 16:43 Nasal Screen MRSA (PCR) - Final
Nose
07/25/25 11:36 Urine Culture - Final
Urine NO GROWTH
07/26/25 04:34 Legionella Urinary Antigen - Final
Urine Negative for Legionella pneumophila Serogroup 1 antigen.
A negative result does not rule out the possiblity of
Legionella infection due to other serogroups or species of
Legionella. Clinical correlation is recommended.
Streptococcus pneumoniae Antigen (M - Final
Negative for Streptococcus pneumoniae antigen.
A negative result does not exclude infection with
Streptococcus pneumoniae. Clinical correlation is
recommended.
Imaging:
07/31/2025 CXR (portable): Persistent homogeneous opacity in the retrocardiac left lower lobe with obscuration of the left diaphragm and blunting left costophrenic angle, without significant change. Possible considerations include pulmonary
consolidation from pneumonia and probable pleural effusion.
Care Review
Plan reviewed with: Physician (Pulmonary)
[2025-08-03] MEDS: LIPITOR 20 MG PO (16:59)
[2025-08-03] MEDS: OMNICEF 300 MG PO (19:35)
[2025-08-04] VITALS (11 sets, daily range): BP systolic 73–136; BP diastolic 40–74; PULSE 82–107; O2SAT 92–100; BMI 22.9
[2025-08-04] MEDS: SYNTHROID 75 MCG PO (05:30)
--- NOTE | 2025-08-04 07:50 | W.PN.HOSP.TC ---
Addendum entered and electronically signed by Tavon Morgan MD 08/04/25 22:22:
Attending Addendum-
I saw and evaluated the patient. I reviewed the resident�s note and agree with findings and plan as documented in the resident�s note. Sub: Seen with daugther and . called by nursing re dizziness on standing and feeling unstable during PT.
Patient feels fatigued. Very pleasant. Partha dizziness CP palps syncope. Full 12 point ROS reviewed and negative except as documented Exam: Vitals reviewed in chart GEN-NAD Heart RRR Chest- RU chest paced site bandaged, lungs crackles with scattered
rhonchi at bases b/l abd soft NT ND pos BS LE no edema
Plan:
#Acute Hypoxic respiratory failure, likely 2/2 B/L PNA
- transferred to ICU requiring bipap during hospital course
- Prednisone 20 mg daily->08/05, per pulm
- Continue 20mg lasix PO daily
- cont cefdinir and doxy x 14 day course per ID
- wean off O2 as able
- may need 02 on DC
# Orthostatic Hypotension
- T/C change lasix to QOD
- hold valsartan
- T/C midodrine if needed
#HFpEF (EF 65%)
#Moderate MS, mild MR, moderate
#Transaminitis, improving
- 20mg lasix PO TC change to QOD
- Monitor I&Os & daily weights
- Continue holding home valsartan
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
- S/P temporary pacemaker 07/23. Permanent pacemaker- 07/24.
- Continue amiodarone 200mg daily
- Continue eliquis 5mg bid
- Holding aspirin per cards, given increased bleeding risk and not true ACS
- wound care and RUE precaution instructions given
- f/u cards as OP
#Chronic Anemia
- Continue home iron supplement (325mg daily)
- Transfuse for Hgb <7
#R & L foot bilateral corns/callouses
#Severely overgrown R & L 2nd toenails
Toenails growing over toe, at risk of breaking skin on underside of toe. Seen by podiatry 08/01 and treated.
#Confusion, AMS, c/f hospital-induced delirium; resolved
#Chronic
- Afib - eliquis & amiodarone
- CAD s/p LAD PCI 2014 - continue statin
- HLD - continue statin
- Hypothyroidism - continue levothyroxine
- Post-herpetic neuralgia L flank - duloxetine 60mg daily
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
- DVT ppx: eliquis 5mg bid
- Diet: [id number]
- Code: full
- Dispo: lives at home with ; DC to [place] [facility] in AM if able
ACP
Patient consented to discuss, was with daughter and , time spent explanation of advance directives, changes in health status, patient�s health care wishes if the patient becomes unable to make health decisions, goals of care, code status, and
prognosis AAO x 3 'I dont want the tube but chest compression and shocks are fine' changed to DNI- 16 minutes
Time spent coordinating care, review of plan of care with resident, personally reviewed previous records in EMR, med rec, labs, radiology, d/w nursing, family cards total time documented is exclusive of any additional time listed that was spent in
advance care planning discussion -� 51 minutes
Original Note:
Today's Communication/Plan
-
Orthostatic Vital signs
Likely D/c tomorrow
Assessment / Plan
Assessment / Plan
This is an 89 y/o female with pmhx of This is an 89 y/o female with pmhx of atrial fibrillation on eliquis and amiodarone, heart failure with preserved EF, coronary artery disease disease who presented to the ED with dizziness and bilateral lower
extremity weakness culminating in a fall several days prior to admission. 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
#Hypoxic respiratory failure, likely 2/2 aspiration pneumonitis vs. aspiration PNA, Improving
-Briefly, patient with complicated hospital course thus far including transfer to ICU (Downgraded to IMU on 07/31 and to Telemetry on 08/01), BiPap (Discontinued on 08/01), supplemental oxygen (Still on 3L) and antibiotics (Doxycycline and Cefdinir)
-X-ray on 07/29 showed mild interstitial prominence, suggestive of mild pulmonary edema. Patchy opacities bilaterally, which may represent multifocal pneumonia or alveolar pulmonary edema. Small left pleural effusion
-CT Chest on 07/29 showed Findings suggesting severe bilateral pneumonia, greatest in RUL. ILD not excluded. Stable
-Today patient continues 3L of supplemental oxygen with no shortness of breath while seated
-Per Infectious Disease, continue Doxycycline and cefdinir for 14 day total course with last day on 08/11/2025
-Continue to wean off supplemental Oxygen requirement as tolerated. Goal to keep O2 saturation above 88-92%
-Will monitor
#Hypotension
-Patient experienced transient hypotension with lightheadedness today during and following physical therapy
-Ordered orthostatic vital signs
-Given history of hypotension requiring pressor support, will monitor patient overnight to ensure no further episodes
-Will monitor
#HFpEF (EF 65%), suspected exacerbation
#Moderate MS, mild MR, moderate
#Transaminitis, improving
-Echo 07/23/25: EF 65%, severely abnormal L atrial volume (>48ml/m2), moderate MS & . Likely experiencing acute on chronic HFpEF exacerbation in s/o arrhythmia, new LBBB. BNP elevated 8020. Elevation in AST and ALT likely in the setting of
congestion; downtrending/stabilizing s/p diuresis.
- Continue to wean off O2 NC as able. Currently she is on 3L O2.
- 20mg lasix PO daily
- Monitor I&Os & daily weights
- Continue holding home valsartan
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
-Patient overnight to 07/23 became bradycardic with heart rate in the 10s, severe hypotension, lethargic, pale, nauseous; patient given 1 mg IV atropine, dopamine gtt., norepinephrine gtt. emergent temporary pacemaker was placed via right IJ
overnight 07/23. 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
- Pt off pressors. S/P temporary pacemaker 07/23. Permanent pacemaker was placed 07/24.
- Continue amiodarone 200mg daily
- Increase eliquis to 5mg bid (Home dose)
- Continue to hold Aspirin (Per cardiology not true ACS)
#Chronic Iron Deficiency Anemia
-Hemoglobin at baseline 8-9. During this hospital course she has downtrended to as low as 7.1 on 07/27.
-Vitamin B12 and Folate normal
-Continue to monitor H&H daily
-Continue home iron supplement
-Transfusion as needed for hemoglobin <7 (If she requires transfusion, will need consent)
-Will monitor
#R & L foot bilateral corns/callouses
#Severely overgrown R & L 2nd toenails
-Toenails growing over toe, at risk of breaking skin on underside of toe. Seen by podiatry 08/01 and treated.
- Follow-up w podiatry outpatient
#Confusion, AMS, c/f hospital-induced delirium; resolved
Altered mental status on morning of 07/24, likely 2/2 hospital-induced delirium with contribution by prior hemodynamic instability and emergent temporary pacer placement overnight on 07/23, old age, likely underlying dementia, lack of sleep, acute
hypoxic respiratory failure. Improved since 07/27 s/p sleeping w precedex.
- Family at bedside had been instructed to continue to reorient patient to place/time/location
- Optimize sleep as able
- Manage medical conditions as above
#Chronic
- Afib - Continue eliquis & amiodarone
- CAD s/p LAD PCI 2014 - continue statin
- HLD - continue statin
- Hypothyroidism - continue levothyroxine
- Post-herpetic neuralgia L flank - duloxetine 60mg daily
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
#Global
- DVT ppx: eliquis 5mg bid
- Diet: [email or web address]
- Code: full
- Dispo: Likely D/c tomorrow pending above, (referrals placed to [facility] ([facility]) and [facility])
Anticipated Discharge: Within 24 hours
Subjective/Interval History
-
Date of Service: August 04, 2025
Patient was awake and enjoying breakfast when I arrived with and daughter at bedside. She reports feeling significantly better and reports being free of dizziness, lightheadedness, shortness of breath or pain. Patient's reports she
looks significantly better than she did when she reported to the ED. Unfortunately after leaving the room, her blood pressure did decrease while she was working with physical therapy and she became lightheaded/dizzy again.
Objective Data
-
Labs:
Laboratory Results
08/04/25
06:00
WBC Pending
Hgb Pending
Hct Pending
Plt Count Pending
Sodium Pending
Potassium Pending
Chloride Pending
Carbon Dioxide Pending
BUN Pending
Creatinine Pending
Glucose Pending
Calcium Pending
Total Bilirubin Pending
AST Pending
ALT Pending
Alkaline Phosphatase Pending
Vital Signs:
Vital Signs
Temp Pulse Resp BP Pulse Ox
97.4 F 84 18 136/74 93
08/04/25 03:22 08/04/25 03:22 08/04/25 03:22 08/04/25 03:22 08/04/25 03:22
I&O
08/03/25 08/04/25 08/05/25
06:59 06:59 06:59
Intake Total 480 / 480 240 / 240
Balance 480 / 480 240 / 240
Review of Systems
-
History Source: Patient and Family
Constitutional: Denies Fever or Chills
Cardiac: Denies Chest Pain
Abdomen/GI: Denies Abdominal Pain, Nausea or Vomiting
Neuro: Denies Dizzy or Lightheadedness
Physical Exam
-
General: Well Developed, Well Nourished, No Apparent Distress and Comfortable
HEENT: Normocephalic and Atraumatic
Respiratory: Clear to Auscultation (Limited by patient taking short, quick breaths) and Other (Using supplemental O2, 3L)
Cardiac: Regular Rhythm and S1/S2
Skin: Warm and Dry
Neuro: Awake and Alert
Psych: Calm
[2025-08-04] MEDS: CYMBALTA DELAYED RELEASE 60 MG PO (08:45)
[2025-08-04] MEDS: TYLENOL 325 MG PO (08:46)
[2025-08-04] MEDS: VIBRAMYCIN 100 MG PO ×2 (08:46→20:53)
[2025-08-04] MEDS: DELTASONE 20 MG PO (08:46)
[2025-08-04] MEDS: SENOKOT 8.6 MG PO ×2 (08:46→20:53)
[2025-08-04] MEDS: ELIQUIS 2.5 MG PO (08:47)
[2025-08-04] MEDS: OMNICEF 300 MG PO ×2 (08:47→20:53)
[2025-08-04] MEDS: FEOSOL 325 MG PO (08:47)
[2025-08-04] MEDS: MIRALAX 17 GRAMS PO (08:48)
[2025-08-04] MEDS: PACERONE 200 MG PO (08:48)
--- NOTE | 2025-08-04 09:08 | W.PN.ID1 ---
Date of Service
Date of Service: August 04, 2025
Today's Communication
Continue cefdinir (day 7) doxycycline (day 6)
Assessment / Plan
Aspiration Pneumonitis vs ARDS vs Pneumonia
BECKA - notably improved
Leukocytosis; trending up
- Suspect steroid component
New AV block/LBBB
- S/p pacemaker
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
Recommendations:
Staph. hemolyticus (a coag. negative staph) recovered from sputum culture. Doubt causative agent of infiltrate given its relatively nonpathogenic nature.
Overall, patient appears and feels improved.
Continue cefdinir (day 7) doxycycline (day 6) - plan a 14 day total course through 08/11
Follow clinically for improvement.
����������������������������������������������������������
Chief Complaint
-: Other (pneumonitis)
Subjective / Review of Systems
remains afebrile
bp stable
now on 3L NC
Vital Signs / Physical Exam
Vital Signs
Vital Signs
Temp Pulse Resp BP Pulse Ox
97.5 F 84 18 122/57 94
08/04/25 07:00 08/04/25 08:48 08/04/25 07:00 08/04/25 08:48 08/04/25 07:00
Physical Exam
Constitutional: No Acute Distress
Cardiovascular: Regular Rate and S1/S2; Negative Murmur or Rub
Pulmonary: Clear and Symmetric; Negative Wheezes or Rales
Gastrointestinal: Soft, Non Tender, Non Distended and Normal Bowel Sounds
Skin: Warm and Dry; Negative Rash or Jaundice
Objective Data
Lab Data
PT 26.5 Sec (11.4-14.6) H 07/27/25 03:26
INR 2.43 07/27/25 03:26
APTT 47.4 Sec (23.4-35.0) H 07/27/25 03:26
Estimated Creat Clear 34 ml/min 08/03/25 07:01
Lactic Acid 0.9 mmol/L (0.7-2.0) 07/25/25 04:29
Total Bilirubin 1.7 mg/dl (0.2-1.3) H 08/03/25 07:01
AST 74 U/L (14-36) H 08/03/25 07:01
ALT 71 U/L (0-35) H 08/03/25 07:01
Alkaline Phosphatase 91 U/L (38-126) 08/03/25 07:01
Most recent labs reviewed.
Micro Results:
07/31/25 08:59 Respiratory Culture - Final
Sputum Staphylococcus haemolyticus
Gram Stain - Final
07/30/25 12:23 MRSA Screen - Final
Nose No Methicillin Resistant Staphylococcus aureus isolated.
07/25/25 14:22 Blood Culture - Final
Blood/Venous No Growth - Final Report
07/25/25 14:22 Blood Culture - Final
Blood/Venous No Growth - Final Report
07/29/25 16:43 Nasal Screen MRSA (PCR) - Final
Nose
07/25/25 11:36 Urine Culture - Final
Urine NO GROWTH
07/26/25 04:34 Legionella Urinary Antigen - Final
Urine Negative for Legionella pneumophila Serogroup 1 antigen.
A negative result does not rule out the possiblity of
Legionella infection due to other serogroups or species of
Legionella. Clinical correlation is recommended.
Streptococcus pneumoniae Antigen (M - Final
Negative for Streptococcus pneumoniae antigen.
A negative result does not exclude infection with
Streptococcus pneumoniae. Clinical correlation is
recommended.
Imaging:
07/31/2025 CXR (portable): Persistent homogeneous opacity in the retrocardiac left lower lobe with obscuration of the left diaphragm and blunting left costophrenic angle, without significant change. Possible considerations include pulmonary
consolidation from pneumonia and probable pleural effusion.
[2025-08-04 09:30] LABS: Hematocrit 28.6 % (37.0-47.0); Hemoglobin 9.4 g/dL (12.0-16.0); Mean Corp Hgb Conc. 32.9 g/dL (33.0-37.0); Mean Corpuscular Volume 94.1 fL (81.0-99.0); Platelet Count 334 10^3/uL (130-400); Red Cell Dist. Width 18.6 % (11.5-14.5)
[2025-08-04 10:16] LABS: ALT (SGPT) 70 U/L (0-35); AST (SGOT) 58 U/L (14-36); Albumin 3.1 g/dl (3.5-5.0); Alkaline Phosphatase 89 U/L (38-126); Blood Urea Nitrogen 55 mg/dl (7-17); Calcium 9.3 mg/dl (8.4-10.2); Carbon Dioxide 33 mmol/L (22-30); Chloride 105 mmol/L (98-107); Estimated Creatinine Clearance 34 ml/min; Glucose 91 mg/dl (70-99); Magnesium 1.9 mg/dl (1.6-2.3); Potassium 4.9 mmol/L (3.5-5.1); Sodium 140 mmol/L (135-145); Total Protein 5.6 g/dl (6.3-8.2); eGFR 54.19
[2025-08-04] MEDS: LASIX 20 MG PO (10:41)
--- NOTE | 2025-08-04 10:53 | CM ---
Addendum entered by Linda Vernon 08/04/25 13:02:
[facility]
Report:[phone]

Addendum entered by Linda Vernon 08/04/25 12:30:
IMM given and placed on chart. Pt had episode of low BP upon standing today. DC delayed until stable. [facility] made aware of possible DC tomorrow 08/05/25. Needs auth
PT rec skilled
Plan: D/C to [facility] when stable
Previous plan to go home and use [facility] was documented in error
Original Note:
Chart reviewed. Met with pt and spouse bedside, IMM given and placed on chart. OOB to chair with O2.
Plan: D/C to home with [facility] when stable
--- NOTE | 2025-08-04 13:12 | W.PN.PUL3 ---
Today's Communication / Plan
-
Continue oxygen supplementation currently at 3 L-likely will require oxygen supplementation at discharge based on chest x-ray
Complete prednisone 20 mg in the next 3 days
Continue antibiotics per infectious disease
Continue oral diuretics
Physical therapy as tolerated
Radiographic follow-up will be required in the future.
Agree with discharge planning
Assessment
-
Assessment: 89-year-old F with PMHx of follicular lymphoma s/p rituxin, Hx of falls, Hx of light tobacco smoking, GERD, CAD s/p stent to LAD (2014), paroxysmal A-fib s/p DCCV 03/2022), hypothyroidism, HTN, hx of gastric ulcer, and Hx of right-sided
pleural effusion requiring multiple thoracentesis in [id number] who presents with weakness, malaise and heart palpitations. She said that she feels like her heart is 'flip-flopping.' In the ER she endorsed LE swelling, productive cough, and SOB.
EKG initially showed bradycardia with 2-1 AV-block with PVCs and a new LBBB. Previous EKG in March 2025 showed incomplete RBBB and LAFB and sinus rhythm, per cardiology. She was afebrile in ER david BP 147/71, HR 32, SpO2 98% on room air, and RR
19-23. Initial labs pertinent for WBC 7, Hb 10.9, INR 3.81, Na 128, Cr 1.8, T. bili 1.6, troponin 0.059, proBNP 8020, TSH 4.6, and lyme screen negative. CXR showed bilateral parenchymal opacities with low lung volumes. Cardiology consulted and
she was admitted to IVU with pace pads attached to chest. Echo on 07/23/2025 showed LVEF 65% with moderate , pulmonary HTN with PASP 70 (previously 45-50 on echo from 05/2024), moderate MS, mild MR and increased LA volume. Later in evening on 07/23
she became severely bradycardic with HR down to 10-20 and was hypotensive, EKG showed 5-1 AV block - she was lethargic, pale, and nauseous. Atropine given with no improvement. Dopamine gtt started with slight improvement, and then interventional
ammonia print operator Dr. Javier evaluated her, levophed was started and pt brought to director of labor and delivery and temporary pacing wire placed. Dopamine and levophed weaned off. Permanent pacemaker placed on 07/24/2025. Overnight on 07/25 she had worsening SOB, CXR with
worsening bilateral opacities - lasix given, BiPAP started, and she was TRX from CVICU to ICU where Abx started via Zosyn. [employer] consulted for further recommendations.
Chronic conditions [employer]: Follicular lymphoma s/p rituxin, Hx of falls, Hx of light tobacco smoking, GERD, CAD s/p stent to LAD (2014), paroxysmal A-fib s/p DCCV 03/2022), hypothyroidism, HTN, HLD, Hx of ankle fracture, Hx of MR, restrictive lung
disease, hx of gastric ulcer, Hx of right-sided pleural effusion requiring multiple thoracentesis in [id number], chronic amiodarone use
08/03 overview: Patient not requiring any pressors, oxygen requirement down to 3 L, off BiPAP now. Clinically improving
Assessment and plan:
#1. 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
- S/p PPM placed on 07/24/2025, currently AV paced rhythm on monitor
#2. Acute pulmonary edema due to above with severe bradycardia and acute HFpEF
- Improving. More recent imaging more suggestive of multifocal pneumonia and possible ARDS rather than pulmonary edema
- P.o. Lasix
#3. Acute hypoxic respiratory failure due to above and possibly with component of pneumonia/aspiration pneumonitis/ARDS
- Clinically worsening noted on 07/29, CT chest pursued suggestive of multifocal pneumonia, patient was started on broad-spectrum antibiotic and steroids
- Clinically improving with decreasing oxygen requirement, off high flow nasal cannula now
- Currently down to 3 L oxygen
- No longer requiring BiPAP therapy.
- Staphylococcus hemolyticus on sputum culture. To complete antibiotics in the next 24 hours.
- Both clinical and radiological improvement noted-chest x-ray 08/02/2025: Bilateral airspace disease stable.
- Patient will need radiographic follow-up in the future. Will perform chest x-ray only if there is decompensation
- Prednisone to be discontinued in the next 48 hours.
#4. Acute on chronic hypercapnic respiratory failure
-In the setting of volume overload plus possibly aspiration.
-Responded well to diuresis and nightly BiPAP. Significantly improved, discontinued BiPAP therapy
Other medical diagnoses:
- Hx of non-Hodgkin lymphoma s/p rituxin
- GERD
- Paroxysmal A-fib on chronic amiodarone + Eliquis
- HTN/HLD
- Hx of light tobacco use
- CAD s/p LAD stent
- Valvular heart disease with , MS and MR
- BECKA with underlying chronic kidney disease
- Agitation likely due to ICU-delirium
- Elevated troponin - likely demand ischemia with type II AK
DVT prophylaxis. Anticoagulated with Eliquis
-
Hopefully disposition soon
Subjective Data
-
Date of Service:
Date of Service: August 04, 2025
Chief Complaint: Pulmonary Follow Up (Acute hypoxemic respiratory failure)
Subjective:
Clinically feeling better
Denies hemoptysis
Denies worsening phlegm production
Afebrile
Review of Systems
Cardiopulmonary: Dyspnea (Improved), Cough and Chest Pain (n)
Objective Data
Data Reviewed
Vital Signs / I&O / Oxygen:
Vital Signs
Temp Pulse Resp BP Pulse Ox
97.4 F 85 18 118/66 99
08/04/25 11:31 08/04/25 11:31 08/04/25 11:31 08/04/25 11:31 08/04/25 11:31
Intake and Output
08/03/25 08/04/25 08/05/25
06:59 06:59 06:59
Intake Total 480 / 480 240 / 240
Balance 480 / 480 240 / 240
SaO2 99
Nasal Cannula flow liters per 3
minute
Physical Exam
General: Comfortable
HEENT: Normocephalic
Cardiovascular: S1-S2
Respiratory: Crackles (Quite improved) and Rhonchi (None)
GI: Soft and Non Distended
Neurology: Awake
Skin: Warm
Labs/Micro/Reports
Lab Data
08/04/25 08:49
08/04/25 08:49
Microbiology
07/31/25 08:59 Sputum Respiratory Culture - Final
Staphylococcus haemolyticus
07/31/25 08:59 Sputum Gram Stain - Final
--- NOTE | 2025-08-04 15:45 | W.PN.UPDATE ---
Update Note
Progress Note Update
Met with patient and daughter in room (one of the twins) and inspected incision, Aquacel dressing covering PPM incision with a less than dime-sized area of blood on absorbent pad, minimal swelling and no ecchymosis. Patient is non-tender. Dressing
removed by me and underlying incision is well approximated without drainage or malodor. Dried blood removed with alcohol pad and dry bandage applied. Reviewed activity limitations and limb restrictions. Plan is for rehab at [facility] and outpatient
cardiology appt with device check arranged for 09/02/25.
[2025-08-04] MEDS: LIPITOR 20 MG PO (17:32)
[2025-08-04] MEDS: ELIQUIS 5 MG PO (20:53)
[2025-08-05 03:08] VITALS: BP 117/58
[2025-08-05] MEDS: SYNTHROID 75 MCG PO (05:19)
[2025-08-05 06:00] VITALS: BMI 22.9
[2025-08-05 06:57] VITALS: BP 126/104
--- NOTE | 2025-08-05 07:00 | W.PN.HOSP.TC ---
Addendum entered and electronically signed by Tavon Morgan MD 08/05/25 21:30:
Attending Addendum-
I saw and evaluated the patient. I reviewed the resident�s note and agree with findings and plan as documented in the resident�s note. Sub: Seen with daughter and . feels less dizzy today.. Patient feels fatigued. Very pleasant. Partha
dizziness CP palps syncope. Full 12 point ROS reviewed and negative except as documented Exam: Vitals reviewed in chart GEN-NAD Heart RRR Chest- RU chest pacer site CDI, lungs crackles with scattered rhonchi at bases b/l abd soft NT ND pos BS LE no
edema
Plan:
#Acute Hypoxic respiratory failure, 2/2 B/L PNA
- transferred to ICU requiring bipap during hospital course
- completed Prednisone->08/05
- cont cefdinir and doxy x 14 day course per ID->08/11
- wean off O2 for sats > 92%
# Orthostatic Hypotension
- change lasix to QOD on DC
- hold valsartan
- T/C midodrine if needed
#HFpEF (EF 65%)
#Moderate MS, mild MR, moderate
#Transaminitis, improving
- 20mg lasix PO TC change to QOD
- Monitor I&Os & daily weights
- Continue holding home valsartan
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
- S/P temporary pacemaker 07/23. Permanent pacemaker- 07/24.
- Continue amiodarone 200mg daily
- Continue eliquis 5mg bid
- Holding aspirin per cards, given increased bleeding risk and not true ACS
- wound care and RUE precaution instructions given
- f/u cards as OP
#Chronic Anemia
- Continue home iron supplement (325mg daily)
- Transfuse for Hgb <7
#Confusion, AMS, c/f hospital-induced delirium; resolved
#Chronic
- Afib - eliquis & amiodarone
- CAD s/p LAD PCI 2014 - continue statin
- HLD - continue statin
- Hypothyroidism - continue levothyroxine
- Post-herpetic neuralgia L flank - duloxetine 60mg daily
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
- DVT ppx: eliquis
- Code: full
- Dispo: lives at home with ; DC to [place] [facility] in AM- OK to transport in van
Time spent coordinating care, review of plan of care with resident, personally reviewed records in EMR, med rec, consults, notes, labs, radiology, d/w nursing and family � 51 mins
Original Note:
Today's Communication/Plan
-
Discharge planning today
Assessment / Plan
Assessment / Plan
This is an 89 y/o female with pmhx of This is an 89 y/o female with pmhx of atrial fibrillation on eliquis and amiodarone, heart failure with preserved EF, coronary artery disease disease who presented to the ED with dizziness and bilateral lower
extremity weakness culminating in a fall several days prior to admission. 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
#Hypoxic respiratory failure, likely 2/2 aspiration pneumonitis vs. aspiration PNA, Improving
-Briefly, patient with complicated hospital course thus far including transfer to ICU (Downgraded to IMU on 07/31 and to Telemetry on 08/01), BiPap (Discontinued on 08/01), supplemental oxygen (Still on 3L) and antibiotics (Doxycycline and Cefdinir)
-X-ray on 07/29 showed mild interstitial prominence, suggestive of mild pulmonary edema. Patchy opacities bilaterally, which may represent multifocal pneumonia or alveolar pulmonary edema. Small left pleural effusion
-CT Chest on 07/29 showed Findings suggesting severe bilateral pneumonia, greatest in RUL. ILD not excluded. Stable
-Today patient continues 3L of supplemental oxygen with no shortness of breath while seated
-Per Infectious Disease, continue Doxycycline and cefdinir for 14 day total course with last day on 08/11/2025
-Continue to wean off supplemental Oxygen requirement as tolerated. Goal to keep O2 saturation above 88-92%. Will likely be discharged to SNF on O2
-Will monitor
#Orthostatic Hypotension
-Patient experienced transient hypotension with lightheadedness yesterday during and following physical therapy
-Orthostatic vital signs are as follows:
--Layin/61
--Sittin/50
--Standin/47
-Given history of hypotension requiring pressor support and reported history of falls, will monitor patient overnight to ensure no further episodes
-Discussed compression stockings and abdominal binder therapy with family
-Will monitor
#HFpEF (EF 65%), suspected exacerbation
#Moderate MS, mild MR, moderate
#Transaminitis, improving
-Echo 07/23/25: EF 65%, severely abnormal L atrial volume (>48ml/m2), moderate MS & . Likely experiencing acute on chronic HFpEF exacerbation in s/o arrhythmia, new LBBB. BNP elevated 8020. Elevation in AST and ALT likely in the setting of
congestion; downtrending/stabilizing s/p diuresis.
- Continue to wean off O2 NC as able. Currently she is on 3L O2.
- Will change 20mg lasix PO to every other day given orthostatic hypotension
- Monitor I&Os & daily weights
- Continue holding home valsartan
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
-Patient overnight to 07/23 became bradycardic with heart rate in the 10s, severe hypotension, lethargic, pale, nauseous; patient given 1 mg IV atropine, dopamine gtt., norepinephrine gtt. emergent temporary pacemaker was placed via right IJ
overnight 07/23. 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
- Pt off pressors. S/P temporary pacemaker 07/23. Permanent pacemaker was placed 07/24.
- Continue amiodarone 200mg daily
- Continue eliquis to 5mg bid (Home dose)
- Continue to hold Aspirin (Per cardiology not true ACS)
#Chronic Iron Deficiency Anemia
-Hemoglobin at baseline 8-9. During this hospital course she has downtrended to as low as 7.1 on 07/27.
-Vitamin B12 and Folate normal
-Continue to monitor H&H daily
-Continue home iron supplement
-Transfusion as needed for hemoglobin <7 (If she requires transfusion, will need consent)
-Will monitor
#R & L foot bilateral corns/callouses
#Severely overgrown R & L 2nd toenails
-Toenails growing over toe, at risk of breaking skin on underside of toe. Seen by podiatry 08/01 and treated.
- Follow-up w podiatry outpatient
#Confusion, AMS, c/f hospital-induced delirium; resolved
Altered mental status on morning of 07/24, likely 2/2 hospital-induced delirium with contribution by prior hemodynamic instability and emergent temporary pacer placement overnight on 07/23, old age, likely underlying dementia, lack of sleep, acute
hypoxic respiratory failure. Improved since 07/27 s/p sleeping w precedex.
- Family at bedside had been instructed to continue to reorient patient to place/time/location
- Optimize sleep as able
- Manage medical conditions as above
#Chronic
- Afib - Continue eliquis & amiodarone
- CAD s/p LAD PCI 2014 - continue statin
- HLD - continue statin
- Hypothyroidism - continue levothyroxine
- Post-herpetic neuralgia L flank - duloxetine 60mg daily
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
#Global
- DVT ppx: eliquis 5mg bid
- Diet: [id number]
- Code: full
- Dispo: Likely D/c today pending authorization from insurance, (referrals placed to [facility] ([facility]) and [facility])
Anticipated Discharge: Today
Subjective/Interval History
-
Date of Service: August 05, 2025
Patient was sitting comfortably in bed with her and daughter present. She is free from dizziness, lightheadedness, shortness of breath or chest pain. She has no concerns or complaints today.
Objective Data
-
Labs:
Laboratory Results
08/05/25
06:00
WBC Pending
Hgb Pending
Hct Pending
Plt Count Pending
Sodium Pending
Potassium Pending
Chloride Pending
Carbon Dioxide Pending
BUN Pending
Creatinine Pending
Glucose Pending
Calcium Pending
Total Bilirubin Pending
AST Pending
ALT Pending
Alkaline Phosphatase Pending
Vital Signs:
Vital Signs
Temp Pulse Resp BP Pulse Ox
97.6 F 87 20 117/58 98
08/05/25 03:08 08/05/25 03:08 08/05/25 03:08 08/05/25 03:08 08/05/25 03:08
I&O
08/04/25 08/05/25 08/06/25
06:59 06:59 06:59
Intake Total 240 / 240 420 / 420
Output Total 750 / 750
Balance 240 / 240 -330 / -330
Review of Systems
-
History Source: Patient and Family
Constitutional: Denies Fever or Chills
Respiratory: Denies Cough
Cardiac: Denies Chest Pain
Abdomen/GI: Denies Abdominal Pain, Nausea or Vomiting
Musculoskeletal: Denies Joint Pain
Neuro: Denies Dizzy, Weakness or Lightheadedness
Physical Exam
-
General: Well Developed, Well Nourished, No Apparent Distress and Comfortable
HEENT: Normocephalic, Atraumatic and Oxygen (3L O2)
Cardiac: Regular Rhythm and S1/S2
Skin: Warm and Dry
Neuro: Awake, Alert and Oriented
Psych: Calm
[2025-08-05] MEDS: SENOKOT 8.6 MG PO ×2 (08:44→20:00)
[2025-08-05] MEDS: TYLENOL 325 MG PO (08:44)
[2025-08-05] MEDS: FEOSOL 325 MG PO (08:44)
[2025-08-05] MEDS: VIBRAMYCIN 100 MG PO ×2 (08:44→20:01)
[2025-08-05] MEDS: MIRALAX 17 GRAMS PO (08:45)
[2025-08-05] MEDS: ELIQUIS 5 MG PO ×2 (08:45→20:00)
[2025-08-05] MEDS: OMNICEF 300 MG PO ×2 (08:45→20:01)
[2025-08-05] MEDS: LASIX 20 MG PO (08:45)
[2025-08-05] MEDS: CYMBALTA DELAYED RELEASE 60 MG PO (08:45)
[2025-08-05 08:46] LABS: Hematocrit 26.6 % (37.0-47.0); Hemoglobin 8.9 g/dL (12.0-16.0); Mean Corp Hgb Conc. 33.5 g/dL (33.0-37.0); Mean Corpuscular Volume 92.7 fL (81.0-99.0); Platelet Count 329 10^3/uL (130-400); Red Cell Dist. Width 18.7 % (11.5-14.5)
[2025-08-05] MEDS: DELTASONE 20 MG PO (08:46)
[2025-08-05] MEDS: PACERONE 200 MG PO (08:46)
[2025-08-05 08:57] LABS: ALT (SGPT) 66 U/L (0-35); AST (SGOT) 52 U/L (14-36); Albumin 2.8 g/dl (3.5-5.0); Alkaline Phosphatase 89 U/L (38-126); Blood Urea Nitrogen 52 mg/dl (7-17); Calcium 9.2 mg/dl (8.4-10.2); Carbon Dioxide 31 mmol/L (22-30); Chloride 104 mmol/L (98-107); Estimated Creatinine Clearance 37 ml/min; Glucose 77 mg/dl (70-99); Potassium 4.8 mmol/L (3.5-5.1); Sodium 138 mmol/L (135-145); Total Protein 5.3 g/dl (6.3-8.2); eGFR > 60.00
--- NOTE | 2025-08-05 10:22 | CM ---
Addendum entered by Linda Vernon 08/05/25 14:46:
Have not received insurance auth today. Will set pt up for discharge tomorrow once Auth is obtained. , [facility] ([facility]). Dr Morgan and nursing aware. would prefer to use wheelchair van tomorrow if this is a safe option. Will
address this request tomorrow.
Plan: D/C to [facility] tomorrow.
Addendum entered by Linda Vernon 08/05/25 12:24:
Met with Dtr at bedside. She was made aware that we are waiting for an insurance authorization. Ambulance transport to be arranged to [facility]; forms completed
Plan: D/C to [facility] via ambulance
Addendum entered by Christina Braga 08/05/25 11:47:
pending reference# [id number], clinicals faxed to [phone].
Original Note:
Pt accepted to [facility] NPI# [id number]. Accepting Dr Golden NPI# [id number]. Bed is available, Auth started and doctor notified.
Report# [phone]

Plan: DC to [facility] pending authorization
--- NOTE | 2025-08-05 10:25 | W.PN.ID1 ---
Date of Service
Date of Service: August 05, 2025
Today's Communication
Continue cefdinir and doxycycline - plan a 14 day total course through 08/11
Assessment / Plan
Aspiration Pneumonitis vs ARDS vs Pneumonia
BECKA - notably improved
Leukocytosis; trending up
- Suspect steroid component
New AV block/LBBB
- S/p pacemaker
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
Recommendations:
Staph. hemolyticus (a coag. negative staph) recovered from sputum culture. Doubt causative agent of infiltrate given its relatively nonpathogenic nature.
Overall, patient appears and feels improved.
Continue cefdinir and doxycycline - plan a 14 day total course through 08/11
Follow clinically for improvement.
����������������������������������������������������������
Chief Complaint
-: Other (pneumonitis)
Subjective / Review of Systems
afebrile
bp stable
tolerating current therapies
steroids were discontinued today
Vital Signs / Physical Exam
Vital Signs
Vital Signs
Temp Pulse Resp BP Pulse Ox
97.5 F 84 18 121/81 98
08/05/25 06:57 08/05/25 08:45 08/05/25 06:57 08/05/25 08:45 08/05/25 08:45
Physical Exam
Constitutional: No Acute Distress and Chronically Ill
Cardiovascular: Regular Rate and S1/S2; Negative Murmur or Rub
Pulmonary: Clear and Symmetric; Negative Wheezes or Rales
Gastrointestinal: Soft, Non Tender, Non Distended and Normal Bowel Sounds
Skin: Warm and Dry; Negative Rash or Jaundice
Objective Data
Lab Data
Lab Results
08/05/25 07:38
08/05/25 07:38
PT 26.5 Sec (11.4-14.6) H 07/27/25 03:26
INR 2.43 07/27/25 03:26
APTT 47.4 Sec (23.4-35.0) H 07/27/25 03:26
Estimated Creat Clear 37 ml/min 08/05/25 07:38
Lactic Acid 0.9 mmol/L (0.7-2.0) 07/25/25 04:29
Total Bilirubin 1.6 mg/dl (0.2-1.3) H 08/05/25 07:38
AST 52 U/L (14-36) H 08/05/25 07:38
ALT 66 U/L (0-35) H 08/05/25 07:38
Alkaline Phosphatase 89 U/L (38-126) 08/05/25 07:38
Most recent labs reviewed.
Micro Results:
07/31/25 08:59 Respiratory Culture - Final
Sputum Staphylococcus haemolyticus
Gram Stain - Final
07/30/25 12:23 MRSA Screen - Final
Nose No Methicillin Resistant Staphylococcus aureus isolated.
07/25/25 14:22 Blood Culture - Final
Blood/Venous No Growth - Final Report
07/25/25 14:22 Blood Culture - Final
Blood/Venous No Growth - Final Report
07/29/25 16:43 Nasal Screen MRSA (PCR) - Final
Nose
07/25/25 11:36 Urine Culture - Final
Urine NO GROWTH
07/26/25 04:34 Legionella Urinary Antigen - Final
Urine Negative for Legionella pneumophila Serogroup 1 antigen.
A negative result does not rule out the possiblity of
Legionella infection due to other serogroups or species of
Legionella. Clinical correlation is recommended.
Streptococcus pneumoniae Antigen (M - Final
Negative for Streptococcus pneumoniae antigen.
A negative result does not exclude infection with
Streptococcus pneumoniae. Clinical correlation is
recommended.
Imaging:
07/31/2025 CXR (portable): Persistent homogeneous opacity in the retrocardiac left lower lobe with obscuration of the left diaphragm and blunting left costophrenic angle, without significant change. Possible considerations include pulmonary
consolidation from pneumonia and probable pleural effusion.
[2025-08-05 11:39] VITALS: BP 124/62
[2025-08-05 12:42] VITALS: BP 102/44; BP 111/53; BP 123/59; PULSE 81; PULSE 85; O2SAT 95
--- NOTE | 2025-08-05 12:54 | W.DCSUMMARY ---
Discharge Summary
Discharge Data
Date of Admission: 07/23/25
Date of Discharge: 08/09/25
-
Pending Results: No
Hospital Course
Discharging Physician : Dr. Viramontes
Disposition : To [facility]
Primary care physician : Glen Morales
Principal Discharge diagnosis : Second-degree AV block type II, unstable; HFpEF
Chronic Discharge diagnosis : A-fib, CAD status post PCI, HLD, hypothyroidism, HTN, Orthostatic Hypotension
Hospital Course :
Patient presented from home on 07/23 with worsening of intermittent dizzy spells and weakness, leading to recent fall. Patient denied any medication changes or recent illness. EKG demonstrated second-degree AV block, type II, along with new LBBB
(since last EKG on 03/25/2025). Heart rate 53 bpm with PVCs, with a dips to 33. BP elevated to 165/40. Troponin elevated to 0.059. Sodium low at 128. BUN/Cr ratio 46/1.8. CXR demonstrated slightly increased pulmonary vascularity. Echo
demonstrated LVEF 65%, moderate aortic stenosis, mild tricuspid regurg, moderate mitral stenosis, mild mitral regurg, severely abnormally enlarged left atrial volume. Patient was given 325 mg aspirin. Plan was made for left heart cath in the
morning, followed by CIED pacemaker device implantation if no new evidence of obstructive disease.
However, patient became hemodynamically unstable overnight 07/23 with HR in the 10s, severe hypotension, lethargy, nausea. Patient was given 1 mg IV atropine; started on dopamine drip, norepinephrine drip; emergency temporary pacemaker was placed
via right IJ overnight.
In 07/24 morning, heart rate was in the 60�80s, saturating 98% on 2 L NC. Levophed was weaned off. BP was 80/35 in the afternoon, with a dopamine still on and ongoing dyspnea. Bedside cardiac ultrasound on 07/24 ruled out pericardial effusion.
Cardiology team discussed with family and decided to proceed with implantation of permanent pacemaker on 07/24. Dopamine was weaned off.
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 Patient with crackles throughout bilateral lungs. No fever or leukocytosis. EKG demonstrated no change
from prior. Chest x-ray (07/25) demonstrated severe bilateral reticulonodular interstitial disease in the lungs mixed with ground glass opacity. Patient was given lasix 40mg IV and started on bipap & empiric zosyn (no fever or leukocytosis). VBG:
pH 7.32, pCO2 46, pO2 155. O2 sat 97.1% on BiPAP. Procalcitonin elevated to 1.51.
Etiology was favored to be cardiogenic pulmonary edema, along with suspected HFpEF exacerbation. Zosyn was stopped on 07/26. Patient continued to receive IV Lasix from 07/24 through 07/28. CXR (07/28) demonstrated bilateral patchy airspace opacities
that had slightly improved from prior, along with small bilateral pleural effusions similar to prior. She was weaned off of full-time BiPAP on 07/28 but was requiring O2 NC and occasional nonrebreather.
From 07/28-08/02, patient received daily morning CXRs. CXR on 07/29 demonstrated bilateral patchy opacities, mild pulmonary edema, small left pleural effusion. Thought to be worse in appearance than 07/[address] was obtained on 07/29 which
demonstrated severe bilateral pneumonia greatest in the right upper lung.
Given radiographic progression despite aggressive diuresis, differential of respiratory failure was expanded from cardiogenic edema to ILD due to amiodarone vs. aspiration pneumonia vs. aspiration pneumonitis. On 07/29, patient was started on a
5-day course of 40 mg IV solumedrol, IV vancomycin, and IV cefepime. Patient was also continued on 20 mg daily p.o. Lasix. Infectious disease consult added on IV doxycycline on 07/30, given CXR with persistent severe bilateral pneumonia.
Patient with clinical improvement in terms of respiratory status, dyspnea. Was comfortable on 4 L O2 nasal cannula and only utilizing BiPAP at night. CXR 07/31 demonstrated slightly improved aeration on left-sided lungs. Her sputum culture
returned positive for staph species. MRSA screen was negative. On 08/01, nightly BiPAP was stopped. CXR 08/02 was stable from prior.
On 08/03, pulmonary team initiated 20 mg daily prednisone course to last 3 days (last day 08/05). Susceptibilities from sputum culture returned with staph hemolyticus susceptible to levofloxacin and bactrim. Per ID, thought unlikely to be causative
agent of pulmonary infiltrate. Plan to continue p.o. doxycycline and p.o. cefdinir for 14-day total course (last day 08/11). On 08/04 she did develop dizziness again while standing and was found to have orthostatic hypotension on orthostatic vital
signs with sitting BP of 121/50 and a standing BP of 73/47.
On 08/06 she developed swelling of her left forearm. Ultrasound showed no evidence of acute thrombus. While returning from ultrasound and transferring back from her bed, she became dizzy and less responsive but never lost consciousness, requiring the
medical staff nearby to help her back into bed. She quickly recovered from this episode of orthostatic hypotension causing near-syncope. Midodrine 2.5mg TID was started. She was monitored overnight on telemetry.
On 08/07/2025, she experienced another round of dizziness and near-syncope during physical therapy despite abdominal binder therapy and Midodrine therapy. Her midodrine 2.5mg TID was increased to 5mg TID. She was also given a small bolus of 250mL NS.
On 08/08/2025 she was found to be medically stable and discharged to senior care facility. There were unfortunately no beds avaiable at that time, so she was discharged to [facility] on 08/09/2025.
Patient to be continued on her 20 mg Lasix now on Monday/Monday/Monday schedule, 20 mg daily atorvastatin, 5 mg twice daily Eliquis, 200 mg daily amiodarone. Her home valsartan was held throughout admission and will be held on discharge.
Amiodarone was held temporarily in advance of anticipated left heart cath. Per cardiology, no longer a need for cardiac catheterization. To follow-up with cards outpatient.
Other:
- Patient started on duloxetine to address post-herpetic neuralgia on left flank. To follow up with PCP.
- Patient to follow-up with podiatry outpatient (seen inpatient for debridement of severe calluses/corns and overgrown nails).
Important imaging findings :
Patient received CXRs on: 07/23, 07/24, 07/25, 07/26, 07/28, 07/29, 07/30, 07/31, 08/02. Pertinent findings described in course above.
Chest CT without IV contrast (07/29):
Findings suggesting severe bilateral pneumonia as described above, greatest in right upper lobe. Interstitial lung disease not excluded. Stable. Moderate left pleural effusion. Progressed. Mild bibasilar atelectasis. Mild cardiomegaly. Severe
atherosclerotic vascular disease.
Procedure findings :
07/23 - Successful placement of a temporary pacemaker via right internal jugular approach without acute complications.
07/24 - [employer] pacemaker placement with Dr. Anderson.
Discharge Plan
-
Patient Disposition: Halfway/SNF
Discharge Diagnosis/Procedures: Pacemaker implant in s/o unstable 2nd degree type II AV block
Condition: Good
Diet: Low Cholesterol and 2 Gram Sodium
Activity: With assistance and As tolerated
Driving Restrictions: No driving for 1 week
Bathing Restrictions: None
Blood Work: BMP in 1-2 weeks
Specialty Instructions: Weigh Daily- Call MD for wt gain/loss 3 lbs overnight/5 lbs in 1 week
Instructions: *DCA Heart Failure Instructions
Stand Alone Forms: DC Inst - Implanted Device
Referrals:
[facility] [Outside]
Darrell Franklin MD [Active, Pulmonary Medicine] - in four to six weeks
Referral Note: May see PAZ
Glen Morales DO [Family Provider, Family Practice] - in one to two weeks
Adelaida Harley CRNP [Specified Professional Personl, Cardiology] - 09/02/25 10:40 am
Referral Note: You have a cardiology follow-up appointment and device check at the [facility] with Dr. Cabrera's MECHANICAL APPRENTICEAdelaida. Please call with questions
Emily Batista DPM [Specified Professional Personl, Podiatry] - in two to four weeks
Referral Note: for Mal tamayo sanjana
Additional Discharge Medication Instructions: - Start taking duloxetine 60mg daily (to help with your post-shingles pain)
- Take cefdinir 300mg twice daily and doxycycline 100mg twice daily through 08/11
- Continue taking your amiodarone 200mg daily, atorvastatin 20mg daily, eliquis 5mg twice daily,
- Take lasix 20mg on Mondays, Wednesdays and Fridays
- Continue taking your Synthroid & iron supplements as before
- STOP taking your valsartan - to discuss restarting in outpatient follow-up with your PCP & honest john rocket crew member
- Take Midodrine 5mg three times a day. DO NOT take it if your systolic blood pressure is greater than 130.
-Pacemaker dressing removed, you can apply dry bandages or leave incision open to air. Soap and water can wash over the incision but no rubbing. Allow incision to air dry and do not rub with towel.
-You were found to have orthostatic hypotension during this admission. Please ensure you stand up slowly from seated or lying down positions in order to help avoid lightheadedness and dizziness. You may find benefit in compression stockings and
abdominal binders. Please take all precautions to help avoid a fall.
-Your sodium was noted to be low at times during this hospitalization. In order to help ensure your sodium is not too low, you should avoid consumption more than 1500mL of water each dayYou should repeat a Basic Metabolic Panel in 1-2 weeks.
-Please continue to wean your supplemental Oxygen requirement. You should aim to keep your oxygen saturation >92%
Prescriptions:
New
duloxetine 60 mg Capsule,Delayed Release(Dr/Ec)
60 mg PO DAILY 30 Days Qty: 30 0RF
Rx Instructions:
Take for post-herpetic neuralgia pain
bisacodyl 10 mg Suppository
10 mg KS [id number] PRN (Reason: constipation) Qty: 12 0RF
polyethylene glycol 3350 17 gram Powder In Packet
17 g PO DAILYPRN PRN (Reason: constipation) Qty: 30 0RF
sennosides-docusate sodium [Senna Plus] 8.6-50 mg Tablet
1 tab PO BIDPRN PRN (Reason: constipation) 30 Days Qty: 60 0RF
acetaminophen 650 mg/20.3 mL Solution
650 mg PO Q4HPRN PRN (Reason: MILD PAIN) 30 Days Qty: 1015 0RF
doxycycline hyclate 100 mg Capsule
100 mg PO BID 6 Days Qty: 12 0RF
midodrine 2.5 mg Tablet
5 mg PO TID@0800,1300,1800 Qty: 90 0RF
cefdinir 300 mg Capsule
300 mg PO Q12 Qty: 8 0RF
Continued
atorvastatin 20 MG tablet
20 mg PO QPM
amiodarone 200 mg Tablet
200 mg PO DAILY
alendronate [Fosamax] 70 mg Tablet
70 mg PO TH
levothyroxine [Synthroid] 75 mcg Tablet
75 mcg PO DAILY
ferrous sulfate 325 mg (65 mg iron) Tablet
325 mg PO DAILY
Eliquis 5 mg Tablet
5 mg PO BID Qty: 60 0RF
Changed
furosemide 20 mg Tablet
20 mg PO MOWEFR Qty: 0 0RF
Held
valsartan 40 mg Tablet
40 mg PO QPM
Hold Instructions: Resume on 08/25/25. Wait to resume until you see your primary care physician & honest john rocket crew member and discuss restarting with them
valsartan 160 mg Tablet
80 mg PO DAILY
Hold Instructions: Resume on 08/25/25. Wait to resume until you see your primary care physician & honest john rocket crew member and discuss restarting with them
Discontinued
acetaminophen [Tylenol] 325 mg Tablet
325 mg PO DAILY
Discharge Orders:
Discharge Patient (As Directed); Ordered 08/09/25
Ordered By: Abigail Treadwell
Care Plan Goals
Care Plan Goals:
Problem: Readiness for enhanced knowledge related to diagnosis and treatment plan
Goal: Understand your diagnosis and treatment plan needs, including medications if applicable.
Instructions: Know your diagnosis, underlying causes and treatment plan options, including medications if applicable. Consult with your health care team to learn about your diagnosis and treatment plan, including medications if applicable.
Discharge Date and Time
Print Language: ZAMBIAN
--- NOTE | 2025-08-05 14:01 | W.PN.PUL3 ---
Today's Communication / Plan
-
Discharge planning
Oxygen supplementation-hopefully can wean off in the future
Radiographic follow-up
Antibiotics per infectious disease
Outpatient pulmonary follow-up in 4 weeks
Sign off
Assessment
-
Assessment: 89-year-old F with PMHx of follicular lymphoma s/p rituxin, Hx of falls, Hx of light tobacco smoking, GERD, CAD s/p stent to LAD (2014), paroxysmal A-fib s/p DCCV 03/2022), hypothyroidism, HTN, hx of gastric ulcer, and Hx of right-sided
pleural effusion requiring multiple thoracentesis in 4690-1150 who presents with weakness, malaise and heart palpitations. She said that she feels like her heart is 'flip-flopping.' In the ER she endorsed LE swelling, productive cough, and SOB.
EKG initially showed bradycardia with 2-1 AV-block with PVCs and a new LBBB. Previous EKG in March 2025 showed incomplete RBBB and LAFB and sinus rhythm, per cardiology. She was afebrile in ER david BP 147/71, HR 32, SpO2 98% on room air, and RR
19-23. Initial labs pertinent for WBC 7, Hb 10.9, INR 3.81, Na 128, Cr 1.8, T. bili 1.6, troponin 0.059, proBNP 8020, TSH 4.6, and lyme screen negative. CXR showed bilateral parenchymal opacities with low lung volumes. Cardiology consulted and
she was admitted to IVU with pace pads attached to chest. Echo on 07/23/2025 showed LVEF 65% with moderate , pulmonary HTN with PASP 70 (previously 45-50 on echo from 05/2024), moderate MS, mild MR and increased LA volume. Later in evening on 07/23
she became severely bradycardic with HR down to 10-20 and was hypotensive, EKG showed 5-1 AV block - she was lethargic, pale, and nauseous. Atropine given with no improvement. Dopamine gtt started with slight improvement, and then interventional
health science writer Dr. Javier evaluated her, levophed was started and pt brought to laborer general and temporary pacing wire placed. Dopamine and levophed weaned off. Permanent pacemaker placed on 07/24/2025. Overnight on 07/25 she had worsening SOB, CXR with
worsening bilateral opacities - lasix given, BiPAP started, and she was TRX from CVICU to ICU where Abx started via Zosyn. [employer] services consulted for further recommendations.
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
disease, hx of gastric ulcer, Hx of right-sided pleural effusion requiring multiple thoracentesis in 2324-3021, chronic amiodarone use
08/03 overview: Patient not requiring any pressors, oxygen requirement down to 3 L, off BiPAP now. Clinically improving
Assessment and plan:
#1. 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
- S/p PPM placed on 07/24/2025, currently AV paced rhythm on monitor
#2. Acute pulmonary edema due to above with severe bradycardia and acute HFpEF
- Improving. More recent imaging more suggestive of multifocal pneumonia and possible ARDS rather than pulmonary edema
- P.o. Lasix
#3. Acute hypoxic respiratory failure due to above and possibly with component of pneumonia/aspiration pneumonitis/ARDS
- Clinically worsening noted on 07/29, CT chest pursued suggestive of multifocal pneumonia, patient was started on broad-spectrum antibiotic and steroids
- Clinically improving with decreasing oxygen requirement, off high flow nasal cannula now
- Currently down to 3 L oxygen
- No longer requiring BiPAP therapy.
- Staphylococcus hemolyticus on sputum culture. To complete antibiotics per infectious disease.
- Both clinical and radiological improvement noted-chest x-ray 08/02/2025: Bilateral airspace disease stable.
- Patient will need radiographic follow-up in the future. In the next 4 to 6 weeks.
- Prednisone to be discontinued in the next 24 hours.
#4. Acute on chronic hypercapnic respiratory failure
-In the setting of volume overload plus possibly aspiration.
-Responded well to diuresis and nightly BiPAP. Significantly improved, discontinued BiPAP therapy
Other medical diagnoses:
- Hx of non-Hodgkin lymphoma s/p rituxin
- GERD
- Paroxysmal A-fib on chronic amiodarone + Eliquis
- HTN/HLD
- Hx of light tobacco use
- CAD s/p LAD stent
- Valvular heart disease with , MS and MR
- BECKA with underlying chronic kidney disease
- Agitation likely due to ICU-delirium
- Elevated troponin - likely demand ischemia with type II CT
DVT prophylaxis. Anticoagulated with Eliquis
-
Agree with discharge planning today
Sign off
Outpatient pulmonary follow-up information has been left in the chart
Subjective Data
-
Date of Service:
Date of Service: August 05, 2025
Chief Complaint: Pulmonary Follow Up (Acute hypoxemic respiratory failure)
Subjective:
Patient is clinically better
Remains on low rate supplemental oxygen
No significant hemoptysis or phlegm production
Review of Systems
Cardiopulmonary: Dyspnea (Improved)
Objective Data
Data Reviewed
Vital Signs / I&O / Oxygen:
Vital Signs
Temp Pulse Resp BP Pulse Ox
97.5 F 87 16 124/62 99
08/05/25 11:39 08/05/25 11:39 08/05/25 11:39 08/05/25 11:39 08/05/25 11:39
Intake and Output
08/04/25 08/05/25 08/06/25
06:59 06:59 06:59
Intake Total 240 / 240 420 / 420
Output Total 750 / 750
Balance 240 / 240 -330 / -330
SaO2 99
Nasal Cannula flow liters per 3
minute
Physical Exam
General: Comfortable
HEENT: Normocephalic
Cardiovascular: S1-S2
Respiratory: Crackles (Quite improved) and Rhonchi (None)
GI: Soft and Non Distended
Neurology: Awake
Skin: Warm
Labs/Micro/Reports
Lab Data
08/05/25 07:38
08/05/25 07:38
Microbiology
07/31/25 08:59 Sputum Respiratory Culture - Final
Staphylococcus haemolyticus
07/31/25 08:59 Sputum Gram Stain - Final
[2025-08-05 15:36] VITALS: BP 104/44
[2025-08-05] MEDS: LIPITOR 20 MG PO (17:04)
--- NOTE | 2025-08-05 17:05 | CM ---
[facility]
Auth # [id number]
call reference # [id number]
approved start date 08/05 with NRD 08/07
career specialist- Maxi Miller
fax# [phone]
[2025-08-05 23:33] VITALS: BP 118/51
[2025-08-06] MEDS: SYNTHROID 75 MCG PO (05:49)
[2025-08-06 06:00] VITALS: BMI 23.2
[2025-08-06 07:00] VITALS: BP 120/48
--- NOTE | 2025-08-06 07:20 | W.PN.HOSP.TC ---
Addendum entered and electronically signed by Tavon Morgan MD 08/06/25 22:10:
Attending Addendum-
I saw and evaluated the patient. I reviewed the resident�s note and agree with findings and plan as documented in the resident�s note. Sub: Seen with daughter and . had presyncopal episode while returning back from [place]. denies associated CP
palps. Very pleasant. Full 12 point ROS reviewed and negative except as documented Exam: Vitals reviewed in chart GEN-NAD Heart RRR Chest- JELENA chest pacer site CDI, lungs decreased BS @ bases abd soft NT ND pos BS LE no edema LUE +1 pitting edema
Plan:
#Acute Hypoxic respiratory failure, 2/2 B/L PNA
- transferred to ICU requiring bipap during hospital course
- completed Prednisone->08/05
- cont cefdinir and doxy x 14 day course per ID->08/11
- wean off O2 for sats > 92% if able
# Orthostatic Hypotension
- change lasix to MWF on DC
- hold valsartan
- start midodrine
- fall precautions
- place on tele
#HFpEF (EF 65%)
#Moderate MS, mild MR, moderate
#Transaminitis, improving
- change lasix to MWF
- Monitor I&Os & daily weights
- Continue holding home valsartan
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
- S/P temporary pacemaker 07/23. Permanent pacemaker- 07/24.
- Continue amiodarone 200mg daily
- Continue eliquis 5mg bid
- Holding aspirin per cards, given increased bleeding risk and not true ACS
- wound care and RUE precaution instructions given
- f/u cards as OP
#Chronic Anemia
- Continue home iron supplement (325mg daily)
- Transfuse for Hgb <7
#Confusion, AMS, c/f hospital-induced delirium; resolved
#Chronic
- Afib - eliquis & amiodarone
- CAD s/p LAD PCI 2014 - continue statin
- HLD - continue statin
- Hypothyroidism - continue levothyroxine
- Post-herpetic neuralgia L flank - duloxetine 60mg daily
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
- DVT ppx: eliquis
- Code: full
- Dispo: lives at home with ; DC to [place] [facility] in AM- OK to transport in [facility] - DC cancelled 08/06- reattempt in am
Time spent coordinating care, review of plan of care with resident, personally reviewed records in EMR, med rec, consults, notes, labs, radiology, d/w nursing and family � 50 mins
Original Note:
Today's Communication/Plan
-
Start Midodrine 2.5 TID
Patient back on Tele, will monitor overnight for further symptoms
Assessment / Plan
Assessment / Plan
This is an 89 y/o female with pmhx of This is an 89 y/o female with pmhx of atrial fibrillation on eliquis and amiodarone, heart failure with preserved EF, coronary artery disease disease who presented to the ED with dizziness and bilateral lower
extremity weakness culminating in a fall several days prior to admission. 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
#Hypoxic respiratory failure, likely 2/2 aspiration pneumonitis vs. aspiration PNA, Improving
-Briefly, patient with complicated hospital course thus far including transfer to ICU (Downgraded to IMU on 07/31 and to Telemetry on 08/01), BiPap (Discontinued on 08/01), supplemental oxygen (Still on 3L) and antibiotics (Doxycycline and Cefdinir)
-X-ray on 07/29 showed mild interstitial prominence, suggestive of mild pulmonary edema. Patchy opacities bilaterally, which may represent multifocal pneumonia or alveolar pulmonary edema. Small left pleural effusion
-CT Chest on 07/29 showed Findings suggesting severe bilateral pneumonia, greatest in RUL. ILD not excluded. Stable
-Today patient continues 3L of supplemental oxygen with no shortness of breath while seated
-Per Infectious Disease, continue Doxycycline and cefdinir for 14 day total course with last day on 08/11/2025
-Continue to wean off supplemental Oxygen requirement as tolerated. Goal to keep O2 saturation above 88-92%. Will likely be discharged to SNF on O2
-Will monitor
#Orthostatic Hypotension
#Near-Syncope
-Patient experienced transient hypotension with lightheadedness two days ago during and following physical therapy and today following transfer back to her bed
-Orthostatic vital signs are as follows:
--Layin/61
--Sittin/50
--Standin/47
-Given history of hypotension requiring pressor support and reported history of falls, will monitor patient overnight to ensure no further episodes
-Discussed compression stockings and abdominal binder therapy with family
-START midodrine 2.5mg TID, potentially increase to 5mg if patient continues to be symptomatic
-Will monitor
#Left Upper Extremity Swelling
-Ordered US of the left upper extremity which was negative for thrombus
-Likely 2/2 to pacemaker placement, should resolve within a few days naturally
-Pacemaker site is covered by a bandage but is free of tenderness or associating redness
-Will continue to monitor for any change in symptoms including fevers, chills, increased swelling
#HFpEF (EF 65%), suspected exacerbation
#Moderate MS, mild MR, moderate
#Transaminitis, improving
-Echo 07/23/25: EF 65%, severely abnormal L atrial volume (>48ml/m2), moderate MS & . Likely experiencing acute on chronic HFpEF exacerbation in s/o arrhythmia, new LBBB. BNP elevated 8020. Elevation in AST and ALT likely in the setting of
congestion; downtrending/stabilizing s/p diuresis.
- Continue to wean off O2 NC as able. Currently she is on 3L O2.
- Will change 20mg lasix PO to every other day given orthostatic hypotension. On discharge, will have it scheduled as Monday, Monday, Monday for ease of administration
- Monitor I&Os & daily weights
- Continue holding home valsartan. On discharge, will continue to hold until she is followed up outpatient by her PCP
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
-Patient overnight to 07/23 became bradycardic with heart rate in the 10s, severe hypotension, lethargic, pale, nauseous; patient given 1 mg IV atropine, dopamine gtt., norepinephrine gtt. emergent temporary pacemaker was placed via right IJ
overnight 07/23. 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
- Pt off pressors. S/P temporary pacemaker 07/23. Permanent pacemaker was placed 07/24.
- Continue amiodarone 200mg daily
- Continue eliquis to 5mg bid (Home dose)
- Continue to hold Aspirin (Per cardiology not true ACS)
#Chronic Iron Deficiency Anemia
-Hemoglobin at baseline 8-9. During this hospital course she has downtrended to as low as 7.1 on 07/27.
-Vitamin B12 and Folate normal
-Continue to monitor H&H daily
-Continue home iron supplement
-Transfusion as needed for hemoglobin <7 (If she requires transfusion, will need consent)
-Will monitor
#R & L foot bilateral corns/callouses
#Severely overgrown R & L 2nd toenails
-Toenails growing over toe, at risk of breaking skin on underside of toe. Seen by podiatry 08/01 and treated.
- Follow-up w podiatry outpatient
#Confusion, AMS, c/f hospital-induced delirium; resolved
Altered mental status on morning of 07/24, likely 2/2 hospital-induced delirium with contribution by prior hemodynamic instability and emergent temporary pacer placement overnight on 07/23, old age, likely underlying dementia, lack of sleep, acute
hypoxic respiratory failure. Improved since 07/27 s/p sleeping w precedex.
- Family at bedside had been instructed to continue to reorient patient to place/time/location
- Optimize sleep as able
- Manage medical conditions as above
#Chronic
- Afib - Continue eliquis & amiodarone
- CAD s/p LAD PCI 2014 - continue statin
- HLD - continue statin
- Hypothyroidism - continue levothyroxine
- Post-herpetic neuralgia L flank - duloxetine 60mg daily
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
#Global
- DVT ppx: eliquis 5mg bid
- Diet: [id number]
- Code: full
- Dispo: Likely D/c tomorrow, will need another authorization from insurance, ([facility] and [facility])
Anticipated Discharge: Within 24 hours
Subjective/Interval History
-
Date of Service: August 06, 2025
Initially, patient was doing well when I arrived in the room. Her states that yesterday he noted her left forearm looked swollen compared to the right and compared to baseline. She had no complaints about this, and it was free of any pain,
warmth or tightness. She repeatedly flexed and slapped her arm to prove this point. She is generally free of lightheadedness, dizziness, fevers, chills, cough, shortness of breath or chest pain.
Later, I received notification from the nurse that while transferring back to her bed after getting an ultrasound of her left arm, she became weak of both legs, incontinent of the bowel and decreased responsiveness, requiring the staff to lift her
onto the bed. She quickly recovered and was able to remember 'feeling weak'. She did not fall thanks to the assistance of the two staff with her. When I returned to check on her, she reported feeling very good and denied syncope. She also denied
current lightheadedness or dizziness.
Objective Data
-
Labs:
Laboratory Results
08/06/25
06:47
WBC Pending
Hgb Pending
Hct Pending
Plt Count Pending
Vital Signs:
Vital Signs
Temp Pulse Resp BP Pulse Ox
97.5 F 70 14 118/51 98
08/05/25 23:33 08/05/25 23:33 08/05/25 23:33 08/05/25 23:33 08/05/25 23:33
I&O
08/05/25 08/06/25 08/07/25
06:59 06:59 06:59
Intake Total 420 / 420 480 / 480
Output Total 750 / 750 950 / 950
Balance -330 / -330 -470 / -470
Review of Systems
-
History Source: Patient
Constitutional: Reports Weakness (See HPI); Denies Fever, Fatigue or Chills
Respiratory: Denies Cough or Trouble Breathing
Cardiac: Denies Chest Pain, Palpitations or Syncope (see HPI)
Abdomen/GI: Denies Abdominal Pain, Nausea, Vomiting, Diarrhea or Bloated
Neuro: Denies Dizzy (See HPI), Headache, Weakness (See HPI) or Lightheadedness (See HPI)
Physical Exam
-
General: Well Developed, Well Nourished, No Apparent Distress and Comfortable
HEENT: Normocephalic and Atraumatic
Respiratory: Clear to Auscultation
Cardiac: Regular Rhythm and S1/S2
Musculoskeletal: Edema, Left Upper Extrem (From the wrist to the forearm without redness or tenderness of palpation)
Skin: Warm and Dry
Neuro: Awake, Alert and Oriented
Psych: Calm
[2025-08-06 07:24] LABS: Hematocrit 26.0 % (37.0-47.0); Hemoglobin 8.8 g/dL (12.0-16.0); Mean Corp Hgb Conc. 33.8 g/dL (33.0-37.0); Mean Corpuscular Volume 93.5 fL (81.0-99.0); Platelet Count 345 10^3/uL (130-400); Red Cell Dist. Width 18.6 % (11.5-14.5)
[2025-08-06] MEDS: FEOSOL 325 MG PO (07:59)
[2025-08-06] MEDS: VIBRAMYCIN 100 MG PO ×2 (07:59→21:27)
[2025-08-06] MEDS: TYLENOL 325 MG PO (07:59)
[2025-08-06] MEDS: CYMBALTA DELAYED RELEASE 60 MG PO (07:59)
[2025-08-06] MEDS: OMNICEF 300 MG PO ×2 (07:59→21:27)
[2025-08-06] MEDS: MIRALAX 17 GRAMS PO (08:00)
[2025-08-06] MEDS: LASIX 20 MG PO (08:00)
[2025-08-06] MEDS: PACERONE 200 MG PO (08:00)
[2025-08-06] MEDS: SENOKOT 8.6 MG PO (08:00)
[2025-08-06] MEDS: ELIQUIS 5 MG PO ×2 (08:00→21:27)
--- NOTE | 2025-08-06 10:04 | CM ---
Addendum entered by Linda Vernon 08/06/25 16:06:
[facility]
Report: [phone]

Addendum entered by Linda Vernon 08/06/25 14:24:
IMM presented to spouse. Pt resting comfortably.
Addendum entered by Linda Vernon 08/06/25 13:47:
Pt was initially discharge today however, D/C to [facility] after pt experienced a near syncopal episode in US department. Pt to start on midodrine. Family aware, [facility]. Pt continues on O2 at 3Lpm via n/c. Will need to auth
tomorrow; original auth ends 01/07/25. [facility] cannot guarantee a bed for 08/07/25. CM to touch base with [facility] at [place] tomorrow morning.
Pt will need an ambulance transfer when ready.
Plan:D/C to [facility] when stable
Original Note:
Chart reviewed. Met with , dtr and pt at bedside. Pt has new onset edema of L arm. Pt to have US this morning. [facility] aware- bed remains available. Will follow for discharge needs post US.
Plan: TBD post upper extremity US
--- NOTE | 2025-08-06 10:38 | W.PN.ID1 ---
Date of Service
Date of Service: August 06, 2025
Today's Communication
Continue cefdinir and doxycycline - plan a 14 day total course through 08/11
Assessment / Plan
Aspiration Pneumonitis vs ARDS vs Pneumonia
BECKA - notably improved
Leukocytosis; trending up
- Suspect steroid component
New AV block/LBBB
- S/p pacemaker
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
Recommendations:
Staph. hemolyticus (a coag. negative staph) recovered from sputum culture. Doubt causative agent of infiltrate given its relatively nonpathogenic nature.
Overall, patient appears and feels improved.
Continue cefdinir and doxycycline - plan a 14 day total course through 08/11
Follow clinically for improvement.
����������������������������������������������������������
Chief Complaint
-: Other (pneumonitis)
Subjective / Review of Systems
afebrile
bp stable
remains on low dose of O2
tolerating current therapies
suspected phlebitis of the L arm
Vital Signs / Physical Exam
Vital Signs
Vital Signs
Temp Pulse Resp BP Pulse Ox
97.2 F 70 16 116/44 95
08/06/25 07:00 08/06/25 08:00 08/06/25 07:00 08/06/25 08:00 08/06/25 10:25
Physical Exam
Constitutional: No Acute Distress
Cardiovascular: Regular Rate and S1/S2; Negative Murmur or Rub
Pulmonary: Clear and Symmetric; Negative Wheezes or Rales
Gastrointestinal: Soft, Non Tender, Non Distended and Normal Bowel Sounds
Skin: Warm and Dry; Negative Rash or Jaundice
Objective Data
Lab Data
Lab Results
08/06/25 06:47
08/05/25 07:38
PT 26.5 Sec (11.4-14.6) H 07/27/25 03:26
INR 2.43 07/27/25 03:26
APTT 47.4 Sec (23.4-35.0) H 07/27/25 03:26
Estimated Creat Clear 37 ml/min 08/05/25 07:38
Lactic Acid 0.9 mmol/L (0.7-2.0) 07/25/25 04:29
Total Bilirubin 1.6 mg/dl (0.2-1.3) H 08/05/25 07:38
AST 52 U/L (14-36) H 08/05/25 07:38
ALT 66 U/L (0-35) H 08/05/25 07:38
Alkaline Phosphatase 89 U/L (38-126) 08/05/25 07:38
Most recent labs reviewed.
Micro Results:
07/31/25 08:59 Respiratory Culture - Final
Sputum Staphylococcus haemolyticus
Gram Stain - Final
07/30/25 12:23 MRSA Screen - Final
Nose No Methicillin Resistant Staphylococcus aureus isolated.
07/25/25 14:22 Blood Culture - Final
Blood/Venous No Growth - Final Report
07/25/25 14:22 Blood Culture - Final
Blood/Venous No Growth - Final Report
07/29/25 16:43 Nasal Screen MRSA (PCR) - Final
Nose
07/25/25 11:36 Urine Culture - Final
Urine NO GROWTH
07/26/25 04:34 Legionella Urinary Antigen - Final
Urine Negative for Legionella pneumophila Serogroup 1 antigen.
A negative result does not rule out the possiblity of
Legionella infection due to other serogroups or species of
Legionella. Clinical correlation is recommended.
Streptococcus pneumoniae Antigen (M - Final
Negative for Streptococcus pneumoniae antigen.
A negative result does not exclude infection with
Streptococcus pneumoniae. Clinical correlation is
recommended.
Imaging:
07/31/2025 CXR (portable): Persistent homogeneous opacity in the retrocardiac left lower lobe with obscuration of the left diaphragm and blunting left costophrenic angle, without significant change. Possible considerations include pulmonary
consolidation from pneumonia and probable pleural effusion.
[2025-08-06 11:48] VITALS: BP 109/42
--- NOTE | 2025-08-06 11:58 | PTCARENOTE ---
Pt transferring from stretcher to bed after US LUE; legs became very weak/pt with decreased responsiveness; incont BM. Pt lifted to bed- immediately awake; remembers 'feeling weak'. VS BP 109/42 HR 75. Pt not on telemetry. Dr. Treadwell
notified. Will continue to monitor.
[2025-08-06 13:15] VITALS: BP 121/59
--- NOTE | 2025-08-06 15:42 | PTCARENOTE ---
Pt AAO x3, VIEJAS; forgetful. BOYKIN; weak; able to transfer to [facility] early in shift; pt has been on bedrest since return from [place] dept d/t episode of possible orthostasis. VSS. Telemetry:Afib with V-pacing. Pt has +2 LUE edema- arm elevated on pillow;
circ/neuro check to LUE WNL. Maintained on nc 2 lpm- pulse ox 98%; pt with (+) slight RODRIGUEZ. Abd soft, rounded, denver PO; appetite fair. Voids yellow urine on bedpan. Resting in bed at present; no c/o; family at bedside. Will continue to monitor.
[2025-08-06] MEDS: LIPITOR 20 MG PO (17:41)
[2025-08-06 20:11] VITALS: BP 111/56
[2025-08-06] MEDS: SENOKOT PO (21:27)
[2025-08-06 23:47] VITALS: BP 123/46
[2025-08-07] VITALS (9 sets, daily range): BP systolic 83–142; BP diastolic 43–96; PULSE 70–99; O2SAT 95; BMI 23.6
[2025-08-07] MEDS: SYNTHROID 75 MCG PO (04:26)
--- NOTE | 2025-08-07 07:26 | W.PN.HOSP.TC ---
Addendum entered and electronically signed by Tavon Morgan MD 08/07/25 21:33:
Attending Addendum-
I saw and evaluated the patient. I reviewed the resident�s note and agree with findings and plan as documented in the resident�s note. Sub: Seen with . feels fatigued. Continues to have dizziness on standing. No CP aplps. Full 12 point ROS
reviewed and negative except as documented Exam: Vitals reviewed in chart GEN-NAD Heart RRR Chest- JELENA chest pacer site CDI, lungs decreased BS @ bases abd soft NT ND pos BS LE no edema LUE +1 pitting edema
Plan:
#Acute Hypoxic respiratory failure, 2/2 B/L PNA
- completed Prednisone->08/05
- cont cefdinir and doxy x 14 day->08/11
- wean off O2 for sats > 92%
# Orthostatic Hypotension
- cont lasix to MWF on DC
- hold valsartan
- increase midodrine, place abd binder and TEDS
- give NS bolus 250mls
- fall precautions
- cont tele
#HFpEF (EF 65%)
#Moderate MS, mild MR, moderate
#Transaminitis, improving
- change lasix to MWF
- Monitor I&Os & daily weights
- Continue holding home valsartan
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
- S/P temporary pacemaker-07/23, Permanent pacemaker-07/24.
- Continue amiodarone 200mg daily
- Continue eliquis 5mg bid
- wound care and LUE precaution instructions given
- f/u cards as OP
#Chronic Anemia
- Continue home iron supplement (325mg daily)
- Transfuse for Hgb <7
#Confusion, AMS, c/f hospital-induced delirium; resolved
#Chronic
- Afib - eliquis & amiodarone
- CAD s/p LAD PCI 2014 - continue statin
- HLD - continue statin
- Hypothyroidism - continue levothyroxine
- Post-herpetic neuralgia L flank - duloxetine 60mg daily
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
- DVT ppx: eliquis
- Code: full
- Dispo: lives at home with ; DC to [place] SNF in AM- OK to transport in van - DC cancelled 08/06,08/07- request new auth in am
Time spent coordinating care, review of plan of care with resident, personally reviewed records in EMR, med rec, consults, notes, labs, radiology, d/w nursing and family and CM � 52 mins
Original Note:
Today's Communication/Plan
-
Increase midodrine to 5mg
Ordered Abdominal Binder
Discharge planning today
Assessment / Plan
Assessment / Plan
This is an 89 y/o female with pmhx of This is an 89 y/o female with pmhx of atrial fibrillation on eliquis and amiodarone, heart failure with preserved EF, coronary artery disease disease who presented to the ED with dizziness and bilateral lower
extremity weakness culminating in a fall several days prior to admission. 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
#Hypoxic respiratory failure, likely 2/2 aspiration pneumonitis vs. aspiration PNA, Improving
-Briefly, patient with complicated hospital course thus far including transfer to ICU (Downgraded to IMU on 07/31 and to Telemetry on 08/01), BiPap (Discontinued on 08/01), supplemental oxygen (Still on 3L) and antibiotics (Doxycycline and Cefdinir)
-X-ray on 07/29 showed mild interstitial prominence, suggestive of mild pulmonary edema. Patchy opacities bilaterally, which may represent multifocal pneumonia or alveolar pulmonary edema. Small left pleural effusion
-CT Chest on 07/29 showed Findings suggesting severe bilateral pneumonia, greatest in RUL. ILD not excluded. Stable
-Today patient continues 2L of supplemental oxygen with no shortness of breath while seated
-Per Infectious Disease, continue Doxycycline and cefdinir for 14 day total course with last day on 08/11/2025
-Continue to wean off supplemental Oxygen requirement as tolerated. Goal to keep O2 saturation above 88-92%. Will likely be discharged to SNF on O2
-Will monitor
#Hyponatremia
#Hyperkalemia - Resolved
-Patient with new asymptomatic hyponatremia and hyperkalemia
-Sodium today 129
-Potassium today 5.4
-Ordered repeat BMP. Sodium now 130, potassium normal at 4.7
-Continue telemetry
#Orthostatic Hypotension
#Near-Syncope on 08/06
-Patient experienced transient hypotension with lightheadedness on 08/04 during and following physical therapy and on 08/06 following transfer back to her bed
-Orthostatic vital signs are as follows:
--Layin/61
--Sittin/50
--Standin/47
-Given history of hypotension requiring pressor support and reported history of falls, will monitor patient overnight to ensure no further episodes
-Discussed compression stockings and abdominal binder therapy with family. Ordered abdominal binder today prior to PT
-Increase midodrine 2.5mg TID to 5mg TID
-Will monitor
#Left Upper Extremity Swelling
-Ordered US of the left upper extremity on 08/06 which was negative for thrombus
-Likely 2/2 to pacemaker placement, should resolve within a few days naturally
-Pacemaker site is covered by a bandage but is free of tenderness or associating redness
-Will continue to monitor for any change in symptoms including fevers, chills, increased swelling
#HFpEF (EF 65%), suspected exacerbation
#Moderate MS, mild MR, moderate
#Transaminitis, improving
-Echo 07/23/25: EF 65%, severely abnormal L atrial volume (>48ml/m2), moderate MS & . Likely experiencing acute on chronic HFpEF exacerbation in s/o arrhythmia, new LBBB. BNP elevated 8020. Elevation in AST and ALT likely in the setting of
congestion; downtrending/stabilizing s/p diuresis.
- Continue to wean off O2 NC as able. Currently she is on 3L O2.
- Will change 20mg lasix PO to every other day given orthostatic hypotension. On discharge, will have it scheduled as Monday, Monday, Monday for ease of administration
- Monitor I&Os & daily weights
- Continue holding home valsartan. On discharge, will continue to hold until she is followed up outpatient by her PCP
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
-Patient overnight to 07/23 became bradycardic with heart rate in the 10s, severe hypotension, lethargic, pale, nauseous; patient given 1 mg IV atropine, dopamine gtt., norepinephrine gtt. emergent temporary pacemaker was placed via right IJ
overnight 07/23. 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
- Pt off pressors. S/P temporary pacemaker 07/23. Permanent pacemaker was placed 07/24.
- Continue amiodarone 200mg daily
- Continue eliquis to 5mg bid (Home dose)
- Continue to hold Aspirin (Per cardiology not true ACS)
#Chronic Iron Deficiency Anemia
-Hemoglobin at baseline 8-9. During this hospital course she has downtrended to as low as 7.1 on 07/27.
-Vitamin B12 and Folate normal
-Continue to monitor H&H daily
-Continue home iron supplement
-Transfusion as needed for hemoglobin <7 (If she requires transfusion, will need consent)
-Will monitor
#R & L foot bilateral corns/callouses
#Severely overgrown R & L 2nd toenails
-Toenails growing over toe, at risk of breaking skin on underside of toe. Seen by podiatry 08/01 and treated.
- Follow-up w podiatry outpatient
#Confusion, AMS, c/f hospital-induced delirium; resolved
Altered mental status on morning of 07/24, likely 2/2 hospital-induced delirium with contribution by prior hemodynamic instability and emergent temporary pacer placement overnight on 07/23, old age, likely underlying dementia, lack of sleep, acute
hypoxic respiratory failure. Improved since 07/27 s/p sleeping w precedex.
- Family at bedside had been instructed to continue to reorient patient to place/time/location
- Optimize sleep as able
- Manage medical conditions as above
#Chronic
- Afib - Continue eliquis & amiodarone
- CAD s/p LAD PCI 2014 - continue statin
- HLD - continue statin
- Hypothyroidism - continue levothyroxine
- Post-herpetic neuralgia L flank - duloxetine 60mg daily
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
#Global
- DVT ppx: eliquis 5mg bid
- Diet: [id number]
- Code: full
- Dispo: Likely D/c tomorrow, will need another authorization from insurance, (referrals placed to [facility] ([facility]) and [facility])
Anticipated Discharge: Within 24 hours
Subjective/Interval History
-
Date of Service: August 07, 2025
Patient was sitting comfortably with her at her beside. She denies any lightheadedness or dizziness, but her reports she has not been out of bed today. She remains free from shortness of breath, chest pain, nausea or constipation.
Her reports she has had more bowel movements recently than normal, which he attributes to her taking stool softeners frequently while in the hospital whereas she does not normally have to take as many at home
Objective Data
-
Labs:
Laboratory Results
08/07/25
06:10
WBC Pending
Hgb Pending
Hct Pending
Plt Count Pending
Sodium Pending
Potassium Pending
Chloride Pending
Carbon Dioxide Pending
BUN Pending
Creatinine Pending
Glucose Pending
Calcium Pending
Vital Signs:
Vital Signs
Temp Pulse Resp BP Pulse Ox
97.5 F 72 18 118/54 97
08/07/25 03:30 08/07/25 03:30 08/07/25 03:30 08/07/25 03:30 08/07/25 03:30
I&O
08/06/25 08/07/25 08/08/25
06:59 06:59 06:59
Intake Total 480 / 480 850 / 850
Output Total 950 / 950
Balance -470 / -470 850 / 850
Review of Systems
-
History Source: Patient and Family
Constitutional: Denies Fever, Fatigue, Chills or Weakness
Respiratory: Denies Cough or Trouble Breathing
Cardiac: Denies Chest Pain, Palpitations or Syncope
Abdomen/GI: Denies Abdominal Pain, Nausea, Vomiting or Constipated
Neuro: Denies Dizzy, Headache or Weakness
Physical Exam
-
General: Well Developed, Well Nourished, No Apparent Distress and Comfortable
HEENT: Normocephalic, Atraumatic and Oxygen (2L)
Respiratory: Clear to Auscultation
Cardiac: Regular Rhythm and S1/S2
Skin: Warm and Dry
Neuro: Awake and Alert
Psych: Calm
[2025-08-07 07:31] LABS: Hematocrit 26.3 % (37.0-47.0); Hemoglobin 9.0 g/dL (12.0-16.0); Mean Corp Hgb Conc. 34.2 g/dL (33.0-37.0); Mean Corpuscular Volume 91.0 fL (81.0-99.0); Platelet Count 347 10^3/uL (130-400); Red Cell Dist. Width 18.5 % (11.5-14.5)
[2025-08-07 08:00] LABS: Blood Urea Nitrogen 56 mg/dl (7-17); Calcium 9.0 mg/dl (8.4-10.2); Carbon Dioxide 32 mmol/L (22-30); Chloride 97 mmol/L (98-107); Estimated Creatinine Clearance 34 ml/min; Glucose 65 mg/dl (70-99); Potassium 5.3 mmol/L (3.5-5.1); Sodium 129 mmol/L (135-145); eGFR 54.19
--- NOTE | 2025-08-07 08:42 | W.PN.ID1 ---
Date of Service
Date of Service: August 07, 2025
Today's Communication
Continue cefdinir and doxycycline - plan a 14 day total course through 08/11
Assessment / Plan
Aspiration Pneumonitis vs ARDS vs Pneumonia
BECKA - notably improved
Leukocytosis; trending up
- Suspect steroid component
New AV block/LBBB
- S/p pacemaker
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
Recommendations:
Staph. hemolyticus (a coag. negative staph) recovered from sputum culture. Doubt causative agent of infiltrate given its relatively nonpathogenic nature.
Continue cefdinir and doxycycline - plan a 14 day total course through 08/11
follow up with pcp
����������������������������������������������������������
Chief Complaint
-: Other (pneumonitis)
Subjective / Review of Systems
afebrile
remains on low dose o2 at 2L
discharge planning
Vital Signs / Physical Exam
Vital Signs
Vital Signs
Temp Pulse Resp BP Pulse Ox
97.5 F 72 18 118/54 97
08/07/25 03:30 08/07/25 03:30 08/07/25 03:30 08/07/25 03:30 08/07/25 03:30
Physical Exam
Constitutional: No Acute Distress
Cardiovascular: Regular Rate and S1/S2; Negative Murmur or Rub
Pulmonary: Clear and Symmetric; Negative Wheezes or Rales
Gastrointestinal: Soft, Non Tender, Non Distended and Normal Bowel Sounds
Skin: Warm and Dry; Negative Rash or Jaundice
Objective Data
Lab Data
Lab Results
08/07/25 06:10
08/07/25 06:10
PT 26.5 Sec (11.4-14.6) H 07/27/25 03:26
INR 2.43 07/27/25 03:26
APTT 47.4 Sec (23.4-35.0) H 07/27/25 03:26
Estimated Creat Clear 34 ml/min 08/07/25 06:10
Lactic Acid 0.9 mmol/L (0.7-2.0) 07/25/25 04:29
Total Bilirubin 1.6 mg/dl (0.2-1.3) H 08/05/25 07:38
AST 52 U/L (14-36) H 08/05/25 07:38
ALT 66 U/L (0-35) H 08/05/25 07:38
Alkaline Phosphatase 89 U/L (38-126) 08/05/25 07:38
Most recent labs reviewed.
Micro Results:
07/31/25 08:59 Respiratory Culture - Final
Sputum Staphylococcus haemolyticus
Gram Stain - Final
07/30/25 12:23 MRSA Screen - Final
Nose No Methicillin Resistant Staphylococcus aureus isolated.
07/25/25 14:22 Blood Culture - Final
Blood/Venous No Growth - Final Report
07/25/25 14:22 Blood Culture - Final
Blood/Venous No Growth - Final Report
07/29/25 16:43 Nasal Screen MRSA (PCR) - Final
Nose
07/25/25 11:36 Urine Culture - Final
Urine NO GROWTH
07/26/25 04:34 Legionella Urinary Antigen - Final
Urine Negative for Legionella pneumophila Serogroup 1 antigen.
A negative result does not rule out the possiblity of
Legionella infection due to other serogroups or species of
Legionella. Clinical correlation is recommended.
Streptococcus pneumoniae Antigen (M - Final
Negative for Streptococcus pneumoniae antigen.
A negative result does not exclude infection with
Streptococcus pneumoniae. Clinical correlation is
recommended.
Imaging:
07/31/2025 CXR (portable): Persistent homogeneous opacity in the retrocardiac left lower lobe with obscuration of the left diaphragm and blunting left costophrenic angle, without significant change. Possible considerations include pulmonary
consolidation from pneumonia and probable pleural effusion.
[2025-08-07] MEDS: TYLENOL 325 MG PO (08:52)
[2025-08-07] MEDS: CYMBALTA DELAYED RELEASE 60 MG PO (08:52)
[2025-08-07] MEDS: VIBRAMYCIN 100 MG PO ×2 (08:52→20:08)
[2025-08-07] MEDS: OMNICEF 300 MG PO ×2 (08:52→20:08)
[2025-08-07] MEDS: ELIQUIS 5 MG PO ×2 (08:52→20:08)
[2025-08-07] MEDS: FEOSOL 325 MG PO (08:53)
[2025-08-07] MEDS: PACERONE 200 MG PO (08:55)
[2025-08-07] MEDS: MIRALAX PO (08:56)
[2025-08-07] MEDS: SENOKOT PO ×2 (08:56→20:08)
--- NOTE | 2025-08-07 10:01 | W.PN.CARDCBS ---
Addendum entered and electronically signed by Landon Chávez DO 08/07/25 12:48:
I saw and examined the patient.
The Fur Buyer's note was reviewed and I agree with the note.
Comment:
Orthostatic hypotension, will give gentle IVF bolus
Continue midodrine for bp support
PPM functioning well
Hopeful stable for d/c next 24 hrs from cardiac standpoint
Reviewed with nursing and with primary service and at bedside.
Original Note:
Today's Communication / Plan
-
Small IVF bolus now
Cont midodrine
Impression / Plan
-
PCP: Dr. Morales
Cardiology: Dr. MAGDA Cabrera
Impression:
Admitted with new AV block, LBBB and BECKA 07/23/25
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
s/p temporary pacing wire placed in [employer] 07/23/2025
Status post [employer] pacemaker with Dr. Anderson 07/24/2025, AV paced.
BECKA, improved
Elevated Troponin peak 0.3 on 07/24/25
Acute HFpEF
Paroxysmal Afib with RVR
Chronic Eliquis OAC
CAD s/p prox LAD PCI 2014
widely patent LAD stent by cath 03/29/22
Hypothyroidism
Moderate MS and trace MR by echo 05/27/24
Mild AR/
History of Follicular lymphoma
Rituxan infusion
Orthostasis
Full code
Lexiscan mibi 03/04/19: Completed 4:10 min Chandan protocol reaching 87% MPHR, normal perfusion imaging
Echo 05/2021: EF 60-65%, severe LA enlargement, mild MS (02/07) mild (03/10) ANGELINA 1.7cm2
Echo 03/28/22: EF 68%, stage II diastolic dysfunction, mild to mod MS peak/mean 15/8 mmHg and pressure halftime 1.7 cm sq, mild MR, mild with peak/mean 26/14 mmHg and ANGELINA 2.0 cm sq
Echo 05/27/2024: EF 55 to 60%, normal RV size and function, moderate MS with mean transmitral gradient 8 mmHg, trace MR, mild peak/mean 29/16 mmHg and ANGELINA 1.5 cm sq
Echo 07/23/25: EF 65%, no WMA, moderate peak/mean 48/25 mmHg and ANGELINA 1.4 cm sq, mild TR, moderate MS peak/mean 25/13 mmHg, mild MR
Plan:
-Events from 08/06/2025 evening reviewed by me, patient had LUE swelling, likely from previous IV site infiltration, that was being evaluated with U/S and while in that department the patient had leg weakness and near syncope. Patient is orthostatic
and there was evidence of orthostasis last week as well. Reviewed with patient's on 08/07/2025 decrease in Lasix dosing, addition of midodrine and the plans for a small IVF bolus. Patient seen by me while working with PT on 08/07/2025 and
while sitting at bedside her SBP dropped to 80 and she had leg pain and weakness.
-NSS 250 ml bolus x1 now ordered by me 08/07/25
-New to midodrine 2.5 mg TID starting 08/06/2020 5 in the afternoon
-Outpatient dose of valsartan 80 mg AM/40 mg p.m. daily placed is on hold due to BECKA on admission and current hypotension
-Patient was diuresed with Lasix IV for acute HF on admission. Prior to admission patient was taking Lasix 20 mg PO daily and dose now reduced to 20 mg every other day due to hypotension
-EF preserved at 65% with moderate on echo 07/23/2025
-Outpatient dose of Eliquis 5 mg BID (age 89, Cre 1.0, wt 62kg) has been resumed following PPM placement
-Patient with known paroxysmal A-fib and remains AV paced
-Outpatient dose of amiodarone 200 mg daily has been
-Left ACW implant site inspected by me on 08/07/2025 and there is no drainage, overlying bandages are dry and intact, minimal ecchymosis and no hematoma.
-Troponin peaked at 0.3 was managed as a nonischemic myocardial injury troponin elevation
-There was consideration for cardiac catheterization, but ultimately deferred this admission given significant comorbidities, BECKA, anemia and overall preserved EF.
-Plan is for eventual rehab prior to returning home and would recommend optimization of orthostasis prior to transfer to decrease risk of rapid readmission
HPI: Patient came to the hospital today for acute on chronic weakness and is being admitted with 2-1 AV block and cardiology is consulted. Patient and report that she has felt intermittently unwell for the last 3 to 4 weeks. They describe
that at times she is almost bedridden with fatigue and weakness and had a fall about 10 days ago. Then other times she has more energy and is able to eat and drink close to normal, but for the most part has not left her house in the last 3 to 4
weeks. Patient seemed to be feeling better for the last 2 days and thought she may have turned a corner, and then today she stood up and suddenly felt profoundly weak, but no loss of consciousness and so her brought her to the emergency
room. ECG looks like 2-1 AV block and new LBBB. Patient has a history of paroxysmal A-fib and is chronically on amiodarone 200 mg daily. Patient took her usual dose of amiodarone plus Eliquis this morning.
Progress Note - Supervisor [employer] Processing
Subjective
Date of Service: August 07, 2025
Her legs hurt and she feels weak sitting on the side of the bed
Objective
Labs:
08/07/25 06:10
Labs
Hgb 9.0 g/dL (12.0-16.0) L 08/07/25 06:10
Hct 26.3 % (37.0-47.0) L 08/07/25 06:10
Plt Count 347 10^3/uL (130-400) 08/07/25 06:10
PT 26.5 Sec (11.4-14.6) H 07/27/25 03:26
INR 2.43 07/27/25 03:26
APTT 47.4 Sec (23.4-35.0) H 07/27/25 03:26
Sodium 129 mmol/L (135-145) L D 08/07/25 06:10
Potassium 5.3 mmol/L (3.5-5.1) H 08/07/25 06:10
BUN 56 mg/dl (7-17) H 08/07/25 06:10
Creatinine 1.0 mg/dL (0.6-1.0) 08/07/25 06:10
Glucose 65 mg/dl (70-99) L 08/07/25 06:10
Vital Signs and I&O:
Vital Signs
Temp Pulse Resp BP Pulse Ox
97.5 F 82 18 111/74 97
08/07/25 07:00 08/07/25 08:55 08/07/25 07:00 08/07/25 08:55 08/07/25 07:00
Vital Signs
Temp Pulse Resp BP Pulse Ox
97.5 F 82 18 111/74 97
08/07/25 07:00 08/07/25 08:55 08/07/25 07:00 08/07/25 08:55 08/07/25 07:00
Intake & Output
08/05/25 08/06/25 08/07/25 08/08/25
06:59 06:59 06:59 06:59
Intake Total 420 / 420 480 / 480 850 / 850
Output Total 750 / 750 950 / 950
Balance -330 / -330 -470 / -470 850 / 850
Physical Exam
Physical Exam
GEN: NAD. AAO x3
LUNGS: 2 L NC. Clear anterolaterally without wheeze
CV: V paced.
[2025-08-07 10:50] LABS: Blood Urea Nitrogen 54 mg/dl (7-17); Calcium 8.9 mg/dl (8.4-10.2); Carbon Dioxide 31 mmol/L (22-30); Chloride 97 mmol/L (98-107); Estimated Creatinine Clearance 34 ml/min; Glucose 110 mg/dl (70-99); Potassium 4.7 mmol/L (3.5-5.1); Sodium 130 mmol/L (135-145); eGFR 54.19
--- NOTE | 2025-08-07 11:08 | CM ---
Addendum entered by Linda Vernon 08/07/25 16:24:
contacted and would like a referral placed to [facility]. Will send referral today.
Addendum entered by Linda Vernon 08/07/25 16:13:
Update on [facility] authorization
[facility]
Auth # [id number]
call reference # [id number]
approved start date 08/05 with NRD 08/10 (new)
care support representative- Maxi Miller
fax# [phone]
Addendum entered by Linda Vernon 08/07/25 15:38:
Possible D/C tomorrow if stable. In light of [facility] unable to confirm bed availability for tomorrow; CM suggested look at other SNF options as a back up plan. Medicare [employer]gov resources for SNFs near [place] provided to
. is currently visiting a couple from that resource list. Dtr made aware of discharge plans as stated.
Addendum entered by Linda Vernon 08/07/25 13:47:
Updated clinicals sent to [facility] for review.
Original Note:
Reviewed chart. Met with spouse to discuss discharge plans - on hold at this time due to unstable BPs upon standing. Spouse aware that we will not pursue bed availability at [facility] until there a path for D/C. Remains on O2.
Plan: D/C to SNF when stable
[2025-08-07] MEDS: NSS 250 IV (12:28)
[2025-08-07] MEDS: LIPITOR 20 MG PO (17:33)
[2025-08-08] VITALS (8 sets, daily range): BP systolic 63–158; BP diastolic 41–64; PULSE 70; O2SAT 98; BMI 23.9
[2025-08-08] MEDS: SYNTHROID 75 MCG PO (05:50)
--- NOTE | 2025-08-08 07:15 | W.PN.HOSP.TC ---
Addendum entered and electronically signed by Tavon Morgan MD 08/08/25 21:52:
Attending Addendum-
I saw and evaluated the patient. I reviewed the resident�s note and agree with findings and plan as documented in the resident�s note. Sub: Seen with . feels fatigued and weak. no further dizziness on standing. No CP palps. Full 12 point ROS
reviewed and negative except as documented Exam: Vitals reviewed in chart GEN-NAD Heart RRR Chest- JELENA chest pacer site CDI, lungs decreased BS @ bases abd soft NT ND pos BS LE no edema LUE trace edema
Plan:
#Acute Hypoxic respiratory failure, 2/2 B/L PNA
- completed Prednisone->08/05
- cont cefdinir and doxy x 14 days->08/11
- wean off O2 for sats > 92%
# Orthostatic Hypotension
- cont lasix to MWF on DC
- hold valsartan
- cont midodrine, place abd binder and TEDS
- given NS bolus 250mls and sodium dropped
- fall precautions
- cont tele
# Hyponatremia-acute on chronic
- euvolemic, baseline @ 130
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
- repeat BMP in am
#HFpEF (EF 65%)
#Moderate MS, mild MR, moderate
#Transaminitis, improving
- changed lasix to MWF
- Monitor I&Os & daily weights
- Continue holding home valsartan
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
- S/P temporary pacemaker-07/23, Permanent pacemaker-07/24.
- Continue amiodarone 200mg daily
- Continue eliquis 5mg bid
- wound care and LUE precaution instructions given
- f/u cards as OP
#Chronic Anemia
- Continue home iron supplement (325mg daily)
- Transfuse for Hgb <7
#Confusion, AMS, c/f hospital-induced delirium; resolved
#Chronic
- Afib - eliquis & amiodarone
- CAD s/p LAD PCI 2014 - continue statin
- HLD - continue statin
- Hypothyroidism - continue levothyroxine
- Post-herpetic neuralgia L flank - duloxetine 60mg daily
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
- DVT ppx: eliquis
- Code: full
- Dispo: lives at home with ; medically stable for DC to SNF-auth obtained- no beds at [facility] with bed on monday- DC in am
Time spent coordinating care, review of plan of care with resident, personally reviewed records in EMR, med rec, consults, notes, labs, radiology, d/w nursing and family pharmacy and CM � 53 mins
Original Note:
Today's Communication/Plan
-
1500mL fluid restriction
Discharge planning
Assessment / Plan
Assessment / Plan
This is an 89 y/o female with pmhx of This is an 89 y/o female with pmhx of atrial fibrillation on eliquis and amiodarone, heart failure with preserved EF, coronary artery disease disease who presented to the ED with dizziness and bilateral lower
extremity weakness culminating in a fall several days prior to admission. 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
#Hypoxic respiratory failure, likely 2/2 aspiration pneumonitis vs. aspiration PNA, Improving
-Briefly, patient with complicated hospital course thus far including transfer to ICU (Downgraded to IMU on 07/31 and to Telemetry on 08/01), BiPap (Discontinued on 08/01), supplemental oxygen (Still on 3L) and antibiotics (Doxycycline and Cefdinir)
-X-ray on 07/29 showed mild interstitial prominence, suggestive of mild pulmonary edema. Patchy opacities bilaterally, which may represent multifocal pneumonia or alveolar pulmonary edema. Small left pleural effusion
-CT Chest on 07/29 showed Findings suggesting severe bilateral pneumonia, greatest in RUL. ILD not excluded. Stable
-Today patient continues 2L of supplemental oxygen with no shortness of breath while seated
-Per Infectious Disease, continue Doxycycline and cefdinir for 14 day total course with last day on 08/11/2025
-Continue to wean off supplemental Oxygen requirement as tolerated. Goal to keep O2 saturation above 88-92%. Will likely be discharged to SNF on O2
-Will monitor
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
#Hyperkalemia - Resolved
-Patient with new asymptomatic hyponatremia and hyperkalemia this visit, but history of chronic asymptomatic hyponatremia requiring Lasix treatment dating back to 2021
-Lasix has been changed to once every other day due to hypotension and dizziness
-Sodium today on repeat 128
-Potassium today on repeat 4.9
-Added fluid restriction of 1500mL to diet
-Continue Lasix every other day
-Continue telemetry
#Orthostatic Hypotension
#Near-Syncope on 08/06
-Patient experienced transient hypotension with lightheadedness on 08/04 during and following physical therapy and on 08/06 following transfer back to her bed
-Orthostatic vital signs are as follows:
--Layin/61
--Sittin/50
--Standin/47
-Given history of hypotension requiring pressor support and reported history of falls, will monitor patient overnight to ensure no further episodes
-Discussed compression stockings and abdominal binder therapy with family.
-Continue midodrine 5mg TID
-Will monitor
#Left Upper Extremity Swelling, Improving
-Ordered US of the left upper extremity on 08/06 which was negative for thrombus
-Likely 2/2 to pacemaker placement, should resolve within a few days naturally
-Pacemaker site is covered by a bandage but is free of tenderness or associating redness
-Will continue to monitor for any change in symptoms including fevers, chills, increased swelling
#HFpEF (EF 65%), suspected exacerbation
#Moderate MS, mild MR, moderate
#Transaminitis, improving
-Echo 07/23/25: EF 65%, severely abnormal L atrial volume (>48ml/m2), moderate MS & . Likely experiencing acute on chronic HFpEF exacerbation in s/o arrhythmia, new LBBB. BNP elevated 8020. Elevation in AST and ALT likely in the setting of
congestion; downtrending/stabilizing s/p diuresis.
- Continue to wean off O2 NC as able. Currently she is on 3L O2.
- Will change 20mg lasix PO to every other day given orthostatic hypotension. On discharge, will have it scheduled as Monday, Monday, Monday for ease of administration
- Monitor I&Os & daily weights
- Continue holding home valsartan. On discharge, will continue to hold until she is followed up outpatient by her PCP
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
-Patient overnight to 07/23 became bradycardic with heart rate in the 10s, severe hypotension, lethargic, pale, nauseous; patient given 1 mg IV atropine, dopamine gtt., norepinephrine gtt. emergent temporary pacemaker was placed via right IJ
overnight 07/23. 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
- Pt off pressors. S/P temporary pacemaker 07/23. Permanent pacemaker was placed 07/24.
- Continue amiodarone 200mg daily
- Continue eliquis to 5mg bid (Home dose)
- Continue to hold Aspirin (Per cardiology not true ACS)
#Chronic Iron Deficiency Anemia
-Hemoglobin at baseline 8-9. During this hospital course she has downtrended to as low as 7.1 on 07/27.
-Vitamin B12 and Folate normal
-Continue to monitor H&H daily
-Continue home iron supplement
-Transfusion as needed for hemoglobin <7 (If she requires transfusion, will need consent)
-Will monitor
#R & L foot bilateral corns/callouses
#Severely overgrown R & L 2nd toenails
-Toenails growing over toe, at risk of breaking skin on underside of toe. Seen by podiatry 08/01 and treated.
- Follow-up w podiatry outpatient
#Confusion, AMS, c/f hospital-induced delirium; resolved
Altered mental status on morning of 07/24, likely 2/2 hospital-induced delirium with contribution by prior hemodynamic instability and emergent temporary pacer placement overnight on 07/23, old age, likely underlying dementia, lack of sleep, acute
hypoxic respiratory failure. Improved since 07/27 s/p sleeping w precedex.
- Family at bedside had been instructed to continue to reorient patient to place/time/location
- Optimize sleep as able
- Manage medical conditions as above
#Chronic
- Afib - Continue eliquis & amiodarone
- CAD s/p LAD PCI 2014 - continue statin
- HLD - continue statin
- Hypothyroidism - continue levothyroxine
- Post-herpetic neuralgia L flank - duloxetine 60mg daily
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
#Global
- DVT ppx: eliquis 5mg bid
- Diet: [id number]
- Code: full
- Dispo: Likely D/c tomorrow, will need another authorization from insurance, (referrals placed to [facility]) and [facility])
Anticipated Discharge: Within 24 hours
Subjective/Interval History
-
Date of Service: August 08, 2025
Patient is doing well today. She continues to deny dizziness or lightheadedness. Her , who is at the bedside, states that she has not been out of bed this morning. She was wearing an abdominal binder for most of the day yesterday, but took it
off to sleep.
Objective Data
-
Labs:
Laboratory Results
08/08/25
06:00
WBC Pending
Hgb Pending
Hct Pending
Plt Count Pending
Sodium Pending
Potassium Pending
Chloride Pending
Carbon Dioxide Pending
BUN Pending
Creatinine Pending
Glucose Pending
Calcium Pending
Vital Signs:
Vital Signs
Temp Pulse Resp BP Pulse Ox
97.5 F 72 18 118/51 96
08/08/25 03:45 08/08/25 03:45 08/08/25 03:45 08/08/25 03:45 08/08/25 03:45
I&O
08/07/25 08/08/25 08/09/25
06:59 06:59 06:59
Intake Total 850 / 850 370 / 370
Output Total 400 / 400
Balance 850 / 850 -30 / -30
Physical Exam
-
General: Well Developed, Well Nourished, No Apparent Distress and Comfortable
HEENT: Normocephalic and Atraumatic
Respiratory: Clear to Auscultation
Cardiac: Regular Rhythm and S1/S2
Musculoskeletal: Edema, Left Upper Extrem (Decreased)
Skin: Warm and Dry
Neuro: Awake and Alert
Psych: Calm
[2025-08-08 08:11] LABS: Hematocrit 26.5 % (37.0-47.0); Hemoglobin 9.1 g/dL (12.0-16.0); Mean Corp Hgb Conc. 34.3 g/dL (33.0-37.0); Mean Corpuscular Volume 90.8 fL (81.0-99.0); Platelet Count 367 10^3/uL (130-400); Red Cell Dist. Width 18.5 % (11.5-14.5)
[2025-08-08] MEDS: ELIQUIS 5 MG PO ×2 (08:33→20:19)
[2025-08-08] MEDS: VIBRAMYCIN 100 MG PO ×2 (08:33→20:19)
[2025-08-08] MEDS: OMNICEF 300 MG PO ×2 (08:33→20:19)
[2025-08-08] MEDS: CYMBALTA DELAYED RELEASE 60 MG PO (08:33)
[2025-08-08] MEDS: MIRALAX PO (08:33)
[2025-08-08] MEDS: FEOSOL 325 MG PO (08:34)
[2025-08-08] MEDS: SENOKOT PO ×2 (08:34→20:19)
[2025-08-08] MEDS: PACERONE 200 MG PO (08:34)
[2025-08-08] MEDS: LASIX 20 MG PO (08:34)
[2025-08-08] MEDS: FLUSH (NSS) 1 FLUSH IV (08:35)
[2025-08-08] MEDS: TYLENOL 325 MG PO (08:35)
--- NOTE | 2025-08-08 08:44 | W.PN.CARDCBS ---
Today's Communication / Plan
-
Seems better today. Continue midodrine 5 mg p.o. 3 times daily and blood pressure stable.
Continue activity and follow orthostasis symptoms.
Would continue Lasix 20 mg p.o. every other day
No DVT in left upper extremity. Continue supportive care for edema.
Continue to hold Diovan.
Continue amiodarone and Eliquis for PAF.
From a cardiac standpoint if orthostasis symptoms are improved today, we would be okay for transfer to rehab.
Impression / Plan
-
PCP: Dr. Morales
Cardiology: Dr. MAGDA Cabrera
Impression:
Admitted with new AV block, LBBB and BECKA 07/23/25
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
s/p temporary pacing wire placed in Spr[employer] 07/23/2025
Status post [employer] pacemaker with Dr. Anderson 07/24/2025, AV paced.
BECKA, improved
Elevated Troponin peak 0.3 on 07/24/25
Acute HFpEF
Paroxysmal Afib with RVR
Chronic Eliquis OAC
CAD s/p prox LAD PCI 2014
widely patent LAD stent by cath 03/29/22
Hypothyroidism
Moderate MS and trace MR by echo 05/27/24
Mild AR/
History of Follicular lymphoma
Rituxan infusion
Orthostasis
Full code
Lexiscan mibi 03/04/19: Completed 4:10 min Chandan protocol reaching 87% MPHR, normal perfusion imaging
Echo 05/2021: EF 60-65%, severe LA enlargement, mild MS (02/07) mild (03/10) ANGELINA 1.7cm2
Echo 03/28/22: EF 68%, stage II diastolic dysfunction, mild to mod MS peak/mean 15/8 mmHg and pressure halftime 1.7 cm sq, mild MR, mild with peak/mean 26/14 mmHg and ANGELINA 2.0 cm sq
Echo 05/27/2024: EF 55 to 60%, normal RV size and function, moderate MS with mean transmitral gradient 8 mmHg, trace MR, mild peak/mean 29/16 mmHg and ANGELINA 1.5 cm sq
Echo 07/23/25: EF 65%, no WMA, moderate peak/mean 48/25 mmHg and ANGELINA 1.4 cm sq, mild TR, moderate MS peak/mean 25/13 mmHg, mild MR
Plan:
-Overall improving. Blood pressure seems better and denies any further dizziness. Ultrasound of left upper extremity with no DVT.
-Outpatient dose of valsartan 80 mg AM/40 mg p.m. daily placed is on hold due to BECKA on admission and hypotension
-Hyponatremia appears stable. Continue to follow
-Patient was diuresed with Lasix IV for acute HF on admission. Prior to admission patient was taking Lasix 20 mg PO daily and dose now reduced to 20 mg every other day due to hypotension
-EF preserved at 65% with moderate on echo 07/23/2025
-Outpatient dose of Eliquis 5 mg BID (age 89, Cre 1.0, wt 62kg) has been resumed following PPM placement
-Patient with known paroxysmal A-fib and remains AV paced
-Outpatient dose of amiodarone 200 mg daily has been resumed
-Left ACW implant site inspected by me on 08/07/2025 and there is no drainage, overlying bandages are dry and intact, minimal ecchymosis and no hematoma.
-Troponin peaked at 0.3 was managed as a nonischemic myocardial injury troponin elevation
-There was consideration for cardiac catheterization, but ultimately deferred this admission given significant comorbidities, BECKA, anemia and overall preserved EF.
-Plan is for eventual rehab prior to returning home and would recommend optimization of orthostasis prior to transfer to decrease risk of rapid readmission
HPI: Patient came to the hospital today for acute on chronic weakness and is being admitted with 2-1 AV block and cardiology is consulted. Patient and report that she has felt intermittently unwell for the last 3 to 4 weeks. They describe
that at times she is almost bedridden with fatigue and weakness and had a fall about 10 days ago. Then other times she has more energy and is able to eat and drink close to normal, but for the most part has not left her house in the last 3 to 4
weeks. Patient seemed to be feeling better for the last 2 days and thought she may have turned a corner, and then today she stood up and suddenly felt profoundly weak, but no loss of consciousness and so her brought her to the emergency
room. ECG looks like 2-1 AV block and new LBBB. Patient has a history of paroxysmal A-fib and is chronically on amiodarone 200 mg daily. Patient took her usual dose of amiodarone plus Eliquis this morning.
Progress Note - Retail Account Specialist
Subjective
Date of Service: August 08, 2025
Resting in bed. Denies any dizziness overnight. Denies chest pains.
Objective
Labs:
08/08/25 07:30
Labs
Hgb 9.1 g/dL (12.0-16.0) L 08/08/25 07:30
Hct 26.5 % (37.0-47.0) L 08/08/25 07:30
Plt Count 367 10^3/uL (130-400) 08/08/25 07:30
PT 26.5 Sec (11.4-14.6) H 07/27/25 03:26
INR 2.43 07/27/25 03:26
APTT 47.4 Sec (23.4-35.0) H 07/27/25 03:26
Sodium 130 mmol/L (135-145) L 08/07/25 10:23
Potassium 4.7 mmol/L (3.5-5.1) 08/07/25 10:23
BUN 54 mg/dl (7-17) H 08/07/25 10:23
Creatinine 1.0 mg/dL (0.6-1.0) 08/07/25 10:23
Glucose 110 mg/dl (70-99) H 08/07/25 10:23
Vital Signs and I&O:
Vital Signs
Temp Pulse Resp BP Pulse Ox
97.5 F 78 18 121/49 94
08/08/25 03:45 08/08/25 08:35 08/08/25 03:45 08/08/25 08:35 08/08/25 08:30
Vital Signs
Temp Pulse Resp BP Pulse Ox
97.5 F 78 18 121/49 94
08/08/25 03:45 08/08/25 08:35 08/08/25 03:45 08/08/25 08:35 08/08/25 08:30
Intake & Output
08/06/25 08/07/25 08/08/25 08/09/25
06:59 06:59 06:59 06:59
Intake Total 480 / 480 850 / 850 370 / 370
Output Total 950 / 950 400 / 400
Balance -470 / -470 850 / 850 -30 / -30
Physical Exam
Physical Exam
GEN: No distress, awake, Ox3
HEENT: supple, anicteric, mmm
LUNGS: CTA, no wheezes/rales
CV: Reg, S1/S2, 1/6 syst LSB, no gallop
ABD: soft, BS+, NT/ND
EXT: No edema
NEURO: Gross non-focal
SKIN: L chest wall pacer site stable
[2025-08-08 08:47] LABS: Blood Urea Nitrogen 51 mg/dl (7-17); Calcium 9.1 mg/dl (8.4-10.2); Carbon Dioxide 30 mmol/L (22-30); Chloride 95 mmol/L (98-107); Estimated Creatinine Clearance 37 ml/min; Glucose 71 mg/dl (70-99); Potassium 5.2 mmol/L (3.5-5.1); Sodium 127 mmol/L (135-145); eGFR > 60.00
--- NOTE | 2025-08-08 09:58 | W.PN.ID1 ---
Date of Service
Date of Service: August 08, 2025
Today's Communication
Continue cefdinir and doxycycline - plan a 14 day total course through 08/11
follow up with pcp
Assessment / Plan
Aspiration Pneumonitis vs ARDS vs Pneumonia
BECKA - notably improved
Leukocytosis; trending up
- Suspect steroid component
New AV block/LBBB
- S/p pacemaker
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
Recommendations:
Staph. hemolyticus (a coag. negative staph) recovered from sputum culture. Doubt causative agent of infiltrate given its relatively nonpathogenic nature.
Continue cefdinir and doxycycline - plan a 14 day total course through 08/11
follow up with pcp
����������������������������������������������������������
Chief Complaint
-: Other (pneumonitis)
Subjective / Review of Systems
remains afebrile
bp stable
on O2 low dose
tolerating current therapies
Vital Signs / Physical Exam
Vital Signs
Vital Signs
Temp Pulse Resp BP Pulse Ox
97.4 F 78 16 121/49 94
08/08/25 07:18 08/08/25 08:35 08/08/25 07:18 08/08/25 08:35 08/08/25 08:30
Physical Exam
Constitutional: No Acute Distress
Cardiovascular: Regular Rate and S1/S2; Negative Murmur or Rub
Pulmonary: Clear and Symmetric; Negative Wheezes or Rales
Gastrointestinal: Soft, Non Tender, Non Distended and Normal Bowel Sounds
Skin: Warm and Dry; Negative Rash or Jaundice
Objective Data
Lab Data
Lab Results
08/08/25 07:30
PT 26.5 Sec (11.4-14.6) H 07/27/25 03:26
INR 2.43 07/27/25 03:26
APTT 47.4 Sec (23.4-35.0) H 07/27/25 03:26
Estimated Creat Clear 37 ml/min 08/08/25 07:30
Lactic Acid 0.9 mmol/L (0.7-2.0) 07/25/25 04:29
Total Bilirubin 1.6 mg/dl (0.2-1.3) H 08/05/25 07:38
AST 52 U/L (14-36) H 08/05/25 07:38
ALT 66 U/L (0-35) H 08/05/25 07:38
Alkaline Phosphatase 89 U/L (38-126) 08/05/25 07:38
Most recent labs reviewed.
Micro Results:
07/31/25 08:59 Respiratory Culture - Final
Sputum Staphylococcus haemolyticus
Gram Stain - Final
07/30/25 12:23 MRSA Screen - Final
Nose No Methicillin Resistant Staphylococcus aureus isolated.
07/25/25 14:22 Blood Culture - Final
Blood/Venous No Growth - Final Report
07/25/25 14:22 Blood Culture - Final
Blood/Venous No Growth - Final Report
07/29/25 16:43 Nasal Screen MRSA (PCR) - Final
Nose
07/25/25 11:36 Urine Culture - Final
Urine NO GROWTH
07/26/25 04:34 Legionella Urinary Antigen - Final
Urine Negative for Legionella pneumophila Serogroup 1 antigen.
A negative result does not rule out the possiblity of
Legionella infection due to other serogroups or species of
Legionella. Clinical correlation is recommended.
Streptococcus pneumoniae Antigen (M - Final
Negative for Streptococcus pneumoniae antigen.
A negative result does not exclude infection with
Streptococcus pneumoniae. Clinical correlation is
recommended.
Imaging:
07/31/2025 CXR (portable): Persistent homogeneous opacity in the retrocardiac left lower lobe with obscuration of the left diaphragm and blunting left costophrenic angle, without significant change. Possible considerations include pulmonary
consolidation from pneumonia and probable pleural effusion.
[2025-08-08 10:25] LABS: Blood Urea Nitrogen 50 mg/dl (7-17); Calcium 9.0 mg/dl (8.4-10.2); Carbon Dioxide 34 mmol/L (22-30); Chloride 94 mmol/L (98-107); Estimated Creatinine Clearance 34 ml/min; Glucose 101 mg/dl (70-99); Potassium 4.9 mmol/L (3.5-5.1); Sodium 128 mmol/L (135-145); eGFR 54.19
--- NOTE | 2025-08-08 13:11 | CM ---
Addendum entered by Linda Vernon 08/08/25 13:55:
Family provided [facility] as a choice; referral made
Original Note:
Chart reviewed.
Met with and dtr, informed them that there were no beds available at [facility] until next week, nor are there any beds at [facility]. stated that if the pt is discharged he will appeal it. provided with a
another Important Message from Medicare. He understands he cannot appeal until/unless the doctor writes a D/C order is written. Shop Repairer, Leydi Braga aware of the situation. and dtr are currently speaking to Maria E the Patient
Experience Coordinator. Will continue to follow.
Plan: D/C to SNF when bed is available
--- NOTE | 2025-08-08 14:17 | CM ---
Addendum entered by Christina Braga 08/08/25 15:02:
Family Agreeable to [facility]
TC to [facility]im[facility] Spoke with Jennifer who stated auth is still good for start tomorrow with NRD 08/11.
transferred to Nelly who verified days and updated facility to [facility].
Auth # [id number]
call reference# [id number]
start date 08/09/25, NRD 08/11/25
Radha from [facility] given auth, she can accept early afternoon after 11 am.
Maxi from [facility] updated that patient will not be coming to [facility].
[facility]
Report#[id number]

Original Note:
Patient accepted to [facility] however no bed available until Monday. New auth would need to be initiated over the weekend.
Daughter reached out to Radha at [facility] and requested referral be sent.
CM spoke with Radha at [facility] and bed available at [facility] for tomorrow (Monday).
[facility] NPI# [id number]
Accepting MD NPI# [id number]
Family wants to visit prior to agreeing to facility.
Will initiate auth once family agrees.
report # [phone]
--- NOTE | 2025-08-08 15:41 | CM ---
IMM given and placed on chart. Ambulance transport forms completed. Note provided for maintenance clerk tomorrow to schedule ambulance for after 11 AM
--- NOTE | 2025-08-08 15:49 | PTCARENOTE ---
Pt AAO x3, AFOGNAK; forgetful at times. BOYKIN; OOB to chair/BSC with assist x1-2; pt c/o weakness with OOB activity. Pt ambulated few feet with PT; legs weak, BP decreased. Telemetry- A fib with V-pacing. Maintained on nc 2 lpm- pulse ox 99%, pt with
(+) RODRIGUEZ/tachypnea; denies SOB. Abd soft, rounded, [place] PO; no dysphagia /sx of aspiration noted. 1500 ml fl restriction reviewed with pt. Voids on BSC. Resting in bed at present; no c/o. Family at bedside. Will continue to [facility].i
[2025-08-08] MEDS: LIPITOR 20 MG PO (18:05)
[2025-08-09 03:00] VITALS: BP 142/67
[2025-08-09] MEDS: SYNTHROID 75 MCG PO (04:35)
[2025-08-09 04:40] VITALS: BMI 23.7
[2025-08-09 06:06] VITALS: BMI 24.3
[2025-08-09 07:12] VITALS: BP 109/47
--- NOTE | 2025-08-09 07:38 | W.PN.HOSP.TC ---
Today's Communication/Plan
-
Discharge planning
Assessment / Plan
Assessment / Plan
This is an 89 y/o female with pmhx of This is an 89 y/o female with pmhx of atrial fibrillation on eliquis and amiodarone, heart failure with preserved EF, coronary artery disease disease who presented to the ED with dizziness and bilateral lower
extremity weakness culminating in a fall several days prior to admission. 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
#Hypoxic respiratory failure, likely 2/2 aspiration pneumonitis vs. aspiration PNA, Improving
-Briefly, patient with complicated hospital course thus far including transfer to ICU (Downgraded to IMU on 07/31 and to Telemetry on 08/01), BiPap (Discontinued on 08/01), supplemental oxygen (Still on 3L) and antibiotics (Doxycycline and Cefdinir)
-X-ray on 07/29 showed mild interstitial prominence, suggestive of mild pulmonary edema. Patchy opacities bilaterally, which may represent multifocal pneumonia or alveolar pulmonary edema. Small left pleural effusion
-CT Chest on 07/29 showed Findings suggesting severe bilateral pneumonia, greatest in RUL. ILD not excluded. Stable
-Today patient continues 2L of supplemental oxygen with no shortness of breath while seated
-Per Infectious Disease, continue Doxycycline and cefdinir for 14 day total course with last day on 08/11/2025
-Continue to wean off supplemental Oxygen requirement as tolerated. Goal to keep O2 saturation above 88-92%. Will likely be discharged to SNF on O2
-Will monitor
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
#Hyperkalemia - Resolved
-Patient with new asymptomatic hyponatremia and hyperkalemia this visit, but history of chronic asymptomatic hyponatremia requiring Lasix treatment dating back to 2021
-Lasix has been changed to once every other day due to hypotension and dizziness
-Sodium today 128, stable
-Continue fluid restriction of 1500mL to diet. Counselled family on fluid restriction to continue after discharge and symptoms of hyponatremia to look for.
-Continue Lasix every other day
-Continue telemetry
#Orthostatic Hypotension
#Near-Syncope on 08/06
-Patient experienced transient hypotension with lightheadedness on 08/04 during and following physical therapy and on 08/06 following transfer back to her bed
-Orthostatic vital signs are as follows:
--Layin/61
--Sittin/50
--Standin/47
-Given history of hypotension requiring pressor support and reported history of falls, will monitor patient overnight to ensure no further episodes
-Discussed compression stockings and abdominal binder therapy with family.
-Continue midodrine 5mg TID
-Will monitor
#Left Upper Extremity Swelling, Improving
-Ordered US of the left upper extremity on 08/06 which was negative for thrombus
-Likely 2/2 to pacemaker placement, should resolve within a few days naturally
-Pacemaker site is covered by a bandage but is free of tenderness or associating redness
-Will continue to monitor for any change in symptoms including fevers, chills, increased swelling
#HFpEF (EF 65%), suspected exacerbation
#Moderate MS, mild MR, moderate
#Transaminitis, improving
-Echo 07/23/25: EF 65%, severely abnormal L atrial volume (>48ml/m2), moderate MS & . Likely experiencing acute on chronic HFpEF exacerbation in s/o arrhythmia, new LBBB. BNP elevated 8020. Elevation in AST and ALT likely in the setting of
congestion; downtrending/stabilizing s/p diuresis.
- Continue to wean off O2 NC as able. Currently she is on 3L O2.
- Will change 20mg lasix PO to every other day given orthostatic hypotension. On discharge, will have it scheduled as Monday, Monday, Monday for ease of administration
- Monitor I&Os & daily weights
- Continue holding home valsartan. On discharge, will continue to hold until she is followed up outpatient by her PCP
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
-Patient overnight to 07/23 became bradycardic with heart rate in the 10s, severe hypotension, lethargic, pale, nauseous; patient given 1 mg IV atropine, dopamine gtt., norepinephrine gtt. emergent temporary pacemaker was placed via right IJ
overnight 07/23. 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
- Pt off pressors. S/P temporary pacemaker 07/23. Permanent pacemaker was placed 07/24.
- Continue amiodarone 200mg daily
- Continue eliquis to 5mg bid (Home dose)
- Continue to hold Aspirin (Per cardiology not true ACS)
#Chronic Iron Deficiency Anemia
-Hemoglobin at baseline 8-9. During this hospital course she has downtrended to as low as 7.1 on 07/27.
-Vitamin B12 and Folate normal
-Continue to monitor H&H daily
-Continue home iron supplement
-Transfusion as needed for hemoglobin <7 (If she requires transfusion, will need consent)
-Will monitor
#R & L foot bilateral corns/callouses
#Severely overgrown R & L 2nd toenails
-Toenails growing over toe, at risk of breaking skin on underside of toe. Seen by podiatry 08/01 and treated.
- Follow-up w podiatry outpatient
#Confusion, AMS, c/f hospital-induced delirium; resolved
Altered mental status on morning of 07/24, likely 2/2 hospital-induced delirium with contribution by prior hemodynamic instability and emergent temporary pacer placement overnight on 07/23, old age, likely underlying dementia, lack of sleep, acute
hypoxic respiratory failure. Improved since 07/27 s/p sleeping w precedex.
- Family at bedside had been instructed to continue to reorient patient to place/time/location
- Optimize sleep as able
- Manage medical conditions as above
#Chronic
- Afib - Continue eliquis & amiodarone
- CAD s/p LAD PCI 2014 - continue statin
- HLD - continue statin
- Hypothyroidism - continue levothyroxine
- Post-herpetic neuralgia L flank - duloxetine 60mg daily
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
#Global
- DVT ppx: eliquis 5mg bid
- Diet: [id number]
- Code: full
- Dispo: D/ todayc
Anticipated Discharge: Today
Subjective/Interval History
-
Date of Service: August 09, 2025
Patient was sleeping in her bed when I arrived. By her 's report, she continues to be free of dizziness or lightheadedness, and was able to transfer back and forth from her chair yesterday without episode and use the commode without episode.
Patient awoke easily when I addressed her directly and requested to sit upright, and did so with assistance and without dizziness. They are excited at the prospect of discharge today.
Objective Data
-
Labs:
Laboratory Results
08/09/25
06:00
WBC Pending
Hgb Pending
Hct Pending
Plt Count Pending
Sodium Pending
Potassium Pending
Chloride Pending
Carbon Dioxide Pending
BUN Pending
Creatinine Pending
Glucose Pending
Calcium Pending
Vital Signs:
Vital Signs
Temp Pulse Resp BP Pulse Ox
97.1 F 57 12 142/67 96
08/09/25 03:00 08/09/25 03:00 08/09/25 03:00 08/09/25 03:00 08/09/25 03:00
I&O
08/08/25 08/09/25 08/10/25
06:59 06:59 06:59
Intake Total 370 / 370 840 / 840
Output Total 400 / 400
Balance -30 / -30 840 / 840
Review of Systems
-
History Source: Patient and Family
Constitutional: Denies Fever or Chills
Respiratory: Denies Cough or Trouble Breathing
Cardiac: Denies Chest Pain or Palpitations
Abdomen/GI: Denies Abdominal Pain, Nausea, Vomiting, Diarrhea or Constipated
Neuro: Denies Dizzy, Headache, Weakness or Lightheadedness
Physical Exam
-
General: Well Developed, Well Nourished, No Apparent Distress and Comfortable
HEENT: Normocephalic, Atraumatic and Oxygen (2L)
Respiratory: Clear to Auscultation
Cardiac: Regular Rhythm and S1/S2
GI: Soft, Nontender, Nondistended and Normal Bowel Sounds
Musculoskeletal: No Edema (Wearing compression socks)
Skin: Warm and Dry
Neuro: Awake and Alert
Psych: Calm
[2025-08-09 09:02] LABS: Hematocrit 26.6 % (37.0-47.0); Hemoglobin 8.8 g/dL (12.0-16.0); Mean Corp Hgb Conc. 33.1 g/dL (33.0-37.0); Mean Corpuscular Volume 91.1 fL (81.0-99.0); Platelet Count 355 10^3/uL (130-400); Red Cell Dist. Width 18.7 % (11.5-14.5)
[2025-08-09] MEDS: CYMBALTA DELAYED RELEASE 60 MG PO (09:24)
[2025-08-09] MEDS: ELIQUIS 5 MG PO (09:24)
[2025-08-09] MEDS: PACERONE 200 MG PO (09:26)
[2025-08-09] MEDS: OMNICEF 300 MG PO (09:26)
[2025-08-09] MEDS: TYLENOL 325 MG PO (09:27)
[2025-08-09] MEDS: VIBRAMYCIN 100 MG PO (09:27)
[2025-08-09] MEDS: FLUSH (NSS) 1 FLUSH IV (09:27)
[2025-08-09 09:56] LABS: Blood Urea Nitrogen 46 mg/dl (7-17); Calcium 8.8 mg/dl (8.4-10.2); Carbon Dioxide 32 mmol/L (22-30); Chloride 93 mmol/L (98-107); Estimated Creatinine Clearance 31 ml/min; Glucose 72 mg/dl (70-99); Potassium 4.7 mmol/L (3.5-5.1); Sodium 128 mmol/L (135-145); eGFR 48.33
[2025-08-09 11:20] VITALS: BP 131/60
[2025-08-09] MEDS: MIRALAX PO (11:28)
[2025-08-09] MEDS: SENOKOT PO (11:28)
[2025-08-09] MEDS: FEOSOL 325 MG PO (12:50)
[2025-08-09] MEDS: ZOFRAN 4 MG IV (13:40)
--- NOTE | 2025-08-09 14:45 | PTCARENOTE ---
Addendum entered by Lilia Marlow 08/09/25 17:27:
On reassessment post Zofran, pt stating that she is no longer nauseous and was able to eat a little for lunch.
Original Note:
Noted at 1330, that pt coughing producing clear mucus, stating that she feels nauseous. Pt did not eat anything yet for lunch. Pt just got up to the chair, denying any dizziness. Abdominal binder in place on person. Administered PRN Zofran IV and
discussed with Dr. Viramontes, Dr. Treadwell still ok with pt being discharged today. Updated pt, pt's of plan.
[2025-08-09 15:07] VITALS: BP 110/54
[2025-08-09] MEDS: LIPITOR 20 MG PO (17:34)
== END 2025-08-09 18:23 | DRG 242 ==
LOC: 4 EAST ACU 18:48
PROVIDERS: Internal Medicine; Internal Medicine Cardiovascular Disease; Nurse Practitioner; Nurse Practitioner Family; Nurse Practitioner Primary Care; Physician Assistant; Physician Assistant Medical; Student in an Organized Health Care Education/Training Program; ADMITTING PHYSICIAN Hospitalist; ATTENDING PHYSICIAN Internal Medicine; CONSULT PHYSICIAN Internal Medicine Cardiovascular Disease; CONSULT PHYSICIAN Internal Medicine Critical Care Medicine; CONSULT PHYSICIAN Podiatrist Foot & Ankle Surgery; CONSULT PHYSICIAN Student in an Organized Health Care Education/Training Program; EMERGENCY PHYSICIAN Emergency Medicine; FAMILY PHYSICIAN Family Medicine
PROC: 5A1223Z Performance of Cardiac Pacing, Continuous (ICD-10-PCS; 2025-07-23)
PROC: 02H63JZ Insertion of Pacemaker Lead into Right Atrium, Percutaneous Approach (ICD-10-PCS; 2025-07-24)
PROC: 02HK3JZ Insertion of Pacemaker Lead into Right Ventricle, Percutaneous Approach (ICD-10-PCS; 2025-07-24)
PROC: 0JH606Z Insertion of Pacemaker, Dual Chamber into Chest Subcutaneous Tissue and Fascia, Open Approach (ICD-10-PCS; 2025-07-24)
PROC: 5A09357 Assistance with Respiratory Ventilation, Less than 24 Consecutive Hours, Continuous Positive Airway Pressure (ICD-10-PCS; 2025-07-27)
PROC: 0HBRXZZ Excision of Toe Nail, External Approach (ICD-10-PCS; 2025-08-01)
DX: I44.2 Atrioventricular block, complete (principal); G93.41 Metabolic encephalopathy; I50.33 Acute on chronic diastolic (congestive) heart failure; J96.01 Acute respiratory failure with hypoxia; J69.0 Pneumonitis due to inhalation of food and vomit; R57.0 Cardiogenic shock; I21.A1 Myocardial infarction type 2; J96.22 Acute and chronic respiratory failure with hypercapnia; N17.9 Acute kidney failure, unspecified; E87.20 Acidosis, unspecified; B02.29 Other postherpetic nervous system involvement; J84.9 Interstitial pulmonary disease, unspecified; E22.2 Syndrome of inappropriate secretion of antidiuretic hormone; F05 Delirium due to known physiological condition; R00.1 Bradycardia, unspecified; I11.0 Hypertensive heart disease with heart failure; I48.0 Paroxysmal atrial fibrillation; I25.10 Atherosclerotic heart disease of native coronary artery without angina pectoris; I95.1 Orthostatic hypotension; I44.7 Left bundle-branch block, unspecified; I49.3 Ventricular premature depolarization; Q66.72 Congenital pes cavus, left foot; Q66.71 Congenital pes cavus, right foot; L84 Corns and callosities; L60.2 Onychogryphosis; R22.32 Localized swelling, mass and lump, left upper limb; E87.5 Hyperkalemia; D50.9 Iron deficiency anemia, unspecified; F03.90 Unspecified dementia, unspecified severity, without behavioral disturbance, psychotic disturbance, mood disturbance, and anxiety; R74.01 Elevation of levels of liver transaminase levels; E03.9 Hypothyroidism, unspecified; I08.3 Combined rheumatic disorders of mitral, aortic and tricuspid valves; E78.00 Pure hypercholesterolemia, unspecified; Z66 Do not resuscitate; I27.20 Pulmonary hypertension, unspecified; K21.9 Gastro-esophageal reflux disease without esophagitis; Z95.5 Presence of coronary angioplasty implant and graft; Z87.891 Personal history of nicotine dependence; Z79.01 Long term (current) use of anticoagulants; Z85.72 Personal history of non-Hodgkin lymphomas
CPT/HCPCS: 33208; 33210; 36600; 71045; 71250; 74230; 76770; 80048; 80053; 80202; 81003; 81015; 82248; 82607; 82728; 82746; 82805; 82962; 83010; 83036; 83540; 83605; 83615; 83735; 83880; 84100; 84145; 84443; 84484; 85014; 85018; 85025; 85027; 85610; 85730; 86618; 86850; 86900; 86901; 87040; 87070; 87086; 87147; 87186; 87205; 87449; 87641; 87899; 92526; 92610; 92611; 93005; 93306; 93308; 93321; 93325; 93971; 94640; 94660; 96365; 96366; 96367; 96375; 97110; 97116; 97163; 97167; 97530; 97535; 99291; J2358; P9047; Q9967

== ENCOUNTER 2025-08-18 23:41 | Inpatient (IN) | payer OTHER, SELFPAY ==
[2025-08-18 21:30] VITALS: BP 116/48
--- NOTE | 2025-08-18 21:30 | ED.GENMED ---
History of Present Illness
General
Chief Complaint: Fall
Source: patient, family and ambulance crew
Exam Limitations: none
Time Seen by Provider: 08/18/25 21:21
Nursing documentation reviewed up to this point in time: agreed with
History of Present Illness
History of Present Illness:
Note:
CHIEF COMPLAINT(S)
Fall with head injury.
HISTORY OF PRESENT ILLNESS
The patient is an 89-year-old female with a history of heart failure who experienced a fall on Monday night at approximately 11:40 PM. According to her daughter, the patient hit her head, but no immediate bruising was noted by the staff at the
center where she resides until later observations revealed a significant swelling on the back of her head. Her head became caught between the bed and the rail. The patient reports pain in her head, arm, and knee. She experiences some confusion,
confirmed by a conversation where she struggled to recall the year and month. She denies falling today and indicates the event occurred on a previous date.
PAST MEDICAL AND SURIGICAL HISTORY
The patient has a known history of heart failure.
ADDITIONAL HISTORY OBTAINED FROM SOURCES OTHER THAN THE PATIENT
Per the patients daughter, the patient had been on three liters of supplemental oxygen, increased to three and a half to four liters when participating in physical and occupational therapy. The fall was not witnessed, but the daughter noted the
injury while assisting her mother.
SOCIAL DETERMINANTS AFFECTING HEALTH
According to the daughter, the patient resides in a care facility, which impacts observational continuity as the staff failed to notice the head injury in a timely manner. There was some lack of immediate response following the fall regarding the
injury.
MEDICATIONS
The patient is on Lasix (furosemide) for her heart failure.
PHYSICAL EXAM
General: Alert, with some confusion noted.
Skin: Warm, dry. bruising bilateral elbows
Head: Notable swelling on the back of the head, significant size.
Neck: Supple, trachea midline.
Eye Ears, nose, mouth and throat: Oral mucosa moist.
Cardiovascular: Normal peripheral perfusion, No edema.
Respiratory: Respirations are non-labored.
Gastrointestinal: Abdomen nondistended.
Back: Normal range of motion, Normal alignment.
Musculoskeletal: Normal ROM, normal strength. Reports pain in arm and knee.
Neurological: Alert and oriented to person, but confusion regarding time and place was noted. No focal neurological deficits observed.
Psychiatric: Cooperative, appropriate mood & affect.
PLAN
A CT of the head and neck will be performed to evaluate the potential extent of injury following the fall. A chest X-ray has also been suggested to assess any concurrent issues from congestive heart failure. The plan includes maintaining close
observation to evaluate possible need for transfer to a trauma center.
DIFFERENTIAL DIAGNOSIS
The Differential Diagnosis includes, in no particular order and is not limited to:
- Head trauma
- Cerebral hemorrhage
- Concussion
- Contusion
- Dehydration
- Heart failure exacerbation
- Pneumonia
- Sepsis
- Urinary tract infection
- Medication side effects/overdose
CARE-UPDATE
08/18/25 - 23:05
The patients shortness of breath and hypoxia are attributed to CHF exacerbation. CT scan results show no acute findings or additional injuries. IV Lasix and supplemental oxygen have been administered to manage symptoms. The patient will be admitted
for further management of CHF exacerbation and fall-related complications.
SUMMARY OF ENCOUNTER
The patient, an 89-year-old female, was seen due to a fall resulting in head injury and an exacerbation of congestive heart failure (CHF). After evaluation, including a CT scan of the head and cervical spine which revealed no serious injury or
hemorrhage, the patient was diagnosed with CHF exacerbation. Management in the emergency department included administration of 40 milligrams intravenous furosemide and supplemental oxygen to improve her symptoms and manage fluid overload.
DISPOSITION
Admit to the hospitalist.
ASSESSMENT
The patient experienced a fall with a subsequent head injury and exacerbation of congestive heart failure. Imaging showed no serious injury or intracranial hemorrhage. CHF exacerbation was attributed to hypoxia and shortness of breath.
EMERGENCY TREATMENTS ADMINISTERED
40 milligrams of intravenous furosemide were administered, along with supplemental oxygen.
INDEPENDENT REVIEW OF LABS AND INTERPRETATION OF TESTS
My independent review of CT imaging indicates no acute findings, hemorrhage or fractures in the head and cervical spine.
MEDICATION RECONCILIATION
Intravenous furosemide (Lasix) 40 milligrams administered. Supplemental oxygen provided.
MEDICAL DECISION MAKING
-Complexity of Data Reviewed: Chronic conditions affecting care [heart failure] with a differential diagnosis list including head trauma, cerebral hemorrhage, concussion, contusion, dehydration, heart failure exacerbation, pneumonia, sepsis, urinary
tract infection, and medication side effects/overdose.
-Data:
Category 1
My independent interpretation of the CT scan reveals no acute findings, demonstrating no hemorrhage or fractures.
Clinical information was obtained from an independent historian, as provided by the patients daughter regarding the incident and history of supplemental oxygen use.
-Risk:
Prescription medication was provided and admitted consultation with a hospitalist was necessary due to potential complications from CHF exacerbation and fall-related injuries. Care is impacted due to the setting in a care facility which affects
post-fall observation and response.
DIAGNOSIS
Congestive Heart Failure (CHF) exacerbation - ICD-10: I50.9
Fall with head injury (no acute intracranial injury) - ICD-10: R29.6
Past History
Past History
ED Past Medical History: Arrthythmia (Atrial fibrillation), CAD, CHF, Hypercholesterolemia and Hypothyroidism
ED Past Surgical History: Cardiac (Ablation), Gynecological, Orthopedic, Tonsilectomy and Other (Review past surgical history and agree)
Social History
Tobacco: Former smoker
Personal:
Living: with family
Employment: Retired
Phy Exam
Physical Exam
Physical Exam:
.
Course
Orders/Labs/Results
Orders:
Orders
08/18/25 21:29
CT Cervical Spine W/o Iv Contr Urgent
Comment:
Reason For Exam: fall, neck pain
CT Head W/o Iv Contrast Urgent
Comment:
Reason For Exam: hit head Monday, right parietal hematoma
08/18/25 21:30
IV Insert/Care/Rem.- Treatment PRN
CR Chest - 2 Views Urgent
Comment:
Reason For Exam: short of breath
08/18/25 22:05
Complete Blood Count/With Diff Urgent
Comprehensive Metabolic Panel Urgent
Ferritin Urgent
Comment: ADD ON
Folate Urgent
Comment: ADD ON
Iron Urgent
NT-proBNP Urgent
Total Iron Binding Urgent
Troponin I Urgent
Vitamin B12 Urgent
Comment: ADD ON
08/18/25 22:46
Furosemide [Lasix] 40 mg IV NOW STA
08/18/25 22:52
Add On- LAB Routine
Tests Added?: iron, ferritin, tibc, %sat, folate, vit b12
08/18/25 23:05
Electrocardiogram (*1) Urgent
Reason for Study: Shortness of Breath
EKG- Treatment ONCE
08/18/25 23:31
Admit/Transfer Patient As Directed
Co-Sign Provider:
Level of Care: Inpatient admission
Assign to:: Telemetry
Physician / Group: Justin
Diagnosis: CHF
Reason for Telemetry: Acute Heart Failure
Date to Stop Telemetry: 08/21/25
Time to Stop Telemetry: 11:00
Reason for Hospitalization: IV diuretics
Expected length of stay greater than two midnights?: Yes
ELOS- Estimated Length of Stay in days: 3
I certify the patient meets the requirements for IP care: Yes
PRN Pain Medication Management As Directed
May give lesser potent ordered pain med per pt: Yes
preference::
Protocol:: Medication orders for pain may be administered in a
manner that supports deferring to patient preference
when the pt is:
- Requesting an ordered lesser potent pain medication.
Least to most potent pain medications are defined
as: acetaminophen < NSAID < tramadol < opioids
(morphine, oxycodone, hydromorphone).
- Requesting a lesser dose of the same medication IF
ORDERED.
- Requesting a less intrusive route of administration
if both routes are prescribed by the provider (PO <
IV).
08/18/25 23:33
Code Status As Directed
Resuscitation Status: Limited DNR
Limited DNR: -No intubation
08/21/25 11:00
DC Protocol for Telemetry ONCE
Abnormal Lab Results
08/18/25
22:05
RBC 2.58 L 10^6/uL
(4.20-5.40)
Hgb 7.8 L g/dL
(12.0-16.0)
Hct 24.0 L %
(37.0-47.0)
MCHC 32.5 L g/dL
(33.0-37.0)
RDW 19.9 H %
(11.5-14.5)
MPV 11.6 H fL
(7.4-10.4)
Abs Immat Gran (auto) 0.1 H 10^3/uL
(0-0.05)
Absolute Neuts (auto) 9.0 H 10^3/uL
(1.4-6.5)
Absolute Lymphs (auto) 0.2 L 10^3/uL
(1.2-3.4)
Absolute Monos (auto) 1.2 H 10^3/uL
(0.1-0.6)
Immature Gran % 1.3 H %
(0-0.5)
Neutrophils % 84.8 H %
(42.2-75.2)
Lymphocytes % 1.8 L %
(20.5-51.1)
Monocytes % 11.0 H %
(1.7-9.3)
Sodium 129 L mmol/L
(135-145)
Chloride 92 L mmol/L
(98-107)
Carbon Dioxide 35 H mmol/L
(22-30)
BUN 41 H mg/dl
(7-17)
Glucose 103 H mg/dl
(70-99)
TIBC 200 L ug/dl
(265-497)
Total Bilirubin 2.3 H mg/dl
(0.2-1.3)
AST 74 H U/L
(14-36)
ALT 56 H U/L
(0-35)
Troponin I 0.048 H* ng/ml
Total Protein 5.3 L g/dl
(6.3-8.2)
Albumin 2.8 L g/dl
(3.5-5.0)
08/18/25 22:05
08/18/25 22:05
Vital Signs
Initial and Last Documented VS:
Initial Vital Signs
Pulse Resp Pulse Ox
71 21 92
08/18/25 21:22 08/18/25 21:22 08/18/25 21:22
Last Documented Vital Signs
Temp Pulse Resp BP Pulse Ox
97.7 F 70 18 132/75 98
08/18/25 21:23 08/18/25 22:55 08/18/25 22:15 08/18/25 22:55 08/18/25 22:19
*Pulse Oximetry
SaO2: 87
Oxygen Mode of Delivery: Room air
Patient hypoxic: yes
*EKG
Interpreted by ED Provider?: Yes
EKG Intrepretation Date: 08/18/25
EKG Intrepretation Time: 23:14
Interpretation: abnormal
Comparison EKG: no changes
Heart Rate: 72
Rate: normal
Rhythm: ventricular paced
[place]: normal axis
Interval: normal interval
QRS Pattern: normal QRS
Ischemia: no ischemia
*Critical Care Note
Total Time (30-74mins, 75-104mins- exclusive of procedures): Not Applicable
ED Attending Note
-
Portions of this chart may have been created with voice recognition software.� Occasional wrong word or��sound alike� substitutions may have occurred due to the inherent limitations of voice recognition software.
Discharge Plan
Departure
Patient Disposition: Admit
Date of Disposition: 08/18/25
Time of Disposition: 22:37
Admit to: Telemetry
Presentation/result/management discussed w/ accepting MD/DO: Hospitalist
Patient with high blood pressure during this ER visit?: Yes
Condition: Fair
Discharge Problem:
Acute exacerbation of CHF (congestive heart failure), Fall, Contusion of head
Prescriptions:
No Action
atorvastatin 20 MG tablet
20 mg PO QPM
amiodarone 200 mg Tablet
200 mg PO DAILY
valsartan 40 mg Tablet
40 mg PO QPM
alendronate [Fosamax] 70 mg Tablet
70 mg PO TH
levothyroxine [Synthroid] 75 mcg Tablet
75 mcg PO DAILY
ferrous sulfate 325 mg (65 mg iron) Tablet
325 mg PO DAILY
valsartan 160 mg Tablet
80 mg PO DAILY
duloxetine 60 mg Capsule,Delayed Release(Dr/Ec)
60 mg PO DAILY 30 Days Qty: 30 0RF
Rx Instructions:
Take for post-herpetic neuralgia pain
bisacodyl 10 mg Suppository
10 mg CA [id number] PRN (Reason: constipation) Qty: 12 0RF
polyethylene glycol 3350 17 gram Powder In Packet
17 g PO DAILYPRN PRN (Reason: constipation) Qty: 30 0RF
Eliquis 5 mg Tablet
5 mg PO BID Qty: 60 0RF
furosemide 20 mg Tablet
20 mg PO MOWEFR Qty: 0 0RF
midodrine 2.5 mg Tablet
5 mg PO TID@0800,1300,1800 Qty: 90 0RF
sennosides-docusate sodium [Senna Plus] 8.6-50 mg tablet
2 tab PO HS
Referrals:
Jorgito Sanchez DO [Family Provider, Internal Medicine]
Interventions
Interventions:
*Risk Screen - Suicide Last Done: 08/18/25 21:23
*General Assessment Last Done: 08/18/25 21:23
*Neglect/Abuse Screening Last Done: 08/18/25 21:23
*ED- Fall Risk Assessment Last Done: 08/18/25 21:35
*ED COVID-19 Vaccine History Last Done: 08/18/25 21:35
*ED Influenza Vaccine History Last Done: 08/18/25 21:35
ED-Musculoskeletal Assessment Last Done: 08/18/25 21:35
ED- Neurological Assessment Last Done: 08/18/25 21:35
ED-Skin Assessment Last Done: 08/18/25 21:42
Discharge Date and Time
Print Language: FRENCH
[2025-08-18 22:06] VITALS: BP 129/49
[2025-08-18 22:14] LABS: Hematocrit 24.0 % (37.0-47.0); Hemoglobin 7.8 g/dL (12.0-16.0); Mean Corp Hgb Conc. 32.5 g/dL (33.0-37.0); Mean Corpuscular Volume 93.0 fL (81.0-99.0); Nucleated Red Blood Cells % 0 %; Platelet Count 213 10^3/uL (130-400); Red Cell Dist. Width 19.9 % (11.5-14.5)
[2025-08-18 22:36] LABS: ALT (SGPT) 56 U/L (0-35); AST (SGOT) 74 U/L (14-36); Albumin 2.8 g/dl (3.5-5.0); Alkaline Phosphatase 98 U/L (38-126); Blood Urea Nitrogen 41 mg/dl (7-17); Calcium 8.6 mg/dl (8.4-10.2); Carbon Dioxide 35 mmol/L (22-30); Chloride 92 mmol/L (98-107); Glucose 103 mg/dl (70-99); Potassium 4.6 mmol/L (3.5-5.1); Sodium 129 mmol/L (135-145); Total Protein 5.3 g/dl (6.3-8.2); eGFR 54.19
[2025-08-18 22:39] LABS: Troponin I 0.048 ng/ml
--- NOTE | 2025-08-18 22:45 | HPS.HSE ---
Addendum entered and electronically signed by Cali Anderson DO 08/19/25 00:08:
Patient seen and examined independently. Agree with findings and plan as set forth by Agnes Sykes PA-C.
Patient is an 89y F with PMH significant for ASCVD, CHF, A-Fib and recent long / complicated hospital stay who presents to ED for evaluation after fall at [place] 3 nights ago. Patient was recently hospitalized 07/23 - 08/09 for acute hypoxemic
failure. Had pacemaker placed during that stay, was in the ICU on BiPAP, had confusion/ ICU delirium, initial IV diuresis, BECKA, etc. Patient was ultimately discharged to SNF where she has been since. Family was informed that patient had an
unwitnessed fall about 3 days ago. She had some new bruising on the R elbow. Since that time, patient has also started to have confusion and visual hallucinations again - similar to her ICU delirium. Family was present today when patient was
tuned / changed and noted a large area of brusing hematoma on the scalp. They requested transfer to the ED for further evaluation.
Ass:
Confusion / Hallucinations / Delirium
Fall - Unwitnessed
Scalp Hematoma - Likely Concussion
Acute on Chronic HFpEF
ASCVD
Paroxysmal Atrial Fibrillation
Bradycardia / Heart Block s/p PPM
Chronic Hyponatremia
Chronic Iron Deficiency Anemia
Hypothyroidism
Dysphagia
Chronic Post-Herpetic Neuralgia
Plan:
Admit for further evaluation and treatment.
Significant scalp hematoma - but CT negative for any acute intracranial process.
? delirium due to change in environment, concussion, etc.
Appears volume overloaded by exam, lung sounds, CXR, etc.
IV Lasix daily for now. Follow I/Os, daily weights, renal function, etc.
Continue to hold valsartan.
Continue midodrine and adjust as needed.
Continue Eliquis, amiodarone, etc.
PT / OT evaluations.
Original Note:
Family Physician
-
Family Physician: Jorgito Sanchez DO
Chief Complaint
-
Fall
History of Present Illness
Patient is an 89 y/o female PMH of CAD, CHF, A-Fib and recent prolonged hospitalization from Jul 23 for acute hypoxic failure who presents following a fall. During her prior hospitalization patient was treated for acute heart failure, and
pneumonia. Her hospitalization was complicated by development of heart block requiring permanent pacemaker placement. Patient was [facility] to a detention facility for continued rehab. Additional history is obtained from patient' family at
the bedside. Patient sustained an unwitnessed fall three nights ago. Today while visiting her daughter noted a bruise on her head which was not present previously and insisted patient be sent to the emergency department for evaluation. Family
notes since being at the rehab they have increased her supplemental oxygen. Since the fall patient has been more lethargic and family notes she appears short of breath. Patient denies any chest pain.
Medical History
Past Medical History
Past Medical History: Reports Other
Additional Past Medical History:
Coronary Artery Disease s/p Stent
Chronic HFpEF
Heart Block s/p Pacemaker
Paroxysmal Atrial Fibrillation
Orthostatic Hypotension
Hypothyroidism
Chronic Hyponatremia
Chronic Anemia
Post-Herpetic Neuralgia
Follicular Lymphoma
Dysphagia
Past Surgical History: Reports Other
Additional Past Surgical History:
Right Ankle Fracture Repair
Hysterectomy
Cardiac Stent
Permanent Pacemaker
Cataracts
Social History
Tobacco: Former Smoker
Personal:
Living: With Family (Lives at home with )
Family History
Family History: Not pertinent
Allergies / Home Medications
Allergies reflects when Allergies were last updated in [employer].
Home Medications with original date entered in [employer]
Allergy/Medication List:
Allergies
Allergy/AdvReac Type Severity Reaction Status Date / Time
tramadol Allergy auditory/visual Verified 07/23/25 22:18
hallucinations
Home Medications
atorvastatin 20 mg tablet 20 mg PO QPM High cholesterol 04/20/15
amiodarone 200 mg tablet 200 mg PO DAILY Arrhythmia 06/20/23
valsartan 40 mg tablet 40 mg PO QPM Blood Pressure 06/20/23
Held on 08/05/25. Instructions: Resume on 08/25/25. 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
alendronate 70 mg tablet (Fosamax) 70 mg PO TH bone health 07/23/25
ferrous sulfate 325 mg (65 mg iron) tablet 325 mg PO DAILY Supplement 07/23/25
levothyroxine 75 mcg tablet (Synthroid) 75 mcg PO DAILY Thyroid 07/23/25
valsartan 160 mg tablet 80 mg PO DAILY Blood Pressure 07/23/25
Held on 08/05/25. Instructions: Resume on 08/25/25. 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
bisacodyl 10 mg rectal suppository 10 mg LA [id number] PRN constipation #12 ea 08/03/25
duloxetine 60 mg capsule,delayed release 60 mg PO DAILY Pain 1 month #30 caps 08/03/25
polyethylene glycol 3350 17 gram oral powder packet 17 g PO DAILYPRN PRN constipation #30 ea 08/03/25
apixaban 5 mg tablet (Eliquis) 5 mg PO BID Blood clot prevention/tx #60 tabs 08/05/25
furosemide 20 mg tablet 20 mg PO MOWEFR Fluid Retention/Swelling #0 tabs 08/06/25
midodrine 2.5 mg tablet 5 mg (2 x 2.5 mg) PO TID@0800,1300,1800 Blood pressure #90 tabs 08/07/25
sennosides 8.6 mg-docusate sodium 50 mg tablet (Senna Plus) 2 tab PO HS 08/18/25
Review of Systems
-
History Source: Patient
A 12 point ROS was completed and negative except as noted: Yes
Constitutional: Denies Fever
Respiratory: Reports Trouble Breathing
Cardiac: Denies Chest Pain
Physical Exam
Vital Signs
Vital Signs
Temp Pulse Resp BP Pulse Ox
97.7 F 71 18 129/49 98
08/18/25 21:23 08/18/25 22:15 08/18/25 22:15 08/18/25 22:06 08/18/25 22:19
Physical Exam
General: Well Developed, Well Nourished and Conversant
HEENT: Anicteric and Moist mucous membranes
Respiratory: Rales (Diffuse)
Cardiac: S1/S2 and Regular Rhythm
GI: Soft and Non Tender
Rectal: Deferred by Provider
Musculoskeletal: No Clubbing and No Cyanosis
Skin: Warm, Dry and Other (Bruising)
Neuro: Other (Lethargic but easily arousable and answers questions; Visual hallucinations noted during evaluation)
Laboratory Results
-
08/18/25 22:05
08/18/25 22:05
Laboratory Results
Total Bilirubin 2.3 mg/dl (0.2-1.3) H 08/18/25 22:05
AST 74 U/L (14-36) H 08/18/25 22:05
ALT 56 U/L (0-35) H 08/18/25 22:05
Alkaline Phosphatase 98 U/L (38-126) 08/18/25 22:05
Troponin I 0.048 ng/ml H* 08/18/25 22:05
Data Reviewed
-
CT Scan: Report Reviewed by me
Lab Data: Labs Reviewed by me
Impression/Plan
-
Acute on Chronic HFpEF
-Consult Cardiology
-Continue Lasix 40mg IV Daily
-Monitor Daily Weights
Visual Hallucinations, possibly related to concussion following fall with head injury
-Patient did experience ICU delirium during her prior hospitalization
-Continue to monitor
Chronic Anemia
-Hgb slightly lower than last week possible related to volume overload vs blood loss from bruising following recent fall
-Continue to trend Hgb
Chronic Hyponatremia
-Sodium slightly lower than baseline likely due to volume overload
-Continue fluid restriction
-Recheck sodium in AM
Heart Block s/p PPM Jul 24, 2025
-PPM site appears to be healing well
Paroxysmal Atrial Fibrillation
-Continue Eliquis
-Continue amiodarone
Coronary Artery Disease s/p Stent
-Continue atorvastatin
Orthostatic Hypotension
-Continue midodrine
Hypothyroidism
-Continue levothyroxine
Post-Herpetic Neuralgia
-Continue duloxetine
Dysphagia
-Previously on IDDSI 6 - Consult Speech
DVT proph: Eliquis
Code Status: Limited DNR - Do Not Intubate
[2025-08-18] MEDS: LASIX 40 MG IV (22:55)
[2025-08-18 22:56] VITALS: BP 132/75
[2025-08-18 23:00] VITALS: BP 143/50
[2025-08-18 23:08] LABS: Iron 63 ug/dl (37-170)
[2025-08-18 23:16] LABS: Total Iron Binding Capacity 200 ug/dl (265-497)
[2025-08-18 23:59] LABS: Ferritin 623.0 ng/ml (11.1-264.0)
[2025-08-19] VITALS (13 sets, daily range): BP systolic 108–163; BP diastolic 44–111
[2025-08-19 00:30] LABS: Folate 4.2 ng/ml (2.76-20); Vitamin B12 786 pg/ml (239-931)
--- NOTE | 2025-08-19 01:15 | PTCARENOTE ---
0300 Re check bp improved 143/65, temp 97.3
Pt admitted to rm 430 from ED. Pulled over to bed. Very RODRIGUEZ and with turns. crackles t/o pulse ox 94% on 5L. V paced on tele monitor HR 70s. BP elevated, temp low after turning, changing, repositioning. Pt cleaned and warm blankets provided.
Daughter at bedside. Call virk within reach.
[2025-08-19] MEDS: SYNTHROID 75 MCG PO (06:12)
--- NOTE | 2025-08-19 07:29 | W.PN.HOSP.TC ---
Addendum entered and electronically signed by Lloyd Valera MD 08/19/25 17:35:
Seen and examined the patient earlier today. Late documentation
was at bedside
Agree with the plan formulated by the resident. Examined independently. See changes in my documentation
89-year-old with falls at the long term on Monday. Family saw her on Monday and noted a bruise on the right elbow as well as right side of the scalp and she was brought in for evaluation. Patient was found to be in CHF.
Echo 08/19/2025-normal LV size, wall thickness and systolic function. RV size and systolic function normal. Moderate mitral stenosis. Mild to moderate MR. Mild to moderate TR. Pulmonary artery pressure 65 mmHg with RA pressure 8 mmHg.
Chest x-ray reviewed by me-bilateral pulmonary edema
On examination patient is awake and alert
Cardiovascular system S1-S2 appreciated, systolic murmur at apex and right heart border
Bilateral rales noted
Ecchymosis right elbow, right side of the scalp
Abdomen not tender, bilateral thighs are equal and circumference/size no ecchymosis
# Acute on chronic HFpEF
Continue Lasix
Monitor daily weights
Patient is on valsartan-on hold while diuresing.
Cardiology consulted
# Acute hypoxic respiratory insufficiency
CHF versus other
Unclear if amiodarone is contributing
Speech evaluation noted IDDSI 6 and thin liquids
# Visual hallucinations
Unclear if related to falls and head injury
Patient did have ICU delirium last hospitalization
Watch
# Anemia-on iron supplements as outpatient
Heme test stools
No clear evidence for bleed
# Elevated LFTs likely secondary to hepatic congestion-follow with diuresis. If not getting better may need imaging
# Chronic hyponatremia-continue with diuresis and follow. Check serum and urine osmolality and urine sodium tomorrow
# Chronic hypotension on midodrine
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
# Paroxysmal atrial fibrillation-on amiodarone and Eliquis
# Coronary disease with history of stent-continue statin, amiodarone. Cannot be on other GDMT secondary to hypotension
# Hyperlipidemia-continue statin
# Hypothyroidism-continue levothyroxine 75 mcg
# Postherpetic neuralgia on duloxetine
# Chronic dysphagia-speech eval appreciated
# DVT prophylaxis-Eliquis
# CODE STATUS-DNI
Detailed discussion of the history and's at bedside regarding the physiology of her heart and right-sided pressures. Also discussed with cardiology. Agree that she may not be an ideal candidate for PCI given anemia, if the cath were to be
performed
Time spent over 50 minutes
Original Note:
Today's Communication/Plan
-
1 unit p RBCs transfusion
Assessment / Plan
Assessment / Plan
Assessment:
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
acute heart failure exacerbation
Plan:
Acute on Chronic HFpEF
Moderate MS, mild MR, moderate
-Echo 07/23/25: EF 65%, severely abnormal L atrial volume (>48ml/m2), moderate MS & . Likely experiencing acute on chronic HFpEF exacerbation in s/o arrhythmia, new LBBB. BNP elevated 8020. Elevation in AST and ALT likely in the setting of
congestion; downtrending/stabilizing s/p diuresis.
-At last admission, Lasix had been moved to M/W/F scheduling due to hypotension, which could be the cause of her exacerbation
-Cardiology has been consulted by the admitting team, will appreciate their insight into her case
-Continue IV Lasix 40mg daily
-Continue to monitor daily weights, Is and Os
- Continue holding home valsartan. On discharge, will continue to hold until she is followed up outpatient by her PCP
-Continue fluid restriction
-Will monitor
Visual Hallucinations
S/p Fall, Unobserved, Unknown Type
-Visual Hallucinations possibly due to fall, though notably she did experience hallucinations in the ICU during her last hospitalization
-Continue to focus on reorientation and routines to help reduce confusion
-Will monitor
Acute on Chronic Anemia, Likely Iron Deficiency
-Hemoglobin on admission 7.8, decreased from baseline at last admission. 6.8 today
-Vitamin B12 and Folate normal at last admission
-Possibly secondary to bruises/hematoma, but they seem small compared to volume lost
-Continue to monitor H&H daily
-Continue home iron supplement
-Transfusion as needed for hemoglobin <7. Consent obtained today, will transfuse 1 unit
-HOLD Eliquis. On resumption, will move forward with 2.5mg BID dose given her age and weight
-Will heme test stools
-Continue to monitor
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
-Sodium on admission 129, around her baseline with fluid restriction and Lasix
-Continue fluid restriction
-Continue to monitor hyponatremia
History of 2nd Degree Heart Block
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
Paroxysmal Atrial Fibrillation
-HOLD Eliquis. On resumption, will do 2.5mg dose given weight and age.
-Continue amiodarone
Coronary Artery Disease s/p Stent
-Continue atorvastatin
Orthostatic Hypotension
-Orthostatic vital signs from last admission are as follows:
--Layin/61
--Sittin/50
--Standin/47
-Continue midodrine scheduled dosing
-PT/OT has been consulted. Special attention will need to be paid to ensure no falls
-Continue patient's own abdominal binder, compression socks (Per last hospitalization)
#R & L foot bilateral corns/callouses
#Severely overgrown R & L 2nd toenails
-Toenails growing over toe, at risk of breaking skin on underside of toe. Seen by podiatry 08/01 and treated.
- Follow-up w podiatry outpatient
Hypothyroidism
-Continue levothyroxine
Post-Herpetic Neuralgia
-Continue duloxetine
Dysphagia
-Previously on IDDSI 6 - Consult Speech
Anticipated Discharge: 24 - 48 hours
Subjective/Interval History
-
Date of Service: August 19, 2025
Patient was sitting in her bed with her and daughter at bedside. By their report, they had been contacted on 08/15 after patient suffered an unwitnessed fall and was told that she did not have any broken bones and had not struck her head.
This was an unwitnessed fall, but patient reports she had been in bed during a bed change when the side rail had failed and she had fall. They report her mental status has been worse since discharge and she did not return to her baseline.
Objective Data
-
Labs:
Laboratory Results
08/18/25 08/19/25
22:05 06:00
WBC 10.6 Pending
Hgb 7.8 L Pending
Hct 24.0 L Pending
Plt Count 213 Pending
Sodium 129 L Pending
Potassium 4.6 Pending
Chloride 92 L Pending
Carbon Dioxide 35 H Pending
BUN 41 H Pending
Creatinine 1.0 Pending
Glucose 103 H Pending
Calcium 8.6 Pending
Total Bilirubin 2.3 H Pending
AST 74 H Pending
ALT 56 H Pending
Alkaline Phosphatase 98 Pending
Vital Signs:
Vital Signs
Temp Pulse Resp BP Pulse Ox
97.3 F 71 16 143/65 98
08/19/25 03:23 08/19/25 03:23 08/19/25 03:23 08/19/25 03:23 08/19/25 03:23
Review of Systems
-
Unable to obtain full review of systems at this time due to: Dementia
History Source: Patient and Family
Abdomen/GI: Reports Constipated; Denies Diarrhea or Bloody Stools
Hematologic / Lymphatic: Reports Bruising
Physical Exam
-
General: Well Developed and Appears Chronically Ill
HEENT: Normocephalic, Oxygen (5L) and Other (Large bruise on right side of the scalp, red )
Respiratory: Decreased Breath Sounds
Cardiac: Regular Rhythm and S1/S2
GI: Soft, Nontender, Nondistended and Normal Bowel Sounds
Musculoskeletal: No Edema and Other (large bruise on right elbow several inches long)
Skin: Warm and Dry
Neuro: Awake
Psych: Calm and Confused
[2025-08-19 08:38] LABS: ALT (SGPT) 59 U/L (0-35); AST (SGOT) 66 U/L (14-36); Albumin 2.5 g/dl (3.5-5.0); Alkaline Phosphatase 90 U/L (38-126); Blood Urea Nitrogen 41 mg/dl (7-17); Calcium 8.3 mg/dl (8.4-10.2); Carbon Dioxide 35 mmol/L (22-30); Chloride 94 mmol/L (98-107); Glucose 85 mg/dl (70-99); Magnesium 2.0 mg/dl (1.6-2.3); Potassium 4.0 mmol/L (3.5-5.1); Sodium 130 mmol/L (135-145); Total Protein 4.9 g/dl (6.3-8.2); eGFR 54.19
[2025-08-19 08:43] LABS: Hematocrit 20.1 % (37.0-47.0); Hemoglobin 6.8 g/dL (12.0-16.0); Mean Corp Hgb Conc. 33.8 g/dL (33.0-37.0); Mean Corpuscular Volume 90.5 fL (81.0-99.0); Platelet Count 160 10^3/uL (130-400); Red Cell Dist. Width 19.6 % (11.5-14.5)
[2025-08-19 09:55] LABS: Hemoglobin 6.8 g/dL (12.0-16.0)
[2025-08-19] MEDS: LASIX 40 MG IV (09:57)
--- NOTE | 2025-08-19 11:04 | CM ---
Cm met with pt (Guerita) and her spouse/Aditya
They typically reside in a [place] with [address], also has ramp entrance for use
Pt is typically independent at baseline with use of a rollator
PCP- marlene Morales
Rx- Lm Lopez
Pt admitted to [facility] from 07/23-08/09 and discharged to [facility] for STR
Has been there since and not pleased with care
Requesting referral to [facility] instead
Referral sent via [facility] and pending
CM requested add'l backup SNF choices- spouse has list in car and will provide to CM
He is aware of limited SNFs in area with [employer] contracts
PT/OT evals pending
Pt will require [employer] auth
Discharge Disposition- SNF pending [employer] auth
--- NOTE | 2025-08-19 11:34 | PTOTSP ---
Dysphagia Evaluation:
Given PMH of dysphagia and recent hospitalization with PNA and fluctuations in diet tolerance, pt presents w/ acute and chronic risk factors for aspiration/dysphagia. However, no overt s/sx observed during bedside swallow evaluation and WBC WNL. CXR
indicates possible bilateral PNA. It is recommended that [employer] continues to monitor diet level tolerance and pt presentation.
Recommendations:
1. IDDSI 6 Soft & Bite Sized, Single cup-sips thins
2. Medications whole/crushed in puree
3. Full assistance/supervision w/ meals. Only feed when alert.
4. Strategies: Single sips/small bites, slow rate, sitting upright, alternating liquid washes
5. F/U w/ ST to observe diet tolerance and further assess cognitive-linguistic communication.
[2025-08-19] MEDS: PACERONE 200 MG PO (11:43)
[2025-08-19] MEDS: FEOSOL 325 MG PO (11:43)
[2025-08-19] MEDS: CYMBALTA DELAYED RELEASE 60 MG PO (11:43)
--- NOTE | 2025-08-19 13:42 | CON.CAR ---
Addendum entered and electronically signed by Pepe Keenan MD 08/19/25 14:37:
I saw and examined the patient.
The AUTHORIZATION MANAGER or PA's note was reviewed and I agree with the note.
Comment: General: Lethargic but arousable
Neck: Supple, no JVD, HJR, carotids +2 B/L, no bruits bilaterally.
Heart: Non displaced PMI, RRR, no murmurs, No S3, S4, no rubs.
Lungs: Scattered rhonchi
Extremities: No clubbing, cyanosis or edema bilaterally.
Neuro: Lethargic but arousable
Sedrick has a history of chronic diastolic CHF, heart block status post Medtronic pacer July 2025, A-fib on chronic Eliquis, CAD, hypothyroidism, moderate mitral stenosis, mild aortic stenosis, follicular lymphoma, orthostasis. During admission
in July 2025 she was diuresed for CHF and there was concern for possible overdiuresis with orthostasis and was started on midodrine. During that admission troponin peaked at 0.3 was manage is a nonischemic myocardial injury with stable
ejection fraction and no regional wall motion abnormalities noted. She was discharged to [facility] and suffered a fall with a scalp laceration 3 days prior to admission. This fall was unwitnessed. She is admitted with change
in mental status. Family had noted shortness of breath and proBNP was elevated chest x-ray with small bilateral effusions and cardiology consulted for CHF.
Will treat for CHF with IV Lasix. Family is concerned regarding possible CAD but unclear if patient would be ideal heart catheterization candidate with anemia of unclear cause and possibility of worsening anemia if stent were to be placed and put
on antiplatelet therapy. Will assess response to IV diuresis. Will need to follow mental status as well. Discussed with family at bedside in detail
Original Note:
Consultation
Consultation Request
Date/Time Consultation Requested: 08/19/25 at 0107
Date/Time Consultation Performed: 08/19/25 at 0947
Requesting Provider: Dr. Valera
Performing Provider: Dr. Keenan
Reason for Consultation: Acute HFrEF
Medical History
-
History of Present Illness:
Patient came to the ER last evening with concerns for an unwitnessed fall at her rehab and was admitted with scalp hematoma and acute HFpEF, cardiology is now consulted. As you recall patient was admitted from 07/23/2025 until 08/09/2025 when she
initially came in with new AV block that was at times high-grade and lead to urgent temporary wire placement followed by Medtronic DC PPM on 07/24/2025. Patient was also diuresed for acute HFpEF during that admission and there was a concern for
possible overdiuresis with orthostasis and eventually patient was started on midodrine 2.5 mg TID. Patient has known paroxysmal A-fib and her chronic dose of amiodarone 200 mg daily plus Eliquis 5 mg BID has been continued. During admission last
month troponin peaked at 0.3 and was ultimately managed as a nonischemic myocardial injury troponin elevation with overall stable EF and no evidence of WMA. Echo did show however mild TR with PAP 74 mmHg. Patient has been at the [facility] since 08/09/2025 and family reports there was an unwitnessed fall within the last week where patient had her head stuck between the bed and the wall and apparently initially there was not any visible sign of injury, but family later
noticed a scalp hematoma and then increasing confusion prompting her return to the ER. CT scan of the head did not show any acute intracranial abnormality, but there was evidence of a small soft tissue density in the right parietal occipital scalp
consistent with scalp hematoma/contusion. CXR suggested small B/L pleural effusions and proBNP was 11,300 compared to greater than 27,000 back on 07/26/2025.
PMH:
Chronic HFpEF
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
Paroxysmal Afib
Chronic Eliquis OAC
CAD s/p prox LAD PCI 2014
widely patent LAD stent by cath 03/29/22
Hypothyroidism
Moderate MS and trace MR by echo 05/27/24
Mild AR/
History of Follicular lymphoma
Rituxan infusion
Orthostasis
Past Medical History
Past Medical History: Other (In HPI)
Past Surgical History: Cardiac (LAD PCI 2014, widely patent by cardiac cath 2021 Medtronic DC PPM 07/24/2025)
Social History
Tobacco: Former Smoker
Alcohol: None
Drug: None
Personal:
Living: Other (Usually lives at home with her , but currently in rehab at [facility])
Family History
Family History: CAD, Cancer, Hypertension and Other (PE)
Allergies / Home Medications
Allergy/AdvReac Type Severity Reaction Status Date / Time
tramadol Allergy auditory/visual Verified 07/23/25 22:18
hallucinations
�Medication �Instructions �Recorded �Confirmed �Type
atorvastatin 20 mg tablet 20 mg PO QPM High cholesterol 04/20/15 08/18/25 History
amiodarone 200 mg tablet 200 mg PO DAILY Arrhythmia 06/20/23 08/18/25 History
valsartan 40 mg tablet 40 mg PO QPM Blood Pressure 06/20/23 08/18/25 History
Held on 08/05/25.
Instructions: Resume on
08/25/25. Wait to resume
until you see your primary
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
and discuss restarting with
them
alendronate 70 mg tablet (Fosamax) 70 mg PO TH bone health 07/23/25 08/18/25 History
ferrous sulfate 325 mg (65 mg 325 mg PO DAILY Supplement 07/23/25 08/18/25 History
iron) tablet
levothyroxine 75 mcg tablet 75 mcg PO DAILY Thyroid 07/23/25 08/18/25 History
(Synthroid)
valsartan 160 mg tablet 80 mg PO DAILY Blood Pressure 07/23/25 08/18/25 History
Held on 08/05/25.
Instructions: Resume on
08/25/25. Wait to resume
until you see your primary
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
and discuss restarting with
them
bisacodyl 10 mg rectal suppository 10 mg NJ [id number] PRN constipation 08/03/25 08/18/25 Rx
#12 ea
duloxetine 60 mg capsule,delayed 60 mg PO DAILY Pain 1 month #30 08/03/25 08/18/25 Rx
release caps
polyethylene glycol 3350 17 gram 17 g PO DAILYPRN PRN constipation 08/03/25 08/18/25 Rx
oral powder packet #30 ea
apixaban 5 mg tablet (Eliquis) 5 mg PO BID Blood clot 08/05/25 08/18/25 Rx
prevention/tx #60 tabs
furosemide 20 mg tablet 20 mg PO MOWEFR Fluid 08/06/25 08/18/25 Rx
Retention/Swelling #0 tabs
midodrine 2.5 mg tablet 5 mg (2 x 2.5 mg) PO 08/07/25 08/18/25 Rx
TID@0800,1300,1800 Blood pressure
#90 tabs
sennosides 8.6 mg-docusate sodium 2 tab PO HS Constipation 08/18/25 08/18/25 History
50 mg tablet (Senna Plus)
Review of Systems
-
History Source: Patient and Family
All other systems: Negative unless noted
Physical Exam
Vital Signs
Temp Pulse Resp BP Pulse Ox
97.1 F 70 20 122/44 97
08/19/25 11:58 08/19/25 11:58 08/19/25 11:58 08/19/25 11:58 08/19/25 11:32
GEN: NAD, AAO x 3
HEENT: EOMI, MMM
LUNGS: 5 L NC. Decreased BS B/L bases with poor inspiratory effort, no audible wheeze
CV: V paced on telemetry. Reg, S1/S2, 1/6 syst LSB, no gallop
ABD: ND
EXT: No edema B/L LE
NEURO: Gross non-focal
SKIN: Left ACW chest wall pacer site stable
Lab Results
08/19/25 09:26
08/19/25 08:02
Troponin I 0.048 ng/ml H* 08/18/25 22:05
Sni-E-Lotdlzgtozi Pept 29294 pg/ml 08/18/25 22:05
Impression / Plan
-
PCP: Dr. Morales
Cardiology: Dr. MAGDA Cabrera
Impression:
Admitted with confusion, unwitnessed fall and acute HFpEF 08/18/2025
Recent admission with PPM placement, BECKA, elevated troponin and acute HFpEF 07/23/2025 until 08/09/2025
Confusion with possible hospital delirium
Unwitnessed fall and new scalp hematoma
Anemia, acute on chronic
Acute on chronic HFpEF
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
Paroxysmal Afib
Chronic Eliquis OAC
CAD s/p prox LAD PCI 2014
widely patent LAD stent by cath 03/29/22
Hypothyroidism
Moderate MS and trace MR by echo 05/27/24
Mild AR/
History of Follicular lymphoma
Rituxan infusion
Orthostasis
Lexiscan mibi 03/04/19: Completed 4:10 min Chandan protocol reaching 87% MPHR, normal perfusion imaging
Echo 05/2021: EF 60-65%, severe LA enlargement, mild MS (20/) mild (03/10) ANGELINA 1.7cm2
Echo 03/28/22: EF 68%, stage II diastolic dysfunction, mild to mod MS peak/mean 15/8 mmHg and pressure halftime 1.7 cm sq, mild MR, mild with peak/mean 26/14 mmHg and ANGELINA 2.0 cm sq
Echo 05/27/2024: EF 55 to 60%, normal RV size and function, moderate MS with mean transmitral gradient 8 mmHg, trace MR, mild peak/mean 29/16 mmHg and ANGELINA 1.5 cm sq
Echo 07/23/25: EF 65%, no WMA, moderate peak/mean 48/25 mmHg and ANGELINA 1.4 cm sq, mild TR, moderate MS peak/mean 25/13 mmHg, mild MR
Plan:
-Patient came to the ER last evening with concerns for an unwitnessed fall at her rehab and was admitted with scalp hematoma and acute HFpEF, cardiology is now consulted. As you recall patient was admitted from 07/23/2025 until 08/09/2025 when she
initially came in with new AV block that was at times high-grade and lead to urgent temporary wire placement followed by Medtronic DC PPM on 07/24/2025. Patient was also diuresed for acute HFpEF during that admission and there was a concern for
possible overdiuresis with orthostasis and eventually patient was started on midodrine 2.5 mg TID. Patient has known paroxysmal A-fib and her chronic dose of amiodarone 200 mg daily plus Eliquis 5 mg BID has been continued. During admission last
month troponin peaked at 0.3 and was ultimately managed as a nonischemic myocardial injury troponin elevation with overall stable EF and no evidence of WMA. Echo did show however mild TR with PAP 74 mmHg. Patient has been at the [facility] [employer] since 08/09/2025 and family reports there was an unwitnessed fall within the last week where patient had her head stuck between the bed and the wall and apparently initially there was not any visible sign of injury, but family later
noticed a scalp hematoma and then increasing confusion prompting her return to the ER. CT scan of the head did not show any acute intracranial abnormality, but there was evidence of a small soft tissue density in the right parietal occipital scalp
consistent with scalp hematoma/contusion. CXR suggested small B/L pleural effusions and proBNP was 11,300 compared to greater than 27,000 back on 07/26/2025.
-ECG reviewed by me is V paced without acute ischemic changes
-proBNP was greater than 27,000 at last check on 07/26/2025 and is now 11,300. Additionally patient weighed 131 lbs today compared to dry weight of 137 lbs on 08/09/2025. Patient with increased oxygen demand and is now requiring 5 L NC. Agree with
attempts at diuresis
-Continue Lasix 40 mg IV daily. Patient was taking Lasix 20 mg PO MWF prior to admission. Diuresis previously limited by hypotension
-EF preserved at 65% by echo 07/23/2025, recheck limited study echo ordered by me
-GDMT limited by hypotension. Outpatient dose of valsartan is on hold due to hypotension
-Patient with known paroxysmal A-fib.
-Outpatient dose of Eliquis has been decreased to 2.5 mg BID (age 89, Cre 1.0, wt 59.5kg)
-Outpatient dose of amiodarone 200 mg daily has been continued
-Troponin peaked at 0.351 last admission, initial troponin in the ER was 0.048 yesterday. Check another troponin in the morning. No complaints of chest pain. There was consideration for cardiac catheterization, but ultimately deferred this
admission given significant comorbidities, BECKA, anemia and overall preserved EF.
[2025-08-19] MEDS: TIGAN 200 MG IM (13:53)
[2025-08-19] MEDS: PROTONIX 40 MG PO (18:09)
[2025-08-19] MEDS: LIPITOR 20 MG PO (18:09)
[2025-08-19 18:43] LABS: Hematocrit 26.5 % (37.0-47.0); Hemoglobin 9.1 g/dL (12.0-16.0)
--- NOTE | 2025-08-19 19:08 | PTCARENOTE ---
late entry: at approximately 13:30 during blood transfusion, patient complained of nausea, but it appeared to be nausea related to coughing up secretions. Dr. Treadwell made aware, ordered PRN Rosalinaan, given, see MAR.
[2025-08-19] MEDS: SENOKOT-S PO (22:10)
[2025-08-20] VITALS (9 sets, daily range): BP systolic 81–147; BP diastolic 42–64; PULSE 71; O2SAT 96
[2025-08-20] MEDS: SYNTHROID 75 MCG PO (05:59)
--- NOTE | 2025-08-20 07:51 | W.PN.HOSP.TC ---
Addendum entered and electronically signed by Lloyd Valera MD 08/20/25 14:23:
Agree with the plan formulated by the resident. Examined independently. See changes in my documentation
89-year-old with falls at the assisted on Monday. Family saw her on Monday and noted a bruise on the right elbow as well as right side of the scalp and she was brought in for evaluation. Patient was found to be in CHF.
Echo 08/19/2025-normal LV size, wall thickness and systolic function. RV size and systolic function normal. Moderate mitral stenosis. Mild to moderate MR. Mild to moderate TR. Pulmonary artery pressure 65 mmHg with RA pressure 8 mmHg.
Chest x-ray reviewed by me-bilateral pulmonary edema
On examination patient very tired appearing difficult time to wake up but was able to
Cardiovascular system S1-S2 appreciated, systolic murmur at apex and right heart border
Decreased BS, few rales right.
Ecchymosis right elbow, right side of the scalp
Abdomen not tender
# Acute on chronic HFpEF
Continue Lasix
Monitor daily weights
Patient is on valsartan-on hold while diuresing.
Cardiology consulted and following
Discussed about hemodynamics, also discussed with cardiology who was going to talk to the family.
# Acute hypoxic respiratory insufficiency
CHF versus other
Unclear if amiodarone is contributing
Speech evaluation noted IDDSI 6 and thin liquids
# Visual hallucinations
None report now.
Unclear if related to falls and head injury
Patient did have ICU delirium last hospitalization
# Anemia-on iron supplements as outpatient
Heme test stools
No clear evidence for bleed
# Elevated LFTs likely secondary to hepatic congestion-follow with diuresis. Looks like this has been chronically elevated
# Chronic hyponatremia-continue with diuresis. Improving
# Chronic hypotension on midodrine
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
# Paroxysmal atrial fibrillation-on amiodarone and Eliquis
# Coronary disease with history of stent-continue statin, amiodarone. Cannot be on other GDMT secondary to hypotension
# Hyperlipidemia-continue statin
# Hypothyroidism-continue levothyroxine 75 mcg
# Postherpetic neuralgia on duloxetine
# Chronic dysphagia-speech eval appreciated
# DVT prophylaxis-Eliquis
# CODE STATUS-DNI
Discussed with patient's daughter and patient's at bedside
Detailed discussion of the history and's at bedside regarding the physiology of her heart and right-sided pressures. Also discussed with cardiology. Agree that she may not be an ideal candidate for PCI given anemia, if the cath were to be
performed
Original Note:
Today's Communication/Plan
-
Resume eliquis
Continue lasix
Assessment / Plan
Assessment / Plan
Assessment:
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
acute heart failure exacerbation
Plan:
Acute on Chronic HFpEF
Moderate MS, mild MR, moderate
Acute on Chronic Hypoxic Respiratory Failure
-Echo 07/23/25: EF 65%, severely abnormal L atrial volume (>48ml/m2), moderate MS & . Likely experiencing acute on chronic HFpEF exacerbation due to adjusted Lasix schedule.
-At last admission, Lasix had been moved to M/W/F scheduling due to hypotension.
-She had been discharged on 2L of O2 due to pneumonia vs aspiration pneumonitis, now on 5L. Suspect this is secondary to acute heart failure exacerbation. Will wean O2 as tolerated to keep saturation above 92%
-Cardiology has been consulted by the admitting team, will appreciate their insight into her case
-Continue IV Lasix 40mg daily
-Continue to monitor daily weights, Is and Os
-Continue holding home valsartan. On discharge, will continue to hold until she is followed up outpatient by her PCP
-Continue fluid restriction
-Will monitor
Visual Hallucinations
S/p Fall, Unobserved, Unknown Type
-Visual Hallucinations possibly due to fall, though notably she did experience hallucinations in the ICU during her last hospitalization
-Continue to focus on reorientation and routines to help reduce confusion
-Will monitor
Acute on Chronic Anemia, Likely Iron Deficiency
-Hemoglobin on admission 7.8, now 8.8 post 1 unit pRBCs on 08/19
-Vitamin B12 and Folate normal at last admission
-Possibly secondary to bruises/hematoma, but they seem small compared to volume lost
-Continue to monitor H&H daily
-Continue home iron supplement
-Transfusion as needed for hemoglobin <7. Consent obtained on 08/19
-Resume Eliquis. On resumption, will move forward with 2.5mg BID dose given her age and weight
-Per nursing report, stools heme negative x2
-Continue to monitor
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
Urinary Incontinence
-Sodium on admission 129, around her baseline with fluid restriction and Lasix
-Continue fluid restriction
-Will obtain bladder scan today to ensure she is not retaining.
-Continue to monitor hyponatremia
History of 2nd Degree Heart Block
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
Paroxysmal Atrial Fibrillation
-Resume Eliquis. On resumption, will do 2.5mg dose given weight and age.
-Continue amiodarone
Coronary Artery Disease s/p Stent
-Continue atorvastatin
Orthostatic Hypotension
-Orthostatic vital signs from last admission are as follows:
--Layin/61
--Sittin/50
--Standin/47
-Continue midodrine scheduled dosing
-PT/OT has been consulted. Special attention will need to be paid to ensure no falls
-Continue patient's own abdominal binder, compression socks (Per last hospitalization)
Stage 2 left posterior thigh pressure injury
-Present on admission, noted by RN reports
-Continue local care
-Will monitor
R & L foot bilateral corns/callouses
Severely overgrown R & L 2nd toenails
-Toenails growing over toe, at risk of breaking skin on underside of toe. Seen by podiatry 08/01 at last admission and treated.
- Follow-up w podiatry outpatient
Hypothyroidism
-Continue levothyroxine
Post-Herpetic Neuralgia
-Continue duloxetine
Dysphagia
-Previously on IDDSI 6 - Consult Speech
DISPO: Conversation today with patient and her patient's daughter about patient's health. Gently broached the conversation of goals of care including what is important to Mrs. Braga. Conversation was more focused on disposition and beginning
conversations about if patient would like to return to SNF following discharge, or if she would prefer to return home. Will need to follow up with patient's and other daughter as well and continue conversation likely into tomorrow to help
determine discharge planning.
Anticipated Discharge: > 48 hours
Subjective/Interval History
-
Date of Service: August 20, 2025
Patient was in the room with her daughter when I arrived. Her daughter states she seems to be doing much better today than she had been for the last few days while at the longterm facility. She states that leading up to her admission she had
not been able to have conversations, had been experiencing visual hallucinations. She is much more aware today and appears back to her baseline from the prior admission. However, for the last few months, her daughter has noticed a gradual decline in
her mother such as struggling with stairs, relying much more on her walker, and having worsening health concerns including those that brought her into the hospital in 07/2025.
Objective Data
-
Labs:
Laboratory Results
08/20/25
06:43
WBC Pending
Hgb Pending
Hct Pending
Plt Count Pending
Sodium Pending
Potassium Pending
Chloride Pending
Carbon Dioxide Pending
BUN Pending
Creatinine Pending
Glucose Pending
Calcium Pending
Vital Signs:
Vital Signs
Temp Pulse Resp BP Pulse Ox
97.4 F 71 18 118/51 94
08/20/25 03:04 08/20/25 03:04 08/20/25 03:04 08/20/25 03:04 08/20/25 03:04
I&O
08/19/25 08/20/25 08/21/25
06:59 06:59 06:59
Intake Total 250 / 250
Balance 250 / 250
Review of Systems
-
Unable to obtain full review of systems at this time due to: Dementia
History Source: Patient and Family
Respiratory: Reports Trouble Breathing (Increase in O2 requirement); Denies Cough
Abdomen/GI: Denies Abdominal Pain, Nausea, Vomiting, Diarrhea or Constipated
Neuro: Denies Dizzy or Lightheadedness
Physical Exam
-
General: Well Developed, No Apparent Distress, Comfortable and Appears Chronically Ill
HEENT: Normocephalic and Oxygen (Currently on 5L)
Respiratory: Crackles and Decreased Breath Sounds
Cardiac: Regular Rhythm and S1/S2
Musculoskeletal: Edema, Right Lower Extrem (1+) and Edema, Left Lower Extrem (1+)
Skin: Warm and Dry
Neuro: Awake, Alert and Oriented
Psych: Calm
[2025-08-20 08:10] LABS: Hematocrit 26.6 % (37.0-47.0); Hemoglobin 8.9 g/dL (12.0-16.0); Mean Corp Hgb Conc. 33.5 g/dL (33.0-37.0); Mean Corpuscular Volume 92.0 fL (81.0-99.0); Platelet Count 157 10^3/uL (130-400); Red Cell Dist. Width 18.6 % (11.5-14.5)
--- NOTE | 2025-08-20 08:31 | PTCARENOTE ---
Becomes easily dyspneic with little activity. Vital signs taken after providing incontinence care, BP 81/59, SaO2 84% on 5L. Was able to recover O2 sat. Dr. Treadwell made aware of BP. Administered scheduled dose of midodrine.
[2025-08-20 09:14] LABS: Blood Urea Nitrogen 41 mg/dl (7-17); Calcium 8.2 mg/dl (8.4-10.2); Carbon Dioxide 34 mmol/L (22-30); Chloride 97 mmol/L (98-107); Glucose 68 mg/dl (70-99); Potassium 4.2 mmol/L (3.5-5.1); Sodium 135 mmol/L (135-145); eGFR 48.33
--- NOTE | 2025-08-20 09:45 | PN.CDI ---
CDI
- -
CDI:
Physician Documentation Request
Admit Date: 08/18/25 23:41
Dear Doctor,
Please review the following and provide your response in the progress notes.
Clinical Indicators:
- Patient admit for acute on chronic HFpEF
- 08/18 ER Physician 'patient had been on three liters of supplemental oxygen'
- 08/19 PN 'Acute hypoxic respiratory insufficiency'
- 08/19 RN note 'Very RODRIGUEZ and with turns. crackles t/o pulse ox 94% on 5L'
- Documented 5-6L O2, pulse ox > 87%
Clarify which of the following accurately represents the patient's respiratory status:
Acute on chronic hypoxic respiratory failure
Acute hypoxic respiratory failure
Hypoxia only
Other (please specify)
Additional information for Respiratory Failure:
Recognized criteria for Respiratory Failure (Source: Jose Burris 2018October 02.
Documentation tips: Acute Respiratory Failure, The Hospitalist.)
ABGs: (1 or more) Symptoms Please indicate type if known
1. p)2 <60 or RA SPO2 <91% on RA 1. Tachypnea, SOB, dyspnea Hypoxic
2. pCO2 >45 and pH <7.35 2. Use of accessory muscles Hypercapnic
3. pO2 decrease of pCO2 increase by 3. Pallor or cyanosis Hypoxic and Hypercapnic
10 mmHg from baseline if known 4. Anxiety or restlessness Unable to determine
4. P/F Ratio (pO2/FiO2)nless than 300 5. Unable to speak in full sentences
Use of terms such as suspected, likely, concern for, or probable (associated with a specific diagnosis that is being evaluated, monitored, or treated as if it exists) are acceptable and can be coded in the inpatient setting, when documented at the
time of discharge.
Thank you,
Yanira Beasley RN
CDI Specialist
Please use your independent medical judgment in providing your response.
--- NOTE | 2025-08-20 10:09 | PN.CDI ---
CDI
- -
CDI:
Physician Documentation Request
Admit Date: 08/18/25 23:41
Dear Doctor,
Please review the following and provide your response in the progress notes.
Clinical Indicators:
- RN skin assessments indicate Stage 2 left posterior thigh pressure injury, POA
Physician documentation of the type and location of wounds is required for compliant documentation. Based on the above clinical findings and your assessment, please provide the following in your progress note:
1. Location of the ulcer/wound, including laterality.
2. Type (etiology) of ulcer/wound:
- Diabetic ulcer
- Arterial (ischemic) ulcer
- Traumatic wound
- Venous stasis ulcer
- Pressure (decubitus) ulcer
- Other
Use of terms such as suspected, likely, concern for, or probable (associated with a specific diagnosis that is being evaluated, monitored, or treated as if it exists) are acceptable and can be coded in the inpatient setting, when documented at the
time of discharge.
Thank you,
Yanira Beasley RN
CDI Specialist
Please use your independent medical judgment in providing your response.
*Source: National Pressure Ulcer Advisory Panel (NPUAP)
[2025-08-20] MEDS: FEOSOL 325 MG PO (10:44)
[2025-08-20] MEDS: PACERONE 200 MG PO (10:44)
[2025-08-20] MEDS: LASIX 40 MG IV (10:44)
[2025-08-20] MEDS: PROTONIX 40 MG PO (10:44)
[2025-08-20] MEDS: CYMBALTA DELAYED RELEASE 60 MG PO (10:44)
--- NOTE | 2025-08-20 14:18 | CM ---
Chart reviewed and patient is currently on 6 liters of oxygen, 90%, plan is for skilled placement when stable, patient's spouse has reached pout to [facility] and sample case porter will follow up with admissions at [facility] to check on a bed
for patient.
Plan; Skilled placement at [facility] when stable.
--- NOTE | 2025-08-20 17:15 | W.PN.CARDCBS ---
Addendum entered and electronically signed by Jayson Shaw MD 08/20/25 18:15:
I saw and examined the patient.
The Transfer Agent's note was reviewed and I agree with the note.
Comment: Briefly, 89-year-old woman with past medical history of heart failure preserved ejection fraction and recent permanent pacemaker implant who presented after an unwitnessed fall in her nursing facility and was diagnosed with acute on chronic
heart failure with preserved ejection fraction
Still requiring approximately 5 L of supplemental oxygen
Chest x-ray concerning for pulmonary edema
proBNP elevated at 11,000 although this is better than her prior admission
Would continue IV diuresis and wean oxygen as able
Monitor creatinine and electrolytes closely
Possible there is a component of underlying lung disease as well. It may be helpful to have pulmonology input.
Rest per Tory White
Original Note:
Today's Communication / Plan
-
Recommend pulmonology consult tomorrow for possible ILD
Consider holding long-term amiodarone
Minimal improvement with attempts at diuresis
Impression / Plan
-
PCP: Dr. Morales
Cardiology: Dr. MAGDA Cabrera
Impression:
Admitted with confusion, unwitnessed fall and acute HFpEF 08/18/2025
Recent admission with PPM placement, BECKA, elevated troponin and acute HFpEF 07/23/2025 until 08/09/2025
Confusion with possible hospital delirium
Unwitnessed fall and new scalp hematoma
Anemia, acute on chronic
Acute on chronic HFpEF
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
Paroxysmal Afib
Chronic Eliquis OAC
CAD s/p prox LAD PCI 2014
widely patent LAD stent by cath 03/29/22
Hypothyroidism
Moderate MS and trace MR by echo 05/27/24
Mild AR/
History of Follicular lymphoma
Rituxan infusion
Orthostasis
Lexiscan mibi 03/04/19: Completed 4:10 min Chandan protocol reaching 87% MPHR, normal perfusion imaging
Echo 05/2021: EF 60-65%, severe LA enlargement, mild MS (20/8) mild (21/11) ANGELINA 1.7cm2
Echo 03/28/22: EF 68%, stage II diastolic dysfunction, mild to mod MS peak/mean 15/8 mmHg and pressure halftime 1.7 cm sq, mild MR, mild with peak/mean 26/14 mmHg and ANGELINA 2.0 cm sq
Echo 05/27/2024: EF 55 to 60%, normal RV size and function, moderate MS with mean transmitral gradient 8 mmHg, trace MR, mild peak/mean 29/16 mmHg and ANGELINA 1.5 cm sq
Echo 07/23/25: EF 65%, no WMA, moderate peak/mean 48/25 mmHg and ANGELINA 1.4 cm sq, mild TR, moderate MS peak/mean 25/13 mmHg, mild MR
Plan:
-Weight is up 1 lb overnight despite Lasix 40 mg IV daily diuresis. Patient was taking Lasix 20 mg PO MWF prior to admission. Diuresis previously limited by hypotension
-CXR on admission showed patchy B/L parenchymal opacities and previous CT of the chest from 07/29/2025 showed possible ILD. Recommend another evaluation from the pulmonology team, when they saw the patient in conjunction with the CT of the chest
from 07/29/2025 they treated the patient as PNA.
-Agree with concerns about amiodarone and possible ILD. Again, would be helpful to have pulmonology's input on this
-EF preserved at 65% by echo 07/23/2025, recheck limited study echo ordered by me
-GDMT limited by hypotension. Outpatient dose of valsartan is on hold due to hypotension
-Patient with known paroxysmal A-fib.
-Outpatient dose of Eliquis has been decreased to 2.5 mg BID (age 89, Cre 1.0, wt 59.5kg)
-Outpatient dose of amiodarone 200 mg daily is long-term and chronic
-Troponin peaked at 0.351 last admission, initial troponin in the ER was 0.048 yesterday. Check another troponin in the morning. No complaints of chest pain. There was consideration for cardiac catheterization, but ultimately deferred this
admission given significant comorbidities, BECKA, anemia and overall preserved EF.
HPI: Patient came to the ER last evening with concerns for an unwitnessed fall at her rehab and was admitted with scalp hematoma and acute HFpEF, cardiology is now consulted. As you recall patient was admitted from 07/23/2025 until 08/09/2025 when
she initially came in with new AV block that was at times high-grade and lead to urgent temporary wire placement followed by Medtronic DC PPM on 07/24/2025. Patient was also diuresed for acute HFpEF during that admission and there was a concern for
possible overdiuresis with orthostasis and eventually patient was started on midodrine 2.5 mg TID. Patient has known paroxysmal A-fib and her chronic dose of amiodarone 200 mg daily plus Eliquis 5 mg BID has been continued. During admission last
month troponin peaked at 0.3 and was ultimately managed as a nonischemic myocardial injury troponin elevation with overall stable EF and no evidence of WMA. Echo did show however mild TR with PAP 74 mmHg. Patient has been at the [facility] for
[facility] since 08/09/2025 and family reports there was an unwitnessed fall within the last week where patient had her head stuck between the bed and the wall and apparently initially there was not any visible sign of injury, but family later
noticed a scalp hematoma and then increasing confusion prompting her return to the ER. CT scan of the head did not show any acute intracranial abnormality, but there was evidence of a small soft tissue density in the right parietal occipital scalp
consistent with scalp hematoma/contusion. CXR suggested small B/L pleural effusions and proBNP was 11,300 compared to greater than 27,000 back on 07/26/2025.
Progress Note - Family Readiness Support Assistant
Subjective
Date of Service: August 20, 2025
Complains of excessive RODRIGUEZ with minimal activity, feels exhausted
Objective
Labs:
08/20/25 06:43
08/20/25 06:43
Labs
Hgb 8.9 g/dL (12.0-16.0) L 08/20/25 06:43
Hct 26.6 % (37.0-47.0) L 08/20/25 06:43
Plt Count 157 10^3/uL (130-400) 08/20/25 06:43
Sodium 135 mmol/L (135-145) 08/20/25 06:43
Potassium 4.2 mmol/L (3.5-5.1) 08/20/25 06:43
BUN 41 mg/dl (7-17) H 08/20/25 06:43
Creatinine 1.1 mg/dL (0.6-1.0) H 08/20/25 06:43
Glucose 68 mg/dl (70-99) L 08/20/25 06:43
Troponins
08/18/25
22:05
Troponin I 0.048 H*
Vital Signs and I&O:
Vital Signs
Temp Pulse Resp BP Pulse Ox
97.2 F 61 16 135/61 97
08/20/25 16:05 08/20/25 16:05 08/20/25 16:05 08/20/25 16:05 08/20/25 16:05
Vital Signs
Temp Pulse Resp BP Pulse Ox
97.2 F 61 16 135/61 97
08/20/25 16:05 08/20/25 16:05 08/20/25 16:05 08/20/25 16:05 08/20/25 16:05
Intake & Output
08/18/25 08/19/25 08/20/25 08/21/25
06:59 06:59 06:59 06:59
Intake Total 250 / 250
Balance 250 / 250
Physical Exam
Physical Exam
GEN: NAD, AAO x 3
LUNGS: 5 L NC.
CV: V paced on telemetry.
[2025-08-20] MEDS: LIPITOR 20 MG PO (18:07)
[2025-08-20] MEDS: SENOKOT-S 2 TABLET PO (20:40)
[2025-08-20] MEDS: ELIQUIS 2.5 MG PO (20:41)
[2025-08-21] VITALS (8 sets, daily range): BP systolic 118–129; BP diastolic 47–88; PULSE 2–89
[2025-08-21] MEDS: SYNTHROID 75 MCG PO (05:56)
--- NOTE | 2025-08-21 07:16 | W.PN.HOSP.TC ---
Addendum entered and electronically signed by Lloyd Valera MD 08/21/25 15:52:
Patient was seen twice today earlier as well as now as she is more sleepy. was at bedside both times.
Agree with the resident's plan
Patient is very lethargic and sleepy still requiring oxygen
Lung exam with bilateral rales
Repeat chest x-ray noted-persistent infiltrates despite diuresis
Amiodarone induced lung injury and arraigned
Also treat as pneumonia with mild hypothermia
Speech following
ABG ordered will review
Patient was able to wake up and communicate with me
Prognosis does not look good
We reviewed this with patient's as well as daughter
Cardiology to review with family as well.
Discussed with nursing
Total time spent between both visits today more than 50 minutes
Original Note:
Today's Communication/Plan
-
Chest X-ray today
Pulmonology consulted, will appreciate their insight into her case
Assessment / Plan
Assessment / Plan
Assessment:
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
acute heart failure exacerbation
Plan:
Acute on Chronic HFpEF
Moderate MS, mild MR, moderate
Acute Hypoxic Respiratory Failure
-Echo 07/23/25: EF 65%, severely abnormal L atrial volume (>48ml/m2), moderate MS & . Likely experiencing acute on chronic HFpEF exacerbation due to adjusted Lasix schedule.
-At last admission, Lasix had been moved to M/W/F scheduling due to hypotension.
-She had been discharged on 2L of O2 due to pneumonia vs aspiration pneumonitis, now on 5L. Suspect this is secondary to acute heart failure exacerbation. Will wean O2 as tolerated to keep saturation above 92%
-Cardiology has been consulted by the admitting team, will appreciate their insight into her case
-Continue IV Lasix 40mg daily
-Continue to monitor daily weights, Is and Os
-Continue holding home valsartan. On discharge, will continue to hold until she is followed up outpatient by her PCP
-Will consult Pulmonology today as despite IV diuresis her Oxygen requirement has not improved. Will appreciate their insight into her case
-Ordered Chest X-ray today
-Continue fluid restriction
-Will monitor
Visual Hallucinations
S/p Fall, Unobserved, Unknown Type
-Visual Hallucinations possibly due to fall, though notably she did experience hallucinations in the ICU during her last hospitalization
-Continue to focus on reorientation and routines to help reduce confusion
-Will monitor
Acute on Chronic Anemia, Likely Iron Deficiency
-Hemoglobin on admission 7.8, now 8.8 post 1 unit pRBCs on 08/19
-Vitamin B12 and Folate normal at last admission
-Possibly secondary to bruises/hematoma, but they seem small compared to volume lost
-Continue to monitor H&H daily
-Continue home iron supplement
-Transfusion as needed for hemoglobin <7. Consent obtained on 08/19
-Resume Eliquis. On resumption, will move forward with 2.5mg BID dose given her age and weight
-Per nursing report, stools heme negative x2
-Continue to monitor
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
Urinary Incontinence
-Sodium on admission 129, around her baseline with fluid restriction and Lasix
-Continue fluid restriction
-Will obtain bladder scan today to ensure she is not retaining.
-Continue to monitor hyponatremia
History of 2nd Degree Heart Block
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
Paroxysmal Atrial Fibrillation
-Resume Eliquis. On resumption, will do 2.5mg dose given weight and age.
-Continue amiodarone
Coronary Artery Disease s/p Stent
-Continue atorvastatin
Orthostatic Hypotension
-Orthostatic vital signs from last admission are as follows:
--Layin/61
--Sittin/50
--Standin/47
-Continue midodrine scheduled dosing
-PT/OT has been consulted. Special attention will need to be paid to ensure no falls
-Continue patient's own abdominal binder, compression socks (Per last hospitalization)
Stage 2 left posterior thigh pressure injury
-Present on admission, noted by RN reports
-Continue local care
-Will monitor
R & L foot bilateral corns/callouses
Severely overgrown R & L 2nd toenails
-Toenails growing over toe, at risk of breaking skin on underside of toe. Seen by podiatry 08/01 at last admission and treated.
- Follow-up w podiatry outpatient
Hypothyroidism
-Continue levothyroxine
Post-Herpetic Neuralgia
-Continue duloxetine
Dysphagia
-Previously on IDDSI 6 - Consult Speech
DISPO: Conversation on 08/20 with patient and her patient's daughter about patient's health. Gently broached the conversation of goals of care including what is important to Mrs. Braga. Conversation was more focused on disposition and beginning
conversations about if patient would like to return to SNF following discharge, or if she would prefer to return home. Followed up same day with other daughter, both would prefer patient at home with palliative care. is uncertain at this
point, would like to speak to cardiology team about her heart before he makes a descision about SNF vs home.
Anticipated Discharge: > 48 hours
Subjective/Interval History
-
Date of Service: August 21, 2025
Patient was resting in the room with her at bedside. Her daughters were not present at the moment. Her is not yet certain if they would like to move forward with sending Sedrick to another care home facility, or if they would
potentially like to have her at home. He states that if she were to go home, he would need time to make arrangements for where she could stay with supplemental oxygen and siting up the house to make sure everything would be safe. Before making a
decision, he would like to discuss her health with the Cardiology team.
Objective Data
-
Labs:
Laboratory Results
08/21/25
06:00
WBC Pending
Hgb Pending
Hct Pending
Plt Count Pending
Sodium Pending
Potassium Pending
Chloride Pending
Carbon Dioxide Pending
BUN Pending
Creatinine Pending
Glucose Pending
Calcium Pending
Vital Signs:
Vital Signs
Temp Pulse Resp BP Pulse Ox
98 F 94 22 129/88 100
08/21/25 03:33 08/21/25 03:33 08/21/25 03:33 08/21/25 03:33 08/21/25 03:33
I&O
08/20/25 08/21/25 08/22/25
06:59 06:59 06:59
Intake Total 250 / 250 240 / 240
Balance 250 / 250 240 / 240
Review of Systems
-
Unable to obtain full review of systems at this time due to: Acuity
History Source: Patient and Family
Hematologic / Lymphatic: Reports Bruising
Physical Exam
-
General: Well Developed, Well Nourished and Appears Chronically Ill
HEENT: Normocephalic and Oxygen (5L)
Respiratory: Decreased Breath Sounds
Cardiac: Regular Rhythm and S1/S2
[2025-08-21] MEDS: ELIQUIS 2.5 MG PO ×2 (08:15→20:01)
[2025-08-21] MEDS: FEOSOL 325 MG PO (08:16)
[2025-08-21] MEDS: PROTONIX 40 MG PO (08:16)
[2025-08-21] MEDS: PACERONE 200 MG PO (08:16)
[2025-08-21] MEDS: CYMBALTA DELAYED RELEASE 60 MG PO (08:16)
[2025-08-21 08:39] LABS: Hematocrit 28.4 % (37.0-47.0); Hemoglobin 9.1 g/dL (12.0-16.0); Mean Corp Hgb Conc. 32.0 g/dL (33.0-37.0); Mean Corpuscular Volume 95.0 fL (81.0-99.0); Platelet Count 160 10^3/uL (130-400); Red Cell Dist. Width 19.3 % (11.5-14.5)
[2025-08-21 08:57] LABS: Troponin I 0.056 ng/ml
[2025-08-21 09:37] LABS: Blood Urea Nitrogen 43 mg/dl (7-17); Calcium 8.4 mg/dl (8.4-10.2); Carbon Dioxide 38 mmol/L (22-30); Chloride 97 mmol/L (98-107); Glucose 80 mg/dl (70-99); Potassium 4.2 mmol/L (3.5-5.1); Sodium 138 mmol/L (135-145); eGFR 48.33
[2025-08-21] MEDS: LASIX 40 MG IV (10:17)
--- NOTE | 2025-08-21 12:19 | W.PN.CARDCBS ---
Addendum entered and electronically signed by Joel Onofre MD 08/21/25 17:10:
I saw and examined the patient.
The Toaster Operator's note was reviewed and I agree with the note.
Comment:
GEN: No distress, awake, Ox3
HEENT: supple, anicteric, mmm
LUNGS: bilat rhonchi
CV: Reg, S1/S2, 11/18 syst LSB, no gallop
ABD: soft, BS+, NT/ND
EXT: + edema
NEURO: Gross non-focal
SKIN: No rash
PLan:
Continues to appear sick and frail. Patient now on steroids.
Will remain off amiodarone for now.
Weight remains low. Continue to gently diurese with Lasix 40 mg IV daily for
Abnormal troponin likely nonischemic myocardial injury.
Will repeat proBNP and trend. It was elevated several days ago but overall improved at 11,000
Original Note:
Today's Communication / Plan
-
Appreciate pulmonology input, patient started on Decadron
Amiodarone now on hold, orders placed by me
52 minutes in [id number] and [id number] time today
Impression / Plan
-
PCP: Dr. Morales
Cardiology: Dr. MAGDA Cabrera
Impression:
Admitted with confusion, unwitnessed fall and acute HFpEF 08/18/2025
Recent admission with PPM placement, BECKA, elevated troponin and acute HFpEF 07/23/2025 until 08/09/2025
Confusion with possible hospital delirium
Unwitnessed fall and new scalp hematoma
Anemia, acute on chronic
Acute on chronic HFpEF
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
Paroxysmal Afib
Chronic Eliquis OAC
CAD s/p prox LAD PCI 2014
widely patent LAD stent by cath 03/29/22
Hypothyroidism
Moderate MS and trace MR by echo 05/27/24
Mild AR/
History of Follicular lymphoma
Rituxan infusion
Orthostasis
Lexiscan mibi 03/04/19: Completed 4:10 min Chandan protocol reaching 87% MPHR, normal perfusion imaging
Echo 05/2021: EF 60-65%, severe LA enlargement, mild MS (20/8) mild (21/11) ANGELINA 1.7cm2
Echo 03/28/22: EF 68%, stage II diastolic dysfunction, mild to mod MS peak/mean 15/8 mmHg and pressure halftime 1.7 cm sq, mild MR, mild with peak/mean 26/14 mmHg and ANGELINA 2.0 cm sq
Echo 05/27/2024: EF 55 to 60%, normal RV size and function, moderate MS with mean transmitral gradient 8 mmHg, trace MR, mild peak/mean 29/16 mmHg and ANGELINA 1.5 cm sq
Echo 07/23/25: EF 65%, no WMA, moderate peak/mean 48/25 mmHg and ANGELINA 1.4 cm sq, mild TR, moderate MS peak/mean 25/13 mmHg, mild MR
Plan:
-Weight is down 5lbs overnight, the patient is being weighed using bed scale. Patient weighs 127 lbs on 08/21/2025 and is below previous dry weight. We are diuresing with Lasix 40 mg IV daily diuresis. Patient was taking Lasix 20 mg PO MWF prior to
admission.
-Despite diuresis patient remains hypoxic requiring 5 L NC, overall oxygen demands are higher than last admission.
-CXR on admission showed patchy B/L parenchymal opacities and previous CT of the chest from 07/29/2025 showed possible ILD. Appreciate input from pulmonology who is recommending repeat CT scan of chest to help differentiate between possible chronic
aspiration PNA and ILD.
-Patient being started on Decadron 4 mg IV every 8 hours 08/21/2025
-EF preserved at 65% by echo 07/23/2025, recheck limited study echo ordered by me
-GDMT limited by hypotension. Outpatient dose of valsartan is on hold due to hypotension
-Patient with known paroxysmal A-fib.
-Outpatient dose of Eliquis has been decreased to 2.5 mg BID (age 89, Cre 1.0, wt 59.5kg)
-Outpatient dose of amiodarone 200 mg daily is long-term and chronic, but on hold as of 08/21/2025
-Troponin peaked at 0.351 last admission. Initial troponin in the ER was 0.048 and on repeat 08/21/2025 0.056. Check another troponin in the morning. No complaints of chest pain. There was consideration for cardiac catheterization last admission,
but ultimately deferred this admission given significant comorbidities, BECKA, anemia and overall preserved EF.
-Talked with patient's at bedside 08/21/2025 and reviewed concerns for ILD related to amiodarone, patient's is in agreement with pulmonology consultation and appreciate their input. We also reviewed last hospitalization and brief
rehab stay. Patient's confirms that she is a limited DNR and would not want to be intubated. I offered to call one of their daughters, but patient's feels he understands what we discussed and declined my offer, but will reach out if he
changes his mind.
HPI: Patient came to the ER last evening with concerns for an unwitnessed fall at her rehab and was admitted with scalp hematoma and acute HFpEF, cardiology is now consulted. As you recall patient was admitted from 07/23/2025 until 08/09/2025 when
she initially came in with new AV block that was at times high-grade and lead to urgent temporary wire placement followed by Medtronic DC PPM on 07/24/2025. Patient was also diuresed for acute HFpEF during that admission and there was a concern for
possible overdiuresis with orthostasis and eventually patient was started on midodrine 2.5 mg TID. Patient has known paroxysmal A-fib and her chronic dose of amiodarone 200 mg daily plus Eliquis 5 mg BID has been continued. During admission last
month troponin peaked at 0.3 and was ultimately managed as a nonischemic myocardial injury troponin elevation with overall stable EF and no evidence of WMA. Echo did show however mild TR with PAP 74 mmHg. Patient has been at the [facility] for
[facility] life since 08/09/2025 and family reports there was an unwitnessed fall within the last week where patient had her head stuck between the bed and the wall and apparently initially there was not any visible sign of injury, but family later
noticed a scalp hematoma and then increasing confusion prompting her return to the ER. CT scan of the head did not show any acute intracranial abnormality, but there was evidence of a small soft tissue density in the right parietal occipital scalp
consistent with scalp hematoma/contusion. CXR suggested small B/L pleural effusions and proBNP was 11,300 compared to greater than 27,000 back on 07/26/2025.
Progress Note - Supervisor Ride Assembly
Subjective
Date of Service: August 21, 2025
Denies pain
Objective
Labs:
08/21/25 07:45
08/21/25 07:45
Labs
Hgb 9.1 g/dL (12.0-16.0) L 08/21/25 07:45
Hct 28.4 % (37.0-47.0) L 08/21/25 07:45
Plt Count 160 10^3/uL (130-400) 08/21/25 07:45
Sodium 138 mmol/L (135-145) 08/21/25 07:45
Potassium 4.2 mmol/L (3.5-5.1) 08/21/25 07:45
BUN 43 mg/dl (7-17) H 08/21/25 07:45
Creatinine 1.1 mg/dL (0.6-1.0) H 08/21/25 07:45
Glucose 80 mg/dl (70-99) 08/21/25 07:45
Troponins
08/18/25 08/21/25
22:05 07:45
Troponin I 0.048 H* 0.056 H*
Vital Signs and I&O:
Vital Signs
Temp Pulse Resp BP Pulse Ox
97.5 F 78 20 118/75 93
08/21/25 11:19 08/21/25 11:19 08/21/25 11:19 08/21/25 11:19 08/21/25 11:19
Vital Signs
Temp Pulse Resp BP Pulse Ox
97.5 F 78 20 118/75 93
08/21/25 11:19 08/21/25 11:19 08/21/25 11:19 08/21/25 11:19 08/21/25 11:19
Intake & Output
08/19/25 08/20/25 08/21/25 08/22/25
06:59 06:59 06:59 06:59
Intake Total 250 / 250 240 / 240
Balance 250 / 250 240 / 240
Physical Exam
Physical Exam
GEN: NAD, AAO x 3
LUNGS: 5 L NC.
CV: V paced on telemetry.
--- NOTE | 2025-08-21 13:05 | CON.PUL ---
Consultation
Consultation Request
Date/Time Consultation Requested: 08/21/25
Date/Time Consultation Performed: 08/21/25
Performing Provider: Obed
Reason for Consultation: Abnl CXR
Medical History
-
History of Present Illness:
Patient is an 89-year-old female with previous history of congestive heart failure, A-fib, complete heart block status post pacer, presenting to ER on 08/18/2025 with confusion and visual hallucinations. She had previously been admitted for
similar complaints and found to have abnormal chest x-ray with follow-up CT scan suspicious for congestive heart failure exacerbation and/or underlying ILD. She was also noted to have dysphagia on speech screening, treated and discharged on
08/09/2025. Since arrival on this admission, she has been treated for heart failure but has not had any progress in treatment. Chest x-ray is progressing despite treatment. She is more somnolent today on my examination as well. She has limited
DNR, confirms that she would not want heroic measures including intubation.
Past Medical History
Past Medical History: Other (see list below)
Social History
Tobacco: Non-smoker
Alcohol: None
Drug: None
Family History
Family History: Reviewed & Not Pertinent
Allergies / Home Medications
Allergies
Allergy/AdvReac Type Severity Reaction Status Date / Time
tramadol Allergy auditory/visual Verified 07/23/25 22:18
hallucinations
Home Medications
�Medication �Instructions �Recorded �Confirmed �Last Taken �Type
atorvastatin 20 mg tablet 20 mg PO QPM High cholesterol 04/20/15 08/18/25 07/22/25 History
amiodarone 200 mg tablet 200 mg PO DAILY Arrhythmia 06/20/23 08/18/25 07/23/25 History
valsartan 40 mg tablet 40 mg PO QPM Blood Pressure 06/20/23 08/18/25 07/22/25 History
Held on 08/05/25.
Instructions: Resume on
08/25/25. Wait to resume
until you see your primary
care physician & paster hat lining
and discuss restarting with
them
alendronate 70 mg tablet (Fosamax) 70 mg PO TH bone health 07/23/25 08/18/25 07/17/25 History
ferrous sulfate 325 mg (65 mg 325 mg PO DAILY Supplement 07/23/25 08/18/25 07/23/25 History
iron) tablet
levothyroxine 75 mcg tablet 75 mcg PO DAILY Thyroid 07/23/25 08/18/25 07/23/25 History
(Synthroid)
valsartan 160 mg tablet 80 mg PO DAILY Blood Pressure 07/23/25 08/18/25 07/23/25 History
Held on 08/05/25.
Instructions: Resume on
08/25/25. Wait to resume
until you see your primary
care physician & paster hat lining
and discuss restarting with
them
bisacodyl 10 mg rectal suppository 10 mg NV [id number] PRN constipation 08/03/25 08/18/25 Unknown Rx
#12 ea
duloxetine 60 mg capsule,delayed 60 mg PO DAILY Pain 1 month #30 08/03/25 08/18/25 Unknown Rx
release caps
polyethylene glycol 3350 17 gram 17 g PO DAILYPRN PRN constipation 08/03/25 08/18/25 Unknown Rx
oral powder packet #30 ea
apixaban 5 mg tablet (Eliquis) 5 mg PO BID Blood clot 08/05/25 08/18/25 07/23/25 09:00 Rx
prevention/tx #60 tabs
furosemide 20 mg tablet 20 mg PO MOWEFR Fluid 08/06/25 08/18/25 07/23/25 Rx
Retention/Swelling #0 tabs
midodrine 2.5 mg tablet 5 mg (2 x 2.5 mg) PO 08/07/25 08/18/25 Unknown Rx
TID@0800,1300,1800 Blood pressure
#90 tabs
sennosides 8.6 mg-docusate sodium 2 tab PO HS Constipation 08/18/25 08/18/25 Unknown History
50 mg tablet (Senna Plus)
Review of Systems
-
Unable to Obtain full review of systems at this time due to: Acuity
History Source: Family
Vitals / Labs / Diagnostic Testing
Vital Signs
Temp Pulse Resp BP Pulse Ox
97.5 F 78 20 118/75 93
08/21/25 11:19 08/21/25 11:19 08/21/25 11:19 08/21/25 11:19 08/21/25 11:19
Lab Data
08/21/25 07:45
08/21/25 07:45
Diagnostic Testing:
Physical Exam
-
HEENT: Normocephalic, Anicteric and Moist Mucous Membranes
Cardiovascular: S1/S2 and Regular Rhythm
Respiratory: Rales and Non-Labored Respirations
GI: Soft, Non Distended and Non Tender
Neurology: Other (lethargic, minimally arousable)
Skin: Warm and Dry
General: Comfortable and Other (NAD)
Assessment
-
Patient is an 89-year-old female with previous history of congestive heart failure, A-fib, complete heart block status post pacer, presenting to ER on 08/18/2025 with confusion and visual hallucinations. She had previously been admitted for
similar complaints and found to have abnormal chest x-ray with follow-up CT scan suspicious for congestive heart failure exacerbation and/or underlying ILD. She was also noted to have dysphagia on speech screening, treated and discharged on
08/09/2025. Since arrival on this admission, she has been treated for heart failure but has not had any progress in treatment. Chest x-ray is progressing despite treatment. She is more somnolent today on my examination as well. She has limited
DNR, confirms that she would not want heroic measures including intubation. We are consulted for evaluation 08/21/25.
Acute hypoxic respiratory failure
Subacute HF exacerbation, on IV lasix
Abnormal CXR with progression despite treatment
Lethargy
Confusion
Fall - Unwitnessed
Scalp Hematoma - Likely Concussion
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
ASCVD
Paroxysmal Atrial Fibrillation s/p DCCV 03/2022/chronic amiodarone use
Bradycardia / Heart Block s/p PPM
Chronic Hyponatremia
Chronic Iron Deficiency Anemia
Hypothyroidism
Dysphagia
Chronic Post-Herpetic Neuralgia
Follicular lymphoma s/p rituxin
Hx of falls
Hx of light tobacco smoking
GERD/hx of gastric ulcer
CAD s/p stent to LAD (2014)
HTN
HLD
Hx of ankle fracture
Valvular heart disease with , MS and MR
Restrictive lung disease
Hx of right-sided pleural effusion requiring multiple thoracentesis in [id number]
Hx of non-Hodgkin lymphoma s/p rituxin
Chronic kidney disease
Plan
Hypoxemia noted on arrival, currently saturating 97% on 5L
Home O2 evaluation eventually
Prior history of lung disease is noted including abnormal CT on last admission
Possible ILD, she is on chronic amio
CXR is progressive despite treatment with IV lasix
Suspect patient has possible ILD vs PNA--repeat CT chest for clarity
Will check PCT
Could be from amiodarone, but she would not tolerate lung biopsy for confirmation
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
Previous imaging reviewed--this seems progressed
I will add IV steroids as I do not think she would tolerate bronchoscopy
Confirmed with that she is DNR, no intubation
Chronic aspiration is a possibility given waxing/waning MS
Speech following
Seems more lethargic today, will check ABG
ECHO results reviewed--stable function, findings
ProBNP on arrival was >27, 000
Agree with continued IV lasix
If not improving despite these measure, would consider GOC discussions
Updated at bedside
We will follow
Diagnostic Data
Chest X-Ray: 08/21/25- Stable exam suggesting pulmonary edema and pneumonia.
08/02/25- Bilateral parenchymal opacification without significant change, possibly representing pneumonia.
CT Scan: CHEST 07/29/25- Findings suggesting severe bilateral pneumonia as described above, greatest in right upper lobe. Interstitial lung disease not excluded. Stable
Moderate left pleural effusion. Progressed Mild bibasilar atelectasis. Mild cardiomegaly. Mild pectus excavatum deformity. Severe atherosclerotic vascular disease. Severe compression fractures. Stable
Echo: 08/19/25- 1. Normal left ventricular size, wall thickness and systolic function. No regional wall motion abnormalities are seen.
2. Right ventricular size and systolic function are within normal limits.
3. Thickened and calcified aortic leaflets with reduced excursion; known moderate aortic stenosis.
4. Moderate mitral stenosis with mean gradient 7 mmHg.
5. Mild to moderate mitral regurgitation.
6. Mild to moderate tricuspid regurgitation. Estimated pulmonary artery pressure of 65 mmHg assuming a right atrial pressure of 8 mmHg.
7. Compared to prior echo dated 07/24/2025, there is little significant change.
PFT's:
Reports and relevant images were personally reviewed.
Total time spent on this consultation __75__ minutes which includes review of history, physical exam, medications, laboratory data, personal review of imaging, extensive review of outpatient records, discussion with care team and respiratory therapy.
--- NOTE | 2025-08-21 15:07 | PTCARENOTE ---
Requires much stimuli to arouse. Vitals obtained, WNL with exception of temperature 96.8(axillary). Dr. Treadwell made aware.
--- NOTE | 2025-08-21 16:06 | CM ---
Hopefully placement at [facility] when stable, will contact admissions.
Plan; [facility].
[2025-08-21 16:25] LABS: Procalcitonin 0.29 ng/ml (0.0-0.25)
[2025-08-21] MEDS: ZOSYN 50 IV ×2 (18:01→21:42)
[2025-08-21] MEDS: LIPITOR 20 MG PO (18:02)
[2025-08-21] MEDS: DECADRON 4 MG IV ×2 (18:02→23:27)
[2025-08-21 18:17] LABS: Venous Blood Gas B.E. 10.4 mmol/L (-4 to +4); Venous Blood Gas O2 Sat % 83.1 %
--- NOTE | 2025-08-21 18:33 | W.PN.UPDATE ---
Update Note
Progress Note Update
VBG noted pCO2 is 75
Acute hypercarbic Resp failure
Likely acute metabolic encephalopathy secondary to hypercarbic respiratory failure
Transfer to IMU for BIPAP 08/17
--- NOTE | 2025-08-21 18:37 | PTCARENOTE ---
Dr. Valera aware of pCO2 on VBG. Plan for bipap and transfer to IMU. awaiting orders.
[2025-08-21] MEDS: SENOKOT-S PO ×2 (20:00→20:04)
--- NOTE | 2025-08-21 23:00 | TRANSFER ---
Report called to NOHELIA Luke and pt transferred to IMU room 3347 with all belongings. Pt accompanied during transfer by RT d/t BiPAP usage. Pt remains AAOx3, lethargic but verbally arousable. Will continue with current plan of care.
--- NOTE | 2025-08-21 23:54 | PTCARENOTE ---
Received report from Sonu POZO. Pt transported via stretcher. RT with the patient. Pt AAOx3, very drowsy and lethargic. V-paced on the monitor. Pt currently on the BiPAP, SpO2 96%. R AC IV site leaking, site reinforced, line is patent. IV steroids
administered see JAN. Heel foams replaced. Sacral foam C/D/I. Pt oriented to new unit, educated on the use of a call virk within reach. Bed alarm on for safety.
[2025-08-22] VITALS (16 sets, daily range): BP systolic 109–140; BP diastolic 54–73; PULSE 2–75; BMI 23.2
[2025-08-22] MEDS: ZOSYN 50 IV ×4 (03:24→21:51)
[2025-08-22 05:49] LABS: Blood Urea Nitrogen 45 mg/dl (7-17); Calcium 8.3 mg/dl (8.4-10.2); Carbon Dioxide 35 mmol/L (22-30); Chloride 98 mmol/L (98-107); Estimated Creatinine Clearance 32 ml/min; Glucose 104 mg/dl (70-99); Potassium 3.8 mmol/L (3.5-5.1); Sodium 138 mmol/L (135-145); eGFR 54.19
[2025-08-22 06:06] LABS: Troponin I 0.054 ng/ml
[2025-08-22] MEDS: SYNTHROID PO (06:17)
--- NOTE | 2025-08-22 06:17 | PTCARENOTE ---
Unable to get CBC lab work in AM. x2 misses, will notify phlebotomy.
--- NOTE | 2025-08-22 07:15 | W.PN.HOSP.TC ---
Addendum entered and electronically signed by Lloyd Valera MD 08/22/25 14:51:
I saw and evaluated the patient. I reviewed the resident�s note and agree with findings and plan as documented in the resident�s note.
Seen earlier today in the morning. Late documentation. Patient's and 1 daughter was at bedside
She was on 5 L of oxygen for acute respiratory failure
Has hide acute hypoxic and hypercapnic respiratory failure
Patient states that she does not want BiPAP anymore
We reviewed previous CT scan from [address] scan. Pictures were printed out for the family to see the difference.
Unfortunately interstitial lung disease/amiodarone-induced lung injury has poor prognosis in this 89-year-old patient, reviewed with the family
Also reviewed CODE STATUS to see if they would make a complete DNR
Patient has 5 daughters they will discuss this together and get back to us.
In the meantime continue antibiotics,, steroids per pulmonary as well as diuresis.
Follow-up for according to response
Time spent more than 50 minutes today
Original Note:
Today's Communication/Plan
-
Continue antibiotics
Continue steroids
Assessment / Plan
Assessment / Plan
Assessment:
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
acute heart failure exacerbation
Plan:
Acute on Chronic HFpEF
Moderate MS, mild MR, moderate
Acute Hypoxic Respiratory Failure
-Echo 07/23/25: EF 65%, severely abnormal L atrial volume (>48ml/m2), moderate MS & . Likely experiencing acute on chronic HFpEF exacerbation due to adjusted Lasix schedule.
-At last admission, Lasix had been moved to M/W/F scheduling due to hypotension.
-She had been discharged on 2L of O2 due to pneumonia vs aspiration pneumonitis, now on 5L. Suspect this is secondary to acute heart failure exacerbation. Will wean O2 as tolerated to keep saturation above 92%
-Cardiology has been consulted by the admitting team, will appreciate their insight into her case
-Pulmonology has been consulted, will appreciate their insight into her case
-Continue IV Lasix 40mg daily
-Continue to monitor daily weights, Is and Os
-Continue holding home valsartan. On discharge, will continue to hold until she is followed up outpatient by her PCP
-Chest X-ray 08/21: Stable exam suggesting pulmonary edema and pneumonia.
-CT of the Chest pending official review
-Continue fluid restriction
-HOLD amiodarone due to concerns for interstitial lung disease.
-Continue Dexamethasone
-Continue IV Zosyn
-Ordered VBG
-Will monitor
Visual Hallucinations - Resolved
S/p Fall, Unobserved, Unknown Type
-Visual Hallucinations possibly due to fall, though notably she did experience hallucinations in the ICU during her last hospitalization
-Continue to focus on reorientation and routines to help reduce confusion
-Will monitor
Acute on Chronic Anemia, Likely Iron Deficiency
-Hemoglobin on admission 7.8, now 8.8 post 1 unit pRBCs on 08/19. Has remained stable around 9 since.
-Vitamin B12 and Folate normal at last admission
-Possibly secondary to bruises/hematoma, but they seem small compared to volume lost
-Continue to monitor H&H daily
-Continue home iron supplement
-Transfusion as needed for hemoglobin <7. Consent obtained on 08/19
-Continue Eliquis.
-Per nursing report, stools heme negative x2
-Continue to monitor
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
Urinary Incontinence
-Sodium on admission 129, around her baseline with fluid restriction and Lasix
-Continue fluid restriction
-Continue to monitor hyponatremia
History of 2nd Degree Heart Block
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
Paroxysmal Atrial Fibrillation
-Continue Eliquis. On resumption, will do 2.5mg dose given weight and age.
-Continue amiodarone
Coronary Artery Disease s/p Stent
-Continue atorvastatin
Orthostatic Hypotension
-Orthostatic vital signs from last admission are as follows:
--Layin/61
--Sittin/50
--Standin/47
-Continue midodrine scheduled dosing
-PT/OT has been consulted. Special attention will need to be paid to ensure no falls
-Continue patient's own abdominal binder, compression socks (Per last hospitalization)
Stage 2 left posterior thigh pressure injury
-Present on admission, noted by RN reports
-Continue local care
-Will monitor
R & L foot bilateral corns/callouses
Severely overgrown R & L 2nd toenails
-Toenails growing over toe, at risk of breaking skin on underside of toe. Seen by podiatry 08/01 at last admission and treated.
- Follow-up w podiatry outpatient
Hypothyroidism
-Continue levothyroxine
Post-Herpetic Neuralgia
-Continue duloxetine
Dysphagia
-Previously on IDDSI 6 - Consult Speech
DISPO: Conversation on 08/20 with patient and her patient's daughter about patient's health. Gently broached the conversation of goals of care including what is important to Mrs. Braga. Conversation was more focused on disposition and beginning
conversations about if patient would like to return to SNF following discharge, or if she would prefer to return home. Followed up same day with other daughter, both would prefer patient at home with palliative care. On 08/21 continued conversations
with , who is uncertain at this point. Plan to continue discussions throughout today.
Anticipated Discharge: > 48 hours
Subjective/Interval History
-
Date of Service: August 22, 2025
Patient was resting in bed when I arrived. Her was at the bedside, answering questions for this HPI. He states she has been sleeping very soundly for this entire morning and he has not been able to wake her for very long, although she does
look more comfortable today than she has when previously sleeping. She is not able to answer questions for the HPI at this point in time. Later, she was more alert, but still not able to contribute significantly to HPI due to shortness of breath.
She repeatedly stated 'no mask,' in reference to the BiPap she had been on overnight
Objective Data
-
Labs:
Laboratory Results
08/22/25 08/22/25
05:03 06:00
WBC Pending
Hgb Pending
Hct Pending
Plt Count Pending
Sodium 138
Potassium 3.8
Chloride 98
Carbon Dioxide 35 H
BUN 45 H
Creatinine 1.0
Glucose 104 H
Calcium 8.3 L
Vital Signs:
Vital Signs
Temp Pulse Resp BP Pulse Ox
97.6 F 70 15 128/73 96
08/22/25 03:53 08/22/25 06:00 08/22/25 06:00 08/22/25 04:00 08/22/25 06:00
I&O
08/21/25 08/22/25 08/23/25
06:59 06:59 06:59
Intake Total 560 / 560
Balance 560 / 560
Review of Systems
-
Unable to obtain full review of systems at this time due to: Acuity
History Source: Patient and Family
Physical Exam
-
General: Well Developed, Well Nourished, No Apparent Distress, Comfortable and Appears Chronically Ill
HEENT: Normocephalic
Respiratory: Decreased Breath Sounds
Cardiac: Regular Rhythm and S1/S2
Skin: Warm and Dry
Neuro: Negative Awake
--- NOTE | 2025-08-22 09:01 | W.PN.PUL3 ---
Today's Communication / Plan
-
Remains on 5L, BIPAP added at night
More somnolent today despite PAP
Can add IV Tylenol for pain, PO intake poor
Continue current medical therapy
Discussed prognosis with family but they are not yet ready for comfort care
Assessment
-
Patient is an 89-year-old female with previous history of congestive heart failure, A-fib, complete heart block status post pacer, presenting to ER on 08/18/2025 with confusion and visual hallucinations. She had previously been admitted for
similar complaints and found to have abnormal chest x-ray with follow-up CT scan suspicious for congestive heart failure exacerbation and/or underlying ILD. She was also noted to have dysphagia on speech screening, treated and discharged on
08/09/2025. Since arrival on this admission, she has been treated for heart failure but has not had any progress in treatment. Chest x-ray is progressing despite treatment. She is more somnolent today on my examination as well. She has limited
DNR, confirms that she would not want heroic measures including intubation. We are consulted for evaluation 08/21/25.
Acute hypoxic respiratory failure
Subacute HF exacerbation, on IV lasix
Abnormal CXR with progression despite treatment
Lethargy
Confusion
Fall - Unwitnessed
Scalp Hematoma - Likely Concussion
Conditions present CONSUMER ADVOCATE
ASCVD
Paroxysmal Atrial Fibrillation s/p DCCV 03/2022/chronic amiodarone use
Bradycardia / Heart Block s/p PPM
Chronic Hyponatremia
Chronic Iron Deficiency Anemia
Hypothyroidism
Dysphagia
Chronic Post-Herpetic Neuralgia
Follicular lymphoma s/p rituxin
Hx of falls
Hx of light tobacco smoking
GERD/hx of gastric ulcer
CAD s/p stent to LAD (2014)
HTN
HLD
Hx of ankle fracture
Valvular heart disease with , MS and MR
Restrictive lung disease
Hx of right-sided pleural effusion requiring multiple thoracentesis in [id number]
Hx of non-Hodgkin lymphoma s/p rituxin
Chronic kidney disease
Plan
Hypoxemia noted on arrival, currently saturating 97% on 5L
No improvement
Prior history of lung disease is noted including abnormal CT on last admission
Possible ILD, she is on chronic amio
CXR is progressive despite treatment with IV lasix
Suspect patient has possible ILD vs PNA--repeat CT chest for clarity
Will check PCT -- 0.29
Could be from amiodarone, but she would not tolerate lung biopsy for confirmation
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
Previous imaging reviewed--this seems progressed
I will add IV steroids as I do not think she would tolerate bronchoscopy
Confirmed with that she is DNR, no intubation
Chronic aspiration is a possibility given waxing/waning MS
Speech following
Seems more lethargic today, will check ABG
Chronic compensated hypercarbia noted
Continue BIPAP
ECHO results reviewed--stable function, findings
ProBNP on arrival was >27, 000
Agree with continued IV lasix
If not improving despite these measure, would consider GOC discussions
Updated at bedside
I feel her prognosis is poor- I discussed this with family today, they are not ready for comfort care
Diagnostic Data
Chest X-Ray: 08/21/25- Stable exam suggesting pulmonary edema and pneumonia.
08/02/25- Bilateral parenchymal opacification without significant change, possibly representing pneumonia.
CT Scan: CHEST 07/29/25- Findings suggesting severe bilateral pneumonia as described above, greatest in right upper lobe. Interstitial lung disease not excluded. Stable
Moderate left pleural effusion. Progressed Mild bibasilar atelectasis. Mild cardiomegaly. Mild pectus excavatum deformity. Severe atherosclerotic vascular disease. Severe compression fractures. Stable
Echo: 08/19/25- 1. Normal left ventricular size, wall thickness and systolic function. No regional wall motion abnormalities are seen.
2. Right ventricular size and systolic function are within normal limits.
3. Thickened and calcified aortic leaflets with reduced excursion; known moderate aortic stenosis.
4. Moderate mitral stenosis with mean gradient 7 mmHg.
5. Mild to moderate mitral regurgitation.
6. Mild to moderate tricuspid regurgitation. Estimated pulmonary artery pressure of 65 mmHg assuming a right atrial pressure of 8 mmHg.
7. Compared to prior echo dated 07/24/2025, there is little significant change.
PFT's:
Reports and relevant images were personally reviewed.
Total time spent on this consultation __51__ minutes which includes review of history, physical exam, medications, laboratory data, personal review of imaging, extensive review of outpatient records, discussion with care team and respiratory therapy.
Subjective Data
-
Date of Service:
Date of Service: August 22, 2025
Chief Complaint: Pulmonary Follow Up
Subjective:
More somnolent today than yesterday
Was on BIPAP overnight but did not seem to be more alert this AM
Objective Data
Data Reviewed
Vital Signs / I&O / Oxygen:
Vital Signs
Temp Pulse Resp BP Pulse Ox
97.2 F 72 20 120/62 95
08/22/25 07:45 08/22/25 06:41 08/22/25 06:41 08/22/25 06:41 08/22/25 08:31
Intake and Output
08/21/25 08/22/25 08/23/25
06:59 06:59 06:59
Intake Total 560 / 560
Balance 560 / 560
SaO2 95
Nasal Cannula flow liters per 5
minute
Physical Exam
General: Poor Appetite and Other (agonal breathing)
HEENT: Normocephalic, Anicteric and Moist Mucous Membranes
Cardiovascular: S1-S2 and Regular Rhythm
Respiratory: Crackles and Other (low/shallow breathing)
GI: Soft, Non Distended and Non Tender
Neurology: Lethargic (minimally responsive)
Skin: Warm and Dry
Labs/Micro/Reports
Lab Data
08/22/25 05:03
Laboratory Results
08/21/25 08/21/25
16:16 16:25
pH Cancelled Cancelled
pCO2 Cancelled Cancelled
pO2 Cancelled Cancelled
HCO3 Cancelled Cancelled
O2 Delivery Level Cancelled Cancelled
[2025-08-22 09:24] LABS: Hematocrit 27.4 % (37.0-47.0); Hemoglobin 9.0 g/dL (12.0-16.0); Mean Corp Hgb Conc. 32.8 g/dL (33.0-37.0); Mean Corpuscular Volume 93.8 fL (81.0-99.0); Platelet Count 148 10^3/uL (130-400); Red Cell Dist. Width 19.5 % (11.5-14.5)
[2025-08-22] MEDS: FEOSOL 325 MG PO (09:50)
[2025-08-22] MEDS: CYMBALTA DELAYED RELEASE 60 MG PO (09:50)
[2025-08-22] MEDS: ELIQUIS 2.5 MG PO ×2 (09:50→21:51)
[2025-08-22] MEDS: PROTONIX 40 MG PO (09:51)
[2025-08-22] MEDS: LASIX 40 MG IV (09:51)
[2025-08-22] MEDS: DECADRON 4 MG IV ×3 (09:51→23:15)
[2025-08-22 12:41] LABS: Venous Blood Gas B.E. 11.5 mmol/L (-4 to +4); Venous Blood Gas O2 Sat % 80.7 %
--- NOTE | 2025-08-22 12:55 | W.PN.CARDCBS ---
Today's Communication / Plan
-
Hold off amiodarone, continue gentle diuresis with IV Lasix
Recent echo normal LVEF with elevated pulmonary pressures, moderate
Monitor on telemetry
Appreciate input by pulm
Overall guarded prognosis
Impression / Plan
-
PCP: Dr. Morales
Cardiology: Dr. MAGDA Cabrera
Impression:
Admitted with confusion, unwitnessed fall and acute HFpEF 08/18/2025
Recent admission with PPM placement, BECKA, elevated troponin and acute HFpEF 07/23/2025 until 08/09/2025
Confusion with possible hospital delirium
Unwitnessed fall and new scalp hematoma
Anemia, acute on chronic
Acute on chronic HFpEF
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
Paroxysmal Afib
Chronic Eliquis OAC
CAD s/p prox LAD PCI 2014
widely patent LAD stent by cath 03/29/22
Hypothyroidism
Moderate MS and trace MR by echo 05/27/24
Mild AR/
History of Follicular lymphoma
Rituxan infusion
Orthostasis
Lexiscan mibi 03/04/19: Completed 4:10 min Chandan protocol reaching 87% MPHR, normal perfusion imaging
Echo 05/2021: EF 60-65%, severe LA enlargement, mild MS (02/07) mild (03/10) ANGELINA 1.7cm2
Echo 03/28/22: EF 68%, stage II diastolic dysfunction, mild to mod MS peak/mean 15/8 mmHg and pressure halftime 1.7 cm sq, mild MR, mild with peak/mean 26/14 mmHg and ANGELINA 2.0 cm sq
Echo 05/27/2024: EF 55 to 60%, normal RV size and function, moderate MS with mean transmitral gradient 8 mmHg, trace MR, mild peak/mean 29/16 mmHg and ANGELINA 1.5 cm sq
Echo 07/23/25: EF 65%, no WMA, moderate peak/mean 48/25 mmHg and ANGELINA 1.4 cm sq, mild TR, moderate MS peak/mean 25/13 mmHg, mild MR
Echo 08/19/2025: EF 55%, no WMA, mod , mod MS, mild-mod TR, mild mod MR; PASP 65 mmHg
Plan:
- Weight previously 57.8 kg now 58.8 kg today; we are diuresing with Lasix 40 mg IV daily diuresis. Patient was taking Lasix 20 mg PO MWF prior to admission. Monitor renal function, electrolytes
-Despite diuresis patient remains hypoxic requiring 5 L NC, overall oxygen demands are higher than last admission.
-CXR on admission showed patchy B/L parenchymal opacities and previous CT of the chest from 07/29/2025 showed possible ILD. Appreciate input from pulmonology who is recommending repeat CT scan of chest to help differentiate between possible chronic
aspiration PNA and ILD.
-Patient being started on Decadron 4 mg IV every 8 hours 08/21/2025
-EF preserved at 65% by echo 07/23/2025, recheck limited study echo ordered by me
-GDMT limited by hypotension. Outpatient dose of valsartan is on hold due to hypotension
-Patient with known paroxysmal A-fib.
-Outpatient dose of Eliquis has been decreased to 2.5 mg BID (age 89, Cre 1.0, wt 59.5kg)
-Outpatient dose of amiodarone 200 mg daily is long-term and chronic, but on hold as of 08/21/2025
-Troponin peaked at 0.351 last admission. Initial troponin in the ER was 0.048 and on repeat 08/21/2025 0.056 downtrended to 0.054. No complaints of chest pain. There was consideration for cardiac catheterization last admission, but ultimately
deferred this admission given significant comorbidities, BECKA, anemia and overall preserved EF.
-Talked with patient's at bedside 08/22/2025 and reviewed concerns for ILD related to amiodarone, patient's is in agreement with pulmonology consultation and appreciate their input. Patient's confirms that she is a limited
DNR and would not want to be intubated. Discussed with patient's daughter at bedside as well.
HPI: Patient came to the ER last evening with concerns for an unwitnessed fall at her rehab and was admitted with scalp hematoma and acute HFpEF, cardiology is now consulted. As you recall patient was admitted from 07/23/2025 until 08/09/2025 when
she initially came in with new AV block that was at times high-grade and lead to urgent temporary wire placement followed by Medtronic DC PPM on 07/24/2025. Patient was also diuresed for acute HFpEF during that admission and there was a concern for
possible overdiuresis with orthostasis and eventually patient was started on midodrine 2.5 mg TID. Patient has known paroxysmal A-fib and her chronic dose of amiodarone 200 mg daily plus Eliquis 5 mg BID has been continued. During admission last
month troponin peaked at 0.3 and was ultimately managed as a nonischemic myocardial injury troponin elevation with overall stable EF and no evidence of WMA. Echo did show however mild TR with PAP 74 mmHg. Patient has been at the [facility] since 08/09/2025 and family reports there was an unwitnessed fall within the last week where patient had her head stuck between the bed and the wall and apparently initially there was not any visible sign of injury, but family later
noticed a scalp hematoma and then increasing confusion prompting her return to the ER. CT scan of the head did not show any acute intracranial abnormality, but there was evidence of a small soft tissue density in the right parietal occipital scalp
consistent with scalp hematoma/contusion. CXR suggested small B/L pleural effusions and proBNP was 11,300 compared to greater than 27,000 back on 07/26/2025.
Progress Note - Radio Electronics Officer
Subjective
Date of Service: August 22, 2025
Patient seen and examined. Placed on BiPAP overnight now weaned to nasal cannula. Reports shortness of breath. No reported chest pain. Telemetry demonstrates AF with V pacing.
Objective
Labs:
08/22/25 08:48
08/22/25 05:03
Labs
Hgb 9.0 g/dL (12.0-16.0) L 08/22/25 08:48
Hct 27.4 % (37.0-47.0) L 08/22/25 08:48
Plt Count 148 10^3/uL (130-400) 08/22/25 08:48
Sodium 138 mmol/L (135-145) 08/22/25 05:03
Potassium 3.8 mmol/L (3.5-5.1) 08/22/25 05:03
BUN 45 mg/dl (7-17) H 08/22/25 05:03
Creatinine 1.0 mg/dL (0.6-1.0) 08/22/25 05:03
Glucose 104 mg/dl (70-99) H 08/22/25 05:03
Troponins
08/21/25 08/22/25
07:45 05:03
Troponin I 0.056 H* 0.054 H*
Vital Signs and I&O:
Vital Signs
Temp Pulse Resp BP Pulse Ox
97.5 F 98 23 109/63 91
08/22/25 11:32 08/22/25 10:00 08/22/25 10:00 08/22/25 10:00 08/22/25 10:00
Vital Signs
Temp Pulse Resp BP Pulse Ox
97.5 F 98 23 109/63 91
08/22/25 11:32 08/22/25 10:00 08/22/25 10:00 08/22/25 10:00 08/22/25 10:00
Intake & Output
08/20/25 08/21/25 08/22/25 08/23/25
06:59 06:59 06:59 06:59
Intake Total 250 / 250 560 / 560 110 / 110
Balance 250 / 250 560 / 560 110 / 110
Physical Exam
Physical Exam
GEN: No distress, awake, Ox3
HEENT: supple, anicteric, mmm
LUNGS: bilat rhonchi, conversational dyspnea
CV: Reg, S1/S2, 1/6 syst LSB, no gallop
ABD: soft, BS+, NT/ND
EXT: + edema
NEURO: Gross non-focal
SKIN: No rash
--- NOTE | 2025-08-22 16:59 | CM ---
Following up on Patient. Hospitalist Notes state that patient is doing poorly and that the family would need to make some decisions after talking to other family over the weekend. ANUPAM Croft said hello to the daughter and who confirmed a
decision will be made on Monday.
PLAN: TBD
[2025-08-22] MEDS: LIPITOR 20 MG PO (17:42)
[2025-08-22] MEDS: SENOKOT-S PO (21:51)
[2025-08-23] VITALS (14 sets, daily range): BP systolic 93–139; BP diastolic 53–78; PULSE 2–84; O2SAT 100; BMI 22.8
[2025-08-23] MEDS: ZOSYN 50 IV ×4 (05:17→20:59)
[2025-08-23] MEDS: SYNTHROID PO (05:17)
--- NOTE | 2025-08-23 07:41 | W.PN.CARDCBS ---
Today's Communication / Plan
-
Continue diuresis with weight monitoring and intake and output
Monitor renal function
Monitor on telemetry
Impression / Plan
-
PCP: Dr. Morales
Cardiology: Dr. MAGDA Cabrera
Impression:
Admitted with confusion, unwitnessed fall and acute HFpEF 08/18/2025
Recent admission with PPM placement, BECKA, elevated troponin and acute HFpEF 07/23/2025 until 08/09/2025
Confusion with possible hospital delirium
Unwitnessed fall and new scalp hematoma
Anemia, acute on chronic
Acute on chronic HFpEF
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
Paroxysmal Afib
Chronic Eliquis OAC
CAD s/p prox LAD PCI 2014
widely patent LAD stent by cath 03/29/22
Hypothyroidism
Moderate MS and trace MR by echo 05/27/24
Mild AR/
History of Follicular lymphoma
Rituxan infusion
Orthostasis
Lexiscan mibi 03/04/19: Completed 4:10 min Chandan protocol reaching 87% MPHR, normal perfusion imaging
Echo 05/2021: EF 60-65%, severe LA enlargement, mild MS (/) mild (03/10) ANGELINA 1.7cm2
Echo 03/28/22: EF 68%, stage II diastolic dysfunction, mild to mod MS peak/mean 15/8 mmHg and pressure halftime 1.7 cm sq, mild MR, mild with peak/mean 26/14 mmHg and ANGELINA 2.0 cm sq
Echo 05/27/2024: EF 55 to 60%, normal RV size and function, moderate MS with mean transmitral gradient 8 mmHg, trace MR, mild peak/mean 29/16 mmHg and ANGELINA 1.5 cm sq
Echo 07/23/25: EF 65%, no WMA, moderate peak/mean 48/25 mmHg and ANGELINA 1.4 cm sq, mild TR, moderate MS peak/mean 25/13 mmHg, mild MR
Echo 08/19/2025: EF 55%, no WMA, mod , mod MS, mild-mod TR, mild mod MR; PASP 65 mmHg
Plan:
- Inaccurate I's and O's however patient at 57.8 kg (roughly 1 kg down from yesterday); we are diuresing with Lasix 40 mg IV daily diuresis. Patient was taking Lasix 20 mg PO MWF prior to admission. Monitor renal function, electrolytes
-Despite diuresis patient remains hypoxic requiring 5 L NC, overall oxygen demands are higher than last admission.
-CXR on admission showed patchy B/L parenchymal opacities and previous CT of the chest from 07/29/2025 showed possible ILD. Appreciate input from pulmonology who is recommending repeat CT scan of chest to help differentiate between possible chronic
aspiration PNA and ILD.
- Remains on on Decadron 4 mg IV every 8 hours 08/21/2025 per pulmonology
-EF preserved at 65% by echo 07/23/2025, repeat shows stable LVEF, elevated pulmonary pressures
-GDMT limited by hypotension. Outpatient dose of valsartan is on hold due to hypotension
-Patient with known paroxysmal A-fib, in AF rate controlled during hospitalization
-Outpatient dose of Eliquis has been decreased to 2.5 mg BID (age 89, Cre 1.0, wt 59.5kg)
-Outpatient dose of amiodarone 200 mg daily is long-term and chronic, but on hold as of 08/21/2025
-Troponin peaked at 0.351 last admission. Initial troponin in the ER was 0.048 and on repeat 08/21/2025 0.056 downtrended to 0.054. No complaints of chest pain. There was consideration for cardiac catheterization last admission, but ultimately
deferred this admission given significant comorbidities, BECKA, anemia and overall preserved EF.
- Prior discussion with patient's at bedside 08/22/2025 and reviewed concerns for ILD related to amiodarone, patient's is in agreement with pulmonology consultation and appreciate their input. Patient's confirms that she is
a limited DNR and would not want to be intubated.
HPI: Patient came to the ER last evening with concerns for an unwitnessed fall at her rehab and was admitted with scalp hematoma and acute HFpEF, cardiology is now consulted. As you recall patient was admitted from 07/23/2025 until 08/09/2025 when
she initially came in with new AV block that was at times high-grade and lead to urgent temporary wire placement followed by Medtronic DC PPM on 07/24/2025. Patient was also diuresed for acute HFpEF during that admission and there was a concern for
possible overdiuresis with orthostasis and eventually patient was started on midodrine 2.5 mg TID. Patient has known paroxysmal A-fib and her chronic dose of amiodarone 200 mg daily plus Eliquis 5 mg BID has been continued. During admission last
month troponin peaked at 0.3 and was ultimately managed as a nonischemic myocardial injury troponin elevation with overall stable EF and no evidence of WMA. Echo did show however mild TR with PAP 74 mmHg. Patient has been at the [facility]
[email or web address] since 08/09/2025 and family reports there was an unwitnessed fall within the last week where patient had her head stuck between the bed and the wall and apparently initially there was not any visible sign of injury, but family later
noticed a scalp hematoma and then increasing confusion prompting her return to the ER. CT scan of the head did not show any acute intracranial abnormality, but there was evidence of a small soft tissue density in the right parietal occipital scalp
consistent with scalp hematoma/contusion. CXR suggested small B/L pleural effusions and proBNP was 11,300 compared to greater than 27,000 back on 07/26/2025.
Progress Note - Soft Top Installer
Subjective
Date of Service: August 23, 2025
Patient seen and examined this morning. No acute events overnight. Patient resting in bed with BiPAP. Reports no complaints. Telemetry shows AF occasional V pacing
Objective
Labs:
Labs
Hgb 9.0 g/dL (12.0-16.0) L 08/22/25 08:48
Hct 27.4 % (37.0-47.0) L 08/22/25 08:48
Plt Count 148 10^3/uL (130-400) 08/22/25 08:48
Sodium 138 mmol/L (135-145) 08/22/25 05:03
Potassium 3.8 mmol/L (3.5-5.1) 08/22/25 05:03
BUN 45 mg/dl (7-17) H 08/22/25 05:03
Creatinine 1.0 mg/dL (0.6-1.0) 08/22/25 05:03
Glucose 104 mg/dl (70-99) H 08/22/25 05:03
Troponins
08/21/25 08/22/25
07:45 05:03
Troponin I 0.056 H* 0.054 H*
Vital Signs and I&O:
Vital Signs
Temp Pulse Resp BP Pulse Ox
96.7 F L 87 25 105/68 91
08/23/25 03:00 08/23/25 06:00 08/23/25 06:00 08/23/25 06:00 08/23/25 06:00
Vital Signs
Temp Pulse Resp BP Pulse Ox
96.7 F L 87 25 105/68 91
08/23/25 03:00 08/23/25 06:00 08/23/25 06:00 08/23/25 06:00 08/23/25 06:00
Intake & Output
08/21/25 08/22/25 08/23/25 08/24/25
06:59 06:59 06:59 06:59
Intake Total 560 / 560 280 / 280
Balance 560 / 560 280 / 280
Physical Exam
Physical Exam
GEN: No distress, awake, Ox3
HEENT: supple, anicteric, mmm
LUNGS: Faint bibasilar crackles
CV: Reg, S1/S2, 1/6 syst LSB, no gallop; left-sided CIED site healing no erythema, warmth, drainage, swelling
ABD: soft, BS+, NT/ND
EXT: + edema
NEURO: Gross non-focal
SKIN: No rash
[2025-08-23] MEDS: DECADRON 4 MG IV ×2 (09:08→15:25)
[2025-08-23] MEDS: LASIX 40 MG IV (09:08)
--- NOTE | 2025-08-23 09:22 | W.PN.HOSP.TC ---
Today's Communication/Plan
-
HOLD amiodarone
Continue BiPap as tolerated
Continue Supplemental O2 as needed (Currently on 15L), wean to oxygen saturation >92%
Assessment / Plan
Assessment / Plan
Assessment:
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
acute heart failure exacerbation.
Plan:
Acute on Chronic HFpEF
Moderate MS, mild MR, moderate
Acute Hypoxic Respiratory Failure
-Echo 07/23/25: EF 65%, severely abnormal L atrial volume (>48ml/m2), moderate MS & . Likely experiencing acute on chronic HFpEF exacerbation due to adjusted Lasix schedule.
-At last admission, Lasix had been moved to M/W/F scheduling due to hypotension.
-She had been discharged on 2L of O2 due to pneumonia vs aspiration pneumonitis, now on 15L. Will wean O2 as tolerated to keep saturation above 92%, but not reassured that she will be able to return to 2L or even 5L.
-Cardiology has been consulted, will appreciate their insight into her case
-Pulmonology has been consulted, will appreciate their insight into her case
-Continue IV Lasix 40mg daily
-Continue to monitor daily weights, Is and Os
-Continue holding home valsartan. On discharge, will continue to hold until she is followed up outpatient by her PCP
-Chest X-ray 08/21: Stable exam suggesting pulmonary edema and pneumonia.
-CT of the Chest pending official review
-Continue fluid restriction
-HOLD amiodarone due to concerns for interstitial lung disease.
-Continue Dexamethasone
-Continue IV Zosyn
-Continue BiPap as tolerated.
-Will monitor
Visual Hallucinations - Resolved
S/p Fall, Unobserved, Unknown Type
-Visual Hallucinations possibly due to fall, though notably she did experience hallucinations in the ICU during her last hospitalization
-Continue to focus on reorientation and routines to help reduce confusion
-Will monitor
Acute on Chronic Anemia, Likely Iron Deficiency
-Hemoglobin on admission 7.8, increased to 8.8 post 1 unit pRBCs on 08/19. Has remained stable around 9 since.
-Vitamin B12 and Folate normal at last admission
-Possibly secondary to bruises/hematoma, but they seem small compared to volume lost
-Continue to monitor H&H daily
-Continue home iron supplement
-Transfusion as needed for hemoglobin <7. Consent obtained on 08/19
-Continue Eliquis.
-Per nursing report, stools heme negative x2
-Continue to monitor
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
Urinary Incontinence
-Sodium on admission 129, around her baseline with fluid restriction and Lasix
-Continue fluid restriction
-Continue to monitor hyponatremia
History of 2nd Degree Heart Block
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
Paroxysmal Atrial Fibrillation
-Continue Eliquis. On resumption, will do 2.5mg dose given weight and age.
-Continue amiodarone
Coronary Artery Disease s/p Stent
-Continue atorvastatin
Orthostatic Hypotension
-Orthostatic vital signs from last admission are as follows:
--Layin/61
--Sittin/50
--Standin/47
-Continue midodrine scheduled dosing
-PT/OT has been consulted. Special attention will need to be paid to ensure no falls
-Continue patient's own abdominal binder, compression socks (Per last hospitalization)
Stage 2 left posterior thigh pressure injury
-Present on admission, noted by RN reports
-Continue local care
-Will monitor
R & L foot bilateral corns/callouses
Severely overgrown R & L 2nd toenails
-Toenails growing over toe, at risk of breaking skin on underside of toe. Seen by podiatry 08/01 at last admission and treated.
- Follow-up w podiatry outpatient
Hypothyroidism
-Continue levothyroxine
Post-Herpetic Neuralgia
-Continue duloxetine
Dysphagia
-Previously on IDDSI 6 - Consult Speech
DISPO: Conversation on 08/20 with patient and her patient's daughter about patient's health. Gently broached the conversation of goals of care including what is important to Mrs. Braga. Conversation was more focused on disposition and beginning
conversations about if patient would like to return to SNF following discharge, or if she would prefer to return home. Followed up same day with other daughter, both would prefer patient at home with palliative care. On 08/21 and 08/22 continued
conversations with , who is uncertain at this point and does not wish to make any descisions until his family his present. Plan for daughters to be present for large family goals of care conversation on 08/25
Anticipated Discharge: > 48 hours
Subjective/Interval History
-
Date of Service: August 23, 2025
Patient was sleeping when I arrived, comfortably wearing her BiPap. Her arrived at the room. His daughter will be returning home from [place] soon, and once she is back he is planning to bring together all of their children to discuss her care
moving forward. When she was transferred back to BiPap, her new oxygen requirement this AM was 15L. Her daughter reports last night for the first hour while she was on BiPap she would repeatedly desaturate into the 80s.
Objective Data
-
Labs:
Laboratory Results
08/23/25
06:00
WBC Pending
Hgb Pending
Hct Pending
Plt Count Pending
Sodium Pending
Potassium Pending
Chloride Pending
Carbon Dioxide Pending
BUN Pending
Creatinine Pending
Glucose Pending
Calcium Pending
Vital Signs:
Vital Signs
Temp Pulse Resp BP Pulse Ox
96.5 F L 87 25 105/68 91
08/23/25 07:45 08/23/25 06:00 08/23/25 06:00 08/23/25 06:00 08/23/25 06:00
I&O
08/22/25 08/23/25 08/24/25
06:59 06:59 06:59
Intake Total 560 / 560 280 / 280
Balance 560 / 560 280 / 280
Review of Systems
-
Unable to obtain full review of systems at this time due to: Acuity
Physical Exam
-
General: Well Developed, Well Nourished, No Apparent Distress, Comfortable and Appears Chronically Ill
HEENT: Normocephalic, Atraumatic and Other (BIPAP, Then O2 15L)
Respiratory: Decreased Breath Sounds
Cardiac: Regular Rhythm and S1/S2
Skin: Warm and Dry
Neuro: Negative Awake
[2025-08-23] MEDS: ELIQUIS PO (11:30)
[2025-08-23] MEDS: CYMBALTA DELAYED RELEASE PO (11:30)
[2025-08-23] MEDS: PROTONIX PO (11:30)
[2025-08-23] MEDS: FEOSOL PO (11:30)
--- NOTE | 2025-08-23 12:14 | W.PN.PUL3 ---
Today's Communication / Plan
-
Prognosis is guarded
Continue IV corticosteroids
Continue antibiotics
Continue diuretics
Continue oxygen supplementation to maintain pulse ox above 90%-currently on 15 L
May use BiPAP for increased work of breathing-will not use routinely as the patient does not like
DNR status noted
Assessment
-
Patient is an 89-year-old female with previous history of congestive heart failure, A-fib, complete heart block status post pacer, presenting to ER on 08/18/2025 with confusion and visual hallucinations. She had previously been admitted for
similar complaints and found to have abnormal chest x-ray with follow-up CT scan suspicious for congestive heart failure exacerbation and/or underlying ILD. She was also noted to have dysphagia on speech screening, treated and discharged on
08/09/2025. Since arrival on this admission, she has been treated for heart failure but has not had any progress in treatment. Chest x-ray is progressing despite treatment. She is more somnolent today on my examination as well. She has limited
DNR, confirms that she would not want heroic measures including intubation. We are consulted for evaluation 08/21/25.
Acute hypoxic respiratory failure
Subacute HF exacerbation, on IV lasix
Abnormal CXR with progression despite treatment
Lethargy
Confusion
Fall - Unwitnessed
Scalp Hematoma - Likely Concussion
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
ASCVD
Paroxysmal Atrial Fibrillation s/p DCCV 03/2022/chronic amiodarone use
Bradycardia / Heart Block s/p PPM
Chronic Hyponatremia
Chronic Iron Deficiency Anemia
Hypothyroidism
Dysphagia
Chronic Post-Herpetic Neuralgia
Follicular lymphoma s/p rituxin
Hx of falls
Hx of light tobacco smoking
GERD/hx of gastric ulcer
CAD s/p stent to LAD (2014)
HTN
HLD
Hx of ankle fracture
Valvular heart disease with , MS and MR
Restrictive lung disease
Hx of right-sided pleural effusion requiring multiple thoracentesis in [id number]
Hx of non-Hodgkin lymphoma s/p rituxin
Chronic kidney disease
Plan
-
Hypoxemic respiratory failure. Currently on 15 L with pulse ox of 99%.
No improvement despite diuresis
CT of the chest reviewed: Showed bilateral pleural effusions left greater than right. Significant bilateral airspace disease. Similar to CAT scan in July 2025.
-
Prior history of lung disease is noted including abnormal CT on last admission
Possible ILD, she is on chronic amio-amiodarone toxicity a possibility.
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
-
Cannot rule out infectious etiology,
Will check PCT -- 0.29
During previous admission she was treated for pneumonia July 2025-had positive sputum culture with Staphylococcus hemolyticus-she was able to be weaned down to 3 L.
Has been afebrile without leukocytosis.
Now hypothermic
Suspect less likely infectious as patient has similar CAT scan in July.
Currently on Zosyn-continue for now.
-
Agree with holding amiodarone.
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
Previous imaging reviewed--this seems progressed
-
Continue empiric IV steroids dexamethasone 4 mg IV every 8 hours starting 08/22/2024 as I do not think she would tolerate bronchoscopy-for possible inflammatory pneumonitis or DAH.
Confirmed with that she is DNR, no intubation
Chronic aspiration is a possibility given waxing/waning MS
Speech following
Patient is awake and cooperative. Eating lunch.
Chronic compensated hypercarbia noted
Continue BIPAP as needed for increased work of breathing.
Patient does not like it, will not use it routinely. Increased risk of delirium.
Discussed with daughter at the bedside 08/23/2025 and she agrees.
Heart failure component:
ECHO results reviewed--stable function, findings
ProBNP on arrival was >27, 000
Agree with continued IV lasix per cardiology.
Holding amiodarone.
Monitor renal function, hemodynamics and electrolytes.
If not improving despite these measure, would consider GOC discussions
Updated at bedside
Dr. Lassiter discussed with the family potential transition to comfort care.
Dr. Dave again discussed with family 08/23/2025. If there is clinical deterioration they will move to comfort care.
Diagnostic Data
Chest X-Ray: 08/21/25- Stable exam suggesting pulmonary edema and pneumonia.
08/02/25- Bilateral parenchymal opacification without significant change, possibly representing pneumonia.
CT Scan: CHEST 07/29/25- Findings suggesting severe bilateral pneumonia as described above, greatest in right upper lobe. Interstitial lung disease not excluded. Stable
Moderate left pleural effusion. Progressed Mild bibasilar atelectasis. Mild cardiomegaly. Mild pectus excavatum deformity. Severe atherosclerotic vascular disease. Severe compression fractures. Stable
Echo: 08/19/25- 1. Normal left ventricular size, wall thickness and systolic function. No regional wall motion abnormalities are seen.
2. Right ventricular size and systolic function are within normal limits.
3. Thickened and calcified aortic leaflets with reduced excursion; known moderate aortic stenosis.
4. Moderate mitral stenosis with mean gradient 7 mmHg.
5. Mild to moderate mitral regurgitation.
6. Mild to moderate tricuspid regurgitation. Estimated pulmonary artery pressure of 65 mmHg assuming a right atrial pressure of 8 mmHg.
7. Compared to prior echo dated 07/24/2025, there is little significant change.
PFT's:
Reports and relevant images were personally reviewed.
Total time spent on this consultation __41__ minutes which includes review of history, physical exam, medications, laboratory data, personal review of imaging, extensive review of outpatient records, discussion with care team and respiratory therapy.
Subjective Data
-
Date of Service:
Date of Service: August 23, 2025
Chief Complaint: Pulmonary Follow Up
Subjective:
Remains on significant oxygen supplementation on intermittent BiPAP.
Shortness of breath continues
Denies hemoptysis or phlegm production
Review of Systems
Cardiopulmonary: Dyspnea and Dyspnea on Exertion
GI: Abdominal Pain (n), Nausea (n) and Vomiting (n)
Objective Data
Data Reviewed
Vital Signs / I&O / Oxygen:
Vital Signs
Temp Pulse Resp BP Pulse Ox
96.5 F L 87 25 105/68 91
08/23/25 07:45 08/23/25 06:00 08/23/25 06:00 08/23/25 06:00 08/23/25 06:00
Intake and Output
08/22/25 08/23/25 08/24/25
06:59 06:59 06:59
Intake Total 560 / 560 280 / 280
Balance 560 / 560 280 / 280
SaO2 91
Nasal Cannula flow liters per 15
minute
Physical Exam
General: Poor Appetite and Other (agonal breathing)
HEENT: Normocephalic, Anicteric and Moist Mucous Membranes
Cardiovascular: S1-S2 and Regular Rhythm
Respiratory: Crackles and Other (low/shallow breathing)
GI: Soft, Non Distended and Non Tender
Neurology: Lethargic (minimally responsive)
Skin: Warm and Dry
--- NOTE | 2025-08-23 12:46 | W.PN.UPDATE ---
Update Note
Progress Note Update
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 Admitted for worsening hypoxia.
A/P:
# Acute hypoxic and hypercapnic respiratory failure
# Acute on Chronic HFpEF
# Concern for interstitial lung disease/amiodarone-induced lung injury
Echo 07/23/25: EF 65%, moderate MS & .
worsening hypoxia, O2 requirement increased from 5 to 15L midflow
Cont BIPAP if able to tolerate (she has been refusing)
Off amiodarone
Cont IV lasix per card
Cont IV Decadron per pulm
Cont DuoNeb PRN
Cont empiric Abx Zosyn
GOC discussion ongoing in setting of pt's poor clinical status- to discuss with their 5 daughters, decision TBD
# Visual Hallucinations - Resolved
# Hyponatremia, resolved
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
# Paroxysmal Atrial Fibrillation
Continue Eliquis at decreased dose 2.5mg BID
Off amiodarone
# Coronary Artery Disease s/p Stent
# Stage 2 left posterior thigh pressure injury, POA
# Hypothyroidism
Continue levothyroxine
# Post-Herpetic Neuralgia
Continue duloxetine
# Dysphagia
Cont IDDSI 6
DVT ppx: Eliquis
Code: limited DNR
dispo: GOC ongoing
d/w and one daughter in person
total time 52 min
[2025-08-23 16:21] LABS: Hematocrit 32.6 % (37.0-47.0); Hemoglobin 10.5 g/dL (12.0-16.0); Mean Corp Hgb Conc. 32.2 g/dL (33.0-37.0); Mean Corpuscular Volume 96.2 fL (81.0-99.0); Platelet Count 190 10^3/uL (130-400); Red Cell Dist. Width 20.0 % (11.5-14.5)
[2025-08-23 16:32] LABS: Blood Urea Nitrogen 61 mg/dl (7-17); Calcium 8.0 mg/dl (8.4-10.2); Chloride 96 mmol/L (98-107); Estimated Creatinine Clearance 24 ml/min; Glucose 111 mg/dl (70-99); Potassium 4.1 mmol/L (3.5-5.1); Sodium 140 mmol/L (135-145); eGFR 39.55
[2025-08-23 16:48] LABS: Carbon Dioxide 38 mmol/L (22-30)
[2025-08-23] MEDS: LIPITOR 20 MG PO (17:37)
[2025-08-23] MEDS: ELIQUIS 2.5 MG PO (20:58)
[2025-08-23] MEDS: SENOKOT-S 2 TABLET PO (20:59)
[2025-08-24] VITALS (14 sets, daily range): BP systolic 90–136; BP diastolic 58–85; PULSE 2–101; BMI 22.7
[2025-08-24] MEDS: DECADRON 4 MG IV ×3 (01:08→15:34)
[2025-08-24] MEDS: ZOSYN 50 IV ×4 (05:26→21:06)
[2025-08-24] MEDS: SYNTHROID 75 MCG PO (05:26)
[2025-08-24 05:53] LABS: Hematocrit 26.6 % (37.0-47.0); Hemoglobin 9.1 g/dL (12.0-16.0); Mean Corp Hgb Conc. 34.2 g/dL (33.0-37.0); Mean Corpuscular Volume 93.0 fL (81.0-99.0); Platelet Count 143 10^3/uL (130-400); Red Cell Dist. Width 19.7 % (11.5-14.5)
[2025-08-24 06:18] LABS: Blood Urea Nitrogen 65 mg/dl (7-17); Calcium 7.6 mg/dl (8.4-10.2); Carbon Dioxide 38 mmol/L (22-30); Chloride 98 mmol/L (98-107); Estimated Creatinine Clearance 21 ml/min; Glucose 119 mg/dl (70-99); Sodium 138 mmol/L (135-145); eGFR 33.31
[2025-08-24 06:23] LABS: Potassium 3.3 mmol/L (3.5-5.1)
--- NOTE | 2025-08-24 07:20 | W.PN.HOSP.TC ---
Today's Communication/Plan
-
HOLD Lasix
PO potassium repletion
Continue to wean Oxygen as tolerated to keep O2 saturation >92%
Continue BiPap as tolerated
Assessment / Plan
Assessment / Plan
Assessment:
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
acute heart failure exacerbation.
Plan:
Acute on Chronic HFpEF
Moderate MS, mild MR, moderate
Acute Hypoxic Respiratory Failure
-Echo 07/23/25: EF 65%, severely abnormal L atrial volume (>48ml/m2), moderate MS & . Likely experiencing acute on chronic HFpEF exacerbation due to adjusted Lasix schedule.
-At last admission, Lasix had been moved to M/W/F scheduling due to hypotension.
-She had been discharged on 2L of O2 due to pneumonia vs aspiration pneumonitis, now on 8-10L, down from 15 on 08/23. Will wean O2 as tolerated to keep saturation above 92%, but not reassured that she will be able to return to 2L.
-Cardiology has been consulted, will appreciate their insight into her case
-Pulmonology has been consulted, will appreciate their insight into her case
-Continue to monitor daily weights, Is and Os
-Continue holding home valsartan. On discharge, will continue to hold until she is followed up outpatient by her PCP
-Chest X-ray 08/21: Stable exam suggesting pulmonary edema and pneumonia.
-CT of the Chest pending official review
-Continue fluid restriction
-HOLD amiodarone due to concerns for interstitial lung disease.
-Continue Dexamethasone
-Continue IV Zosyn
-Continue BiPap as tolerated.
-HOLD Lasix today
-Will monitor
Acute Kidney Injury
-Creatinine 1.5 today, increased from 1.2 on 08/23 and 1.0 on 08/22
-HOLD IV Lasix today
-Will need to carefully monitor sodium to ensure it does not decrease without the IV Lasix
Hypokalemia
-Potassium today low at 3.4
-Ordered oral 40meq repletion KCl
-Magnesium normal at 2.2
-Will monitor
Visual Hallucinations - Resolved
S/p Fall, Unobserved, Unknown Type
-Visual Hallucinations possibly due to fall, though notably she did experience hallucinations in the ICU during her last hospitalization
-Continue to focus on reorientation and routines to help reduce confusion
-Will monitor
Acute on Chronic Anemia, Likely Iron Deficiency
-Hemoglobin on admission 7.8, increased to 8.8 post 1 unit pRBCs on 08/19. Has remained stable around 9 since.
-Vitamin B12 and Folate normal at last admission
-Possibly secondary to bruises/hematoma, but they seem small compared to volume lost
-Continue to monitor H&H daily
-Continue home iron supplement
-Transfusion as needed for hemoglobin <7. Consent obtained on 08/19
-Continue Eliquis.
-Per nursing report, stools heme negative x2
-Continue to monitor
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
Urinary Incontinence
-Sodium on admission 129, around her baseline with fluid restriction and Lasix
-Continue fluid restriction
-Continue to monitor hyponatremia
History of 2nd Degree Heart Block
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
Paroxysmal Atrial Fibrillation
-Continue Eliquis. On resumption, will do 2.5mg dose given weight and age.
-Continue amiodarone
Coronary Artery Disease s/p Stent
-Continue atorvastatin
Orthostatic Hypotension
-Orthostatic vital signs from last admission are as follows:
--Layin/61
--Sittin/50
--Standin/47
-Continue midodrine scheduled dosing
-PT/OT has been consulted. Special attention will need to be paid to ensure no falls
-Continue patient's own abdominal binder, compression socks (Per last hospitalization)
Stage 2 left posterior thigh pressure injury
-Present on admission, noted by RN reports
-Continue local care
-Will monitor
R & L foot bilateral corns/callouses
Severely overgrown R & L 2nd toenails
-Toenails growing over toe, at risk of breaking skin on underside of toe. Seen by podiatry 08/01 at last admission and treated.
- Follow-up w podiatry outpatient
Hypothyroidism
-Continue levothyroxine
Post-Herpetic Neuralgia
-Continue duloxetine
Dysphagia
-Previously on IDDSI 6 - Consult Speech
DISPO: Conversation on 08/20 with patient and her patient's daughter about patient's health. Gently broached the conversation of goals of care including what is important to Mrs. Braga. Conversation was more focused on disposition and beginning
conversations about if patient would like to return to SNF following discharge, or if she would prefer to return home. Followed up same day with other daughter, both would prefer patient at home with palliative care. On 08/21 and 08/22 continued
conversations with , who is uncertain at this point and does not wish to make any decisions until his family his present. On 08/24, patient articulated that she did not want chest compressions to be done if her heart were to stop, which was
witnessed by her middle daughter. would like to converse with family first before code status is changes. Plan for daughters to be present for large family goals of care conversation on 08/25
Anticipated Discharge: > 48 hours
Subjective/Interval History
-
Date of Service: August 24, 2025
Patient was resting comfortably in her room with her daughter at her bedside when I arrived. By staff reports she had good compliance with her BiPap overnight, and has been on 10L of supplemental oxygen since taking it off this morning without any
significant desaturation events. This was weaned down to 8L around 9:45AM. She reports feeling tired to me this morning, but is not in any pain and does not feel short of breath. She was able to participate more meaningfully in conversations this
morning around her health and how she felt, significantly improved from prior days.
Objective Data
-
Labs:
Laboratory Results
08/24/25
05:31
WBC 13.1 H
Hgb 9.1 L
Hct 26.6 L
Plt Count 143 D
Sodium 138
Potassium 3.3 L
Chloride 98
Carbon Dioxide 38 H
BUN 65 H
Creatinine 1.5 H
Glucose 119 H
Calcium 7.6 L
Vital Signs:
Vital Signs
Temp Pulse Resp BP Pulse Ox
97.6 F 88 14 102/77 97
08/24/25 04:00 08/24/25 06:00 08/24/25 06:00 08/24/25 06:00 08/24/25 06:00
I&O
08/23/25 08/24/25 08/25/25
06:59 06:59 06:59
Intake Total 280 / 280 320 / 320
Balance 280 / 280 320 / 320
Review of Systems
-
History Source: Patient
Constitutional: Reports Fatigue; Denies Fever, Sleep Disturbance or Chills
EENT: Reports Runny Nose
Respiratory: Denies Cough or Trouble Breathing
Cardiac: Denies Chest Pain or Palpitations
Abdomen/GI: Denies Abdominal Pain, Nausea or Vomiting
Neuro: Denies Dizzy or Lightheadedness
Physical Exam
-
General: Well Developed, Well Nourished, No Apparent Distress, Comfortable and Appears Chronically Ill
HEENT: Normocephalic, Atraumatic and Oxygen (8-10L)
Respiratory: Decreased Breath Sounds
Cardiac: Regular Rhythm and S1/S2
Skin: Warm and Dry
Neuro: Awake, Alert and Other (Able to now recognize me from past hospitalizations and identified me as Dr. Treadwell without prompting); Negative Oriented (Oriented to self and location, not aware of the date. )
Psych: Calm
[2025-08-24] MEDS: KCL 40 MEQ PO (07:41)
[2025-08-24] MEDS: CYMBALTA DELAYED RELEASE 60 MG PO (07:42)
[2025-08-24] MEDS: PROTONIX 40 MG PO (07:42)
[2025-08-24] MEDS: ELIQUIS 2.5 MG PO ×2 (07:43→21:04)
[2025-08-24] MEDS: LASIX IV ×2 (07:44→08:01)
[2025-08-24] MEDS: FEOSOL 325 MG PO (07:44)
--- NOTE | 2025-08-24 08:11 | W.PN.UPDATE ---
Update Note
Progress Note Update
I saw and evaluated the patient with the residents.
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 Admitted for worsening hypoxia.
A/P:
# Acute hypoxic and hypercapnic respiratory failure
# Acute on Chronic HFpEF
# Concern for interstitial lung disease/amiodarone-induced lung injury
Echo 07/23/25: EF 65%, moderate MS & .
O2 requirement was increased to 15 L, now down to 8 L midflow
Cont BIPAP if able to tolerate
Off amiodarone
IV lasix 40 mg daily on hold with worsening SCr
Cont IV Decadron per pulm
Cont DuoNeb PRN
Cont empiric Abx Zosyn
GOC discussion ongoing in setting of pt's poor clinical status- to discuss with their 5 daughters, decision TBD
# BECKA, possibly from overdiuresis
SCr 1.0 -> ... -> 1.5
IV Lasix on hold
# Visual Hallucinations, resolved
# Hyponatremia, resolved
# Hypokalemia, replete
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
# Paroxysmal Atrial Fibrillation
Continue Eliquis at decreased dose 2.5 mg BID
Off amiodarone
# Coronary Artery Disease s/p Stent
# Stage 2 left posterior thigh pressure injury, POA
# Hypothyroidism
Continue levothyroxine
# Post-Herpetic Neuralgia
Continue duloxetine
# Dysphagia
Cont IDDSI 6
DVT ppx: Eliquis
Code: currently limited DNR, discussed with pt, her wish is for complete DNR with NO chest compression however still not ready to change to DNR DNI. Need to discuss further with family.
dispo: GOC discussion ongoing with family
total time 52 min
[2025-08-24 08:53] LABS: Magnesium 2.2 mg/dl (1.6-2.3)
--- NOTE | 2025-08-24 09:16 | W.PN.CARDCBS ---
Today's Communication / Plan
-
Hold Lasix monitor renal function
Impression / Plan
-
PCP: Dr. Morales
Cardiology: Dr. MAGDA Cabrera
Impression:
Admitted with confusion, unwitnessed fall and acute HFpEF 08/18/2025
Recent admission with PPM placement, BECKA, elevated troponin and acute HFpEF 07/23/2025 until 08/09/2025
Confusion with possible hospital delirium
Unwitnessed fall and new scalp hematoma
Anemia, acute on chronic
Acute on chronic HFpEF, improving
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
Paroxysmal Afib
Chronic Eliquis OAC
CAD s/p prox LAD PCI 2014
widely patent LAD stent by cath 03/29/22
Hypothyroidism
Moderate MS and trace MR by echo 05/27/24
Mild AR/
History of Follicular lymphoma
Rituxan infusion
Orthostasis
Lexiscan mibi 03/04/19: Completed 4:10 min Chandan protocol reaching 87% MPHR, normal perfusion imaging
Echo 05/2021: EF 60-65%, severe LA enlargement, mild MS (/) mild (03/10) ANGELINA 1.7cm2
Echo 03/28/22: EF 68%, stage II diastolic dysfunction, mild to mod MS peak/mean 15/8 mmHg and pressure halftime 1.7 cm sq, mild MR, mild with peak/mean 26/14 mmHg and ANGELINA 2.0 cm sq
Echo 05/27/2024: EF 55 to 60%, normal RV size and function, moderate MS with mean transmitral gradient 8 mmHg, trace MR, mild peak/mean 29/16 mmHg and ANGELINA 1.5 cm sq
Echo 07/23/25: EF 65%, no WMA, moderate peak/mean 48/25 mmHg and ANGELINA 1.4 cm sq, mild TR, moderate MS peak/mean 25/13 mmHg, mild MR
Echo 08/19/2025: EF 55%, no WMA, mod , mod MS, mild-mod TR, mild mod MR; PASP 65 mmHg
Plan:
- Inaccurate I's and O's however patient at 57.8 kg (roughly 1 kg down from yesterday); we are diuresing with Lasix 40 mg IV daily diuresis. Patient was taking Lasix 20 mg PO MWF prior to admission. Monitor renal function, electrolytes; renal
function increasing will recommend holding Lasix at this time and monitor BMP
-Despite diuresis patient remains hypoxic requiring 5 L NC, overall oxygen demands are higher than last admission.
-CXR on admission showed patchy B/L parenchymal opacities and previous CT of the chest from 07/29/2025 showed possible ILD. Appreciate input from pulmonology who is recommending repeat CT scan of chest to help differentiate between possible chronic
aspiration PNA and ILD.
- Remains on on Decadron 4 mg IV every 8 hours 08/21/2025 per pulmonology
-EF preserved at 65% by echo 07/23/2025, repeat shows stable LVEF, elevated pulmonary pressures
-GDMT limited by hypotension. Outpatient dose of valsartan is on hold due to hypotension
-Patient with known paroxysmal A-fib, in AF rate controlled during hospitalization
-Outpatient dose of Eliquis has been decreased to 2.5 mg BID (age 89, Cre 1.0, wt 59.5kg)
-Outpatient dose of amiodarone 200 mg daily is long-term and chronic, but on hold as of 08/21/2025
-Troponin peaked at 0.351 last admission. Initial troponin in the ER was 0.048 and on repeat 08/21/2025 0.056 downtrended to 0.054. No complaints of chest pain. There was consideration for cardiac catheterization last admission, but ultimately
deferred this admission given significant comorbidities, BECKA, anemia and overall preserved EF.
- Prior discussion with patient's at bedside 08/22/2025 and reviewed concerns for ILD related to amiodarone, patient's is in agreement with pulmonology consultation and appreciate their input. Patient's confirms that she is
a limited DNR and would not want to be intubated.
HPI: Patient came to the ER last evening with concerns for an unwitnessed fall at her rehab and was admitted with scalp hematoma and acute HFpEF, cardiology is now consulted. As you recall patient was admitted from 07/23/2025 until 08/09/2025 when
she initially came in with new AV block that was at times high-grade and lead to urgent temporary wire placement followed by [employer] DC PPM on 07/24/2025. Patient was also diuresed for acute HFpEF during that admission and there was a concern for
possible overdiuresis with orthostasis and eventually patient was started on midodrine 2.5 mg TID. Patient has known paroxysmal A-fib and her chronic dose of amiodarone 200 mg daily plus Eliquis 5 mg BID has been continued. During admission last
month troponin peaked at 0.3 and was ultimately managed as a nonischemic myocardial injury troponin elevation with overall stable EF and no evidence of WMA. Echo did show however mild TR with PAP 74 mmHg. Patient has been at the [facility] [address] for
[facility] since 08/09/2025 and family reports there was an unwitnessed fall within the last week where patient had her head stuck between the bed and the wall and apparently initially there was not any visible sign of injury, but family later
noticed a scalp hematoma and then increasing confusion prompting her return to the ER. CT scan of the head did not show any acute intracranial abnormality, but there was evidence of a small soft tissue density in the right parietal occipital scalp
consistent with scalp hematoma/contusion. CXR suggested small B/L pleural effusions and proBNP was 11,300 compared to greater than 27,000 back on 07/26/2025.
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
Subjective
Date of Service: August 24, 2025
Patient seen and examined. Patient resting comfortably in bed. No acute events overnight. Patient somnolent but easily arousable. No reported complaints. Telemetry shows AF with occasional V pacing
Objective
Labs:
08/24/25 05:31
08/24/25 05:31
Labs
Hgb 9.1 g/dL (12.0-16.0) L 08/24/25 05:31
Hct 26.6 % (37.0-47.0) L 08/24/25 05:31
Plt Count 143 10^3/uL (130-400) D 08/24/25 05:31
Sodium 138 mmol/L (135-145) 08/24/25 05:31
Potassium 3.3 mmol/L (3.5-5.1) L 08/24/25 05:31
BUN 65 mg/dl (7-17) H 08/24/25 05:31
Creatinine 1.5 mg/dL (0.6-1.0) H 08/24/25 05:31
Glucose 119 mg/dl (70-99) H 08/24/25 05:31
Troponins
08/22/25
05:03
Troponin I 0.054 H*
Vital Signs and I&O:
Vital Signs
Temp Pulse Resp BP Pulse Ox
97.3 F 88 14 102/77 99
08/24/25 07:25 08/24/25 06:00 08/24/25 06:00 08/24/25 06:00 08/24/25 08:25
Vital Signs
Temp Pulse Resp BP Pulse Ox
97.3 F 88 14 102/77 99
08/24/25 07:25 08/24/25 06:00 08/24/25 06:00 08/24/25 06:00 08/24/25 08:25
Intake & Output
08/22/25 08/23/25 08/24/25 08/25/25
06:59 06:59 06:59 06:59
Intake Total 560 / 560 280 / 280 320 / 320
Balance 560 / 560 280 / 280 320 / 320
Physical Exam
Physical Exam
GEN: No distress, awake, Ox3
HEENT: supple, anicteric, mmm
LUNGS: Faint bibasilar crackles
CV: Reg, S1/S2, 1/6 syst LSB, no gallop; left-sided CIED site healing no erythema, warmth, drainage, swelling
ABD: soft, BS+, NT/ND
EXT: Warm, dry, trace bilateral lower extremity edema
NEURO: Gross non-focal
SKIN: No rash
--- NOTE | 2025-08-24 16:14 | W.PN.PUL3 ---
Today's Communication / Plan
-
Respiratory status tenuous
Continue IV corticosteroids without change
Continue antibiotics-complete 7 days
Diuretics on hold due to acute kidney injury
Aspiration precautions
Continue to decrease oxygen supplementation down from 15 to 7 L nasal cannula
BiPAP as needed for work of breathing
Poor prognosis
Goals of care being discussed
Assessment
-
Patient is an 89-year-old female with previous history of congestive heart failure, A-fib, complete heart block status post pacer, presenting to ER on 08/18/2025 with confusion and visual hallucinations. She had previously been admitted for
similar complaints and found to have abnormal chest x-ray with follow-up CT scan suspicious for congestive heart failure exacerbation and/or underlying ILD. She was also noted to have dysphagia on speech screening, treated and discharged on
08/09/2025. Since arrival on this admission, she has been treated for heart failure but has not had any progress in treatment. Chest x-ray is progressing despite treatment. She is more somnolent today on my examination as well. She has limited
DNR, confirms that she would not want heroic measures including intubation. We are consulted for evaluation 08/21/25.
Acute hypoxic respiratory failure
Subacute HF exacerbation, on IV lasix
Cannot rule out interstitial lung disease from amiodarone toxicity versus idiopathic ILD
Abnormal CXR with progression despite treatment
Lethargy
Confusion
Fall - Unwitnessed
Scalp Hematoma - Likely Concussion
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
ASCVD
Paroxysmal Atrial Fibrillation s/p DCCV 03/2022/chronic amiodarone use
Bradycardia / Heart Block s/p PPM
Chronic Hyponatremia
Chronic Iron Deficiency Anemia
Hypothyroidism
Dysphagia
Chronic Post-Herpetic Neuralgia
Follicular lymphoma s/p rituxin
Hx of falls
Hx of light tobacco smoking
GERD/hx of gastric ulcer
CAD s/p stent to LAD (2014)
HTN
HLD
Hx of ankle fracture
Valvular heart disease with , MS and MR
Restrictive lung disease
Hx of right-sided pleural effusion requiring multiple thoracentesis in [id number]
Hx of non-Hodgkin lymphoma s/p rituxin
Chronic kidney disease
Plan
-
Hypoxemic respiratory failure. Oxygenation improved from 15 L/min to 7 L/min 08/24/2025.
Initially without significant improvement post diuresis.
CT of the chest reviewed: Showed bilateral pleural effusions left greater than right. Significant bilateral airspace disease. Similar to CAT scan in July 2025.
-
Prior history of lung disease is noted including abnormal CT on last admission
Possible ILD, she is on chronic amio-amiodarone toxicity a possibility.
ILD undifferentiated differential diagnosis, including idiopathic interstitial pneumonia.
-
Cannot rule out infectious etiology,
Will check PCT -- 0.29
During previous admission she was treated for pneumonia July 2025-had positive sputum culture with Staphylococcus hemolyticus-she was able to be weaned down to 3 L.
Has been afebrile without leukocytosis.
Now hypothermic
Suspect less likely infectious as patient has similar CAT scan in July.
Currently on Zosyn-continue for now. Complete total of 7 days.
-
Agree with holding amiodarone.
Other possibility is DAH, she is maintained on Eliquis as OP.
Previous imaging reviewed--this seems progressed
She is unable to tolerate bronchoscopy.
-
Continue empiric IV steroids dexamethasone 4 mg IV every 8 hours starting 08/22/2024 as I do not think she would tolerate bronchoscopy-for possible inflammatory pneumonitis or DAH.
Confirmed with that she is DNR, no intubation
-
Chronic aspiration is a possibility given waxing/waning MS
Speech following
Patient is awake and cooperative 08/24/2025. Hard of hearing
Chronic compensated hypercarbia noted
Continue BIPAP as needed for increased work of breathing.
Patient does not like it, will not use it routinely. Increased risk of delirium.
Dr. Dave discussed with daughter at the bedside 08/23/2025 and she agrees.
Heart failure component:
ECHO results reviewed--stable function, findings
ProBNP on arrival was >27, 000
Lasix on hold due to worsening creatinine.
Holding amiodarone.
Monitor renal function, hemodynamics and electrolytes.
If not improving despite these measure, would consider GOC discussions
Dr. Lassiter discussed with the family potential transition to comfort care.
Dr. Dave again discussed with family 08/23/2025. If there is clinical deterioration they will move to comfort care.
Diagnostic Data
Chest X-Ray: 08/21/25- Stable exam suggesting pulmonary edema and pneumonia.
08/02/25- Bilateral parenchymal opacification without significant change, possibly representing pneumonia.
CT Scan: CHEST 07/29/25- Findings suggesting severe bilateral pneumonia as described above, greatest in right upper lobe. Interstitial lung disease not excluded. Stable
Moderate left pleural effusion. Progressed Mild bibasilar atelectasis. Mild cardiomegaly. Mild pectus excavatum deformity. Severe atherosclerotic vascular disease. Severe compression fractures. Stable
Echo: 08/19/25- 1. Normal left ventricular size, wall thickness and systolic function. No regional wall motion abnormalities are seen.
2. Right ventricular size and systolic function are within normal limits.
3. Thickened and calcified aortic leaflets with reduced excursion; known moderate aortic stenosis.
4. Moderate mitral stenosis with mean gradient 7 mmHg.
5. Mild to moderate mitral regurgitation.
6. Mild to moderate tricuspid regurgitation. Estimated pulmonary artery pressure of 65 mmHg assuming a right atrial pressure of 8 mmHg.
7. Compared to prior echo dated 07/24/2025, there is little significant change.
PFT's:
Reports and relevant images were personally reviewed.
Subjective Data
-
Date of Service:
Date of Service: August 24, 2025
Chief Complaint: Pulmonary Follow Up
Subjective:
No new complaints
Continues to report dyspnea with efforts
No significant phlegm production
No hemoptysis
Review of Systems
Cardiopulmonary: Dyspnea, Dyspnea on Exertion and Cough
Objective Data
Data Reviewed
Vital Signs / I&O / Oxygen:
Vital Signs
Temp Pulse Resp BP Pulse Ox
97.6 F 88 14 102/77 99
08/24/25 15:29 08/24/25 06:00 08/24/25 06:00 08/24/25 06:00 08/24/25 13:35
Intake and Output
08/23/25 08/24/25 08/25/25
06:59 06:59 06:59
Intake Total 280 / 280 320 / 320
Balance 280 / 280 320 / 320
SaO2 99
Nasal Cannula flow liters per 15
minute
Physical Exam
General: Poor Appetite and Other (agonal breathing)
HEENT: Normocephalic, Anicteric and Moist Mucous Membranes
Cardiovascular: S1-S2 and Regular Rhythm
Respiratory: Crackles and Other (low/shallow breathing)
GI: Soft, Non Distended and Non Tender
Neurology: Awake and Alert
Skin: Warm and Dry
Labs/Micro/Reports
Lab Data
08/24/25 05:31
08/24/25 05:31
[2025-08-24] MEDS: LIPITOR 20 MG PO (18:30)
[2025-08-24] MEDS: SENOKOT-S 2 TABLET PO (21:04)
[2025-08-25] VITALS (13 sets, daily range): BP systolic 95–133; BP diastolic 61–109; PULSE 2–98; BMI 23.4
[2025-08-25] MEDS: DECADRON 4 MG IV ×4 (00:35→23:39)
[2025-08-25] MEDS: ZOSYN 50 IV ×4 (03:18→21:21)
[2025-08-25 04:04] LABS: Hematocrit 27.5 % (37.0-47.0); Hemoglobin 9.0 g/dL (12.0-16.0); Mean Corp Hgb Conc. 32.7 g/dL (33.0-37.0); Mean Corpuscular Volume 93.2 fL (81.0-99.0); Platelet Count 144 10^3/uL (130-400); Red Cell Dist. Width 19.7 % (11.5-14.5)
--- NOTE | 2025-08-25 04:12 | PTCARENOTE ---
Pt agreeable to wearing BiPAP at bedtime; Pt became uncomfortably with mask and was unable to wear it longer. BiPAP on for ~ 2 hours. AAO x 3, can make needs known; Denies pain; Q2 hr turns; V-paced on monitor with A-Fib; 95% on 6-8L O2 via MF
NC; Will continue to monitor and assess.
[2025-08-25 04:28] LABS: Blood Urea Nitrogen 72 mg/dl (7-17); Calcium 7.7 mg/dl (8.4-10.2); Carbon Dioxide 39 mmol/L (22-30); Chloride 97 mmol/L (98-107); Estimated Creatinine Clearance 21 ml/min; Glucose 119 mg/dl (70-99); Potassium 3.6 mmol/L (3.5-5.1); Sodium 138 mmol/L (135-145); eGFR 33.31
[2025-08-25] MEDS: SYNTHROID 75 MCG PO (04:59)
--- NOTE | 2025-08-25 07:40 | W.PN.HOSP.TC ---
Today's Communication/Plan
-
DNR/DNI this AM
Move towards comfort this afternoon
Assessment / Plan
Assessment / Plan
Assessment:
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
acute heart failure exacerbation.
Plan:
DISPO: Conversation on 08/20 with patient and her patient's daughter about patient's health. Gently broached the conversation of goals of care including what is important to Mrs. Braga. Conversation was more focused on disposition and beginning
conversations about if patient would like to return to SNF following discharge, or if she would prefer to return home. Followed up same day with other daughter, both would prefer patient at home with palliative care. On 08/21 and 08/22 continued
conversations with , who is uncertain at this point and does not wish to make any decisions until his family his present. On 08/24, patient articulated that she did not want chest compressions to be done if her heart were to stop, which was
witnessed by her middle daughter. would like to converse with family first before code status is changes.
Today extensive conversation was had with patient, , 2 daughters. All are in agreement about plan to make her DNR/DNI this AM and move towards comfort into the afternoon based on patient's preferences. Will make this transition SLOWLY
throughout the day to allow time for family to arrive. Will need to consult CM for hospice referral and work on comfort medications only after financial reporting manager and family have arrived. In the meantime, move with regular diet and will plan to d/c medications
not providing her with immediate comfort.
Acute on Chronic HFpEF
Moderate MS, mild MR, moderate
Acute Hypoxic Respiratory Failure
-Echo 07/23/25: EF 65%, severely abnormal L atrial volume (>48ml/m2), moderate MS & . Likely experiencing acute on chronic HFpEF exacerbation due to adjusted Lasix schedule.
-At last admission, Lasix had been moved to M/W/F scheduling due to hypotension.
-She had been discharged on 2L of O2 due to pneumonia vs aspiration pneumonitis, now on 6L, down from 15 on 08/23. Will wean O2 as tolerated to keep saturation above 92%, but not reassured that she will be able to return to 2L.
-Cardiology has been consulted, will appreciate their insight into her case
-Pulmonology has been consulted, will appreciate their insight into her case
-Chest X-ray 08/21: Stable exam suggesting pulmonary edema and pneumonia.
-CT of the Chest pending official review
-Amiodarone was d/c'ed due to concern for drug-induced injury
-After goals of care discussion, patient has been made DNR/DNI with plans to move forward with comfort measures later this afternoon to give her family time to come to the hospital and for her to speak to a financial reporting manager that they know
-Will stop Dexamethasone, IV Zosyn
-Continue BiPap as tolerated.
-Will monitor
Acute Kidney Injury
-Creatinine 1.5 on 08/24, increased from 1.2 on 08/23 and 1.0 on 08/22
-Stop IV Lasix now that we are moving forward with comfort measures
Hypokalemia
-Potassium 08/24 low at 3.4, was given
-Magnesium normal at 2.2
-Will monitor
Visual Hallucinations - Resolved
S/p Fall, Unobserved, Unknown Type
-Visual Hallucinations possibly due to fall, though notably she did experience hallucinations in the ICU during her last hospitalization
-Continue to focus on reorientation and routines to help reduce confusion
-Will monitor
Acute on Chronic Anemia, Likely Iron Deficiency
-Hemoglobin on admission 7.8, increased to 8.8 post 1 unit pRBCs on 08/19. Has remained stable around 9 since.
-Vitamin B12 and Folate normal at last admission
-Possibly secondary to bruises/hematoma, but they seem small compared to volume lost
-Consent obtained on 08/19
-Per nursing report, stools heme negative x2
-Stop Eliquis as we are moving towards comfort.
-Continue to monitor
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
Urinary Incontinence
-Sodium on admission 129, around her baseline with fluid restriction and Lasix
-Move to regular diet with no restrictions with comfort measures
History of 2nd Degree Heart Block
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
Paroxysmal Atrial Fibrillation
-Stop Amiodarone (See above)
-Stop Eliquis
Coronary Artery Disease s/p Stent
-Stop atorvastatin
Orthostatic Hypotension
-Orthostatic vital signs from last admission are as follows:
--Layin/61
--Sittin/50
--Standin/47
-Continue midodrine scheduled dosing
-PT/OT has been consulted. Special attention will need to be paid to ensure no falls
-Continue patient's own abdominal binder, compression socks only for comfort (Per last hospitalization)
Stage 2 left posterior thigh pressure injury
-Present on admission, noted by RN reports
-Continue local care
-Will monitor
R & L foot bilateral corns/callouses
Severely overgrown R & L 2nd toenails
-Toenails growing over toe, at risk of breaking skin on underside of toe. Seen by podiatry 08/01 at last admission and treated.
- Follow-up w podiatry outpatient
Hypothyroidism
-Continue levothyroxine
Post-Herpetic Neuralgia
-Continue duloxetine
Dysphagia
-Previously on IDDSI 6 - Consult Speech
Anticipated Discharge: > 48 hours
Subjective/Interval History
-
Date of Service: August 25, 2025
Patient was resting comfortably in her bed when I arrived with two of her daughters and her at her beside. Her nurse was also present for this conversation. As she appeared more alert than she had upon admission, I asked her if she
remembered the conversation we had yesterday. She affirmed, saying, 'No paddles, no compressions, nothing. I'm tired. I just want to rest.' Her family discussed her going home and being comfortable at home, which she refused stating that she did not
want to go anywhere and did not want any more blood draws or medications. She would like to stay in the hospital and be made comfortable.
She would like to meet with a financial reporting manager the family knows, who the family will be calling. She also has family that is planning on coming today including a granddaughter who will be coming from [facility]. At this point, she would like to be made
DNR/DNI this morning and plan to move towards comfort measures later today
Objective Data
-
Labs:
Laboratory Results
08/25/25
03:42
WBC 15.5 H
Hgb 9.0 L
Hct 27.5 L
Plt Count 144
Sodium 138
Potassium 3.6
Chloride 97 L
Carbon Dioxide 39 H
BUN 72 H
Creatinine 1.5 H
Glucose 119 H
Calcium 7.7 L
Vital Signs:
Vital Signs
Temp Pulse Resp BP Pulse Ox
96.9 F L 97 24 104/73 94
08/25/25 03:00 08/25/25 04:00 08/25/25 04:00 08/25/25 04:00 08/25/25 04:00
I&O
08/24/25 08/25/25 08/26/25
06:59 06:59 06:59
Intake Total 320 / 320
Balance 320 / 320
Review of Systems
-
History Source: Patient and Family
Constitutional: Reports Fatigue and Weakness
Cardiac: Denies Chest Pain
Abdomen/GI: Denies Abdominal Pain
Musculoskeletal: Denies Joint Pain or Muscle Pain
Physical Exam
-
General: Well Developed, No Apparent Distress, Comfortable and Appears Chronically Ill
HEENT: Normocephalic and Atraumatic
Respiratory: Decreased Breath Sounds
Cardiac: Regular Rhythm and S1/S2
Skin: Warm and Dry
Neuro: Awake, Alert and Oriented
Psych: Calm and Intact Judgement/Insight
[2025-08-25] MEDS: CYMBALTA DELAYED RELEASE PO (08:38)
[2025-08-25] MEDS: FEOSOL PO (08:38)
[2025-08-25] MEDS: ELIQUIS PO ×2 (08:38→21:21)
[2025-08-25] MEDS: PROTONIX PO (08:38)
--- NOTE | 2025-08-25 09:10 | W.PN.UPDATE ---
Update Note
Progress Note Update
I saw and evaluated the patient with the residents.
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 Admitted for worsening hypoxia.
A/P:
# Acute hypoxic and hypercapnic respiratory failure
# Acute on Chronic HFpEF
# Concern for interstitial lung disease/amiodarone-induced lung injury
Echo 07/23/25: EF 65%, moderate MS & .
O2 requirement was increased to 15 L, now down to 7 L midflow
Cont BIPAP if able to tolerate
Off amiodarone
IV lasix 40 mg daily on hold with worsening SCr
Cont IV Decadron per pulm
Cont DuoNeb PRN
Cont empiric Abx Zosyn
GOC discussion ongoing, family (including ) now somewhat agreeable to proceed with comfort measure which is what the patient wants
# BECKA, possibly from overdiuresis
SCr 1.0 -> ... -> 1.5
IV Lasix on hold
# Visual Hallucinations, resolved
# Hyponatremia, resolved
# Hypokalemia, replete
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
# Paroxysmal Atrial Fibrillation
Continue Eliquis at decreased dose 2.5 mg BID
Off amiodarone
# Coronary Artery Disease s/p Stent
# Stage 2 left posterior thigh pressure injury, POA
# Hypothyroidism
Continue levothyroxine
# Post-Herpetic Neuralgia
Continue duloxetine
# Dysphagia
Can remove dietary restriction with comfort measures
DVT ppx: Eliquis
Code: DNR DNI, confirmed with pt and family
Dispo: plan to start comfort measures
DW RN
DW and daughters at bedside, provided emotional support
total time 52 min
--- NOTE | 2025-08-25 09:19 | PTCARENOTE ---
Patient this morning told Resident, and family at bedside that patient would like to 'go to [facility],' she as tired and was ready. Patient expressed that she did not want to be poked anymore and wanted to be a full DNR. Family at bedside
reported they would honor her wishes. Patient did not want any of her morning pills. IV medications were okay. Pt refused breakfast but did take a few sips of water. She denied being in any pain. She did want her dentures in, which family helped her
with. Pt weaned to 5L midflow. Other family members and visitors to come to bedside to visit patient today. Assessment, care and VS as charted.
--- NOTE | 2025-08-25 09:50 | W.PN.PUL.V3 ---
Today's Communication / Plan
-
Diuresis.
No change in steroids.
Amiodarone on hold.
Wean oxygen.
Aspiration precautions.
Final and course of antibiotics
Assessment
-
Patient is an 89-year-old female with previous history of congestive heart failure, A-fib, complete heart block status post pacer, presenting to ER on 08/18/2025 with confusion and visual hallucinations. She had previously been admitted for
similar complaints and found to have abnormal chest x-ray with follow-up CT scan suspicious for congestive heart failure exacerbation and/or underlying ILD. She was also noted to have dysphagia on speech screening, treated and discharged on
08/09/2025. Since arrival on this admission, she has been treated for heart failure but has not had any progress in treatment. Chest x-ray is progressing despite treatment. She is more somnolent today on my examination as well. She has limited
DNR, confirms that she would not want heroic measures including intubation. We are consulted for evaluation 08/21/25.
Acute hypoxic respiratory failure
Subacute HF exacerbation, on IV lasix
Cannot rule out interstitial lung disease from amiodarone toxicity versus idiopathic ILD
Abnormal CXR with progression despite treatment
Lethargy
Confusion
Fall - Unwitnessed
Scalp Hematoma - Likely Concussion
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
ASCVD
Paroxysmal Atrial Fibrillation s/p DCCV 03/2022/chronic amiodarone use
Bradycardia / Heart Block s/p PPM
Chronic Hyponatremia
Chronic Iron Deficiency Anemia
Hypothyroidism
Dysphagia
Chronic Post-Herpetic Neuralgia
Follicular lymphoma s/p rituxin
Hx of falls
Hx of light tobacco smoking
GERD/hx of gastric ulcer
CAD s/p stent to LAD (2014)
HTN
HLD
Hx of ankle fracture
Valvular heart disease with , MS and MR
Restrictive lung disease
Hx of right-sided pleural effusion requiring multiple thoracentesis in [id number]
Hx of non-Hodgkin lymphoma s/p rituxin
Chronic kidney disease
Plan
Respiratory status is tenuous, but stable.
Supplemental oxygen as needed-attempt to wean.
BiPAP as tolerated-patient does not want to wear it any more
Nebulizers if needed-currently not bronchospastic..
DO NOT INTUBATE.
Aspiration precautions.
Speech therapy following
Amiodarone discontinued-possible amiodarone toxicity
Decadron 4 mg IV every 8 hours.
Would not tolerate bronchoscopy
Check cultures.
Zosyn continues-finish a total of 7 days
Diuresis as tolerated.
Monitor intake/output, weight, lower extremity edema and renal function.
Cardiology following-reviewed with Dr. Dalton Cabrera
Monitor pleural effusions.
Continue Eliquis
DVT prophylaxis-on Eliquis
GI prophylaxis-on pantoprazole.
Nutrition with aspiration precautions.
Bedside range of motion/physical therapy
Dr. Dave discussed with daughter at the bedside 08/23/2025 and she agrees.
Dr. Lassiter discussed with the family potential transition to comfort care.
Dr. Dave again discussed with family 08/23/2025. If there is clinical deterioration they will move to comfort care
Dr. Rodríguez reviewed with and daughter at the bedside-comfortable prior to on 08/25/25.
Diagnostic Data
Chest X-Ray: 08/21/25- Stable exam suggesting pulmonary edema and pneumonia.
08/02/25- Bilateral parenchymal opacification without significant change, possibly representing pneumonia.
CT Scan: CHEST 07/29/25- Findings suggesting severe bilateral pneumonia as described above, greatest in right upper lobe. Interstitial lung disease not excluded. Stable
Moderate left pleural effusion. Progressed Mild bibasilar atelectasis. Mild cardiomegaly. Mild pectus excavatum deformity. Severe atherosclerotic vascular disease. Severe compression fractures. Stable
Echo: 08/19/25- 1. Normal left ventricular size, wall thickness and systolic function. No regional wall motion abnormalities are seen.
2. Right ventricular size and systolic function are within normal limits.
3. Thickened and calcified aortic leaflets with reduced excursion; known moderate aortic stenosis.
4. Moderate mitral stenosis with mean gradient 7 mmHg.
5. Mild to moderate mitral regurgitation.
6. Mild to moderate tricuspid regurgitation. Estimated pulmonary artery pressure of 65 mmHg assuming a right atrial pressure of 8 mmHg.
7. Compared to prior echo dated 07/24/2025, there is little significant change.
PFT's:
Reports and relevant images were personally reviewed.
Subjective Data
-
Date of Service:
Date of Service: August 25, 2025
Chief Complaint: Pulmonary Follow Up
Subjective:
Feels about the same, does not want to wear CPAP, no chest pain, mild chest congestion, nonproductive cough, no abdominal pain
Review of Systems
General: Other ( per HPI)
Objective Data
Data Reviewed
Vital Signs / I&O:
Vital Signs
Temp Pulse Resp BP Pulse Ox
96.3 F L 91 20 95/79 96
08/25/25 07:50 08/25/25 08:00 08/25/25 08:00 08/25/25 08:00 08/25/25 09:05
Intake and Output
08/24/25 08/25/25 08/26/25
06:59 06:59 06:59
Intake Total 320 / 320
Balance 320 / 320
SaO2: 96
Nasal Cannula flow liters per minute: 5
Physical Exam
General: Respiratory Distress (n), Comfortable, Poor Appetite and Other (agonal breathing)
HEENT: Normocephalic, Anicteric and Moist Mucous Membranes
Cardiovascular: Regular Rhythm
Respiratory: Crackles ( basis), Rhonchi (n), Non-Labored Respirations, Accessory Resp Muscle Use (n), Stridor (n) and Other (low/shallow breathing)
GI: Soft, Non Distended and Non Tender
Neurology: Awake, Alert and No Motor Deficits
Skin: Warm, Good Color, Cyanosis (n), Jaundice (n) and Rash (n)
Labs/Micro/Reports
Lab Data
08/25/25 03:42
08/25/25 03:42
--- NOTE | 2025-08-25 10:49 | W.PN.CARDCBS ---
Addendum entered and electronically signed by Dalton Cabrera MD 08/25/25 12:15:
89-year-old woman admitted in July with new complete heart block, underwent dual chamber pacer, hospital course complicated by acute kidney injury, HFpEF, and paroxysmal atrial fibrillation flutter necessitating initiation of amiodarone.
Discharge to rehab and then readmitted with unwitnessed fall and scalp hematoma, change in mental status and failure to thrive. She is now DNR.
PMH: CAD status post LAD PCI in 2014, paroxysmal atrial fibrillation, follicular lymphoma, frailty with ADL dysfunction, hypercholesterolemia, hypertension, orthostasis, Moderate mitral stenosis, trace MR, mild aortic regurgitation/stenosis,
hypothyroidism
Current meds: Atorvastatin 20 mg a day, Cymbalta, iron, midodrine 5 mg 3 times daily, levothyroxine 75 mcg daily, furosemide 40 mg IV daily, apixaban 2.5 mg twice daily, pantoprazole 40 mg a day, dexamethasone 4 every 8, Zosyn, amiodarone has been
discontinued, was started in 2022, chest x-ray October 2024 with minimal pleural thickening right basilar disc disease, progression notable July 2025
95/79, 120/85 pulse 91, respirate 20, afebrile weight is 90.3 kg, on admission was 60.6 kg, appears weak, frail, diminished breath sounds and coarse rhonchi bilaterally, regular rate and rhythm, systolic murmur, JVD okay, 1+ edema, edema of left
upper extremity
Chest x-ray with severe diffuse infiltrates
Echo 08/19/2025 normal RV function, moderate aortic stenosis, moderate mitral stenosis mean gradient 7, mild to moderate mitral regurgitation, mild to moderate tricuspid regurgitation, pulmonary artery systolic pressure of 65 mmHg, normal RV.
July 2025: Peak/mean aortic valve gradient 48/25 mmHg, valve area 1.4 cm2
Hemoglobin is 9, platelets are 144, BUN and creatinine are 72 and 1.5, Creatinine was 1.0 on the , Peak troponin was 0.056 proBNP was 11,300 August 18, was greater than 27,000 July 26
Impression:
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
Acute on chronic HFpEF
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
Left upper extremity edema
Paroxysmal atrial fibrillation on amiodarone since 2022
LAD PCI with stent 2014, patent 2021
Moderate mitral stenosis
Hypothyroidism
Mild aortic stenosis/regurgitation
Follicular lymphoma
Orthostasis
Plan:
She is now DNR, and likely moving to comfort care. I spoke with her regarding this and she is firm in her belief. She is tired but not in acute distress at the present time.
Continued steroids might be of value in the event that her pulmonary infiltrates are related to amiodarone pulmonary toxicity, but she will likely stop all medications.
We will await her final decision. 3 daughters at bedside.
Original Note:
Today's Communication / Plan
-
Patient is DNR, family confirms, patient also says she no longer wants aggressive medical care
Lasix on hold due to BECKA, weight is up using bed scale, proBNP pending
Amiodarone is on hold for possible ILD and remains on Decadron
Impression / Plan
-
PCP: Dr. Morales
Cardiology: Dr. MAGDA Cabrera
Impression:
Admitted with confusion, unwitnessed fall and acute HFpEF 08/18/2025
Recent admission with PPM placement, BECKA, elevated troponin and acute HFpEF 07/23/2025 until 08/09/2025
Confusion with possible hospital delirium
Unwitnessed fall and new scalp hematoma
Anemia, acute on chronic
Acute on chronic HFpEF, improving
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
Paroxysmal Afib
Chronic Eliquis OAC
CAD s/p prox LAD PCI 2014
widely patent LAD stent by cath 03/29/22
Hypothyroidism
Moderate MS and trace MR by echo 05/27/24
Mild AR/
History of Follicular lymphoma
Rituxan infusion
Orthostasis
Lexiscan mibi 03/04/19: Completed 4:10 min Chandan protocol reaching 87% MPHR, normal perfusion imaging
Echo 05/2021: EF 60-65%, severe LA enlargement, mild MS (20/8) mild (21/11) ANGELINA 1.7cm2
Echo 03/28/22: EF 68%, stage II diastolic dysfunction, mild to mod MS peak/mean 15/8 mmHg and pressure halftime 1.7 cm sq, mild MR, mild with peak/mean 26/14 mmHg and ANGELINA 2.0 cm sq
Echo 05/27/2024: EF 55 to 60%, normal RV size and function, moderate MS with mean transmitral gradient 8 mmHg, trace MR, mild peak/mean 29/16 mmHg and ANGELINA 1.5 cm sq
Echo 07/23/25: EF 65%, no WMA, moderate peak/mean 48/25 mmHg and ANGELINA 1.4 cm sq, mild TR, moderate MS peak/mean 25/13 mmHg, mild MR
Echo 08/19/2025: EF 55%, no WMA, mod , mod MS, mild-mod TR, mild mod MR; PASP 65 mmHg
Plan:
-Pulm note reviewed by me on 08/25/25, patient with suspected ILD and remains on Decadron 4 mg IV q8 hours with a tenuous respiratory status. DAH is another possibility, but patient not a candidate for bronchoscopy due to frailty.
-Patient with improved blood gas on BiPAP and family also noted subjective improvement, but patient has told family she will not wear BiPAP again as of 08/25/25
-Patient has told family that she no longer wants medical care and would like to have a peaceful passing and family has made patient DNR and is considering comfort measures which is in line with patient's previous wishes according to her on
during our conversation on 08/25/25.
-Amiodarone remains on hold for possible ILD. Patient is also completing a course of antibiotics.
-Weight is up 3 lbs using bed scale for weight on 08/25/25, but Lasix 40 mg IV daily is on hold due to BECKA. Patient was taking Lasix 20 mg PO MWF prior to admission.
-Cre up to 1.5 on labs reviewed by me 08/25/2025
-EF stable at 55% by echo 08/19/2025. There was normal RV size and function with moderate MS with a mean gradient of 7 mmHg, mild to moderate MR, mild to moderate TR with PAP 65 mmHg and overall this is unchanged from the echo 07/24/2025
-GDMT limited by hypotension. Outpatient dose of valsartan is on hold due to hypotension
-Patient with known paroxysmal A-fib.
-Outpatient dose of Eliquis has been decreased to 2.5 mg BID (age 89, Cre 1.5, wt 59.3 kg)
-Troponin peaked at 0.351 last admission. Peak troponin this admission 0.056. No complaints of chest pain. There was consideration for cardiac catheterization last admission, but ultimately deferred this admission given significant comorbidities,
BECKA, anemia and overall preserved EF and patient is not interested in aggressive care at this point.
-Talked with patient's and oldest daughter at bedside 08/25/2025 and reviewed concerns for ILD related to amiodarone. Family confirms that patient wants to be DNR and no longer wants aggressive medical care. Family reports patient is AAO x
3 and asking appropriate questions about extended family and that overall mental status is improved from admission and patient is telling family she no longer wants aggressive medical care that this is in line with her previous wishes that she
discussed with her family prior to becoming sick.
HPI: Patient came to the ER last evening with concerns for an unwitnessed fall at her rehab and was admitted with scalp hematoma and acute HFpEF, cardiology is now consulted. As you recall patient was admitted from 07/23/2025 until 08/09/2025 when
she initially came in with new AV block that was at times high-grade and lead to urgent temporary wire placement followed by Medtronic DC PPM on 07/24/2025. Patient was also diuresed for acute HFpEF during that admission and there was a concern for
possible overdiuresis with orthostasis and eventually patient was started on midodrine 2.5 mg TID. Patient has known paroxysmal A-fib and her chronic dose of amiodarone 200 mg daily plus Eliquis 5 mg BID has been continued. During admission last
month troponin peaked at 0.3 and was ultimately managed as a nonischemic myocardial injury troponin elevation with overall stable EF and no evidence of WMA. Echo did show however mild TR with PAP 74 mmHg. Patient has been at the [facility] since 08/09/2025 and family reports there was an unwitnessed fall within the last week where patient had her head stuck between the bed and the wall and apparently initially there was not any visible sign of injury, but family later
noticed a scalp hematoma and then increasing confusion prompting her return to the ER. CT scan of the head did not show any acute intracranial abnormality, but there was evidence of a small soft tissue density in the right parietal occipital scalp
consistent with scalp hematoma/contusion. CXR suggested small B/L pleural effusions and proBNP was 11,300 compared to greater than 27,000 back on 07/26/2025.
Progress Note - [employer] Specialist
Subjective
Date of Service: August 25, 2025
Denies pain
Objective
Labs:
08/25/25 03:42
08/25/25 03:42
Labs
Hgb 9.0 g/dL (12.0-16.0) L 08/25/25 03:42
Hct 27.5 % (37.0-47.0) L 08/25/25 03:42
Plt Count 144 10^3/uL (130-400) 08/25/25 03:42
Sodium 138 mmol/L (135-145) 08/25/25 03:42
Potassium 3.6 mmol/L (3.5-5.1) 08/25/25 03:42
BUN 72 mg/dl (7-17) H 08/25/25 03:42
Creatinine 1.5 mg/dL (0.6-1.0) H 08/25/25 03:42
Glucose 119 mg/dl (70-99) H 08/25/25 03:42
Vital Signs and I&O:
Vital Signs
Temp Pulse Resp BP Pulse Ox
96.3 F L 91 20 95/79 96
08/25/25 07:50 08/25/25 08:00 08/25/25 08:00 08/25/25 08:00 08/25/25 09:50
Vital Signs
Temp Pulse Resp BP Pulse Ox
96.3 F L 91 20 95/79 96
08/25/25 07:50 08/25/25 08:00 08/25/25 08:00 08/25/25 08:00 08/25/25 09:50
Intake & Output
08/23/25 08/24/25 08/25/25 08/26/25
06:59 06:59 06:59 06:59
Intake Total 280 / 280 320 / 320
Balance 280 / 280 320 / 320
Physical Exam
Physical Exam
GEN: NAD, AAO x 3
LUNGS: 5 L NC.
CV: V paced on telemetry.
--- NOTE | 2025-08-25 12:00 | PTCARENOTE ---
Orders for lab, Pro-BNP and an US of LUE. DAVIS to and advised him about patient wishes and that she refused tests.
--- NOTE | 2025-08-25 14:29 | HOSPNOTE ---
Family hospice meeting scheduled for tomorrow 08/26 early in the afternoon. More information to follow.
--- NOTE | 2025-08-25 14:55 | CM ---
F/U on Patient. ANUPAM Croft was told by Medical Team that the patient herself is ready to pass away/ and ultimately wants Hospice. Family needed sometime today so waited until early afternoon. Met with the patient who readily told me that she
wants to and ANUPAM Croft acknowledged what she wants. Three daughters were present, fourth was downstairs, and the last will arrive tomorrow early afternoon.
Family prefers tomorrow for the sister who will be here tomorrow, plus the went home and will be back tomorrow. Family agreed to [facility]. ANUPAM Croft asked Catarina to review the [facility] referral and discuss options as she might not
meet criteria for inpatient. Catarina will review and talk to the family tomorrow.
PLAN: Hospice via Inpatient or SNF.
[2025-08-25] MEDS: LIPITOR PO (17:18)
[2025-08-25] MEDS: SENOKOT-S 2 TABLET PO (21:21)
[2025-08-26] VITALS (16 sets, daily range): BP systolic 92–135; BP diastolic 63–119; PULSE 2–90
--- NOTE | 2025-08-26 00:28 | PTCARENOTE ---
Assumed care of patient from dayshift RN. Pt aaox3 and forgetful. afib on the monitor and is occasionally V-Paced. SpO2 95% on Bipap. Pt was on 5L NC at the start of the shift and is on Bipap HS. Oral hygiene completed and PW replaced. Patient
resting in bed with call virk in reach.
[2025-08-26] MEDS: ZOSYN 50 IV ×4 (05:04→21:18)
--- NOTE | 2025-08-26 07:49 | W.PN.HOSP.TC ---
Today's Communication/Plan
-
Continue moving towards comfort measures per Guerita's wishes
Continue discussions with family
Follow up with hospice referral
Assessment / Plan
Assessment / Plan
Assessment:
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
acute heart failure exacerbation.
Plan:
DISPO: Conversation on 08/20 with patient and her patient's daughter about patient's health. Gently broached the conversation of goals of care including what is important to Mrs. Braga. Conversation was more focused on disposition and beginning
conversations about if patient would like to return to SNF following discharge, or if she would prefer to return home. Followed up same day with other daughter, both would prefer patient at home with palliative care. On 08/21 and 08/22 continued
conversations with , who is uncertain at this point and does not wish to make any decisions until his family his present. On 08/24, patient articulated that she did not want chest compressions to be done if her heart were to stop, which was
witnessed by her middle daughter. would like to converse with family first before code status is changes.
On 08/25 extensive conversation was had with patient, , 2 daughters. All are in agreement about plan to make her DNR/DNI this AM and move towards comfort into the afternoon based on patient's preferences. Planned to make this transition
slowly to allow time for family to arrive. Consulted CM for hospice referral and work on comfort medications only after movable bulkhead installer and family have arrived. In the meantime, move with regular diet. Followed up with the family in the evening as well to
discuss transition to her being comfort measures and which medications and interventions are more likely to provide her with comfort compared to others currently on her list.
On 08/26, will continue plan with focusing on comfort according to Guerita's wishes. Family plans to arrive today along with movable bulkhead installer, and there are plans to move forward with hospice referral. At this point, the only medication behind held is IV
Furosemide. Today will likely formally D/c Iron tablet, Atorvastatin, Eliquis first as these are not providing any immediate comfort benefit, and she is refusing her pills anyway.
Acute on Chronic HFpEF
Moderate MS, mild MR, moderate
Acute Hypoxic Respiratory Failure
-Echo 07/23/25: EF 65%, severely abnormal L atrial volume (>48ml/m2), moderate MS & . Likely experiencing acute on chronic HFpEF exacerbation due to adjusted Lasix schedule.
-At last admission, Lasix had been moved to M/W/F scheduling due to hypotension.
-She had been discharged on 2L of O2 due to pneumonia vs aspiration pneumonitis, now on 10L, down from 15 on 08/23, up from 6L on 08/25. Will wean O2 as tolerated to keep saturation above 92%, but not reassured that she will be able to return to 2L.
-Cardiology has been consulted, will appreciate their insight into her case
-Pulmonology has been consulted, will appreciate their insight into her case
-Chest X-ray 08/21: Stable exam suggesting pulmonary edema and pneumonia.
-CT of the Chest pending official review
-Amiodarone was d/c'ed due to concern for drug-induced injury
-After goals of care discussion, patient has been made DNR/DNI with plans to move forward with comfort measures later this afternoon to give her family time to come to the hospital and for her to speak to a movable bulkhead installer that they know
-See planned medication changes as noted above
-Continue BiPap as tolerated.
-Will monitor
Acute Kidney Injury
-Creatinine 1.5 on 08/24, increased from 1.2 on 08/23 and 1.0 on 08/22
-No blood draws today as patient does not want any further blood draws moving towards comfort
Hypokalemia
-Potassium 08/24 low at 3.4
-Magnesium normal at 2.2
-No blood draws today as patient does not want any further blood draws moving towards comfort
Visual Hallucinations - Resolved
S/p Fall, Unobserved, Unknown Type
-Visual Hallucinations possibly due to fall, though notably she did experience hallucinations in the ICU during her last hospitalization
-Continue to focus on reorientation and routines to help reduce confusion
-Will monitor
Acute on Chronic Anemia, Likely Iron Deficiency
-Hemoglobin on admission 7.8, increased to 8.8 post 1 unit pRBCs on 08/19. Has remained stable around 9 since.
-Vitamin B12 and Folate normal at last admission
-Possibly secondary to bruises/hematoma, but they seem small compared to volume lost
-Consent obtained on 08/19
-Per nursing report, stools heme negative x2
-No blood draws today as patient does not want any further blood draws moving towards comfort
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
Urinary Incontinence
-Sodium on admission 129, around her baseline with fluid restriction and Lasix
-Move to regular diet with no restrictions with comfort measures
History of 2nd Degree Heart Block
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
Paroxysmal Atrial Fibrillation
-Stop Amiodarone (See above)
-See notes about medication changes above
Coronary Artery Disease s/p Stent
-Stop atorvastatin
Orthostatic Hypotension
-Orthostatic vital signs from last admission are as follows:
--Layin/61
--Sittin/50
--Standin/47
-Continue midodrine scheduled dosing
-PT/OT has been consulted. Special attention will need to be paid to ensure no falls
-Continue patient's own abdominal binder, compression socks only for comfort (Per last hospitalization)
Stage 2 left posterior thigh pressure injury
-Present on admission, noted by RN reports
-Continue local care
-Will monitor
R & L foot bilateral corns/callouses
Severely overgrown R & L 2nd toenails
-Toenails growing over toe, at risk of breaking skin on underside of toe. Seen by podiatry 08/01 at last admission and treated.
- Follow-up w podiatry outpatient
Hypothyroidism
-Continue levothyroxine
Post-Herpetic Neuralgia
-Continue duloxetine
Dysphagia
-Previously on IDDSI 6 - Consult Speech
Anticipated Discharge: > 48 hours
Subjective/Interval History
-
Date of Service: August 26, 2025
Patient was resting comfortably with BiPap when I arrived. By staff reports she had used the BiPap overnight without interruptions. and daughter at the bedside, with four daughters local at the moment and one on her way from [place], [place]
this morning.
Objective Data
-
Vital Signs:
Vital Signs
Temp Pulse Resp BP Pulse Ox
97.6 F 99 15 131/77 98
08/25/25 23:32 08/26/25 06:40 08/26/25 06:40 08/26/25 06:40 08/26/25 06:40
I&O
08/25/25 08/26/25 08/27/25
06:59 06:59 06:59
Intake Total 150 / 150
Output Total 300 / 300
Balance -150 / -150
Review of Systems
-
Unable to obtain full review of systems at this time due to: Acuity
History Source: Patient
Physical Exam
-
General: Well Developed, Well Nourished, No Apparent Distress and Comfortable
HEENT: Normocephalic, Atraumatic and Other (BiPap)
Respiratory: Non Labored Respirations
Cardiac: Regular Rhythm (by telemetry)
Skin: Warm and Dry
Neuro: Negative Awake
Psych: Calm
--- NOTE | 2025-08-26 09:48 | W.PN.PUL.V3 ---
Today's Communication / Plan
-
Comfort a priority
No change in steroids
Finite course of antibiotics
Diuresis per cardiology
Assessment
-
Patient is an 89-year-old female with previous history of congestive heart failure, A-fib, complete heart block status post pacer, presenting to ER on 08/18/2025 with confusion and visual hallucinations. She had previously been admitted for
similar complaints and found to have abnormal chest x-ray with follow-up CT scan suspicious for congestive heart failure exacerbation and/or underlying ILD. She was also noted to have dysphagia on speech screening, treated and discharged on
08/09/2025. Since arrival on this admission, she has been treated for heart failure but has not had any progress in treatment. Chest x-ray is progressing despite treatment. She is more somnolent today on my examination as well. She has limited
DNR, confirms that she would not want heroic measures including intubation. We are consulted for evaluation 08/21/25.
Acute hypoxic respiratory failure
Subacute HF exacerbation, on IV lasix
Cannot rule out interstitial lung disease from amiodarone toxicity versus idiopathic ILD
Abnormal CXR with progression despite treatment
Lethargy
Confusion
Fall - Unwitnessed
Scalp Hematoma - Likely Concussion
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
ASCVD
Paroxysmal Atrial Fibrillation s/p DCCV 03/2022/chronic amiodarone use
Bradycardia / Heart Block s/p PPM
Chronic Hyponatremia
Chronic Iron Deficiency Anemia
Hypothyroidism
Dysphagia
Chronic Post-Herpetic Neuralgia
Follicular lymphoma s/p rituxin
Hx of falls
Hx of light tobacco smoking
GERD/hx of gastric ulcer
CAD s/p stent to LAD (2014)
HTN
HLD
Hx of ankle fracture
Valvular heart disease with , MS and MR
Restrictive lung disease
Hx of right-sided pleural effusion requiring multiple thoracentesis in [id number]
Hx of non-Hodgkin lymphoma s/p rituxin
Chronic kidney disease
Plan
Respiratory status has stabilized but somewhat tenuous
Supplemental oxygen as needed-attempt to wean.
BiPAP as tolerated-patient does not want to wear it any more
Nebulizers if needed-currently not bronchospastic..
DO NOT INTUBATE.
Aspiration precautions.
Speech therapy following
Amiodarone discontinued-possible amiodarone toxicity
Decadron 4 mg IV every 8 hours-no change
Would not tolerate bronchoscopy
If amiodarone pulmonary toxicity now that amiodarone is discontinued and on steroids there is some expectation of improvement, however patient appears to be requesting comfort measures
Check cultures.
Zosyn continues-finish a total of 7 days
Diuresis as tolerated.
Monitor intake/output, weight, lower extremity edema and renal function.
Cardiology following-reviewed with Dr. Dalton Cabrera on 08/25/2025
Monitor pleural effusions.
Continue Eliquis
DVT prophylaxis-on Eliquis
GI prophylaxis-on pantoprazole.
Nutrition with aspiration precautions.
Bedside range of motion/physical therapy
Dr. Dave discussed with daughter at the bedside 08/23/2025 and she agrees.
Dr. Lassiter discussed with the family potential transition to comfort care.
Dr. Dave again discussed with family 08/23/2025. If there is clinical deterioration they will move to comfort care
Dr. Rodríguez reviewed with and daughter at the bedside-comfort a priority on 08/25/25.
Diagnostic Data
Chest X-Ray: 08/21/25- Stable exam suggesting pulmonary edema and pneumonia.
08/02/25- Bilateral parenchymal opacification without significant change, possibly representing pneumonia.
CT Scan: CHEST 07/29/25- Findings suggesting severe bilateral pneumonia as described above, greatest in right upper lobe. Interstitial lung disease not excluded. Stable
Moderate left pleural effusion. Progressed Mild bibasilar atelectasis. Mild cardiomegaly. Mild pectus excavatum deformity. Severe atherosclerotic vascular disease. Severe compression fractures. Stable
Echo: 08/19/25- 1. Normal left ventricular size, wall thickness and systolic function. No regional wall motion abnormalities are seen.
2. Right ventricular size and systolic function are within normal limits.
3. Thickened and calcified aortic leaflets with reduced excursion; known moderate aortic stenosis.
4. Moderate mitral stenosis with mean gradient 7 mmHg.
5. Mild to moderate mitral regurgitation.
6. Mild to moderate tricuspid regurgitation. Estimated pulmonary artery pressure of 65 mmHg assuming a right atrial pressure of 8 mmHg.
7. Compared to prior echo dated 07/24/2025, there is little significant change.
PFT's:
Reports and relevant images were personally reviewed.
Subjective Data
-
Date of Service:
Date of Service: August 26, 2025
Chief Complaint: Pulmonary Follow Up
Subjective:
Resting comfortably with BiPAP, no respiratory distress
Review of Systems
General: Other
Objective Data
Data Reviewed
Vital Signs / I&O:
Vital Signs
Temp Pulse Resp BP Pulse Ox
97.6 F 86 16 135/78 97
08/25/25 23:32 08/26/25 08:00 08/26/25 08:00 08/26/25 08:00 08/26/25 08:52
Intake and Output
08/25/25 08/26/25 08/27/25
06:59 06:59 06:59
Intake Total 150 / 150
Output Total 300 / 300
Balance -150 / -150
SaO2: 97
Nasal Cannula flow liters per minute: 5
Physical Exam
General: Respiratory Distress (n), Comfortable, Poor Appetite and Other (agonal breathing)
HEENT: Normocephalic, Anicteric and Moist Mucous Membranes
Cardiovascular: Regular Rhythm
Respiratory: Crackles ( basis), Rhonchi (n), Non-Labored Respirations, Accessory Resp Muscle Use (n), Stridor (n) and Other (low/shallow breathing)
GI: Soft, Non Distended and Non Tender
Neurology: Awake, Alert and No Motor Deficits
Skin: Warm, Good Color, Cyanosis (n), Jaundice (n) and Rash (n)
Labs/Micro/Reports
Lab Data
08/25/25 03:42
08/25/25 03:42
[2025-08-26] MEDS: CYMBALTA DELAYED RELEASE 60 MG PO (10:38)
[2025-08-26] MEDS: DECADRON 4 MG IV ×3 (10:39→23:52)
[2025-08-26] MEDS: ELIQUIS 2.5 MG PO ×2 (10:41→21:18)
[2025-08-26] MEDS: FEOSOL 325 MG PO (10:42)
[2025-08-26] MEDS: PROTONIX 40 MG PO (10:44)
--- NOTE | 2025-08-26 11:20 | W.PN.CARDCBS ---
Today's Communication / Plan
-
She remains very tenuous but feels little better today, currently a DNR, not yet fully comfort care
Continue IV Lasix
Continue IV steroids
Check BMP in a.m., she says she will accept blood draw
Will reassess in a.m.
Impression / Plan
-
PCP: Dr. Morales
Cardiology: Dr. MAGDA Cabrera
Impression:
Admitted with confusion, unwitnessed fall and acute HFpEF 08/18/2025
Recent admission with PPM placement, BECKA, elevated troponin and acute HFpEF 07/23/2025 until 08/09/2025
Confusion with possible hospital delirium
Unwitnessed fall and new scalp hematoma
Anemia, acute on chronic
Acute on chronic HFpEF, improving
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
Paroxysmal Afib
Chronic Eliquis OAC
CAD s/p prox LAD PCI 2014
widely patent LAD stent by cath 03/29/22
Hypothyroidism
Moderate MS and trace MR by echo 05/27/24
Mild AR/
History of Follicular lymphoma
Rituxan infusion
Orthostasis
Lexiscan mibi 03/04/19: Completed 4:10 min Chandan protocol reaching 87% MPHR, normal perfusion imaging
Echo 05/2021: EF 60-65%, severe LA enlargement, mild MS (02/07) mild (03/10) ANGELINA 1.7cm2
Echo 03/28/22: EF 68%, stage II diastolic dysfunction, mild to mod MS peak/mean 15/8 mmHg and pressure halftime 1.7 cm sq, mild MR, mild with peak/mean 26/14 mmHg and ANGELINA 2.0 cm sq
Echo 05/27/2024: EF 55 to 60%, normal RV size and function, moderate MS with mean transmitral gradient 8 mmHg, trace MR, mild peak/mean 29/16 mmHg and ANGELINA 1.5 cm sq
Echo 07/23/25: EF 65%, no WMA, moderate peak/mean 48/25 mmHg and ANGELINA 1.4 cm sq, mild TR, moderate MS peak/mean 25/13 mmHg, mild MR
Echo 08/19/2025: EF 55%, no WMA, mod , mod MS, mild-mod TR, mild mod MR; PASP 65 mmHg
Plan:
She looks a bit better today, though still very tenuous and is DNR. She has not yet transitioned to comfort care, so it makes sense to continue Decadron IV, Zosyn, and IV furosemide which offer some chance of improvement in symptomatology.
She consents to blood draw, will check BMP and proBNP in AM.
Status remains extremely tenuous and she may transition to comfort care shortly based on clinical course.
Hopefully she will consent to taking most of her oral medications, which I think still could be of some value.
HPI: Patient came to the ER last evening with concerns for an unwitnessed fall at her rehab and was admitted with scalp hematoma and acute HFpEF, cardiology is now consulted. As you recall patient was admitted from 07/23/2025 until 08/09/2025 when
she initially came in with new AV block that was at times high-grade and lead to urgent temporary wire placement followed by Medtr[employer] DC PPM on 07/24/2025. Patient was also diuresed for acute HFpEF during that admission and there was a concern for
possible overdiuresis with orthostasis and eventually patient was started on midodrine 2.5 mg TID. Patient has known paroxysmal A-fib and her chronic dose of amiodarone 200 mg daily plus Eliquis 5 mg BID has been continued. During admission last
month troponin peaked at 0.3 and was ultimately managed as a nonischemic myocardial injury troponin elevation with overall stable EF and no evidence of WMA. Echo did show however mild TR with PAP 74 mmHg. Patient has been at the [facility] since 08/09/2025 and family reports there was an unwitnessed fall within the last week where patient had her head stuck between the bed and the wall and apparently initially there was not any visible sign of injury, but family later
noticed a scalp hematoma and then increasing confusion prompting her return to the ER. CT scan of the head did not show any acute intracranial abnormality, but there was evidence of a small soft tissue density in the right parietal occipital scalp
consistent with scalp hematoma/contusion. CXR suggested small B/L pleural effusions and proBNP was 11,300 compared to greater than 27,000 back on 07/26/2025.
Progress Note - Parking Enforcement Manager
Subjective
Date of Service: August 26, 2025:
says she had a good night, oxygen is down to 10lNC
She is weak, offers no complaints at present, one of her daughters are also at the bedside. She says she is willing to get blood work.
89-year-old woman admitted in July with complete heart block, underwent dual chamber pacer, hospital course complicated by acute kidney injury, HFpEF, and paroxysmal atrial fibrillation flutter necessitating initiation of amiodarone. Discharge
to rehab and then readmitted with unwitnessed fall and scalp hematoma, change in mental status and failure to thrive. She is now DNR.
PMH: CAD status post LAD PCI in 2014, paroxysmal atrial fibrillation, follicular lymphoma, frailty with ADL dysfunction, hypercholesterolemia, hypertension, orthostasis, Moderate mitral stenosis, trace MR, mild aortic regurgitation/stenosis,
hypothyroidism
Current meds: Reviewed. Medications have not been consistently stopped, she is willing to accept some of her medications.
119/80, pulse 100, rhythm is sinus with frequent ectopics, respiratory rate is 17, afebrile, some diminished breath sounds in bases, neck veins may be modestly elevated, intermittently irregular rhythm, systolic murmur, some edema
No labs today
Telemetry: Sinus rhythm, sinus tach, some atrial arrhythmia
Objective
Labs:
08/25/25 03:42
08/25/25 03:42
Labs
Hgb 9.0 g/dL (12.0-16.0) L 08/25/25 03:42
Hct 27.5 % (37.0-47.0) L 08/25/25 03:42
Plt Count 144 10^3/uL (130-400) 08/25/25 03:42
Sodium 138 mmol/L (135-145) 08/25/25 03:42
Potassium 3.6 mmol/L (3.5-5.1) 08/25/25 03:42
BUN 72 mg/dl (7-17) H 08/25/25 03:42
Creatinine 1.5 mg/dL (0.6-1.0) H 08/25/25 03:42
Glucose 119 mg/dl (70-99) H 08/25/25 03:42
Vital Signs and I&O:
Vital Signs
Temp Pulse Resp BP Pulse Ox
36.4 C 100 17 119/80 94
08/25/25 23:32 08/26/25 10:38 08/26/25 10:38 08/26/25 10:38 08/26/25 11:09
Vital Signs
Temp Pulse Resp BP Pulse Ox
36.4 C 100 17 119/80 94
08/25/25 23:32 08/26/25 10:38 08/26/25 10:38 08/26/25 10:38 08/26/25 11:09
Intake & Output
08/24/25 08/25/25 08/26/25 08/27/25
07:59 07:59 07:59 07:59
Intake Total 320 / 320 150 / 150
Output Total 300 / 300
Balance 320 / 320 -150 / -150
Physical Exam
Physical Exam
See above
--- NOTE | 2025-08-26 12:06 | W.PN.UPDATE ---
Update Note
Progress Note Update
I saw and evaluated the patient with the residents.
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 Admitted for worsening hypoxia.
A/P:
# Acute hypoxic and hypercapnic respiratory failure
# Acute on Chronic HFpEF
# Concern for interstitial lung disease/amiodarone-induced lung injury
Echo 07/23/25: EF 65%, moderate MS & .
O2 requirement was increased to 15 L, now down to 5 L midflow
Cont BIPAP if able to tolerate
Off amiodarone
IV lasix 40 mg daily on hold with worsening SCr and now planning for home hospice
Cont IV Decadron per pulm
Cont DuoNeb PRN
Cont empiric Abx Zosyn, would stop when hospice is finalized
GOC discussion ongoing, family now agreeable to proceed with comfort measure vs home hospice
Hospice meeting this afternoon
# BECKA, possibly from overdiuresis
SCr 1.0 -> ... -> 1.5
IV Lasix on hold
# Visual Hallucinations, resolved
# Hyponatremia, resolved
# Hypokalemia, replete
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
# Paroxysmal Atrial Fibrillation
Continue Eliquis at decreased dose 2.5 mg BID
Off amiodarone
# Coronary Artery Disease s/p Stent
# Stage 2 left posterior thigh pressure injury, POA
# Hypothyroidism
Continue levothyroxine
# Post-Herpetic Neuralgia
Continue duloxetine
# Dysphagia
Can remove dietary restriction with comfort measures
DVT ppx: Eliquis
Code: DNR DNI, confirmed with pt and family
Dispo: Hospice meeting this afternoon
[2025-08-26] MEDS: SYNTHROID 75 MCG PO (13:49)
--- NOTE | 2025-08-26 14:44 | PTCARENOTE ---
Patient is drowsy today, falls asleep after conversations. Confused to time. Patient has a poor appetite, fed by . Incontinent of bowel and bladder. Wound care provided. Patient turned using wedges and pillows. Family at bedside.
--- NOTE | 2025-08-26 15:28 | HOSPNOTE ---
Met with spouse and two daughters to explain hospice and the philosophy. The family needs to talk it over with three other daughters and then will let me know tomorrow the decision. More information to follow.
--- NOTE | 2025-08-26 15:54 | CM ---
F/U: [facility] met with family, only 2 daughters and , and family said they will have a decision tomorrow. PLAN: TBD, anticipate Hospice.
--- NOTE | 2025-08-26 17:07 | W.PN.UPDATE ---
Update Note
Progress Note Update
Took time to meet with Guerita's and three of her daughters after their conversation with customer strategy manager. Spent approximately 50 minutes discussing Guerita's care and next steps moving forward to address any questions and concerns they had. They
would like time to speak to the hospice volunteer again tomorrow before moving forward with a transition to home with hospice. Their concerns at this point include that Guerita's house has not been set up with any supplies as she was previously independent
prior to her last hospital admission, and that they have a wedding on Monday/Monday which would make these days not a good option for discharge to home as no one would be at the house to watch her on these days. Once the wedding is over and the
house is set up with the necessary supplies however, and 5 daughters will all be able to provide regular care and assist each other to ensure that she is safe and comfortable at home.
At this time, the plan is to speak with hospice volunteer again on 08/27, then potentially move forward with having any necessary DME sent to their house with plan for a safe discharge to home likely with hospice at the earliest on Monday only provided all
DME is able to arrive at their house in time for this coordination.
In the meantime, overnight will continue with BiPap as tolerated, continue regular diet with no restrictions, and continue to keep all medication orders as-is, though Guerita has already begun to refuse several over these last few days.
[2025-08-26] MEDS: LIPITOR PO (17:52)
[2025-08-26] MEDS: SENOKOT-S 2 TABLET PO (21:18)
[2025-08-26] MEDS: TYLENOL 650 MG PO (21:39)
[2025-08-27] VITALS (16 sets, daily range): BP systolic 96–124; BP diastolic 57–99; PULSE 2–88; BMI 23.4
--- NOTE | 2025-08-27 04:52 | PTCARENOTE ---
Assumed care of patient from dayshift RN. Pt ox3 and forgetful. Drowsy but easily arousable. Patient c/o 01/20 aching pain on her left elbow. Order received for Tylenol (see JAN). afib on the monitor. SpO2 96% on Bipap. Hygiene completed. Patient
resting in bed asleep with call virk in reach.
[2025-08-27] MEDS: ZOSYN 50 IV ×4 (05:48→21:34)
[2025-08-27 06:48] LABS: Blood Urea Nitrogen 79 mg/dl (7-17); Calcium 7.8 mg/dl (8.4-10.2); Carbon Dioxide 37 mmol/L (22-30); Chloride 97 mmol/L (98-107); Estimated Creatinine Clearance 21 ml/min; Glucose 126 mg/dl (70-99); Potassium 3.6 mmol/L (3.5-5.1); Sodium 138 mmol/L (135-145); eGFR 33.31
--- NOTE | 2025-08-27 07:26 | W.PN.HOSP.TC ---
Today's Communication/Plan
-
Continued Goals of care discussions today
Assessment / Plan
Assessment / Plan
Assessment:
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
acute heart failure exacerbation.
Plan:
DISPO: Conversation on 08/20 with patient and her patient's daughter about patient's health. Gently broached the conversation of goals of care including what is important to Mrs. Braga. Conversation was more focused on disposition and beginning
conversations about if patient would like to return to SNF following discharge, or if she would prefer to return home. Followed up same day with other daughter, both would prefer patient at home with palliative care. On 08/21 and 08/22 continued
conversations with , who is uncertain at this point and does not wish to make any decisions until his family his present. On 08/24, patient articulated that she did not want chest compressions to be done if her heart were to stop, which was
witnessed by her middle daughter. would like to converse with family first before code status is changes.
On 08/25 extensive conversation was had with patient, , 2 daughters. All are in agreement about plan to make her DNR/DNI this AM and move towards comfort into the afternoon based on patient's preferences. Planned to make this transition
slowly to allow time for family to arrive. Consulted CM for hospice referral and work on comfort medications only after gun barrel finisher and family have arrived. In the meantime, move with regular diet. Followed up with the family in the evening as well to
discuss transition to her being comfort measures and which medications and interventions are more likely to provide her with comfort compared to others currently on her list.
On 08/26, continued plan with focusing on comfort according to Guerita's wishes. Family spoke with hospice office coordinator, and plan to speak to them again today before moving forward with hospice. They'll be moving forward with planning to take her home, though
time will be needed to send DME to their house as patient does have a new 6L and sometimes greater O2 requirement. At this time, continue with all medications until switch to hospice is formally made, at which point would still continue with the
steroid and BiPap as they clearly are providing comfort to her.
Acute on Chronic HFpEF
Moderate MS, mild MR, moderate
Acute Hypoxic Respiratory Failure
-Echo 07/23/25: EF 65%, severely abnormal L atrial volume (>48ml/m2), moderate MS & . Likely experiencing acute on chronic HFpEF exacerbation due to adjusted Lasix schedule.
-At last admission, Lasix had been moved to M//F scheduling due to hypotension.
-She had been discharged on 2L of O2 due to pneumonia vs aspiration pneumonitis, now on 6-7L, down from 15 on 08/23. Will wean O2 as tolerated to keep saturation above 92%, but not reassured that she will be able to return to 2L.
-Cardiology has been consulted, will appreciate their insight into her case
-Pulmonology has been consulted, will appreciate their insight into her case
-Chest X-ray 08/21: Stable exam suggesting pulmonary edema and pneumonia.
-CT of the Chest showed: Pulmonary findings as above which are suggestive of either fibrosis with superimposed pneumonia or drug induced lung injury. Given the appearance of the lungs on 2021 examination, drug-induced lung injury may be a more
likely differential consideration. Some superimposed edematous changes are possible. There is a small left effusion and a very small right effusion. Advanced coronary and aortic atherosclerosis with severe coronary artery calcification.
-Amiodarone was d/c'ed due to concern for drug-induced injury
-After goals of care discussion, patient has been made DNR/DNI, see additional Dispo above
-Continue BiPap as tolerated.
-Will monitor
Acute Kidney Injury
-Creatinine 1.5 on 08/24, increased from 1.2 on 08/23 and 1.0 on 08/22
-No blood draws today as patient does not want any further blood draws moving towards comfort
Hypokalemia
-Potassium 08/24 low at 3.4
-Magnesium 08/24 normal at 2.2
-No blood draws as patient does not want any further blood draws moving towards comfort
Visual Hallucinations - Resolved
S/p Fall, Unobserved, Unknown Type
-Visual Hallucinations possibly due to fall, though notably she did experience hallucinations in the ICU during her last hospitalization
-Continue to focus on reorientation and routines to help reduce confusion
-Will monitor
Acute on Chronic Anemia, Likely Iron Deficiency
-Hemoglobin on admission 7.8, increased to 8.8 post 1 unit pRBCs on 08/19. Has remained stable around 9 since.
-Vitamin B12 and Folate normal at last admission
-Possibly secondary to bruises/hematoma, but they seem small compared to volume lost
-Consent obtained on 08/19
-Per nursing report, stools heme negative x2
-No blood draws today as patient does not want any further blood draws moving towards comfort
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
Urinary Incontinence
-Sodium on admission 129, around her baseline with fluid restriction and Lasix
-Move to regular diet with no restrictions with comfort measures
History of 2nd Degree Heart Block
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
Paroxysmal Atrial Fibrillation
-Stop Amiodarone (See above)
-Continue Eliquis until officially in hospice
Coronary Artery Disease s/p Stent
-Continue atorvastatin until officially enrolled in hospice
Orthostatic Hypotension
-Orthostatic vital signs from last admission are as follows:
--Layin/61
--Sittin/50
--Standin/47
-Continue midodrine scheduled dosing
-PT/OT has been consulted. Special attention will need to be paid to ensure no falls
-Continue patient's own abdominal binder, compression socks only for comfort (Per last hospitalization)
Stage 2 left posterior thigh pressure injury
-Present on admission, noted by RN reports
-Continue local care
-Will monitor
R & L foot bilateral corns/callouses
Severely overgrown R & L 2nd toenails
-Toenails growing over toe, at risk of breaking skin on underside of toe. Seen by podiatry 08/01 at last admission and treated.
- Follow-up w podiatry outpatient
Hypothyroidism
-Continue levothyroxine
Post-Herpetic Neuralgia
-Continue duloxetine
Dysphagia
-Previously on IDDSI 6 - Consult Speech
Anticipated Discharge: > 48 hours
Subjective/Interval History
-
Date of Service: August 27, 2025
Patient was resting with BiPap on when I entered the room, her and her daughter at her bedside. Her family states that she had asked for the BiPap last night before she went to bed, which was very surprising to them as previously she had not
liked to use it.
Objective Data
-
Labs:
Laboratory Results
08/27/25
06:13
Sodium 138
Potassium 3.6
Chloride 97 L
Carbon Dioxide 37 H
BUN 79 H
Creatinine 1.5 H
Glucose 126 H
Calcium 7.8 L
Vital Signs:
Vital Signs
Temp Pulse Resp BP Pulse Ox
96.4 F L 79 14 116/85 97
08/27/25 03:42 08/27/25 04:00 08/27/25 04:00 08/27/25 04:00 08/27/25 04:43
I&O
08/26/25 08/27/25 08/28/25
06:59 06:59 06:59
Intake Total 150 / 150 350 / 350
Output Total 300 / 300 500 / 500
Balance -150 / -150 -150 / -150
Review of Systems
-
Unable to obtain full review of systems at this time due to: Acuity
History Source: Patient
Physical Exam
-
General: Well Developed, Well Nourished, No Apparent Distress and Comfortable
HEENT: Normocephalic and Atraumatic
Respiratory: Non Labored Respirations and Other (BiPap)
Cardiac: Regular Rhythm (By Telemetry)
Skin: Warm and Dry
Neuro: Negative Awake
Psych: Calm
--- NOTE | 2025-08-27 08:41 | W.PN.UPDATE ---
Update Note
Progress Note Update
I saw and evaluated the patient with the residents.
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 Admitted for worsening hypoxia.
A/P:
# Acute hypoxic and hypercapnic respiratory failure
# Acute on Chronic HFpEF
# Concern for interstitial lung disease/amiodarone-induced lung injury
Echo 07/23/25: EF 65%, moderate MS & .
O2 requirement was increased to 15 L, now down to 5 L midflow
Cont BIPAP if able to tolerate
Off amiodarone
Resumed IV lasix 40 mg daily
Cont IV Decadron, course TBD per pulm when pt has been transitioned to hospice
Cont DuoNeb PRN for now
Cont empiric Abx Zosyn x7 days total
GOC discussion ongoing, family now agreeable to proceed with home hospice
pool coordinator meeting with family and facilitating equipment set up and delivery
# BECKA, possibly from overdiuresis
SCr 1.0 -> ... -> 1.5
resumed IV Lasix per card
# Visual Hallucinations, resolved
# Hyponatremia, resolved
# Hypokalemia, replete
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
# Paroxysmal Atrial Fibrillation
Continue Eliquis at decreased dose 2.5 mg BID
Off amiodarone
# Coronary Artery Disease s/p Stent
# Stage 2 left posterior thigh pressure injury, POA
# Hypothyroidism
Continue levothyroxine
# Post-Herpetic Neuralgia
Continue duloxetine
# Dysphagia
Can remove dietary restriction with comfort measures
DVT ppx: Eliquis
Code: DNR DNI, confirmed with pt and family
Dispo: home hospice
DW and daughter at bedside
[2025-08-27] MEDS: DECADRON 4 MG IV ×2 (09:15→15:08)
[2025-08-27] MEDS: LASIX 40 MG IV (09:15)
--- NOTE | 2025-08-27 09:46 | W.PN.PUL.V3 ---
Today's Communication / Plan
-
comfort a priority
BiPAP as needed
Steroids
Diuresis as tolerated
Patient and family moving towards hospice, comfort a priority-pulmonary will sign off-please call with questions
Assessment
-
Patient is an 89-year-old female with previous history of congestive heart failure, A-fib, complete heart block status post pacer, presenting to ER on 08/18/2025 with confusion and visual hallucinations. She had previously been admitted for
similar complaints and found to have abnormal chest x-ray with follow-up CT scan suspicious for congestive heart failure exacerbation and/or underlying ILD. She was also noted to have dysphagia on speech screening, treated and discharged on
08/09/2025. Since arrival on this admission, she has been treated for heart failure but has not had any progress in treatment. Chest x-ray is progressing despite treatment. She is more somnolent today on my examination as well. She has limited
DNR, confirms that she would not want heroic measures including intubation. We are consulted for evaluation 08/21/25.
Acute hypoxic respiratory failure
Subacute HF exacerbation, on IV lasix
Cannot rule out interstitial lung disease from amiodarone toxicity versus idiopathic ILD
Abnormal CXR with progression despite treatment
Lethargy
Confusion
Fall - Unwitnessed
Scalp Hematoma - Likely Concussion
Conditions present LPN MEDICAL ASSISTANT:
ASCVD
Paroxysmal Atrial Fibrillation s/p DCCV 03/2022/chronic amiodarone use
Bradycardia / Heart Block s/p PPM
Chronic Hyponatremia
Chronic Iron Deficiency Anemia
Hypothyroidism
Dysphagia
Chronic Post-Herpetic Neuralgia
Follicular lymphoma s/p rituxin
Hx of falls
Hx of light tobacco smoking
GERD/hx of gastric ulcer
CAD s/p stent to LAD (2014)
HTN
HLD
Hx of ankle fracture
Valvular heart disease with , MS and MR
Restrictive lung disease
Hx of right-sided pleural effusion requiring multiple thoracentesis in [id number]
Hx of non-Hodgkin lymphoma s/p rituxin
Chronic kidney disease
Plan
Respiratory status has stabilized but remains somewhat tenuous
Supplemental oxygen as needed-attempt to wean-on 6 L
BiPAP as tolerated-patient now tolerating with new mask
Nebulizers if needed-currently not bronchospastic..
DO NOT INTUBATE.
Aspiration precautions.
Speech therapy following
Amiodarone discontinued-possible amiodarone toxicity
Decadron 4 mg IV every 8 hours-no change for now
Would not tolerate bronchoscopy
If amiodarone pulmonary toxicity now that amiodarone is discontinued and on steroids there is some expectation of improvement, however patient appears to be requesting comfort measures
Cultures reviewed
Sputum with staphylococcal hemolyticus
Zosyn continues-finish a total of 7 days
Diuresis as tolerated.
Monitor intake/output, weight, lower extremity edema and renal function.
Cardiology following-reviewed with Dr. Dalton Cabrera on 08/25/2025
Monitor pleural effusions.
Continue Eliquis
DVT prophylaxis-on Eliquis
GI prophylaxis-on pantoprazole.
Nutrition with aspiration precautions.
Bedside range of motion/physical therapy
Dr. Dave discussed with daughter at the bedside 08/23/2025 and she agrees.
Dr. Lassiter discussed with the family potential transition to comfort care.
Dr. Dave again discussed with family 08/23/2025. If there is clinical deterioration they will move to comfort care
Dr. Rodríguez reviewed with and daughter at the bedside-comfort a priority on 08/25/25.
Dr. Rodríguez reviewed with and another daughter at the bedside 08/27/[address]. Rodríguez reviewed resident-patient and family requesting comfort and moving pulmonary will sign off-please call with questions towards hospice-
Diagnostic Data
Chest X-Ray: 08/21/25- Stable exam suggesting pulmonary edema and pneumonia.
08/02/25- Bilateral parenchymal opacification without significant change, possibly representing pneumonia.
CT Scan: CHEST 07/29/25- Findings suggesting severe bilateral pneumonia as described above, greatest in right upper lobe. Interstitial lung disease not excluded. Stable
Moderate left pleural effusion. Progressed Mild bibasilar atelectasis. Mild cardiomegaly. Mild pectus excavatum deformity. Severe atherosclerotic vascular disease. Severe compression fractures. Stable
Echo: 08/19/25- 1. Normal left ventricular size, wall thickness and systolic function. No regional wall motion abnormalities are seen.
2. Right ventricular size and systolic function are within normal limits.
3. Thickened and calcified aortic leaflets with reduced excursion; known moderate aortic stenosis.
4. Moderate mitral stenosis with mean gradient 7 mmHg.
5. Mild to moderate mitral regurgitation.
6. Mild to moderate tricuspid regurgitation. Estimated pulmonary artery pressure of 65 mmHg assuming a right atrial pressure of 8 mmHg.
7. Compared to prior echo dated 07/24/2025, there is little significant change.
PFT's:
Reports and relevant images were personally reviewed.
Subjective Data
-
Date of Service:
Date of Service: August 27, 2025
Chief Complaint: Pulmonary Follow Up and Dyspnea Follow Up
Subjective:
Resting comfortably in, tolerating BiPAP, no respiratory distress
Review of Systems
General: Other (Per HPI)
Objective Data
Data Reviewed
Vital Signs / I&O:
Vital Signs
Temp Pulse Resp BP Pulse Ox
96.4 F L 79 14 116/85 97
08/27/25 03:42 08/27/25 04:00 08/27/25 04:00 08/27/25 04:00 08/27/25 04:43
Intake and Output
08/26/25 08/27/25 08/28/25
06:59 06:59 06:59
Intake Total 150 / 150 350 / 350
Output Total 300 / 300 500 / 500
Balance -150 / -150 -150 / -150
SaO2: 97
Nasal Cannula flow liters per minute: 5
Physical Exam
General: Respiratory Distress (n), Comfortable, Poor Appetite and Other (agonal breathing)
HEENT: Normocephalic, Anicteric and Moist Mucous Membranes
Cardiovascular: Regular Rhythm
Respiratory: Crackles ( basis), Rhonchi (n), Non-Labored Respirations, Accessory Resp Muscle Use (n), Stridor (n) and Other (low/shallow breathing)
GI: Soft, Non Distended and Non Tender
Neurology: Awake, Alert and No Motor Deficits
Skin: Warm, Good Color, Cyanosis (n), Jaundice (n) and Rash (n)
Labs/Micro/Reports
Lab Data
08/25/25 03:42
08/27/25 06:13
--- NOTE | 2025-08-27 09:58 | PTCARENOTE ---
Assumed care of patient at beginning of this shift from previous RN; cannot verify accuracy of vital signs prior to 0700.
[2025-08-27] MEDS: PROTONIX 40 MG PO (10:52)
[2025-08-27] MEDS: FEOSOL 325 MG PO (10:52)
[2025-08-27] MEDS: ELIQUIS 2.5 MG PO ×2 (10:52→21:33)
[2025-08-27] MEDS: CYMBALTA DELAYED RELEASE 60 MG PO (10:52)
[2025-08-27] MEDS: SYNTHROID 75 MCG PO (10:55)
--- NOTE | 2025-08-27 11:23 | PTCARENOTE ---
Received patient at beginning of this shift with bipap in use while patient sleeping. Administered steroid and IV lasix as per order; po meds given after patient woke up later this morning. Both Dr Treadwell and Dr Palomino aware po meds given late.
Patient now on nasal cannula and able to take po meds whole in applesauce. IV site leaking; VAT RN up to replace site. and daughter remain at bedside; he is assisting patient with breakfast. Dr Treadwell up to speak with and daughter
this morning; per discussion, goal is comfort but no changes have been made as of yet. See worklist for full assessment and vital signs.
--- NOTE | 2025-08-27 11:45 | VATNOTE ---
L arm continues to be grossly edematous at this time, family concerned that it looks more swollen than it has been. Discussed with PCN, venous doppler recommended. PCN to reach out to MD for order.
--- NOTE | 2025-08-27 13:50 | PN.CDI ---
CDI
- -
CDI:
Physician Documentation Request
Admit Date: 08/18/25 23:41
Dear Doctor,
Please review the following and provide your response in the progress notes.
Clinical Indicators:
- RN skin assessments indicate a Stage1 sacrum pressure injury that has progressed to DTI
- Goals of care discussions regarding hospice
Physician documentation of the type and location of wounds is required for compliant documentation. Based on the above clinical findings and your assessment, please provide the following in your progress note:
1. Location of the ulcer/wound, including laterality.
2. Type (etiology) of ulcer/wound:
- Diabetic ulcer
- Arterial (ischemic) ulcer
- Traumatic wound
- Venous stasis ulcer
- Pressure (decubitus) ulcer
- Other
Use of terms such as suspected, likely, concern for, or probable (associated with a specific diagnosis that is being evaluated, monitored, or treated as if it exists) are acceptable and can be coded in the inpatient setting, when documented at the
time of discharge.
Thank you,
Yanira Baesley RN
CDI Specialist
Please use your independent medical judgment in providing your response.
*Source: National Pressure Ulcer Advisory Panel (NPUAP)
--- NOTE | 2025-08-27 15:33 | CM ---
F/U: Thus far, no decision has been yet by the family re: Hospice. machinist mechanic has been in touch with the family and will continue this. PLAN: TBD, Anticipate Hospice at Home
--- NOTE | 2025-08-27 15:50 | PTCARENOTE ---
Daughters and at the bedside. Family stated patient c/o posterior thigh pain. Patient repositioned to her comfort; offered tylenol but patient declined. Patient stated she would take midodrine. Offered to turn supervisor light so patient can sleep;
stated he was trying to keep her awake because the bull bucker is coming.
[2025-08-27] MEDS: LIPITOR PO (17:51)
[2025-08-27] MEDS: SENOKOT-S 2 TABLET PO (21:34)
[2025-08-28] VITALS (12 sets, daily range): BP systolic 107–126; BP diastolic 61–93; BMI 23.7
[2025-08-28] MEDS: DECADRON 4 MG IV ×3 (00:38→16:51)
[2025-08-28] MEDS: ZOSYN 50 IV ×2 (03:35→12:04)
--- NOTE | 2025-08-28 04:09 | PTCARENOTE ---
Assumed care of patient from dayshift RN. Pt drowsy, but easily arousable and ox3. Afib on the monitor. SpO2 94% on 4L NC. Patient wore the bipap for 5 hours overnight. Patient resting in bed asleep with call virk in reach.
--- NOTE | 2025-08-28 07:12 | W.PN.HOSP.TC ---
Today's Communication/Plan
-
Family meeting with usability engineer today
Once offical move to hospice is made, will ensure she is comfortable and d/c medications not providing her with comfort
Assessment / Plan
Assessment / Plan
Assessment:
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
acute heart failure exacerbation.
Plan:
DISPO: Conversation on 08/20 with patient and her patient's daughter about patient's health. Gently broached the conversation of goals of care including what is important to Mrs. Braga. Conversation was more focused on disposition and beginning
conversations about if patient would like to return to SNF following discharge, or if she would prefer to return home. Followed up same day with other daughter, both would prefer patient at home with palliative care. On 08/21 and 08/22 continued
conversations with , who is uncertain at this point and does not wish to make any decisions until his family his present. On 08/24, patient articulated that she did not want chest compressions to be done if her heart were to stop, which was
witnessed by her middle daughter. would like to converse with family first before code status is changes.
On 08/25 extensive conversation was had with patient, , 2 daughters. All are in agreement about plan to make her DNR/DNI this AM and move towards comfort into the afternoon based on patient's preferences. Planned to make this transition
slowly to allow time for family to arrive. Consulted CM for hospice referral and work on comfort medications only after technical stenographer and family have arrived. In the meantime, move with regular diet. Followed up with the family in the evening as well to
discuss transition to her being comfort measures and which medications and interventions are more likely to provide her with comfort compared to others currently on her list.
On 08/26, continued plan with focusing on comfort according to Guerita's wishes. Family spoke with usability engineer, and plan to speak to them again today before moving forward with hospice. They'll be moving forward with planning to take her home, though
time will be needed to send DME to their house as patient does have a new 6L and sometimes greater O2 requirement. At this time, continue with all medications until switch to hospice is formally made. Plan for meeting with patient, and any
available daughters today (08/28)
Acute on Chronic HFpEF
Moderate MS, mild MR, moderate
Acute Hypoxic Respiratory Failure
-Echo 07/23/25: EF 65%, severely abnormal L atrial volume (>48ml/m2), moderate MS & . Likely experiencing acute on chronic HFpEF exacerbation due to adjusted Lasix schedule.
-At last admission, Lasix had been moved to M/W/F scheduling due to hypotension.
-She had been discharged on 2L of O2 due to pneumonia vs aspiration pneumonitis, now on 4-5L, down from 15 on 08/23. Will wean O2 as tolerated to keep saturation above 92%, but not reassured that she will be able to return to 2L prior to discharge.
-Cardiology has been consulted, will appreciate their insight into her case
-Pulmonology has been consulted, will appreciate their insight into her case
-Chest X-ray 08/21: Stable exam suggesting pulmonary edema and pneumonia.
-CT of the Chest showed: Pulmonary findings as above which are suggestive of either fibrosis with superimposed pneumonia or drug induced lung injury. Given the appearance of the lungs on 2021 examination, drug-induced lung injury may be a more
likely differential consideration. Some superimposed edematous changes are possible. There is a small left effusion and a very small right effusion. Advanced coronary and aortic atherosclerosis with severe coronary artery calcification.
-Amiodarone was d/c'ed due to concern for drug-induced injury
-After goals of care discussion, patient has been made DNR/DNI, see additional Dispo above
-Continue BiPap as tolerated.
-Will monitor
Acute Kidney Injury
-Creatinine 1.5 on 08/24, increased from 1.2 on 08/23 and 1.0 on 08/22
-No blood draws today as patient does not want any further blood draws moving towards comfort
Hypokalemia
-Potassium 08/24 low at 3.4
-Magnesium 08/24 normal at 2.2
-No blood draws as patient does not want any further blood draws moving towards comfort
Visual Hallucinations - Resolved
S/p Fall, Unobserved, Unknown Type
-Visual Hallucinations possibly due to fall, though notably she did experience hallucinations in the ICU during her last hospitalization
-Continue to focus on reorientation and routines to help reduce confusion
-Will monitor
Acute on Chronic Anemia, Likely Iron Deficiency
-Hemoglobin on admission 7.8, increased to 8.8 post 1 unit pRBCs on 08/19. Has remained stable around 9 since.
-Vitamin B12 and Folate normal at last admission
-Possibly secondary to bruises/hematoma, but they seem small compared to volume lost
-Consent obtained on 08/19
-Per nursing report, stools heme negative x2
-No blood draws today as patient does not want any further blood draws moving towards comfort
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
Urinary Incontinence
-Sodium on admission 129, around her baseline with fluid restriction and Lasix
-Move to regular diet with no restrictions with comfort measures
History of 2nd Degree Heart Block
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
Paroxysmal Atrial Fibrillation
-Stop Amiodarone (See above)
-Continue Eliquis until officially in hospice
Coronary Artery Disease s/p Stent
-Continue atorvastatin until officially enrolled in hospice
Orthostatic Hypotension
-Orthostatic vital signs from last admission are as follows:
--Layin/61
--Sittin/50
--Standin/47
-Continue midodrine scheduled dosing
-PT/OT has been consulted. Special attention will need to be paid to ensure no falls
-Continue patient's own abdominal binder, compression socks only for comfort (Per last hospitalization)
Stage 2 left posterior thigh pressure injury
-Present on admission, noted by RN reports
-Continue local care
-Will monitor
Stage 1 sacrum pressure injury that has progressed to DTI
-Per Wound Notes
-Continue local care
-Will monitor
R & L foot bilateral corns/callouses
Severely overgrown R & L 2nd toenails
-Toenails growing over toe, at risk of breaking skin on underside of toe. Seen by podiatry 08/01 at last admission and treated.
- Follow-up w podiatry outpatient
Hypothyroidism
-Continue levothyroxine
Post-Herpetic Neuralgia
-Continue duloxetine
Dysphagia
-Previously on IDDSI 6 - Consult Speech
Anticipated Discharge: > 48 hours
Subjective/Interval History
-
Date of Service: August 28, 2025
Patient was awake in her room when I arrived with daughter at her bedside. She confirms that she would prefer to not be woken for medications in the morning if she is resting comfortably, as she feels very tired and would prefer to sleep. That said,
she would want to be woken up for conversations related to goals of care/hospice, and would like to participate in the meeting with the hospice nurse scheduled for later today. She would also like her daughters to participate if they are available.
She continues to want to minimize blood draws and pills except those providing her comfort. She also wishes to minimize time spent on the BiPap, stating that the 5 hours she used it for overnight was 'too much'.
Objective Data
-
Labs:
Laboratory Results
08/28/25
06:00
Sodium Pending
Potassium Pending
Chloride Pending
Carbon Dioxide Pending
BUN Pending
Creatinine Pending
Glucose Pending
Calcium Pending
Vital Signs:
Vital Signs
Temp Pulse Resp BP Pulse Ox
96.8 F L 92 15 125/74 94
08/28/25 03:19 08/28/25 04:00 08/28/25 04:00 08/28/25 04:00 08/28/25 04:00
I&O
08/27/25 08/28/25 08/29/25
06:59 06:59 06:59
Intake Total 350 / 350
Output Total 500 / 500 600 / 600
Balance -150 / -150 -600 / -600
Review of Systems
-
History Source: Patient
Respiratory: Denies Trouble Breathing
Cardiac: Denies Chest Pain
Abdomen/GI: Denies Abdominal Pain
Musculoskeletal: Reports Muscle Pain (Back pain, improved with Tylenol)
Physical Exam
-
General: Well Developed, Well Nourished, No Apparent Distress, Comfortable and Appears Chronically Ill
HEENT: Normocephalic and Atraumatic
Respiratory: Non Labored Respirations
Cardiac: Regular Rhythm (Per Telemetry)
Skin: Warm and Dry
Neuro: Awake, Alert and Oriented
Psych: Calm and Intact Judgement/Insight
--- NOTE | 2025-08-28 08:15 | W.PN.UPDATE ---
Update Note
Progress Note Update
I saw the patient and evaluated the patient with the residents.
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 Admitted for worsening hypoxia.
A/P:
# Acute hypoxic and hypercapnic respiratory failure
# Acute on Chronic HFpEF
# Concern for interstitial lung disease/amiodarone-induced lung injury
Echo 07/23/25: EF 65%, moderate MS & .
O2 requirement was at 15 L, now down to 4L NC
Cont BIPAP PRN if able to tolerate, pt refused today
Off amiodarone
Resumed IV lasix 40 mg daily
Cont IV Decadron, course TBD per pulm when pt has been transitioned to hospice
Cont DuoNeb PRN for now
Cont empiric Abx Zosyn x7 days total
GOC discussion ongoing, has been back and forth about hospice even though pt and daughters all agreeable to home hospice.
medical education coordinator to meet with again today for decision
# BECKA, possibly from overdiuresis
SCr 1.0 -> ... -> 1.5
resumed IV Lasix per card
# Visual Hallucinations, resolved
# Hyponatremia, resolved
# Hypokalemia, replete
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
# Paroxysmal Atrial Fibrillation
Continue Eliquis at decreased dose 2.5 mg BID
Off amiodarone
# Coronary Artery Disease s/p Stent
# Stage 2 left posterior thigh pressure injury, POA
# Hypothyroidism
Continue levothyroxine
# Post-Herpetic Neuralgia
Continue duloxetine
# Dysphagia
Can remove dietary restriction with comfort measures
DVT ppx: Eliquis to be stopped when transitioned to hospice
Code: DNR DNI, confirmed with pt and family
Dispo: Likely home hospice
DANK corporate wellness coordinator Catarina
total time 51 min
[2025-08-28] MEDS: LASIX 40 MG IV (08:31)
[2025-08-28] MEDS: ELIQUIS PO ×2 (08:40→20:09)
[2025-08-28] MEDS: SYNTHROID PO (08:40)
[2025-08-28] MEDS: CYMBALTA DELAYED RELEASE PO (08:40)
[2025-08-28] MEDS: PROTONIX PO (08:41)
[2025-08-28] MEDS: FEOSOL PO (08:41)
--- NOTE | 2025-08-28 11:24 | VATNOTE ---
Addendum entered by Kelly Rose RN 08/28/25 11:25:
Hospice meeting today
Original Note:
discussed left arm with Primary RN, Doppler will not be completed at this time.
--- NOTE | 2025-08-28 11:31 | HOSPNOTE ---
Patient wanted to speak with me about her wishes and hospice care. I spoke with patient and daughter at bedside and the patient was very clear about her wishes and does not wish to continue any further treatments. The plan is for Dr Treadwell to meet
with the family at 4:30 today and discuss inpatient hospice. The patient does meet criteria for shortness of breath requiring IV medications. Once family is all in agreement with patient's wishes we will move forward with the admission. More
information to follow.
--- NOTE | 2025-08-28 11:52 | PTCARENOTE ---
Assumed care of patient at beginning of this shift from previous RN with O2 4l n/c in use. Oxygen needed to be increased to 6L n/c as POx 85-86%. Patient did recover; current POx 97%. Daughter at bedside. When assessing patient, telemetry alarmed
vtach; but patient remained SR. Daughter then brought up pacemaker. This nurse asked if device was also defibrillator. Patient then opened her eyes and stated, 'don't do anything with that.' Patient refused all po medications this morning; she did
consent to IV meds as scheduled. Daughter informed this nurse that patient requesting to speak to Dr Cabrera; daughter stated she thinks her mom wanted to say goodbye to him. TT sent to him. Dr Treadwell aware.
This nurse was contacted by VAT RN asking if a doppler needed fo MAYRA was done or being done. VAT RN made aware that patient's plan of care has been comfort/hospice and patient does not want any tests.
See worklist for full assessment and vital signs.
--- NOTE | 2025-08-28 11:52 | W.PN.UPDATE ---
Update Note
Progress Note Update
Was alerted at 11AM that patient had conversation with photographic plate maker. I went to the room where Guerita was resting with one of her daughters at her bedside alongside photographic plate maker. I asked Guerita what she had spoken about with Catarina, and she stated, 'I
don't want any more pills. No more mask. No more blood. I just want to stay in the hospital and .' I confirmed that she did not wish to go home with Hospice anymore, and she agreed strongly that she only wanted to stay in the hospital and be
comfortable, and not go anywhere else. I reviewed the fact that some of her medications and the BiPap might be helping her to feel better, and she stated, 'I will be fine without them.' I asked if it was okay if I come back later on today to help
facilitate a conversation between her and her family only one daughter was present at the time, to which she agreed with.
Short term, she has really only received IV medications today, which she was okay with as they were not pills. She does not currently want any pain medications (IV or otherwise), as her only current complaint is that she is tired. Updated the nurse
on her case, nurse advised me she had already preemptively refused all of her oral medications for the day. Will continue to touch base with family throughout the day to provide emotional support.
Total time spent discussing care with patient/family and coordinatin minutes
--- NOTE | 2025-08-28 16:27 | PTCARENOTE ---
Dr MAGDA Cabrera was up earlier to see patient and family. He had ordered BMP. This nurse sent TT to him to let him know patient has been refusing testing; he replied that labs can be cancelled.
[2025-08-28] MEDS: LIPITOR PO (17:14)
[2025-08-28] MEDS: SENOKOT-S PO (20:10)
[2025-08-29] VITALS: BP 121/69
[2025-08-29] MEDS: DECADRON IV (00:06)
--- NOTE | 2025-08-29 00:49 | RESPNOTE ---
PT refused the BIPAP for the night and wants to just remain on the n/c. RN sts that the PT will be transitioning to hospice in the AM.
--- NOTE | 2025-08-29 00:55 | PTCARENOTE ---
patient is demandin
--- NOTE | 2025-08-29 00:56 | PTCARENOTE ---
Addendum entered by Mayte Girard RN 08/29/25 01:06:
Patient refused all the scheduled Meds.
Original Note:
Patient is asking to take off oxygen. patient desat t0 50s on RA in 10mnt after removing oxygen. Explained to the patient dont have any comfort care orders yet/ also whether family members needed to be notified as no family at bedside. Patient would
like oxygen back at this time and would like to go back to sleep.
[2025-08-29 02:00] VITALS: BP 90/69
[2025-08-29] MEDS: SYNTHROID PO (05:18)
--- NOTE | 2025-08-29 07:24 | W.PN.HOSP.TC ---
Today's Communication/Plan
-
Transition to hospice today
Assessment / Plan
Assessment / Plan
Assessment:
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
acute heart failure exacerbation.
Plan:
DISPO: Conversation on 08/20 with patient and her patient's daughter about patient's health. Gently broached the conversation of goals of care including what is important to Mrs. Braga. Conversation was more focused on disposition and beginning
conversations about if patient would like to return to SNF following discharge, or if she would prefer to return home. Followed up same day with other daughter, both would prefer patient at home with palliative care. On 08/21 and 08/22 continued
conversations with , who is uncertain at this point and does not wish to make any decisions until his family his present. On 08/24, patient articulated that she did not want chest compressions to be done if her heart were to stop, which was
witnessed by her middle daughter. would like to converse with family first before code status is changes.
On 08/25 extensive conversation was had with patient, , 2 daughters. All are in agreement about plan to make her DNR/DNI this AM and move towards comfort into the afternoon based on patient's preferences. Planned to make this transition
slowly to allow time for family to arrive. Consulted CM for hospice referral and work on comfort medications only after budget specialist and family have arrived. In the meantime, move with regular diet. Followed up with the family in the evening as well to
discuss transition to her being comfort measures and which medications and interventions are more likely to provide her with comfort compared to others currently on her list.
On 08/26, continued plan with focusing on comfort according to Guerita's wishes. Family spoke with strapper, and plan to speak to them again today before moving forward with hospice. They'll be moving forward with planning to take her home, though
time will be needed to send DME to their house as patient does have a new 6L and sometimes greater O2 requirement. Plan for official consents to be signed today (08/29) to transition to hospice.
Acute on Chronic HFpEF
Moderate MS, mild MR, moderate
Acute Hypoxic Respiratory Failure
-Echo 07/23/25: EF 65%, severely abnormal L atrial volume (>48ml/m2), moderate MS & . Likely experiencing acute on chronic HFpEF exacerbation due to adjusted Lasix schedule.
-At last admission, Lasix had been moved to M/W/F scheduling due to hypotension.
-She had been discharged on 2L of O2 due to pneumonia vs aspiration pneumonitis, now on 4-5L, down from 15 on 08/23. Will wean O2 as tolerated to keep saturation above 92%, but not reassured that she will be able to return to 2L prior to discharge.
-Cardiology has been consulted, will appreciate their insight into her case
-Pulmonology has been consulted, will appreciate their insight into her case
-Chest X-ray 08/21: Stable exam suggesting pulmonary edema and pneumonia.
-CT of the Chest showed: Pulmonary findings as above which are suggestive of either fibrosis with superimposed pneumonia or drug induced lung injury. Given the appearance of the lungs on 2021 examination, drug-induced lung injury may be a more
likely differential consideration. Some superimposed edematous changes are possible. There is a small left effusion and a very small right effusion. Advanced coronary and aortic atherosclerosis with severe coronary artery calcification.
-Amiodarone was d/c'ed due to concern for drug-induced injury
-After goals of care discussion, patient has been made DNR/DNI, see additional Dispo above
-Patient declined further use of Bipap on 08/28
-Will monitor
Acute Kidney Injury
-Creatinine 1.5 on 08/24, increased from 1.2 on 08/23 and 1.0 on 08/22
-No blood draws today as patient does not want any further blood draws moving towards comfort
Hypokalemia
-Potassium 08/24 low at 3.4
-Magnesium 10/12 normal at 2.2
-No blood draws as patient does not want any further blood draws moving towards comfort
Visual Hallucinations - Resolved
S/p Fall, Unobserved, Unknown Type
-Visual Hallucinations possibly due to fall, though notably she did experience hallucinations in the ICU during her last hospitalization
-Continue to focus on reorientation and routines to help reduce confusion
-Will monitor
Acute on Chronic Anemia, Likely Iron Deficiency
-Hemoglobin on admission 7.8, increased to 8.8 post 1 unit pRBCs on 08/19. Has remained stable around 9 since.
-Vitamin B12 and Folate normal at last admission
-Possibly secondary to bruises/hematoma, but they seem small compared to volume lost
-Consent obtained on 08/19
-Per nursing report, stools heme negative x2
-No blood draws today as patient does not want any further blood draws moving towards comfort
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
Urinary Incontinence
-Sodium on admission 129, around her baseline with fluid restriction and Lasix
-Move to regular diet with no restrictions with comfort measures
History of 2nd Degree Heart Block
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
Paroxysmal Atrial Fibrillation
-Stop Amiodarone (See above)
-Continue Eliquis until officially in hospice
Coronary Artery Disease s/p Stent
-Continue atorvastatin until officially enrolled in hospice
Orthostatic Hypotension
-Orthostatic vital signs from last admission are as follows:
--Layin/61
--Sittin/50
--Standin/47
-Continue midodrine scheduled dosing
-PT/OT has been consulted. Special attention will need to be paid to ensure no falls
-Continue patient's own abdominal binder, compression socks only for comfort (Per last hospitalization)
Stage 2 left posterior thigh pressure injury
-Present on admission, noted by RN reports
-Continue local care
-Will monitor
Stage 1 sacrum pressure injury that has progressed to DTI
-Per Wound Notes
-Continue local care
-Will monitor
R & L foot bilateral corns/callouses
Severely overgrown R & L 2nd toenails
-Toenails growing over toe, at risk of breaking skin on underside of toe. Seen by podiatry 08/01 at last admission and treated.
- Follow-up w podiatry outpatient
Hypothyroidism
-Continue levothyroxine
Post-Herpetic Neuralgia
-Continue duloxetine
Dysphagia
-Previously on IDDSI 6 - Consult Speech
Anticipated Discharge: > 48 hours (Transition to Hospice today)
Subjective/Interval History
-
Date of Service: August 29, 2025
Patient was resting comfortably in her room with her daughter at the bedside when I arrived. She reports she continues to feel tired, but is free of pain. She has no concerns or complaints at this time.
Objective Data
-
Vital Signs:
Vital Signs
Temp Pulse Resp BP Pulse Ox
96.4 F L 101 13 90/69 97
08/29/25 03:15 08/29/25 02:00 08/29/25 02:00 08/29/25 02:00 08/29/25 02:00
I&O
08/28/25 08/29/25 08/30/25
06:59 06:59 06:59
Output Total 600 / 600 750 / 750
Balance -600 / -600 -750 / -750
Review of Systems
-
History Source: Patient
Cardiac: Denies Chest Pain
Abdomen/GI: Denies Abdominal Pain
Musculoskeletal: Denies Joint Pain or Muscle Pain
Physical Exam
-
General: Well Developed, Well Nourished, No Apparent Distress, Comfortable and Appears Chronically Ill
HEENT: Normocephalic and Atraumatic
Respiratory: Non Labored Respirations and Decreased Breath Sounds
Cardiac: Regular Rhythm and S1/S2
Skin: Warm and Dry
Neuro: Awake and Alert
Psych: Calm and Intact Judgement/Insight
--- NOTE | 2025-08-29 08:48 | W.PN.UPDATE ---
Update Note
Progress Note Update
I saw the patient and evaluated the patient with the residents.
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 Admitted for worsening hypoxia.
A/P:
# Acute hypoxic and hypercapnic respiratory failure
# Acute on Chronic HFpEF
# Concern for interstitial lung disease/amiodarone-induced lung injury
Echo 07/23/25: EF 65%, moderate MS & .
O2 requirement was at 15 L, now down to 4-5L NC
Cont BIPAP PRN if able to tolerate, pt has now refused
Off amiodarone
IV lasix 40 mg daily was resumed by card, to be discontinued when initiated hospice
IV Decadron to be stopped when transitioned to hospice
DuoNeb PRN for symptom
s/p empiric Abx Zosyn x7 days
GOC discussion ongoing, plan is to transition to inpatient hospice today
# BECKA, possibly from overdiuresis
SCr 1.0 -> ... -> 1.5
resumed IV Lasix per card, would be off lasix when starting hospice
# Visual Hallucinations, resolved
# Hyponatremia, resolved
# Hypokalemia, replete
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
# Paroxysmal Atrial Fibrillation
Eliquis decreased to 2.5 mg BID, to be stopped when transitioned to hospice
Off amiodarone
# Coronary Artery Disease s/p Stent
# Stage 2 left posterior thigh pressure injury, POA
# Hypothyroidism
levothyroxine
# Post-Herpetic Neuralgia
duloxetine
# Dysphagia
Can remove dietary restriction with comfort measures
DVT ppx: Eliquis to be stopped when transitioned to hospice
Code: DNR DNI, confirmed with pt and family
Dispo: pt requesting inpatient hospice. Pt has informed us that she does NOT want to continue to take any medication.
DW daughter at bedside
total time 51 min
[2025-08-29] MEDS: LASIX 40 MG IV (09:00)
[2025-08-29] MEDS: CYMBALTA DELAYED RELEASE PO (09:01)
[2025-08-29] MEDS: ELIQUIS PO (09:01)
[2025-08-29] MEDS: DECADRON 4 MG IV (09:01)
[2025-08-29] MEDS: PROTONIX PO (09:01)
[2025-08-29] MEDS: FEOSOL PO (09:01)
--- NOTE | 2025-08-29 09:05 | PTCARENOTE ---
Patient received from night warehouse manager. Patient resting comfortably in bed. AAO, VSS. No events noted overnight. No complaints of pain. Patient refusing all meds except for IV when awake. Currently on 7L N/C, transitioning to inpatient comfort
care/hospice today. No testing scheduled at this time. Call ivrk in reach.
--- NOTE | 2025-08-29 10:09 | HOSPNOTE ---
Spoke with family and the plan is inpatient hospice. Consents are signed and admissions was called.
--- NOTE | 2025-08-29 11:42 | W.DCSUMMARY ---
Documented by User: Abigail Treadwell DO, Resident 08/29/25 14:05
Discharge Summary
Discharge Data
Date of Admission: 08/18/25
Date of Discharge: 08/29/25
-
Pending Results: No
Hospital Course
Discharging Physician : Dr. Palomino
Disposition : Fair
Principal Discharge diagnosis : Interstitial Lung Disease, Acute on Chronic Blood Loss Anemia, Acute on Chronic Heart Failure with preserved Ejection Fraction
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
admission in the ICU, delirium, Pacemaker placement, antibiotics, BiPap and supplemental oxygen requirement. She had been discharged to [facility] on 2L of supplemental oxygen, where she had an unwitnessed fall around
08/15/2025. Her family noted new bruising on her right elbow and increased confusion/visual hallucinations again as well as a bruise on her scalp, and elected to bring her to the ED on 08/18.
In the ED, CT scan of her head was negative for any acute intracranial process, but she was noted to be fluid overloaded on exam. Chest X-ray revealed bilateral pulmonary edema. She was started on IV Lasix. Her oxygen requirement had increased to
6L. Overnight her hemoglobin fell to 6.8, requiring transfusion with 1 unit of pRBCs. On 08/21 she became incredibly lethargic, so Pulmonology was consulted. VBG noted a pCO2 of 75, so she was transferred to the IMU for Bipap therapy. A CT of her
Chest and X-ray of her Chest were performed. Prior CT scans were reviewed, and raised concern that she had interstitial lung disease due to chronic amiodarone use. She was started on IV steroids and amiodarone was held. On 08/23 after transition
from BiPap to Oxygen, she had a new increased O2 requirement of 15L. This gradually weaned down to 4-6L of O2, with requirement changing daily and fluctuating greatly. Patient began to express that she was very tired at greater and greater
frequencies, with fatigue being her primary complaint for multiple days. Her creatinine increased to 1.5 on 08/24, requiring her Lasix to be held. On 08/25, patient requested that she be made DNR/DNI with a move towards being comfortable at home.
Hospice was consulted with a plan to move forward with a transition towards going home with hospice in place. Medications and blood draws were minimized by her request, though she continued to use the BiPap at night anywhere from 2-10 hours. On
08/28, patient stated that she �didn�t want any more pills. No more mask. No more blood. I want to stay in the hospital and .� After conversations with her family, she was moved towards full comfort care and was discharged to this hospital�s
hospice program on 08/29/2025 at her own request.
Important imaging findings :
CT Cervical Spine 08/18: No evidence of acute abnormality
CT Heat 08/18: No evidence of acute intracranial abnormality
Chest X-ray 08/18: There are diffusely increased reticular markings as well as patchy areas of more confluent parenchymal opacity within both lungs. Blunting of the lateral and posterior costophrenic angles, compatible with small bilateral pleural
effusions.
These parenchymal opacities appear fairly stable compared to most recent examination of August 02, 2025, increasing compared to radiograph of July 23, 2025, and the lungs were relatively clear on examination of October 22, 2024.
Findings felt to most likely represent bilateral pulmonary edema. However, bilateral pneumonia or a combination of pneumonia and pulmonary edema are also possible.
Chest X-ray 08/21: Stable exam suggesting pulmonary edema and pneumonia.
CT Chest 08/21: (LUNGS) All of the acquired series are limited by respiratory motion artifacts. There is a small left pleural effusion. There is trace right pleural effusion. Lung volumes are slightly low. Bilateral upper lungs show consolidation
which is predominantly peribronchovascular. The right upper lobe is more severely affected as compared with the left upper lobe. Lungs diffusely show interstitial thickening with areas of groundglass opacity and changes of bronchiectasis. Some
additional small areas of consolidation at the lung bases. Mild thickening of the fissures. No prominent thickening of intra-alveolar septae. Some mild bronchial wall thickening. No pneumothorax. No tracheal or central endobronchial nodule or
filling defect. No focal pulmonary mass is identified. Inspiration images show some of the bronchiectatic changes to better advantage. No signs of honeycombing. No other significant additional findings. Expiration images are significantly limited by
artifacts. No clear focal areas of air trapping. Overall, the consolidation in the upper lungs is worse as compared with previous examination. Given the appearance of the lungs on 2021 examination, drug-induced lung injury may be a more likely
differential consideration. Some superimposed edematous changes are possible. There is a small left effusion and a very small right effusion.
Procedure findings : N/a
Discharge Plan
-
Patient Disposition: Hospice - Inpatient
Discharge Orders:
Discharge Patient (As Directed); Ordered 08/29/25
Ordered By: Abigail Treadwell
Discharge Date and Time
Discharge Date/Time: 08/29/25 13:55
Print Language: ANGOLAN

Documented by User: Sarah Palomino MD 08/29/25 15:32
Discharge Summary
Discharge Data
Date of Admission: 08/18/25
Date of Discharge: 08/29/25
Discharge Plan
-
Patient Disposition: Hospice - Inpatient
Discharge Orders:
Discharge Patient (As Directed); Ordered 08/29/25
Ordered By: Abigail Treadwell
Discharge Date and Time
Discharge Date/Time: 08/29/25 13:55
Print Language: ANGOLAN
[2025-08-29] MEDS: TYLENOL 650 MG PO (12:41)
--- NOTE | 2025-08-29 13:28 | CHAP ---
Emotional and spiritual support provided for Ms. Braga and family at bedside.
--- NOTE | 2025-08-29 14:32 | CM ---
F/U: Family met with Catarina from [facility], signed consents, and patient will be inpatient hospice later today on . IMM completed and copy given to 1 of the daughters. PLAN: Inpatient Hospice.
== END 2025-08-29 13:55 | disposition hospice, inpatient (51) | DRG 291 ==
LOC: IMU 23:41
PROVIDERS: Hospitalist; Internal Medicine Cardiovascular Disease; Physician Assistant Medical; ADMITTING PHYSICIAN Hospitalist; ATTENDING PHYSICIAN Internal Medicine; CONSULT PHYSICIAN Internal Medicine; EMERGENCY PHYSICIAN Emergency Medicine; FAMILY PHYSICIAN Internal Medicine; OTHER PHYSICIAN Internal Medicine Cardiovascular Disease
PROC: 30233N1 Transfusion of Nonautologous Red Blood Cells into Peripheral Vein, Percutaneous Approach (ICD-10-PCS; 2025-08-19)
DX: I13.0 Hypertensive heart and chronic kidney disease with heart failure and stage 1 through stage 4 chronic kidney disease, or unspecified chronic kidney disease (principal); I50.43 Acute on chronic combined systolic (congestive) and diastolic (congestive) heart failure; J18.9 Pneumonia, unspecified organism; J96.01 Acute respiratory failure with hypoxia; S06.0XAA Concussion with loss of consciousness status unknown, initial encounter; B02.29 Other postherpetic nervous system involvement; E22.2 Syndrome of inappropriate secretion of antidiuretic hormone; N17.9 Acute kidney failure, unspecified; W19.XXXA Unspecified fall, initial encounter; I25.10 Atherosclerotic heart disease of native coronary artery without angina pectoris; I48.0 Paroxysmal atrial fibrillation; E03.9 Hypothyroidism, unspecified; Z79.01 Long term (current) use of anticoagulants; Z51.5 Encounter for palliative care; E87.6 Hypokalemia; R44.1 Visual hallucinations; I95.1 Orthostatic hypotension; L89.892 Pressure ulcer of other site, stage 2; L89.151 Pressure ulcer of sacral region, stage 1; R13.10 Dysphagia, unspecified; Z66 Do not resuscitate; N18.9 Chronic kidney disease, unspecified; S01.01XA Laceration without foreign body of scalp, initial encounter; S50.01XA Contusion of right elbow, initial encounter; Z79.899 Other long term (current) drug therapy; Z87.11 Personal history of peptic ulcer disease; Z87.891 Personal history of nicotine dependence
CPT/HCPCS: 36600; 70450; 71046; 71250; 72125; 80048; 80053; 80076; 82607; 82728; 82746; 82805; 83540; 83550; 83735; 83880; 83930; 83935; 84145; 84300; 84484; 85014; 85018; 85025; 85027; 86850; 86900; 86901; 86920; 92526; 92610; 93005; 93308; 94660; 96374; 97163; 97167; 97530; 99285; P9016

== ENCOUNTER 2025-08-29 14:28 | Inpatient (IN) | payer OTHER, SELFPAY ==
--- NOTE | 2025-08-29 14:34 | HPS.HSE ---
Addendum entered and electronically signed by Sarah Palomino MD 08/29/25 22:45:
I saw and evaluated the patient. I reviewed the resident�s note and agree with findings and plan as documented in the resident�s note.
HPI: 89 y/o female with PMH HFpEF, Chronic Anemia, was admitted for Acute hypoxic and hypercapnic respiratory failure, Acute on Chronic HFpEF and concern for interstitial lung disease/amiodarone-induced lung injury.
Due to worsening clinical conditioning, she was transitioned to inpatient hospice to continue comfort measures.
Stopped all therapeutic medications.
Now continue with comfort meds only. Diet liberalized to regular, continue for comfort.
Original Note:
Family Physician
-
Family Physician: NO INTERVIEW UNKNOWN
Chief Complaint
-
Fatigue
History of Present Illness
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
ICU, delirium, Pacemaker placement, antibiotics, BiPap and supplemental oxygen requirement. She had been discharged to [facility] on 2L of supplemental oxygen, where she had an unwitnessed fall around 08/15/2025. Her family
noted new bruising on her right elbow and increased confusion/visual hallucinations again as well as a bruise on her scalp, and elected to bring her to the ED on 08/18.
In the ED, CT scan of her head was negative for any acute intracranial process, but she was noted to be fluid overloaded on exam. Chest X-ray revealed bilateral pulmonary edema. She was started on IV Lasix. Her oxygen requirement had increased to
6L. Overnight her hemoglobin fell to 6.8, requiring transfusion with 1 unit of pRBCs. On 08/21 she became incredibly lethargic, so Pulmonology was consulted. VBG noted a pCO2 of 75, so she was transferred to the IMU for Bipap therapy. A CT of her
Chest and X-ray of her Chest were performed. Prior CT scans were reviewed, and raised concern that she had interstitial lung disease due to chronic amiodarone use. She was started on IV steroids and amiodarone was held. On 08/23 after transition
from BiPap to Oxygen, she had a new increased O2 requirement of 15L. This gradually weaned down to 4-6L of O2, with requirement changing daily and fluctuating greatly. Patient began to express that she was very tired at greater and greater
frequencies, with fatigue being her primary complaint for multiple days. Her creatinine increased to 1.5 on 08/24, requiring her Lasix to be held. On 08/25, patient requested that she be made DNR/DNI with a move towards being comfortable at home.
Hospice was consulted with a plan to move forward with a transition towards going home with hospice in place. Medications and blood draws were minimized by her request, though she continued to use the BiPap at night anywhere from 2-10 hours. On
08/28, patient stated that she �didn�t want any more pills. No more mask. No more blood. I want to stay in the hospital and .� After conversations with her family, she was moved towards full comfort care and was discharged to this hospital�s
hospice program on 08/29/2025 at her own request.
Medical History
Past Medical History
Past Medical History: Reports CAD, CHF, Hypothyroidism and Other
Additional Past Medical History:
Coronary Artery Disease s/p Stent
Chronic HFpEF
Heart Block s/p Pacemaker
Paroxysmal Atrial Fibrillation
Orthostatic Hypotension
Hypothyroidism
Chronic Hyponatremia
Chronic Anemia
Post-Herpetic Neuralgia
Follicular Lymphoma
Dysphagia
Past Surgical History: Reports Other
Additional Past Surgical History:
Right Ankle Fracture Repair
Hysterectomy
Cardiac Stent
Permanent Pacemaker
Cataracts
Social History
Tobacco: Former Smoker
Alcohol: None
Drug: None
Personal:
Living: With Family
Employment: Retired
Family History
Family History: Not pertinent
Allergies / Home Medications
Allergies reflects when Allergies were last updated in [employer].
Home Medications with original date entered in [employer]
Allergy/Medication List:
Allergies
Allergy/AdvReac Type Severity Reaction Status Date / Time
tramadol Allergy auditory/visual Verified 07/23/25 22:18
hallucinations
Home Medications
atorvastatin 20 mg tablet 20 mg PO QPM High cholesterol 04/20/15
amiodarone 200 mg tablet 200 mg PO DAILY Arrhythmia 06/20/23
valsartan 40 mg tablet 40 mg PO QPM Blood Pressure 06/20/23
Held on 08/05/25. Instructions: Resume on 08/25/25. Wait to resume until you see your primary care physician & local superintendent and discuss restarting with them
alendronate 70 mg tablet (Fosamax) 70 mg PO TH bone health 07/23/25
ferrous sulfate 325 mg (65 mg iron) tablet 325 mg PO DAILY Supplement 07/23/25
levothyroxine 75 mcg tablet (Synthroid) 75 mcg PO DAILY Thyroid 07/23/25
valsartan 160 mg tablet 80 mg PO DAILY Blood Pressure 07/23/25
Held on 08/05/25. Instructions: Resume on 08/25/25. Wait to resume until you see your primary care physician & local superintendent and discuss restarting with them
bisacodyl 10 mg rectal suppository 10 mg DE [id number] PRN constipation #12 ea 08/03/25
duloxetine 60 mg capsule,delayed release 60 mg PO DAILY Pain 1 month #30 caps 08/03/25
polyethylene glycol 3350 17 gram oral powder packet 17 g PO DAILYPRN PRN constipation #30 ea 08/03/25
apixaban 5 mg tablet (Eliquis) 5 mg PO BID Blood clot prevention/tx #60 tabs 08/05/25
furosemide 20 mg tablet 20 mg PO MOWEFR Fluid Retention/Swelling #0 tabs 08/06/25
midodrine 2.5 mg tablet 5 mg (2 x 2.5 mg) PO TID@0800,1300,1800 Blood pressure #90 tabs 08/07/25
sennosides 8.6 mg-docusate sodium 50 mg tablet (Senna Plus) 2 tab PO HS Constipation 08/18/25
Review of Systems
-
History Source: Patient
A 12 point ROS was completed and negative except as noted: No
Constitutional: Reports Fatigue
Cardiac: Denies Chest Pain
Abdomen/GI: Denies Abdominal Pain
Musculoskeletal: Denies Joint Pain or Muscle Pain
Psych: Reports Calm
Physical Exam
Physical Exam
General: Well Developed, Well Nourished, No Apparent Distress and Comfortable
HEENT: NormoCephalic, Anicteric and Oxygen
Respiratory: Non Labored Respirations
Cardiac: Regular Rhythm (Per Telemetry)
Skin: Warm and Dry
Neuro: Awake, Alert and Oriented
Psych: Calm and Intact Judgment/Insight
Impression/Plan
-
Assessment:
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
acute heart failure exacerbation.
Plan:
As of 08/29, Guerita has been enrolled in this hospital's hospice program. Her prior medications for her chronic conditions have been discontinued with new orders medications in place focused on ensuring her comfort. These include Tylenol and Morphine
as needed for pain, Zofran as needed for nausea, and Ativan as needed for anxiety. A bowel regimen is also in place as needed for constipation. Will continue to focus on providing comfort to Guerita, with particular focus on preserving her dignity and
hygiene. Will continue to provide daily support to her and her family throughout this journey.
Chronic Medical Conditions:
Acute on Chronic HFpEF
Moderate MS, mild MR, moderate
Acute Hypoxic Respiratory Failure
-Echo 07/23/25: EF 65%, severely abnormal L atrial volume (>48ml/m2), moderate MS & . Likely experiencing acute on chronic HFpEF exacerbation due to adjusted Lasix schedule.
-At last admission, Lasix had been moved to // scheduling due to hypotension.
-She had been discharged on 2L of O2 due to pneumonia vs aspiration pneumonitis
-Chest X-ray 08/21: Stable exam suggesting pulmonary edema and pneumonia.
-CT of the Chest showed: Pulmonary findings as above which are suggestive of either fibrosis with superimposed pneumonia or drug induced lung injury. Given the appearance of the lungs on 2021 examination, drug-induced lung injury may be a more
likely differential consideration. Some superimposed edematous changes are possible. There is a small left effusion and a very small right effusion. Advanced coronary and aortic atherosclerosis with severe coronary artery calcification.
-Will monitor
Acute Kidney Injury
-Creatinine 1.5 on 08/24, increased from 1.2 on 08/23 and 1.0 on 08/22
-No further blood draws
Hypokalemia
-Potassium 08/24 low at 3.4
-Magnesium 08/24 normal at 2.2
-No further blood draws
Acute on Chronic Anemia, Likely Iron Deficiency
-Hemoglobin on admission 7.8, increased to 8.8 post 1 unit pRBCs on 08/19. Has remained stable around 9 since.
-No further blood draws
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
Urinary Incontinence
-Sodium on admission 129, around her baseline with fluid restriction and Lasix
-Now on regular diet with no restrictions
-No further blood draws
Stage 2 left posterior thigh pressure injury
-Present on admission, noted by RN reports
-Continue local care only for comfort
-Will monitor
Stage 1 sacrum pressure injury that has progressed to DTI
-Per Wound Notes
-Continue local care only for comfort
-Will monitor
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
Paroxysmal Atrial Fibrillation
Coronary Artery Disease s/p Stent
Orthostatic Hypotension
R & L foot bilateral corns/callouses
Hypothyroidism
Post-Herpetic Neuralgia
--- NOTE | 2025-08-29 15:47 | HOSPNOTE ---
Patient was admitted inpatient hospice. Patient will be seen daily by hospice.
--- NOTE | 2025-08-29 18:15 | PTCARENOTE ---
Patient now on hospice/comfort care.
[2025-08-29 23:13] VITALS: BP 116/72
--- NOTE | 2025-08-29 23:17 | PTCARENOTE ---
comfort care maintained. RR 14, sat 98% hr 98 bpm, bp 116/72(85). daughter at bedside.
--- NOTE | 2025-08-30 07:30 | W.PN.HOSP.TC ---
Today's Communication/Plan
-
Continuing inpatient hospice management. Goal of care centered around preserving the patient's dignity, comfort, and hygiene.
Supportive counseling provided to patient and family at the bedside.
Comfort foods as requested
Assessment / Plan
Assessment / Plan
Assessment:
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
acute heart failure exacerbation.
Plan:
As of 08/29, Guerita has been enrolled in this hospital's hospice program. Her prior medications for her chronic conditions have been discontinued with new orders medications in place focused on ensuring her comfort. These include Tylenol and Morphine
as needed for pain, Zofran as needed for nausea, and Ativan as needed for anxiety. A bowel regimen is also in place as needed for constipation. Will continue to focus on providing comfort to Guerita, with particular focus on preserving her dignity and
hygiene. Will continue to provide daily support to her and her family throughout this journey.
Chronic Medical Conditions:
Acute on Chronic HFpEF
Moderate MS, mild MR, moderate
Acute Hypoxic Respiratory Failure
-Echo 07/23/25: EF 65%, severely abnormal L atrial volume (>48ml/m2), moderate MS & . Likely experiencing acute on chronic HFpEF exacerbation due to adjusted Lasix schedule.
-At last admission, Lasix had been moved to M/W/F scheduling due to hypotension.
-She had been discharged on 2L of O2 due to pneumonia vs aspiration pneumonitis
-Chest X-ray 08/21: Stable exam suggesting pulmonary edema and pneumonia.
-CT of the Chest showed: Pulmonary findings as above which are suggestive of either fibrosis with superimposed pneumonia or drug induced lung injury. Given the appearance of the lungs on 2021 examination, drug-induced lung injury may be a more
likely differential consideration. Some superimposed edematous changes are possible. There is a small left effusion and a very small right effusion. Advanced coronary and aortic atherosclerosis with severe coronary artery calcification.
-Will monitor
Acute Kidney Injury
-Creatinine 1.5 on 08/24, increased from 1.2 on 08/23 and 1.0 on 08/22
-No further blood draws
Hypokalemia
-Potassium 08/24 low at 3.4
-Magnesium 08/24 normal at 2.2
-No further blood draws
Acute on Chronic Anemia, Likely Iron Deficiency
-Hemoglobin on admission 7.8, increased to 8.8 post 1 unit pRBCs on 08/19. Has remained stable around 9 since.
-No further blood draws
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
Urinary Incontinence
-Sodium on admission 129, around her baseline with fluid restriction and Lasix
-Now on regular diet with no restrictions
-No further blood draws
Stage 2 left posterior thigh pressure injury
-Present on admission, noted by RN reports
-Continue local care only for comfort
-Will monitor
Stage 1 sacrum pressure injury that has progressed to DTI
-Per Wound Notes
-Continue local care only for comfort
-Will monitor
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
Paroxysmal Atrial Fibrillation
Coronary Artery Disease s/p Stent
Orthostatic Hypotension
R & L foot bilateral corns/callouses
Hypothyroidism
Post-Herpetic Neuralgia
Anticipated Discharge: 24 - 48 hours
Subjective/Interval History
-
Date of Service: August 30, 2025
Met with patient at the bedside. She is calm and pleasant in discussion. She offers no complaints at the present time. She is comfortable and made a request to have sherbet. I informed the family that the patient should have what ever food she
wants and that staff will be available to the patient and family for anything the patient will need in order to make her comfortable.
Objective Data
-
Labs:
Hospice patient. No lab draws
Vital Signs:
Vital Signs
Temp Pulse Resp BP Pulse Ox
97.3 F 93 13 116/72 98
08/30/25 07:28 08/29/25 23:13 08/29/25 23:13 08/29/25 23:13 08/29/25 23:16
I&O
08/29/25 08/30/25 08/31/25
06:59 06:59 06:59
Output Total 400 / 400
Balance -400 / -400
Review of Systems
-
History Source: Patient
Cardiac: Denies Chest Pain
Abdomen/GI: Denies Abdominal Pain
Musculoskeletal: Denies Joint Pain or Muscle Pain
Physical Exam
-
General: Well Developed, Well Nourished, No Apparent Distress, Comfortable and Appears Chronically Ill
HEENT: Normocephalic and Atraumatic
Respiratory: Non Labored Respirations and Decreased Breath Sounds
Cardiac: Regular Rhythm and S1/S2
Skin: Warm and Dry
Neuro: Awake and Alert
Psych: Calm and Intact Judgement/Insight
--- NOTE | 2025-08-30 08:56 | CM ---
Patient changed to GIP yesterday.
Hospice is agency caring for patient .
Family agreed with hospice.
Comfort measures in place.
PLAN Continue Hospice GIP
[2025-08-30] MEDS: TYLENOL 650 MG PO (10:36)
[2025-08-30 10:37] VITALS: BMI 24.2
--- NOTE | 2025-08-30 12:19 | HOSPNOTE ---
Assessed patient in the bed with eyes closed but answering simple questions, KYLEE. Conversing with family and asking to see her grandson, who is at college in [place], she told family once she sees him she can go. Family will attempt to face time with
him later. Flacc low to moderate, complains of back pain, gets relief when lying flat. Mild dyspnea but patient is refusing medication, thinks it will prolong things, was agreeable to take Tylenol for pain. Spouse did not want Morphine given or
conversations had on taking it as today is their granddaughters wedding and many family are in visiting from out of town and he does not want her groggy or asleep. Explained to spouse we want to keep her comfortable and would strongly recommend
taking it if patient is in distress, understands and does not feel they are there yet. Discussed patient may rally until after her granddaughters wedding and speaking to grandson. Much emotional support and active listening provided.
Encouraged to reach out with any concerns. Coordinated care with her unit nurse, no new concerns. Patient to remain GIP for management of dyspnea and pain.
--- NOTE | 2025-08-30 15:49 | W.PN.UPDATE ---
Update Note
Progress Note Update
Acute on Chronic HFpEF
Moderate MS, mild MR, moderate
Acute Hypoxic Respiratory Failure
Acute on Chronic Anemia
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
Urinary Incontinence
History of 2nd Degree Heart Block
Paroxysmal Atrial Fibrillation
Coronary Artery Disease s/p Stent
Orthostatic Hypotension
pression socks (Per last hospitalization)
Stage 2 left posterior thigh pressure injury
Hypothyroidism
Post-Herpetic Neuralgia
Dysphagia
Plan
Continue comfort care on hospice. Patient is a candidate and wants are unsure about which she is enjoying.
Multiple family members at bedside
[2025-08-30] MEDS: MORPHINE SULFATE 2 MG IV (18:49)
--- NOTE | 2025-08-30 21:47 | PTCARENOTE ---
at bedside. Pt resting, alternating from sleeping to awake. drowsy, when awake. communicating needs. continued to be made comfortable.
[2025-08-31] MEDS: MORPHINE SULFATE 2 MG IV ×6 (00:49→23:44)
[2025-08-31 03:53] VITALS: BP 132/78
--- NOTE | 2025-08-31 07:30 | W.PN.HOSP.TC ---
Addendum entered and electronically signed by Lloyd Valera MD 08/31/25 13:22:
Seen earlier. Late documentation
I saw and evaluated the patient. I reviewed the resident�s note and agree with findings and plan as documented in the resident�s note.
Continue Hospice care with meds for comfort
D/W Family at bed side
Original Note:
Today's Communication/Plan
-
Continuing inpatient hospice management. Goal of care centered around preserving the patient's dignity, comfort, and hygiene.
Supportive counseling provided to patient and family at the bedside.
Comfort foods as requested
Assessment / Plan
Assessment / Plan
Assessment:
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
acute heart failure exacerbation.
Plan:
As of 08/29, Guerita has been enrolled in this hospital's hospice program. Her prior medications for her chronic conditions have been discontinued with new orders medications in place focused on ensuring her comfort. These include Tylenol and Morphine
as needed for pain, Zofran as needed for nausea, and Ativan as needed for anxiety. A bowel regimen is also in place as needed for constipation. Will continue to focus on providing comfort to Guerita, with particular focus on preserving her dignity and
hygiene. Will continue to provide daily support to her and her family throughout this journey.
Chronic Medical Conditions:
Acute on Chronic HFpEF
Moderate MS, mild MR, moderate
Acute Hypoxic Respiratory Failure
-Echo 07/23/25: EF 65%, severely abnormal L atrial volume (>48ml/m2), moderate MS & . Likely experiencing acute on chronic HFpEF exacerbation due to adjusted Lasix schedule.
-At last admission, Lasix had been moved to M/W/F scheduling due to hypotension.
-She had been discharged on 2L of O2 due to pneumonia vs aspiration pneumonitis
-Chest X-ray 08/21: Stable exam suggesting pulmonary edema and pneumonia.
-CT of the Chest showed: Pulmonary findings as above which are suggestive of either fibrosis with superimposed pneumonia or drug induced lung injury. Given the appearance of the lungs on 2021 examination, drug-induced lung injury may be a more
likely differential consideration. Some superimposed edematous changes are possible. There is a small left effusion and a very small right effusion. Advanced coronary and aortic atherosclerosis with severe coronary artery calcification.
-Will monitor
Acute Kidney Injury
-Creatinine 1.5 on 08/24, increased from 1.2 on 08/23 and 1.0 on 08/22
-No further blood draws
Hypokalemia
-Potassium 08/24 low at 3.4
-Magnesium 08/24 normal at 2.2
-No further blood draws
Acute on Chronic Anemia, Likely Iron Deficiency
-Hemoglobin on admission 7.8, increased to 8.8 post 1 unit pRBCs on 08/19. Has remained stable around 9 since.
-No further blood draws
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
Urinary Incontinence
-Sodium on admission 129, around her baseline with fluid restriction and Lasix
-Now on regular diet with no restrictions
-No further blood draws
Stage 2 left posterior thigh pressure injury
-Present on admission, noted by RN reports
-Continue local care only for comfort
-Will monitor
Stage 1 sacrum pressure injury that has progressed to DTI
-Per Wound Notes
-Continue local care only for comfort
-Will monitor
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
Paroxysmal Atrial Fibrillation
Coronary Artery Disease s/p Stent
Orthostatic Hypotension
R & L foot bilateral corns/callouses
Hypothyroidism
Post-Herpetic Neuralgia
Anticipated Discharge: 24 - 48 hours
Subjective/Interval History
-
Date of Service: August 31, 2025
Met with patient at the bedside. She was sleeping and resting comfortably in bed. I calmly spoke to the patient at the bedside but did not make any attempt to arouse the patient. She did not respond to questions and appeared to be in deep sleep.
Patient breathing with mouth opening and with even breath spacing. There were no pauses in breath. Daughter was at the bedside and was updated on the patient's current hospital course. Nursing staff updated me on how she was doing overnight. She
took 2 doses of her morphine medication after talking about her worries -apparently she had concerns that by taking the morphine she would prolong her life and that was not her intent. Nursing staff clarified that the morphine was not likely to
prolong her life span and was for her comfort only. After patient education given she received her morphine doses.
Objective Data
-
Labs:
Hospice patient. No labs drawn.
Vital Signs:
Vital Signs
Temp Pulse Resp BP Pulse Ox
96.5 F L 107 18 132/78 98
08/31/25 07:22 08/31/25 03:53 08/31/25 03:53 08/31/25 03:53 08/31/25 03:53
I&O
08/30/25 08/31/25 09/01/25
06:59 06:59 06:59
Intake Total 720 / 720
Output Total 400 / 400 350 / 350
Balance -400 / -400 370 / 370
Review of Systems
-
Unable to obtain full review of systems at this time due to: Patient Non-verbal
History Source: Patient
Physical Exam
-
General: Well Developed, Well Nourished, No Apparent Distress, Comfortable and Appears Chronically Ill
HEENT: Normocephalic and Atraumatic
Respiratory: Non Labored Respirations and Decreased Breath Sounds
Cardiac: Regular Rhythm and S1/S2
Skin: Warm and Dry
Neuro: Other (Somnolent)
Psych: Calm and Intact Judgement/Insight
--- NOTE | 2025-08-31 08:56 | VATNOTE ---
Patient with pink 'limb restriction' band to left arm secondary to swelling. Ultrasound done previously, negative. Right arm PIV site for GIP comfort meds leaking. Unable to obtain reaccess on right side. Discussed goc with family. Patient with
decreased PO intake since yesterday (small sips), minimally responsive. PPS 20%. PIV placed to left hand for comfort medications, hospitalist aware.
--- NOTE | 2025-08-31 09:56 | CM ---
Hospice GIP care continues.
Family supportive.
Pain meds as needed .
PLAN Continue comfort measure on hospice
--- NOTE | 2025-08-31 13:12 | HOSPNOTE ---
Assessed patient in the bed minimally responsive, FLACC 0, appears to be much more comfortable than yesterday. Was able to facetime and talk with grandson this morning. Per spouse patient still taking sips of water and sherbert this morning, less
responsive now, just received dose of Morphine less than hour prior to visit. Has had prn morphine x4 doses in 24h. Skin cool and pale nail beds cyanotic. breathing nonlabored, Lungs coarse on 4LNC. Discussed patient is transitioning to actively
dying and discussed this stage and changes they may see. Discussed limited life expectancy and what to do when she passes. Much emotional support and active listening provided. Patient to remain GIP for management of pain and dyspnea.
--- NOTE | 2025-08-31 16:21 | PTCARENOTE ---
pt very lethargic. family at bedside. medicated with prn morphine for comfort. pt occasionally wakes to take sips of water and speak briefly to family. pt stated 'im ready to Go'
--- NOTE | 2025-08-31 23:30 | PTCARENOTE ---
Pt family at bed side having disagreement about Pt getting medication for pain morphine verse Tylenol. RN to bed side to evaluate non verbal pain assessment. Education and emotional support given to Pt family and Pt. Medication given, see mar for
medication admin.
[2025-09-01] MEDS: VALIUM INJECTION 2 MG IV ×2 (00:13→03:43)
[2025-09-01 00:57] VITALS: BP 86/52
[2025-09-01] MEDS: MORPHINE SULFATE 2 MG IV ×4 (01:40→05:10)
--- NOTE | 2025-09-01 03:58 | PTCARENOTE ---
Pt continues to have periods of discomfort and anxiety. Education and emotional support given to family. Daughters at bed side in agreeance with me reaching out to LICENSED PSYCHOLOGIST MANAGER for another one time dose of Valium to get Pt to comfort level. Will continue
morphine as ordered.
--- NOTE | 2025-09-01 05:58 | PTCARENOTE ---
PORTRAIT PAINTER to bed side. Pt pronounced at 0540. Family at bed side, emotional support given.
--- NOTE | 2025-09-01 06:36 | W.PN.DEATH ---
Pronouncement of
-
Called to see patient to pronounce.
No spontaneous heart tones or respirations noted.
Patient not responsive to verbal stimuli.
Patient is pronounced .
Time of : 05:40
Date of : 09/01/25
Cause of : Acute hypoxic resp failure acute heart failure with pEF.
Family Notified: Yes
--- NOTE | 2025-09-01 10:06 | PTCARENOTE ---
Patient brought to [facility] [place]. [facility] called by nightshift RN.
== END 2025-09-01 05:40 | disposition expired | DRG 951 ==
LOC: IMU 14:28
PROVIDERS: ADMITTING PHYSICIAN Internal Medicine; ATTENDING PHYSICIAN Hospitalist
DX: Z51.5 Encounter for palliative care (principal); I50.33 Acute on chronic diastolic (congestive) heart failure; J96.01 Acute respiratory failure with hypoxia; N17.9 Acute kidney failure, unspecified; E22.2 Syndrome of inappropriate secretion of antidiuretic hormone; B02.29 Other postherpetic nervous system involvement; E87.6 Hypokalemia; L89.151 Pressure ulcer of sacral region, stage 1; I48.0 Paroxysmal atrial fibrillation; E03.9 Hypothyroidism, unspecified; L89.892 Pressure ulcer of other site, stage 2; Z66 Do not resuscitate; Z87.891 Personal history of nicotine dependence; Z95.0 Presence of cardiac pacemaker; Z95.5 Presence of coronary angioplasty implant and graft